=== PATIENT | male | born 1930 | race Two or more races ===

== ENCOUNTER 2016-11-20 13:33 | Inpatient (IN) | payer MEDICARE, OTHER ==
[2016-11-20] VITALS (16 sets, daily range): BP systolic 71–134; BP diastolic 45–77
[~2016-11-20] VITALS: Ht 152.4 cm; Wt 72.6 kg
[2016-11-20] MEDS ORDERED: Cefepime HCl 2 GM in NS 55 ML IV SCH (14:15)
--- NOTE | 2016-11-20 14:20 | Emergency Room Report ---
History of Present Illness General Chief Complaint: Altered Level of Consciousness Source: EMS Present Illness HPI 86YOM with dementia BIBEMS from home for "more altered than usual." No family members bedside EMS not currently present Unknown time of last seen normal Patient not providing HPI currently HPI otherwise limited by AMS Allergies: Coded Allergies: No Known Allergies (Unverified , 11/20/16) Patient History Limited by: age, medical condition Past Medical History: unable to obtain, dementia Past Surgical History: unable to obtain Pertinent Family History: unable to obtain Social History: Denies: smoking, alcohol use, drug use Immunizations: UTD Reviewed Nursing Documentation: PMH: Agreed, PSxH: Agreed Nursing Documentation-PMH Past Medical History: No History, Except For Hx Pacemaker: Yes Hx Diabetes: Yes Hx Neurological Problems: Yes - Alzheimer's disease Review of Systems All Other Systems: limited - AMS Physical Exam Vital Signs Date Time Temp Pulse Resp B/P (MAP) Pulse Ox O2 Delivery O2 Flow Rate FiO2 11/20/16 13:35 97.9 79 24 79/50 96 Room Air Sp02 EP Interpretation: reviewed, normal, abnormal General Appearance: normal inspection, no apparent distress, cachetic, thin, Chronically Ill Head: normocephalic, atraumatic Eyes: bilateral eye PERRL, bilateral eye EOMI ENT: normal ENT inspection, hearing grossly normal, normal pharynx, no angioedema, other - non verbal Neck: normal inspection, full range of motion, supple, no meningismus, no bony tend Respiratory: normal inspection, no respiratory distress, no retraction, no accessory muscle use, no wheezing, other - Bilateral rhonchi Cardiovascular #1: regular rate, rhythm, no edema Gastrointestinal: normal inspection, normal bowel sounds, non tender, soft, no mass, non-distended, no guarding, no hernia, no pulsatile mass, no rebound Genitourinary: no CVA tenderness Musculoskeletal: normal inspection, back normal, normal range of motion, Yogi' s Sign negative Neurologic: normal inspection, alert, responsive, other - Squeezes right/left hand on command. Does not move legs on command. Eyes closed Psychiatric: normal inspection, judgement/insight normal, mood/affect normal Skin: normal inspection, normal color, no rash Lymphatic: normal inspection Procedures Critical Care Time Critical Care Time 40minutes of CC time including d/w family, review of labs, imaging, d/w hospitalist, multiple bedside reassessment of fluid responsiveness, dosing of Abx Central Line Central Line : Consent: Emergent Central Line Lumen: triple Maximal Sterile Barrier Tech: yes cap, yes mask, yes sterile gown, yes sterile gloves, yes large sterile sheet, yes hand hygiene, yes chlorhexidine prep No Max Barrier Tech Because: emergency insertion Central Line Postion: femoral (R) Anesthesia: Lidocaine Complications: none Central Line Post Position: sutured, good blood return Attempts: One Patient Tolerated: Well Complications: None Intubation Intubation : Consent: Emergent Intubation Method: orotracheal Tube Size (cm): 7.5 Medications: Etomidate, Rocuronium Breath Sounds after Intubation: equal Intubation Complications: no complications Attempts: One Patient Tolerated: Well Complications: None Medical Decision Making Medicare Attestation I Rosanna Devi MD hereby attest that the medical record entry for date of service, 11/20/16 accurately reflects signatures/notations that I made in my capacity as MD when I treated/diagnosed the above listed Medicare beneficiary. I attest that this information is true, accurate and complete to the best of my knowledge. I understand that any falsification, omission, or concealment of material fact may subject me to administrative, civil, or criminal liability. This patient warrants hospital admission for extreme of age and has a condition that cannot be treated as outpatient. Diagnostic Impression: Primary Impression: Altered level of consciousness Additional Impressions: Sepsis Qualified Codes: A41.9 - Sepsis, unspecified organism UTI (urinary tract infection) Qualified Codes: N30.00 - Acute cystitis without hematuria Hyperkalemia Lactic acid acidosis ER Course Initial BP was hypotensive- was given 500cc fluid but on concern for additional fluid and unknown EF/cardiac history had central line placed with pressors started Afebrile O2 sat <80, improved ti 100% on NRB but then continued to downtrend - was emergently intubated for hypoxia CT head: no acute CVA Labs: Leuks 40k. Hb 8.5 Elevated potassium with ventricular paced rhythym on ECG. Elevated serum Cr. Unknown renal history HyperK tx with calcium, nebs, glucose/insulin and kayexelate Dx: Sepsis, possibly septic shock, hyperkalemia, renal failure, lactic acidosis Blood, urine Cx sent Empiric Abx given for UTI Spoke to son bedside. He wanted "everything done" including central line and intubation. Endorsed to Dr Matthews for ICU admit at 340pm EKG Diagnostic Results Rate: other - Ventricular paced Rhythm: NSR ST Segments: no acute changes ASA given to the pt in ED: No Rhythm Strip Diag. Results EP Interpretation: yes Rate: 70 Rhythm: NSR, no PVC's, no ectopy Chest X-Ray Diagnostic Results Chest X-Ray Diagnostic Results : Chest X-Ray Ordered: Yes # of Views/Limited/Complete: 1 View Indication: Other - AMS EP Interpretation: Yes Interpretation: no consolidation, no effusion, no pneumothorax, other - pacemaker Impression: Other - ET tube in satisfactory position Electronically Signed by: Dr Rosanna Devi MD Last Vital Signs Date Time Temp Pulse Resp B/P (MAP) Pulse Ox O2 Delivery O2 Flow Rate FiO2 11/20/16 13:35 97.9 79 24 79/50 96 Room Air Status: improved Disposition: ADMITTED INPATIENT Condition: Critical ROSANNA DEVI M.D. Nov 20, 2016 14:20
--- NOTE | 2016-11-20 14:36 | Diagnostic Imaging Report ---
Indication: Headache Technique: Contiguous 5 mm thick transaxial imaging of the head obtained in a Siemens Sensation [address] scanner. Soft tissue and bone windows generated. Total Dose length Product (DLP): [address] Dose Index Volume (CTDIvol): 70.38, 0.15 mGy Comparison: none Findings: There is moderate prominence of the ventricles, basal cisterns, and cerebral sulci consistent with atrophy. Moderate, nonspecific, white matter hypoattenuation is noted throughout the brain consistent with chronic small vessel disease. There is no midline shift, edema, acute hemorrhage, mass effect, or abnormal extra-axial fluid collections. Bones and extra osseous soft tissues are unremarkable. Impression: No acute intracranial bleed, mass effect or edema. Moderate atrophy of the brain. Evidence of chronic small vessel disease involving white matter tracts. The CT scanner at [facility] is accredited by the [employer] and the scans are performed using dose optimization techniques as appropriate to a performed exam including Automatic Exposure control.
--- NOTE | 2016-11-20 14:37 | Diagnostic Imaging Report ---
Indication: Dyspnea Comparison: None A single view chest radiograph was obtained. Findings: Heart is enlarged. There is mild left basal atelectasis or scarring. Bones are osteopenic. There is a pacemaker. No evidence of interstitial edema. Impression: Retrocardiac density likely atelectasis or scarring. Pneumonia not entirely excluded. Please correlate clinically.
[2016-11-20 14:43] LABS: APPEARANCE,URINE TURBID; KETONES,URINE NEGATIVE (NEGATIVE); LEUKOCYTE ESTERASE ,URINE 3+ (NEGATIVE); NITRITE,URINE POSITIVE (NEGATIVE); PH,URINE 9 (4.5-8.0); PROTEIN,URINE 3+ (NEGATIVE); UROBILINOGEN,URINE NORMAL MG/DL (0.0-1.0)
[2016-11-20 14:45] LABS: MEAN CORPUSCULAR HEMOGLOBIN 31.2 PG (27.0-31.0); MEAN CORPUSCULAR VOLUME 101 FL (80-99); MEAN PLATELET VOLUME 11.4 FL (6.5-10.1); PLATELET COUNT 237 K/UL (150-450); RED BLOOD COUNT 2.73 M/UL (4.70-6.10); RED CELL DISTRIBUTION WIDTH 15.6 % (11.6-14.8)
[2016-11-20 14:52] LABS: WHITE BLOOD COUNT 43.1 K/UL (4.8-10.8)
[2016-11-20 14:58] LABS: ALANINE AMINOTRANSFERASE 19 U/L (3-41); ALBUMIN/GLOBULIN RATIO 0.8 (1.0-2.7); ANION GAP 19 (5-15); ASPARTATE AMINO TRANSFERASE 34 U/L (5-40); BACTERIA,URINE MANY /HPF; CALCIUM 9.4 mg/dL (8.6-10.2); CARBON DIOXIDE 22 mEQ/L (20-30); CHLORIDE 111 mEQ/L (98-107); CREATININE 6.3 mg/dL (0.7-1.2); HEMOLYSIS 2; POTASSIUM 5.9 mEQ/L (3.4-4.9); RBC,URINE TNTC /HPF (0 - 0); SODIUM 152 mEQ/L (135-145); SQUAMOUS EPITHELIAL CELL,UR FEW /LPF (NONE/OCC); TOTAL PROTEIN 5.4 g/dL (6.6-8.7); WBC,URINE TNTC /HPF (0 - 0)
[2016-11-20 14:59] LABS: REFLEX LACTIC ACID YES OR NO YES
[2016-11-20] MEDS ORDERED: Lidocaine 1% MPF 10mg/ml 5ml ONE (15:02)
[2016-11-20 15:09] LABS: CKMB 18.3 ng/mL (< 6.7)
[2016-11-20] MEDS ORDERED: Levophed 4mg/4mL Inj IV ONE ×2 (15:18→15:40)
[2016-11-20] MEDS ORDERED: Cefepime 1gm vial ONE (15:40)
[2016-11-20] MEDS ORDERED: Sodium Polystyrene Sulfonate 15gm Powder ORAL ONE (15:45)
[2016-11-20] MEDS ORDERED: Calcium Gluconate 1gm/10ml vial IVP ONE (15:45)
[2016-11-20] MEDS ORDERED: Vancomycin 1 GM in D5W 275 ML IVPB ONE (15:45)
[2016-11-20] MEDS ORDERED: Vancomycin 1gm inj IVPB ONE (16:05)
[2016-11-20 16:07] LABS: TROPONIN I 2.115 ng/mL (0.000-0.056)
[2016-11-20] MEDS ORDERED: NS 275 ML ONE (16:07)
[2016-11-20 16:30] LABS: ABG ALLEN TEST POSITIVE; ABG BASE EXCESS -4.9; ABG PCO2 38.7 mmHg (35.0-45.0)
[2016-11-20 16:57] LABS: BAND NEUTROPHILS % (MANUAL) 12 % (0-8); BASOPHILS % (MANUAL) 0 % (0-2); EOSINOPHILS % (MANUAL) 0 % (0-3); LYMPHOCYTES % (MANUAL) 3 % (20-45); NEUTROPHILS % (MANUAL) 83 % (45-75); PLATELET ESTIMATE ADEQUATE; TOTAL CELLS COUNTED 100
[2016-11-20 16:58] LABS: ANISOCYTOSIS 2+; MACROCYTES 2+; POLYCHROMASIA 1+
[2016-11-20 16:59] LABS: HYPOCHROMASIA 2+; PLATELET MORPHOLOGY NORMAL
[2016-11-20] MEDS ORDERED: Lidocaine 1% MPF 10mg/ml 5ml INJ ONE (17:15)
[2016-11-20] MEDS ORDERED: Acetaminophen 650 MG SUPP RECTAL PRN (18:30)
[2016-11-20] MEDS ORDERED: Albuterol/Ipratropium 3ml neb HHN PRN ×2 (18:30)
[2016-11-20] MEDS ORDERED: LORazepam Inj 2mg/ml 1ml IV PRN (18:30)
[2016-11-20] MEDS ORDERED: Miralax 17gm pkt ORAL PRN (18:30)
[2016-11-20 19:12] LABS: URIC ACID 9.5 mg/dL (3.0-7.5)
--- NOTE | 2016-11-20 19:21 | Consultation ---
History of Present Illness General Date patient seen: Nov 20, 2016 Time patient seen: 19:22 Chief Complaint: Altered Level of Consciousness Reason for Consultation: septic shock Present Illness HPI 86 y/o M with hx of Dementia, s/p PPM, ?DM2 (son not sure) is brought to ED via EMS on 11/20 due to worsening AMS. Limited history. No family present and EMS had already left. Patient hypotensive to 70s/30s upon admission, started on pressors. Also intubated in the ED, now transferred to ICU. WBC very elavted, and U/a with significant pyuria. CXR with retrocardiac density. BJORN, lactic acidosis. Per son, patient was fine yesterday. Son was not able to provide more detailed history. Started on IV Vanco and Zosyn. Allergies: Coded Allergies: No Known Allergies (Unverified , 11/20/16) Patient History Healthcare decision maker Resuscitation status Advanced Directive on File Patient History Narrative PMHx: Above FHx: non pertinent from ID Social Hx: unable to obtain given condition Past Medical/Surgical History Past Medical/Surgical History: (1) Septic shock (2) Altered mental status (3) Hyperkalemia (4) UTI (urinary tract infection) (5) Sepsis (6) Lactic acid acidosis (7) Altered level of consciousness Review of Systems ROS Narrative unable to obtain given condition Physical Exam Physical Exam Narrative General Appearance: cachetic, thin, Chronically Ill, intubated HEENT: ETT in place Respiratory: normal inspection, no respiratory distress, no retraction, no accessory muscle use, no wheezing, other - Bilateral rhonchi Cardiovascular : regular rate, rhythm, no edema Musculoskeletal: normal inspection, no edema Neurologic: intubated/sedated Skin: normal inspection, normal color, no rash Abd: BS+, S+D, ND Last 24 Hour Vital Signs Date Time Temp Pulse Resp B/P (MAP) Pulse Ox O2 Delivery O2 Flow Rate FiO2 11/20/16 19:07 60 23 50 11/20/16 18:30 97/51 11/20/16 17:53 25 100 11/20/16 17:30 97.9 60 16 124/59 100 Mechanical Ventilator 15.0 100 11/20/16 17:30 97.9 60 16 124/59 100 Mechanical Ventilator 15.0 100 11/20/16 17:15 124/59 11/20/16 17:00 130/58 11/20/16 16:45 97.9 60 16 128/62 100 Mechanical Ventilator 15.0 100 11/20/16 16:30 97.9 60 16 128/55 100 Mechanical Ventilator 100 11/20/16 16:30 128/55 11/20/16 16:15 120/48 11/20/16 16:15 97.9 60 22 118/57 100 Mechanical Ventilator 15.0 100 11/20/16 16:00 125/53 11/20/16 15:54 60 16 Mechanical Ventilator 100 11/20/16 15:48 71/43 11/20/16 15:45 97.9 60 16 114/52 100 Mechanical Ventilator 100 11/20/16 15:44 60 16 100 11/20/16 15:30 98.4 60 12 71/45 100 Mechanical Ventilator 100 11/20/16 15:20 60 12 71/45 80 Non-Rebreather 15.0 11/20/16 14:00 98.4 60 23 91/56 99 Non-Rebreather 15.0 11/20/16 13:35 97.9 79 24 79/50 96 Room Air Intake and Output 11/20/16 11/21/16 19:00 07:00 Intake Total 55 ml Output Total 30 ml Balance 25 ml Intake IV Total 55 ml Output Urine Total 30 ml # Bowel Movements 2 Laboratory Tests Test 11/20/16 14:00 11/20/16 15:40 11/20/16 16:15 White Blood Count 43.1 K/UL (4.8-10.8) *H Red Blood Count 2.73 M/UL (4.70-6.10) L Hemoglobin 8.5 G/DL (14.2-18.0) L Hematocrit 27.4 % (42.0-52.0) L Mean Corpuscular Volume 101 FL (80-99) H Mean Corpuscular Hemoglobin 31.2 PG (27.0-31.0) H Mean Corpuscular Hemoglobin Concent 31.0 G/DL (32.0-36.0) L Red Cell Distribution Width 15.6 % (11.6-14.8) H Platelet Count 237 K/UL (150-450) Mean Platelet Volume 11.4 FL (6.5-10.1) H Neutrophils (%) (Auto) % (45.0-75.0) Lymphocytes (%) (Auto) % (20.0-45.0) Monocytes (%) (Auto) % (1.0-10.0) Eosinophils (%) (Auto) % (0.0-3.0) Basophils (%) (Auto) % (0.0-2.0) Differential Total Cells Counted 100 Neutrophils % (Manual) 83 % (45-75) H Lymphocytes % (Manual) 3 % (20-45) L Monocytes % (Manual) 2 % (1-10) Eosinophils % (Manual) 0 % (0-3) Basophils % (Manual) 0 % (0-2) Band Neutrophils 12 % (0-8) H Platelet Estimate Adequate Platelet Morphology Normal Polychromasia 1+ Hypochromasia 2+ Anisocytosis 2+ Macrocytosis 2+ Urine Color Pale yellow Urine Appearance Turbid Urine pH 9 (4.5-8.0) Urine Specific [place] 1.015 (1.005-1.035) Urine Protein 3+ (NEGATIVE) H Urine Glucose (UA) Negative (NEGATIVE) Urine Ketones Negative (NEGATIVE) Urine Occult Blood 5+ (NEGATIVE) H Urine Nitrite Positive (NEGATIVE) H Urine Bilirubin Negative (NEGATIVE) Urine Urobilinogen Normal MG/DL (0.0-1.0) Urine Leukocyte Esterase 3+ (NEGATIVE) H Urine RBC Tntc /HPF (0 - 0) H Urine WBC Tntc /HPF (0 - 0) H Urine Squamous Epithelial Cells Few /LPF (NONE/OCC) Urine Bacteria Many /HPF (NONE) H Sodium Level 152 mEQ/L (135-145) H Potassium Level 5.9 mEQ/L (3.4-4.9) H Chloride Level 111 mEQ/L (98-107) H Carbon Dioxide Level 22 mEQ/L (20-30) Anion Gap 19 (5-15) H Blood Urea Nitrogen 167 mg/dL (7-23) H Creatinine 6.3 mg/dL (0.7-1.2) H Estimat Glomerular Filtration Rate mL/min (>60) Glucose Level 146 mg/dL (74-106) H Lactic Acid Level 6.50 mmol/L (0.66-2.22) H 4.10 mmol/L (0.66-2.22) H Uric Acid 9.5 mg/dL (3.0-7.5) H Calcium Level 9.4 mg/dL (8.6-10.2) Total Bilirubin 0.5 mg/dL (0.0-1.2) Aspartate Amino Transf (AST/SGOT) 34 U/L (5-40) Alanine Aminotransferase (ALT/SGPT) 19 U/L (3-41) Alkaline Phosphatase 66 U/L (40-129) Total Creatine Kinase 474 U/L (38-174) H Creatine Kinase MB 18.3 ng/mL (< 6.7) H Creatine Kinase MB Relative Index 3.7 Troponin I 2.115 ng/mL (0.000-0.056) Pro-B-Type Natriuretic Peptide > 38289 pg/mL (0-450) H Total Protein 5.4 g/dL (6.6-8.7) L Albumin 2.4 g/dL (3.5-5.2) L Globulin 3.0 g/dL Albumin/Globulin Ratio 0.8 (1.0-2.7) L Arterial Blood pH 7.341 (7.350-7.450) Arterial Blood Partial Pressure CO2 38.7 mmHg (35.0-45.0) Arterial Blood Partial Pressure O2 311.9 mmHg (75.0-100.0) H Arterial Blood HCO3 20.5 mmol/L (22.0-26.0) L Arterial Blood Oxygen Saturation 99.4 % (92.0-98.0) H Arterial Blood Base Excess -4.9 Chato Test Positive Microbiology Date/Time Source Procedure Growth Status 11/20/16 17:15 Nasal Nares Influenza Types A,B Antigen (LIZA) - Final Complete Height (Feet): 5 Weight (Pounds): 100 Medications Current Medications Medications (Trade) Dose Ordered Sig/Chasidy Route PRN Reason Start Time Stop Time Status Last Admin Dose Admin Acetaminophen (Tylenol) 650 mg Q4H PRN ORAL Mild Pain (Pain Scale 1-3) 11/20/16 18:30 12/20/16 18:29 Acetaminophen (Tylenol) 650 mg Q4H PRN ORAL fever 11/20/16 18:30 12/20/16 18:29 Acetaminophen (Tylenol) 650 mg Q4H PRN RECTAL Mild Pain (Pain Scale 1-3) 11/20/16 18:30 12/20/16 18:29 Albuterol/ Ipratropium (DuoNeb 0.5-3(2.5)mg/3ml) 3 ml EVERY 4 HOURS PRN HHN Shortness of Breath 11/20/16 18:30 11/25/16 18:29 Cefepime HCl 2 gm/ Sodium Chloride 55 ml @ 110 mls/hr Q12H IV 11/20/16 14:15 11/21/16 14:14 11/20/16 15:46 Dextrose 1,000 ml @ 50 mls/hr Q20H IV 11/20/16 18:30 12/20/16 18:29 Dextrose (Dextrose 50%) STAT PRN IV Hypoglycemia 11/20/16 18:30 12/20/16 18:29 Heparin Sodium (Porcine) (Heparin 5000 units/ml) 5,000 units EVERY 12 HOURS SUBQ 11/20/16 21:00 12/20/16 20:59 Lansoprazole (Prevacid) 30 mg QHS GT 11/20/16 21:00 12/20/16 20:59 Lorazepam (Ativan 2mg/ml 1ml) 2 mg EVERY 2 HOURS PRN IV For Anxiety 11/20/16 18:30 11/27/16 18:29 Norepinephrine Bitartrate 4 mg/ Dextrose 254 ml @ 0 mls/hr Q24H IV 11/20/16 18:30 12/20/16 18:29 Norepinephrine Bitartrate 8 mg/ Dextrose 250 ml @ 0 mls/hr Q24H IV 11/20/16 15:30 12/20/16 15:29 11/20/16 15:48 Ondansetron HCl (Zofran ODT) 4 mg Q6H PRN ORAL Nausea & Vomiting 11/20/16 18:30 12/20/16 18:29 Piperacillin Sod/ Tazobactam Sod 3.375 gm/Dextrose 100 ml @ 25 mls/hr EVERY 8 HOURS IV 11/20/16 22:00 11/25/16 21:59 Polyethylene Glycol (Miralax) 17 gm DAILYPRN PRN ORAL Constipation 11/20/16 18:30 12/20/16 18:29 Vancomycin HCl (Vanco rx to dose) 1 ea DAILY PRN MISC SEPSIS 11/20/16 18:30 12/20/16 18:29 UNV Vancomycin HCl 1 gm/Dextrose 275 ml @ 183.3 mls/ hr Q24H IV 11/20/16 23:45 11/25/16 23:44 UNV Assessment/Plan Assessment/Plan Abx: Cefepime x1 11/20 IV Vanco 11/20- Zoyn 11/20- Assesment: Septic shock- likely 2ry to UTI- r/o PNA, r/o bacteremia -U/a WBC too many to count, nit +, leuk +3, ucx p -Bcx p -CXR: Retrocardiac density likely atelectasis or scarring. Pneumonia not entirely excluded. -flu neg Hyperleukocytosis with left shift/bandemia Lactic acidosis BJORN/Renal failure (GFR 5, Cr 6.3) Dementia ?DM2 Plan: -Continue IV Vancomycin -Switch Zosyn to Meropenem to cover for ESBL given septic shock and possible urosepsis -f/u cx -check Cdiff -f/u KUB, renal u.s -Monitor CBC/BMP, temperatures Thank you for this consultation. Will continue to follow along with you. Discussed with RN and son at bedside, Lindsey Willis M.D. Nov 20, 2016 19:21
--- NOTE | 2016-11-20 20:47 | Nephrology Progress Note ---
Assessment/Plan Problem List: (1) Chronic kidney disease (2) Septic shock (3) Hyperkalemia (4) UTI (urinary tract infection) (5) Sepsis (6) Altered mental status (7) Lactic acid acidosis (8) Altered level of consciousness Plan H&P Dictated # [id number] Subjective ROS Limited/Unobtainable: Yes Subjective unresponsive, intubated in the ICU Objective Objective Last 24 Hour Vital Signs Date Time Temp Pulse Resp B/P (MAP) Pulse Ox O2 Delivery O2 Flow Rate FiO2 11/20/16 19:07 60 23 50 11/20/16 19:00 60 16 97/49 100 Mechanical Ventilator 50 11/20/16 18:30 60 18 99/56 98 Mechanical Ventilator 50 11/20/16 18:30 97/51 11/20/16 18:15 60 16 134/49 98 Mechanical Ventilator 100 11/20/16 18:00 98.9 60 16 127/65 98 Mechanical Ventilator 100 11/20/16 17:53 25 100 11/20/16 17:30 97.9 60 16 124/59 100 Mechanical Ventilator 15.0 100 11/20/16 17:30 97.9 60 16 124/59 100 Mechanical Ventilator 15.0 100 11/20/16 17:15 124/59 11/20/16 17:00 130/58 11/20/16 16:45 97.9 60 16 128/62 100 Mechanical Ventilator 15.0 100 11/20/16 16:30 97.9 60 16 128/55 100 Mechanical Ventilator 100 11/20/16 16:30 128/55 11/20/16 16:15 120/48 11/20/16 16:15 97.9 60 22 118/57 100 Mechanical Ventilator 15.0 100 11/20/16 16:00 125/53 11/20/16 15:54 60 16 Mechanical Ventilator 100 11/20/16 15:48 71/43 11/20/16 15:45 97.9 60 16 114/52 100 Mechanical Ventilator 100 11/20/16 15:44 60 16 100 11/20/16 15:30 98.4 60 12 71/45 100 Mechanical Ventilator 100 11/20/16 15:20 60 12 71/45 80 Non-Rebreather 15.0 11/20/16 14:00 98.4 60 23 91/56 99 Non-Rebreather 15.0 11/20/16 13:35 97.9 79 24 79/50 96 Room Air Intake and Output 11/20/16 11/21/16 19:00 07:00 Intake Total 55 ml Output Total 30 ml Balance 25 ml Intake IV Total 55 ml Output Urine Total 30 ml # Bowel Movements 2 Laboratory Tests 11/20/16 14:00: White Blood Count 43.1*H, Red Blood Count 2.73L, Hemoglobin 8.5L, Hematocrit 27.4L, Mean Corpuscular Volume 101H, Mean Corpuscular Hemoglobin 31.2H, Mean Corpuscular Hemoglobin Concent 31.0L, Red Cell Distribution Width 15.6H, Platelet Count 237, Mean Platelet Volume 11.4H, Neutrophils (%) (Auto) , Lymphocytes (%) (Auto) , Monocytes (%) (Auto) , Eosinophils (%) (Auto) , Basophils (%) (Auto) , Differential Total Cells Counted 100, Neutrophils % ( Manual) 83H, Lymphocytes % (Manual) 3L, Monocytes % (Manual) 2, Eosinophils % ( Manual) 0, Basophils % (Manual) 0, Band Neutrophils 12H, Platelet Estimate Adequate, Platelet Morphology Normal, Polychromasia 1+, Hypochromasia 2+, Anisocytosis 2+, Macrocytosis 2+, Urine Color Pale yellow, Urine Appearance Turbid, Urine pH 9, Urine Specific [place] 1.015, Urine Protein 3+H, Urine Glucose (UA) Negative, Urine Ketones Negative, Urine Occult Blood 5+H, Urine Nitrite PositiveH, Urine Bilirubin Negative, Urine Urobilinogen Normal, Urine Leukocyte Esterase 3+H, Urine RBC TntcH, Urine WBC TntcH, Urine Squamous Epithelial Cells Few, Urine Bacteria ManyH, Sodium Level 152H, Potassium Level 5.9H, Chloride Level 111H, Carbon Dioxide Level 22, Anion Gap 19H, Blood Urea Nitrogen 167H, Creatinine 6.3H, Estimat Glomerular Filtration Rate , Glucose Level 146H, Lactic Acid Level 6.50H, Uric Acid 9.5H, Calcium Level 9.4, Total Bilirubin 0.5, Aspartate Amino Transf (AST/SGOT) 34, Alanine Aminotransferase ( ALT/SGPT) 19, Alkaline Phosphatase 66, Total Creatine Kinase 474H, Creatine Kinase MB 18.3H, Creatine Kinase MB Relative Index 3.7, Troponin I 2.115*H, Pro- B-Type Natriuretic Peptide > 52885S, Total Protein 5.4L, Albumin 2.4L, Globulin 3.0, Albumin/Globulin Ratio 0.8L 11/20/16 15:40: Lactic Acid Level 4.10H 11/20/16 16:15: Arterial Blood pH 7.341L, Arterial Blood Partial Pressure CO2 38.7, Arterial Blood Partial Pressure O2 311.9H, Arterial Blood HCO3 20.5L, Arterial Blood Oxygen Saturation 99.4H, Arterial Blood Base Excess -4.9, Chato Test Positive Height (Feet): 5 Weight (Pounds): 126 Neck: non-tender, normal alignment Cardiovascular: normal rate Respiratory/Chest: crackles/rales Abdomen: soft Genitourinary/Rectal: normal genital exam Extremities: moderate edema Neurologic: unresponsive Khushboo Lopez N.P. Nov 20, 2016 20:47
[2016-11-20] MEDS ORDERED: Meropenem 500 MG in NS 55 ML IVPB SCH (21:00)
[2016-11-20] MEDS ORDERED: Heparin 5000 units/ml inj SUBQ SCH (21:00)
[2016-11-20] MEDS: Heparin 5000 units/ml inj SUBQ SCH (21:08)
[2016-11-20 21:26] LABS: ABG PCO2 37.1 mmHg (35.0-45.0)
[2016-11-20 21:27] LABS: ABG ALLEN TEST POSITIVE
--- NOTE | 2016-11-20 22:58 | Infectious Diseases Prog Note ---
Assessment/Plan Problems: (1) HCAP (healthcare-associated pneumonia) Assessment & Plan: WILL START ZYVOX AND MEROPENEM , SEND SPUTUM CULTURE, AND BLOOD CULTURE (2) UTI (urinary tract infection) Assessment & Plan: will start meropenem empirically , pending urine culture results (3) Septic shock Assessment & Plan: due to the above, continue wide spectrum antibiotics , and pressors, pending culture results (4) Lactic acid acidosis Assessment & Plan: due to septic shock, continue hydration and maintain systolic blood pressure above 100 (5) Altered mental status Assessment & Plan: due to septic shock, intubated, on echanical ventilation. recommend neurology eval (6) Sacral decubitus ulcer, stage IV Assessment & Plan: with yellowish exudate, needs to rule out underlying osteomyelitis, will send wound culture, and continue wide spectrum antibiotics, will obtain MRI of the sacrum once clinicaly stable to rule out osteomyelitis (7) BJORN (acute kidney injury) Assessment & Plan: due to septic shock , with electrolytes abnormalities, continue ivf for hydration, monitor renal function and UOP, renal service is following (8) Diabetes mellitus, type II Assessment & Plan: recommend tight glycemic control to keep blood glucose between 80-120 (9) Respiratory failure Assessment & Plan: due to the above, intubated on mechanical ventilation, monitor ABG, and CXR Subjective Allergies: Coded Allergies: No Known Allergies (Unverified , 11/20/16) Objective Vital Signs Last 24 Hour Vital Signs Date Time Temp Pulse Resp B/P (MAP) Pulse Ox O2 Delivery O2 Flow Rate FiO2 11/20/16 22:34 60 19 40 11/20/16 21:30 40 11/20/16 21:14 60 17 50 11/20/16 20:00 50 11/20/16 19:07 60 23 50 11/20/16 19:00 60 16 97/49 100 Mechanical Ventilator 50 11/20/16 18:30 60 18 99/56 98 Mechanical Ventilator 50 11/20/16 18:30 97/51 11/20/16 18:15 60 16 134/49 98 Mechanical Ventilator 100 11/20/16 18:00 98.9 60 16 127/65 98 Mechanical Ventilator 100 11/20/16 17:53 25 100 11/20/16 17:30 97.9 60 16 124/59 100 Mechanical Ventilator 15.0 100 11/20/16 17:30 97.9 60 16 124/59 100 Mechanical Ventilator 15.0 100 11/20/16 17:15 124/59 11/20/16 17:00 130/58 11/20/16 16:45 97.9 60 16 128/62 100 Mechanical Ventilator 15.0 100 11/20/16 16:30 97.9 60 16 128/55 100 Mechanical Ventilator 100 11/20/16 16:30 128/55 11/20/16 16:15 120/48 11/20/16 16:15 97.9 60 22 118/57 100 Mechanical Ventilator 15.0 100 11/20/16 16:00 125/53 11/20/16 15:54 60 16 Mechanical Ventilator 100 11/20/16 15:48 71/43 11/20/16 15:45 97.9 60 16 114/52 100 Mechanical Ventilator 100 11/20/16 15:44 60 16 100 11/20/16 15:30 98.4 60 12 71/45 100 Mechanical Ventilator 100 11/20/16 15:20 60 12 71/45 80 Non-Rebreather 15.0 11/20/16 14:00 98.4 60 23 91/56 99 Non-Rebreather 15.0 11/20/16 13:35 97.9 79 24 79/50 96 Room Air Height (Feet): 5 Weight (Pounds): 126 Microbiology Date/Time Source Procedure Growth Status 11/20/16 17:15 Nasal Nares Influenza Types A,B Antigen (LIZA) - Final Complete Laboratory Tests Test 11/20/16 14:00 11/20/16 15:40 11/20/16 16:15 11/20/16 21:20 White Blood Count 43.1 K/UL (4.8-10.8) *H Red Blood Count 2.73 M/UL (4.70-6.10) L Hemoglobin 8.5 G/DL (14.2-18.0) L Hematocrit 27.4 % (42.0-52.0) L Mean Corpuscular Volume 101 FL (80-99) H Mean Corpuscular Hemoglobin 31.2 PG (27.0-31.0) H Mean Corpuscular Hemoglobin Concent 31.0 G/DL (32.0-36.0) L Red Cell Distribution Width 15.6 % (11.6-14.8) H Platelet Count 237 K/UL (150-450) Mean Platelet Volume 11.4 FL (6.5-10.1) H Neutrophils (%) (Auto) % (45.0-75.0) Lymphocytes (%) (Auto) % (20.0-45.0) Monocytes (%) (Auto) % (1.0-10.0) Eosinophils (%) (Auto) % (0.0-3.0) Basophils (%) (Auto) % (0.0-2.0) Differential Total Cells Counted 100 Neutrophils % (Manual) 83 % (45-75) H Lymphocytes % (Manual) 3 % (20-45) L Monocytes % (Manual) 2 % (1-10) Eosinophils % (Manual) 0 % (0-3) Basophils % (Manual) 0 % (0-2) Band Neutrophils 12 % (0-8) H Platelet Estimate Adequate Platelet Morphology Normal Polychromasia 1+ Hypochromasia 2+ Anisocytosis 2+ Macrocytosis 2+ Urine Color Pale yellow Urine Appearance Turbid Urine pH 9 (4.5-8.0) Urine Specific Preston 1.015 (1.005-1.035) Urine Protein 3+ (NEGATIVE) H Urine Glucose (UA) Negative (NEGATIVE) Urine Ketones Negative (NEGATIVE) Urine Occult Blood 5+ (NEGATIVE) H Urine Nitrite Positive (NEGATIVE) H Urine Bilirubin Negative (NEGATIVE) Urine Urobilinogen Normal MG/DL (0.0-1.0) Urine Leukocyte Esterase 3+ (NEGATIVE) H Urine RBC Tntc /HPF (0 - 0) H Urine WBC Tntc /HPF (0 - 0) H Urine Squamous Epithelial Cells Few /LPF (NONE/OCC) Urine Bacteria Many /HPF (NONE) H Sodium Level 152 mEQ/L (135-145) H Potassium Level 5.9 mEQ/L (3.4-4.9) H Chloride Level 111 mEQ/L (98-107) H Carbon Dioxide Level 22 mEQ/L (20-30) Anion Gap 19 (5-15) H Blood Urea Nitrogen 167 mg/dL (7-23) H Creatinine 6.3 mg/dL (0.7-1.2) H Estimat Glomerular Filtration Rate mL/min (>60) Glucose Level 146 mg/dL (74-106) H Lactic Acid Level 6.50 mmol/L (0.66-2.22) H 4.10 mmol/L (0.66-2.22) H Uric Acid 9.5 mg/dL (3.0-7.5) H Calcium Level 9.4 mg/dL (8.6-10.2) Total Bilirubin 0.5 mg/dL (0.0-1.2) Aspartate Amino Transf (AST/SGOT) 34 U/L (5-40) Alanine Aminotransferase (ALT/SGPT) 19 U/L (3-41) Alkaline Phosphatase 66 U/L (40-129) Total Creatine Kinase 474 U/L (38-174) H Creatine Kinase MB 18.3 ng/mL (< 6.7) H Creatine Kinase MB Relative Index 3.7 Troponin I 2.115 ng/mL (0.000-0.056) Pro-B-Type Natriuretic Peptide > 76487 pg/mL (0-450) H Total Protein 5.4 g/dL (6.6-8.7) L Albumin 2.4 g/dL (3.5-5.2) L Globulin 3.0 g/dL Albumin/Globulin Ratio 0.8 (1.0-2.7) L Arterial Blood pH 7.341 (7.350-7.450) 7.400 (7.350-7.450) Arterial Blood Partial Pressure CO2 38.7 mmHg (35.0-45.0) 37.1 mmHg (35.0-45.0) Arterial Blood Partial Pressure O2 311.9 mmHg (75.0-100.0) H 142.6 mmHg (75.0-100.0) H Arterial Blood HCO3 20.5 mmol/L (22.0-26.0) L 22.5 mmol/L (22.0-26.0) Arterial Blood Oxygen Saturation 99.4 % (92.0-98.0) H 97.9 % (92.0-98.0) Arterial Blood Base Excess -4.9 -2.0 Chato Test Positive Positive Current Medications Medications (Trade) Dose Ordered Sig/Chasidy Route PRN Reason Start Time Stop Time Status Last Admin Dose Admin Acetaminophen (Tylenol) 650 mg Q4H PRN ORAL Mild Pain (Pain Scale 1-3) 11/20/16 18:30 12/20/16 18:29 Acetaminophen (Tylenol) 650 mg Q4H PRN ORAL fever 11/20/16 18:30 12/20/16 18:29 Acetaminophen (Tylenol) 650 mg Q4H PRN RECTAL Mild Pain (Pain Scale 1-3) 11/20/16 18:30 12/20/16 18:29 Albuterol/ Ipratropium (DuoNeb 0.5-3(2.5)mg/3ml) 3 ml EVERY 4 HOURS PRN HHN Shortness of Breath 11/20/16 18:30 11/25/16 18:29 Chlorhexidine Gluconate (Julissa-Hex 2%) 1 applic DAILY TOPIC 11/21/16 09:00 12/21/16 08:59 UNV Dextrose 1,000 ml @ 50 mls/hr Q20H IV 11/20/16 18:30 12/20/16 18:29 11/20/16 19:53 Dextrose (Dextrose 50%) STAT PRN IV Hypoglycemia 11/20/16 18:30 12/20/16 18:29 Dextrose (Dextrose 50%) STAT PRN IV Hypoglycemia 11/20/16 20:15 12/20/16 20:14 Heparin Sodium (Porcine) (Heparin 5000 units/ml) 5,000 units EVERY 12 HOURS SUBQ 11/20/16 21:00 12/20/16 20:59 11/20/16 21:08 Insulin Aspart (NovoLOG) EVERY 6 HOURS SUBQ 11/21/16 00:00 12/21/16 00:00 Lansoprazole (Prevacid) 30 mg QHS GT 11/20/16 21:00 12/20/16 20:59 11/20/16 21:07 Lorazepam (Ativan 2mg/ml 1ml) 2 mg EVERY 2 HOURS PRN IV For Anxiety 11/20/16 18:30 11/27/16 18:29 Meropenem 500 mg/ Sodium Chloride 55 ml @ 110 mls/hr Q24H IVPB 11/20/16 21:00 11/25/16 20:59 11/20/16 21:07 Norepinephrine Bitartrate 4 mg/ Dextrose 254 ml @ 0 mls/hr Q24H IV 11/20/16 18:30 12/20/16 18:29 Norepinephrine Bitartrate 8 mg/ Dextrose 250 ml @ 0 mls/hr Q24H IV 11/20/16 15:30 12/20/16 15:29 11/20/16 15:48 Ondansetron HCl (Zofran ODT) 4 mg Q6H PRN ORAL Nausea & Vomiting 11/20/16 18:30 12/20/16 18:29 Polyethylene Glycol (Miralax) 17 gm DAILYPRN PRN ORAL Constipation 11/20/16 18:30 12/20/16 18:29 Vancomycin HCl (Vanco rx to dose) 1 ea DAILY PRN MISC SEPSIS 11/20/16 18:30 12/20/16 18:29 Kateryna Rizo M.D. Nov 20, 2016 22:58
[2016-11-20] MEDS ORDERED: Amikacin Rx to dose MISC PRN (23:00)
[2016-11-20] MEDS: Meropenem 500 MG in NS 55 ML IVPB SCH (23:00)
[2016-11-20] MEDS ORDERED: Vancomycin 1 GM in D5W 275 ML IV SCH (23:45)
[2016-11-20] MEDS ORDERED: Ertapenem 1 GM in NS 55 ML IV SCH (23:45)
[2016-11-20 23:53] LABS: REFLEX LACTIC ACID YES OR NO YES
[2016-11-21] VITALS (84 sets, daily range): BP systolic 85–130; BP diastolic 40–85
[2016-11-21] MEDS: NovoLOG Insulin Flexpen SUBQ SCH ×4 (00:17→18:17)
[2016-11-21] MEDS ORDERED: Amikacin 500mg/2mL Inj ONE (00:45)
[2016-11-21] MEDS ORDERED: Amikacin 500 MG in NS 110 ML IV ONE (01:00)
--- NOTE | 2016-11-21 01:15 | History and Physical Report ---
DATE OF ADMISSION: 11/20/2016 CHIEF COMPLAINT: Altered mental status. History Of Present Illness: This is an 86 years old very unfortunate Turkish gentleman with past medical history significant for hypertension, diabetes type 2, congestive heart failure with severe ischemic cardiomyopathy, who was presented to the hospital from home after he was noted to have sudden altered mental status. The patient was recently admitted to [facility] on 09/18/2016 through 09/26/2016. At that time, the patient was treated for failure to thrive and was discharged to nursing facility. The patient at that time was status improved from nursing facility and was discharged home and been followed at home. The patient today was noted to be altered than usual, unable to tolerate p.o. intake, and/or communicate and subsequently EMS was called and the patient was transferred to the hospital. Shortly after initial evaluation in the emergency, the patient was noted to be hypotensive and septic and subsequently the patient was intubated in the ER and was admitted to the hospital with hypoxemic respiratory failure as well as severe sepsis, hyperkalemia, and lactic acidosis. Past Medical History/Past Surgical History: As above, history of failure to thrive, coronary artery disease by history, non-ST elevation AK, congestive heart failure with systolic dysfunction, pulmonary hypertension, chronic kidney disease stage 4, prostate cancer, status post radiation therapy, diabetes type 2, hypertension, sick sinus syndrome status post pacemaker, BPH, gout, history of end-stage cardiomyopathy and dementia, anemia of chronic kidney disease, MRSA colonization, and recurrent UTI. The patient has history of gout and Graves disease, H. pylori infection, and bradycardia with sick sinus syndrome, status post pacemaker. Medications: Medications at home significant for metoprolol, allopurinol, Norvasc, Lipitor, colchicine, vitamin D, methimazole, Protonix, and Flomax. ALLERGIES: No known drug allergies. Social History: The patient lives at home. No smoking, alcohol, or drugs. FAMILY HISTORY: Noncontributory. Review Of Systems: Unable to obtain, secondary to the patient's status, however, according to his family, no fever or chills, no nausea or vomiting, decreased by mouth intake, no loss of consciousness in the past, no bowel or urinary incontinence. PHYSICAL EXAMINATION: Vital Signs: On admission, temperature 97.9, pulse of 79, respirations 24, and blood pressure 79/50. General: The patient unresponsive, cannot follow commands, intubated. HEENT: Pupils fixed, anicteric, sluggish. ET tube in the mouth. NECK: Supple. No JVD. LUNGS: Good air entry. Coarse breath sounds. No wheezes. HEART: S1, S2, irregular. Pacemaker left-sided chest wall is noted. ABDOMEN: Soft, nondistended, and nontender. Positive bowel sounds. Extremities: No cyanosis, clubbing, or edema. Muscle atrophy, bilateral lower extremities. Back: Back has sacral decubitus as well as trochanter and upper back ulceration was noted, presented on admission. Neurologic: Unable to obtain secondary to the patient's status and unresponsive, however, spontaneously moving all the extremities upper as well as lower extremity. Laboratory Data: Admission from the ER is significant for sodium 152, potassium 5.9, chloride 111, bicarbonate is 22, BUN 167, creatinine 6.3, glucose is 146, lactic acid is 6.50, calcium is 9.4. AST of 34, ALT of 19. Total CK is 488. Troponin 2.115. ProBNP of greater than 70,000. Urinalysis, +2 protein, +5 occult blood, nitrite positive, tainted RBC, tainted WBC, +2 leukocytes, and many bacteria. ABG on 100% FiO2, pH of 7.34, pCO2 of 38, pO2 of 311, and saturating 99%. Chest x-ray, retrocardiac density likely atelectasis and scarring, pneumonia not entirely excluded. CT of the head without contrast, no acute intracranial bleed, mass effect, or edema, moderate atrophy of the brain, evidence of a chronic small vessel disease involving the white matter fact. EKG is pacing with ventricular rate of 60, no ST elevation was identified, complete pacing. ASSESSMENT: 1. Septic shock. 2. Acute kidney injury on chronic renal insufficiency. 3. Failure to thrive. 4. Acute myocardial infarction with non-ST elevation myocardial infarction. 5. Sick sinus syndrome, status post pacemaker. 6. Prostate cancer. 7. Diabetes type 2. 8. Hypertension. 9. Benign prostatic hypertrophy. 10. Gout. 11. Severe cardiomyopathy. 12. Alzheimer dementia. 13. Anemia of chronic kidney disease. 14. Septic shock. Plan: Admit the patient to ICU after further discussion with the son as well as . The patient at this time is DNR, DNI. We will start the patient on a broad-spectrum antibiotic vancomycin and Zosyn. Follow up with the cultures include laboratory ABGs. Discussed case with Dr. Stokes, Pulmonary Critical Care and heparin subcutaneously 5000 q.12 h. as needed for DVT and we will resume home medications and monitor laboratory closely and consider blood transfusion if the hemoglobin is less. We will follow up with the Nephrology consultation with Dr. Jameson Gonsalez as well as Infectious Disease doctor with Dr. Bhakta. We will follow up with their recommendations. We will review the records from [facility] printed and place in the chart. Teddy Quezada M.D. DR: MYLES JOB#: [id number] CC:
[2016-11-21] MEDS ORDERED: ALLOPURINOL100 M1 ORAL (01:22)
[2016-11-21] MEDS ORDERED: METOPROLOL TAR100 M1 ORAL (01:22)
[2016-11-21] MEDS ORDERED: AMLODIPINE BESY10 MG ORAL (01:22)
[2016-11-21] MEDS ORDERED: PANTOPRAZOLE SO40 MG ORAL (01:22)
[2016-11-21] MEDS ORDERED: TAMSULOSIN HCL0.4 MG ORAL (01:22)
[2016-11-21] MEDS ORDERED: ATORVASTATIN CA20 MG ORAL (01:22)
[2016-11-21] MEDS ORDERED: VITAMIN D250000 UNI1 ORAL (01:22)
[2016-11-21] MEDS ORDERED: COLCHICINE0.6 M1 PO (01:22)
[2016-11-21] MEDS ORDERED: TAPAZOLE5 MG GT (01:22)
--- NOTE | 2016-11-21 04:30 | HX and Phyl Repo 2 Sig ---
DATE OF ADMISSION: 11/20/2016 INTERNAL MEDICINE HISTORY AND PHYSICAL History Of Present Illness: June I mention that the patient is nonverbal at this time. He has been intubated, therefore history was obtained from medical records. The patient is an 86-year-old male, brought to the emergency room with worsening altered level of consciousness. At the time, the patient was brought in by EMS. No family to give information and no prior history from hospital records. Therefore, history is very limited. The patient appears to be in distress with altered mental status. He was therefore intubated and admitted to the intensive care unit. Past Medical History: Unknown, but records show that he has a history of dementia. HOME MEDICATIONS: Unknown. ALLERGIES: He has no known allergies. Social History: No history of smoking, no alcohol use, and no illicit drug use. Review Of Systems: Unobtainable at this time due to the patient's mental status. PHYSICAL EXAMINATION: General: This is an 86-year-old man, intubated on vent settings, in the ICU. He is nonresponsive. Vital Signs: Blood pressure 97/49, heart rate is 60, respiratory rate 16, O2 saturation is 100% on ventilator, and FiO2 is 50. HEENT: Head is normocephalic and atraumatic. He appears nonreactive. He is orally intubated. NECK: Supple. No jugular venous distention noted. LUNGS: Coarse lung sounds. Crackles noted. CARDIOVASCULAR: Regular rate and rhythm. ABDOMEN: Soft and nontender. EXTREMITIES: Bilateral lower extremity edema noted, 2+. NEUROLOGIC: The patient is nonresponsive. Laboratory Data: CBC, white count 43.1, hemoglobin 8.5, hematocrit 27.4, and platelet count of 237,000. BMP, sodium 152, potassium 5.9, chloride 111, bicarbonate 22, BUN 167, creatinine 6.3, and blood glucose is 146. Troponin is 2.115. BNP 70,000. Radiologic Findings: Chest x-ray, impression retrocardiac density likely atelectasis or scarring. Pneumonia not entirely excluded. Head CT impression, no acute intracranial bleed, mass effect, or edema. Moderate atrophy of the brain. Evidence of chronic small vessel disease involving white matter tracts. ASSESSMENT: 1. Sepsis. 2. Congestive heart failure. 3. Chronic kidney disease, stage V. 4. Hypernatremia. 5. Hyperkalemia. 6. Anemia of chronic kidney disease. 7. Elevated troponin. 8. Altered mental status. 9. Lactic acidosis. 10. Urinary tract infection. Plan: We will obtain a Urology consult, Pulmonology consult, as well as Infectious Disease consult. We will obtain a renal ultrasound to evaluate the kidneys. We will monitor intake and output. The patient seems to have multiorgan failure, we will monitor. We will monitor hemoglobin and hematocrit and transfuse as needed. We will start mild hydration with dextrose 5% at 50 mL an hour. Continue pressors and titrate as needed. Monitor the patient's neurological status. Continue DVT prophylaxis. We will monitor intake and output. Continue antibiotics. We will monitor the patient's overall response to treatment. Moreno Ford M.D. Khushboo Lopez DR: JOEL JOB#: [id number] CC:
[2016-11-21 05:00] LABS: MEAN CORPUSCULAR HEMOGLOBIN 32.1 PG (27.0-31.0); MEAN CORPUSCULAR HGB CONC 32.1 G/DL (32.0-36.0); MEAN CORPUSCULAR VOLUME 100 FL (80-99); MEAN PLATELET VOLUME 10.8 FL (6.5-10.1); PLATELET COUNT 200 K/UL (150-450); RED CELL DISTRIBUTION WIDTH 15.5 % (11.6-14.8)
[2016-11-21 05:19] LABS: WHITE BLOOD COUNT 27.5 K/UL (4.8-10.8)
[2016-11-21 05:36] LABS: REFLEX LACTIC ACID YES OR NO YES
[2016-11-21 05:44] LABS: INR 1.7 (0.9-1.1); PROTHROMBIN TIME 17.5 SEC (9.30-11.50)
[2016-11-21 06:14] LABS: HEMOLYSIS 1; IRON < 10 ug/dL (59-158); TOTAL IRON BINDING CAPACITY 90 ug/dL (250-400)
[2016-11-21 06:35] LABS: BILIRUBIN,DIRECT 0.2 mg/dL (0.1-0.3); TOTAL PROTEIN 4.3 g/dL (6.6-8.7)
[2016-11-21 06:36] LABS: ALANINE AMINOTRANSFERASE 41 U/L (3-41); ANION GAP 18 (5-15); ASPARTATE AMINO TRANSFERASE 65 U/L (5-40); CALCIUM 8.6 mg/dL (8.6-10.2); CARBON DIOXIDE 23 mEQ/L (20-30); CHLORIDE 109 mEQ/L (98-107); HEMOLYSIS 0; MAGNESIUM 1.9 mg/dL (1.7-2.5); PHOSPHORUS 4.7 mg/dL (2.5-4.8); POTASSIUM 4.9 mEQ/L (3.4-4.9); SODIUM 150 mEQ/L (135-145); TOTAL PROTEIN 4.3 g/dL (6.6-8.7)
[2016-11-21 07:02] LABS: LACTATE DEHYDROGENASE 243 U/L (135-230)
[2016-11-21] MEDS ORDERED: Pantoprazole Inj IVP SCH (09:00)
[2016-11-21] MEDS ORDERED: Dyna-Hex 2% Top Sol 2oz TOPIC SCH ×2 (09:00→21:00)
--- NOTE | 2016-11-21 09:14 | Infectious Diseases Prog Note ---
Subjective Allergies: Coded Allergies: No Known Allergies (Unverified , 11/20/16) Subjective ENTERED IN ERROR- PATIENT ALREADY BEING FOLLOWED BY ANOTHER ID PROVIDER Objective Vital Signs Last 24 Hour Vital Signs Date Time Temp Pulse Resp B/P (MAP) Pulse Ox O2 Delivery O2 Flow Rate FiO2 11/21/16 08:30 60 18 105/55 100 Mechanical Ventilator 30 11/21/16 08:15 60 18 97/52 100 Mechanical Ventilator 30 11/21/16 08:00 60 11/21/16 08:00 97.8 60 18 100/51 100 Mechanical Ventilator 30 11/21/16 07:45 60 18 100/51 100 Mechanical Ventilator 30 11/21/16 07:30 60 18 100/54 100 Mechanical Ventilator 30 11/21/16 07:15 60 18 102/52 100 Mechanical Ventilator 30 11/21/16 07:04 60 29 30 11/21/16 07:00 60 17 102/52 100 Mechanical Ventilator 30 11/21/16 06:00 60 17 99/50 100 Mechanical Ventilator 30 11/21/16 06:00 99/50 11/21/16 05:45 60 17 99/47 100 Mechanical Ventilator 30 11/21/16 05:30 60 17 85/71 100 Mechanical Ventilator 30 11/21/16 05:15 60 17 104/53 100 Mechanical Ventilator 30 11/21/16 05:00 60 18 88/43 100 Mechanical Ventilator 30 11/21/16 05:00 30 11/21/16 05:00 85/71 11/21/16 04:56 60 17 30 11/21/16 04:45 60 18 88/43 100 Mechanical Ventilator 30 11/21/16 04:30 60 18 94/53 100 Mechanical Ventilator 30 11/21/16 04:15 60 18 96/46 100 Mechanical Ventilator 30 11/21/16 04:00 98.0 60 18 91/44 100 Mechanical Ventilator 35 11/21/16 04:00 60 11/21/16 04:00 91/44 11/21/16 04:00 40 11/21/16 03:45 60 19 90/44 100 Mechanical Ventilator 35 11/21/16 03:30 60 19 92/46 100 Mechanical Ventilator 35 11/21/16 03:15 60 19 98/47 100 Mechanical Ventilator 35 11/21/16 03:00 60 18 102/47 100 Mechanical Ventilator 35 11/21/16 03:00 81/47 10/7/17 02:45 60 22 35 11/21/16 02:30 60 18 94/54 100 Mechanical Ventilator 35 11/21/16 02:00 60 18 98/45 100 Mechanical Ventilator 35 11/21/16 02:00 80/40 11/21/16 01:22 60 20 35 11/21/16 01:00 60 18 86/41 100 Mechanical Ventilator 40 11/21/16 00:00 98.4 60 18 91/48 100 Mechanical Ventilator 40 11/21/16 00:00 60 11/20/16 23:00 60 20 134/77 100 Mechanical Ventilator 40 11/20/16 22:34 60 19 40 11/20/16 22:00 60 19 104/53 100 Mechanical Ventilator 40 11/20/16 21:30 40 11/20/16 21:14 60 17 50 11/20/16 21:00 60 17 104/63 100 Mechanical Ventilator 50 11/20/16 20:00 98.4 60 17 105/54 100 Mechanical Ventilator 50 11/20/16 20:00 60 11/20/16 20:00 50 11/20/16 19:07 60 23 50 11/20/16 19:00 60 16 97/49 100 Mechanical Ventilator 50 11/20/16 18:30 60 18 99/56 98 Mechanical Ventilator 50 11/20/16 18:30 97/51 11/20/16 18:15 60 16 134/49 98 Mechanical Ventilator 100 11/20/16 18:00 98.9 60 16 127/65 98 Mechanical Ventilator 100 11/20/16 17:53 25 100 11/20/16 17:30 97.9 60 16 124/59 100 Mechanical Ventilator 15.0 100 11/20/16 17:30 97.9 60 16 124/59 100 Mechanical Ventilator 15.0 100 11/20/16 17:15 124/59 11/20/16 17:00 130/58 11/20/16 16:45 97.9 60 16 128/62 100 Mechanical Ventilator 15.0 100 11/20/16 16:30 97.9 60 16 128/55 100 Mechanical Ventilator 100 11/20/16 16:30 128/55 11/20/16 16:15 120/48 11/20/16 16:15 97.9 60 22 118/57 100 Mechanical Ventilator 15.0 100 11/20/16 16:00 125/53 11/20/16 15:54 60 16 Mechanical Ventilator 100 11/20/16 15:48 71/43 11/20/16 15:45 97.9 60 16 114/52 100 Mechanical Ventilator 100 11/20/16 15:44 60 16 100 11/20/16 15:30 98.4 60 12 71/45 100 Mechanical Ventilator 100 11/20/16 15:20 60 12 71/45 80 Non-Rebreather 15.0 11/20/16 14:00 98.4 60 23 91/56 99 Non-Rebreather 15.0 11/20/16 13:35 97.9 79 24 79/50 96 Room Air Height (Feet): 5 Weight (Pounds): 128 Microbiology Date/Time Source Procedure Growth Status 11/20/16 17:15 Nasal Nares Influenza Types A,B Antigen (LIZA) - Final Complete 11/20/16 14:00 Urine,Clean Catch Urine Culture - Preliminary Gram Negative Ramirez Resulted Laboratory Tests Test 11/20/16 14:00 11/20/16 15:40 11/20/16 16:15 11/20/16 21:20 White Blood Count 43.1 K/UL (4.8-10.8) *H Red Blood Count 2.73 M/UL (4.70-6.10) L Hemoglobin 8.5 G/DL (14.2-18.0) L Hematocrit 27.4 % (42.0-52.0) L Mean Corpuscular Volume 101 FL (80-99) H Mean Corpuscular Hemoglobin 31.2 PG (27.0-31.0) H Mean Corpuscular Hemoglobin Concent 31.0 G/DL (32.0-36.0) L Red Cell Distribution Width 15.6 % (11.6-14.8) H Platelet Count 237 K/UL (150-450) Mean Platelet Volume 11.4 FL (6.5-10.1) H Neutrophils (%) (Auto) % (45.0-75.0) Lymphocytes (%) (Auto) % (20.0-45.0) Monocytes (%) (Auto) % (1.0-10.0) Eosinophils (%) (Auto) % (0.0-3.0) Basophils (%) (Auto) % (0.0-2.0) Differential Total Cells Counted 100 Neutrophils % (Manual) 83 % (45-75) H Lymphocytes % (Manual) 3 % (20-45) L Monocytes % (Manual) 2 % (1-10) Eosinophils % (Manual) 0 % (0-3) Basophils % (Manual) 0 % (0-2) Band Neutrophils 12 % (0-8) H Platelet Estimate Adequate Platelet Morphology Normal Polychromasia 1+ Hypochromasia 2+ Anisocytosis 2+ Macrocytosis 2+ Urine Color Pale yellow Urine Appearance Turbid Urine pH 9 (4.5-8.0) Urine Specific [place] 1.015 (1.005-1.035) Urine Protein 3+ (NEGATIVE) H Urine Glucose (UA) Negative (NEGATIVE) Urine Ketones Negative (NEGATIVE) Urine Occult Blood 5+ (NEGATIVE) H Urine Nitrite Positive (NEGATIVE) H Urine Bilirubin Negative (NEGATIVE) Urine Urobilinogen Normal MG/DL (0.0-1.0) Urine Leukocyte Esterase 3+ (NEGATIVE) H Urine RBC Tntc /HPF (0 - 0) H Urine WBC Tntc /HPF (0 - 0) H Urine Squamous Epithelial Cells Few /LPF (NONE/OCC) Urine Bacteria Many /HPF (NONE) H Sodium Level 152 mEQ/L (135-145) H Potassium Level 5.9 mEQ/L (3.4-4.9) H Chloride Level 111 mEQ/L (98-107) H Carbon Dioxide Level 22 mEQ/L (20-30) Anion Gap 19 (5-15) H Blood Urea Nitrogen 167 mg/dL (7-23) H Creatinine 6.3 mg/dL (0.7-1.2) H Estimat Glomerular Filtration Rate mL/min (>60) Glucose Level 146 mg/dL (74-106) H Lactic Acid Level 6.50 mmol/L (0.66-2.22) H 4.10 mmol/L (0.66-2.22) H Uric Acid 9.5 mg/dL (3.0-7.5) H Calcium Level 9.4 mg/dL (8.6-10.2) Total Bilirubin 0.5 mg/dL (0.0-1.2) Aspartate Amino Transf (AST/SGOT) 34 U/L (5-40) Alanine Aminotransferase (ALT/SGPT) 19 U/L (3-41) Alkaline Phosphatase 66 U/L (40-129) Total Creatine Kinase 474 U/L (38-174) H Creatine Kinase MB 18.3 ng/mL (< 6.7) H Creatine Kinase MB Relative Index 3.7 Troponin I 2.115 ng/mL (0.000-0.056) Pro-B-Type Natriuretic Peptide > 39654 pg/mL (0-450) H Total Protein 5.4 g/dL (6.6-8.7) L Albumin 2.4 g/dL (3.5-5.2) L Globulin 3.0 g/dL Albumin/Globulin Ratio 0.8 (1.0-2.7) L Arterial Blood pH 7.341 (7.350-7.450) 7.400 (7.350-7.450) Arterial Blood Partial Pressure CO2 38.7 mmHg (35.0-45.0) 37.1 mmHg (35.0-45.0) Arterial Blood Partial Pressure O2 311.9 mmHg (75.0-100.0) H 142.6 mmHg (75.0-100.0) H Arterial Blood HCO3 20.5 mmol/L (22.0-26.0) L 22.5 mmol/L (22.0-26.0) Arterial Blood Oxygen Saturation 99.4 % (92.0-98.0) H 97.9 % (92.0-98.0) Arterial Blood Base Excess -4.9 -2.0 Chato Test Positive Positive Test 11/20/16 21:45 11/21/16 00:35 11/21/16 04:30 Lactic Acid Level 3.40 mmol/L (0.66-2.22) H 2.90 mmol/L (0.66-2.22) H Stool Occult Blood Pending White Blood Count 27.5 K/UL (4.8-10.8) *H Red Blood Count 2.40 M/UL (4.70-6.10) L Hemoglobin 7.7 G/DL (14.2-18.0) L Hematocrit 24.0 % (42.0-52.0) L Mean Corpuscular Volume 100 FL (80-99) H Mean Corpuscular Hemoglobin 32.1 PG (27.0-31.0) H Mean Corpuscular Hemoglobin Concent 32.1 G/DL (32.0-36.0) Red Cell Distribution Width 15.5 % (11.6-14.8) H Platelet Count 200 K/UL (150-450) Mean Platelet Volume 10.8 FL (6.5-10.1) H Neutrophils (%) (Auto) % (45.0-75.0) Lymphocytes (%) (Auto) % (20.0-45.0) Monocytes (%) (Auto) % (1.0-10.0) Eosinophils (%) (Auto) % (0.0-3.0) Basophils (%) (Auto) % (0.0-2.0) Neutrophils % (Manual) Pending Lymphocytes % (Manual) Pending Platelet Estimate Pending Platelet Morphology Pending Erythrocyte Sedimentation Rate Pending Reticulocyte Count Pending Prothrombin Time 17.5 SEC (9.30-11.50) H Prothromb Time International Ratio 1.7 (0.9-1.1) H Activated Partial Thromboplast Time 35 SEC (23-33) H Sodium Level 150 mEQ/L (135-145) H Potassium Level 4.9 mEQ/L (3.4-4.9) Chloride Level 109 mEQ/L (98-107) H Carbon Dioxide Level 23 mEQ/L (20-30) Anion Gap 18 (5-15) H Blood Urea Nitrogen 167 mg/dL (7-23) H Creatinine 6.0 mg/dL (0.7-1.2) H Estimat Glomerular Filtration Rate mL/min (>60) Glucose Level 108 mg/dL (74-106) H Calcium Level 8.6 mg/dL (8.6-10.2) Phosphorus Level 4.7 mg/dL (2.5-4.8) Magnesium Level 1.9 mg/dL (1.7-2.5) Iron Level < 10 ug/dL (59-158) L Total Iron Binding Capacity 90 ug/dL (250-400) L Percent Iron Saturation 11 % (15-50) L Unsaturated Iron Binding 80 ug/dL (112-346) L Total Bilirubin 0.4 mg/dL (0.0-1.2) Direct Bilirubin 0.2 mg/dL (0.1-0.3) Aspartate Amino Transf (AST/SGOT) 66 U/L (5-40) H Alanine Aminotransferase (ALT/SGPT) 40 U/L (3-41) Alkaline Phosphatase 73 U/L (40-129) Lactate Dehydrogenase 243 U/L (135-230) H Troponin I 11.770 ng/mL (0.000-0.056) Total Protein 4.3 g/dL (6.6-8.7) L Albumin 2.0 g/dL (3.5-5.2) L Globulin 2.1 g/dL Albumin/Globulin Ratio 1.0 (1.0-2.7) Carcinoembryonic Antigen 4.5 ng/mL H Vitamin B12 Level 934 pg/mL (211-946) Folate Pending Random Vancomycin Level 11.1 ug/mL Current Medications Medications (Trade) Dose Ordered Sig/Chasidy Route PRN Reason Start Time Stop Time Status Last Admin Dose Admin Acetaminophen (Tylenol) 650 mg Q4H PRN ORAL Mild Pain (Pain Scale 1-3) 11/20/16 18:30 12/20/16 18:29 Acetaminophen (Tylenol) 650 mg Q4H PRN ORAL fever 11/20/16 18:30 12/20/16 18:29 Acetaminophen (Tylenol) 650 mg Q4H PRN RECTAL Mild Pain (Pain Scale 1-3) 11/20/16 18:30 12/20/16 18:29 Albuterol/ Ipratropium (DuoNeb 0.5-3(2.5)mg/3ml) 3 ml EVERY 4 HOURS PRN HHN Shortness of Breath 11/20/16 18:30 11/25/16 18:29 Amikacin Protocol (Amikacin pharmacy to dose) 1 ea DAILY PRN MISC Per rx protocol 11/20/16 23:00 12/20/16 22:59 Chlorhexidine Gluconate (Julissa-Hex 2%) 1 applic DAILY TOPIC 11/21/16 09:00 12/21/16 08:59 Dextrose 1,000 ml @ 50 mls/hr Q20H IV 11/20/16 18:30 12/20/16 18:29 11/20/16 19:53 Dextrose (Dextrose 50%) STAT PRN IV Hypoglycemia 11/20/16 18:30 12/20/16 18:29 Dextrose (Dextrose 50%) STAT PRN IV Hypoglycemia 11/20/16 20:15 12/20/16 20:14 Heparin Sodium (Porcine) (Heparin 5000 units/ml) 5,000 units EVERY 12 HOURS SUBQ 11/20/16 21:00 12/20/16 20:59 11/20/16 21:08 Insulin Aspart (NovoLOG) EVERY 6 HOURS SUBQ 11/21/16 00:00 12/21/16 00:00 11/21/16 06:14 Lansoprazole (Prevacid) 30 mg QHS GT 11/20/16 21:00 12/20/16 20:59 11/20/16 21:07 Linezolid 300 ml @ 300 mls/hr Q12HR IVPB 11/20/16 23:00 11/27/16 22:59 11/21/16 00:30 Lorazepam (Ativan 2mg/ml 1ml) 2 mg EVERY 2 HOURS PRN IV For Anxiety 11/20/16 18:30 11/27/16 18:29 Meropenem 500 mg/ Sodium Chloride 55 ml @ 110 mls/hr Q24H IVPB 11/20/16 23:00 11/25/16 22:59 Norepinephrine Bitartrate 4 mg/ Dextrose 254 ml @ 0 mls/hr Q24H IV 11/20/16 18:30 12/20/16 18:29 Norepinephrine Bitartrate 8 mg/ Dextrose 250 ml @ 0 mls/hr Q24H IV 11/20/16 15:30 12/20/16 15:29 11/20/16 15:48 Ondansetron HCl (Zofran ODT) 4 mg Q6H PRN ORAL Nausea & Vomiting 11/20/16 18:30 12/20/16 18:29 Polyethylene Glycol (Miralax) 17 gm DAILYPRN PRN ORAL Constipation 11/20/16 18:30 12/20/16 18:29 Lindsey Willis M.D. Nov 21, 2016 09:14
--- NOTE | 2016-11-21 09:25 | Diagnostic Imaging Report ---
Indication: Elevated renal function test Technique: Renal ultrasound Comparison: None Findings: The right kidney measures 9.3 cm in length. Left kidney measures 9.1 cm in length. Left kidney is not well visualized. There is mild apparent increased echogenicity of the bilateral kidneys. No hydronephrosis is seen. Bilateral renal cysts are seen measuring up to 4.6 cm on the right and 6.9 cm on the left. The visualized IVC is unremarkable. Bladder is not well distended limiting evaluation. Impression: No obvious hydronephrosis. Bilateral renal cysts. Left kidney not well visualized. Mild apparent increased echogenicity of the kidneys may suggest underlying medical renal disease. Clinical correlation recommended.
[2016-11-21 09:53] LABS: ANISOCYTOSIS 1+; BAND NEUTROPHILS % (MANUAL) 2 % (0-8); BASOPHILS % (MANUAL) 0 % (0-2); EOSINOPHILS % (MANUAL) 0 % (0-3); HYPOCHROMASIA 1+; LYMPHOCYTES % (MANUAL) 2 % (20-45); MACROCYTES 1+; NEUTROPHILS % (MANUAL) 95 % (45-75); PLATELET ESTIMATE ADEQUATE; PLATELET MORPHOLOGY NORMAL; TOTAL CELLS COUNTED 100
[2016-11-21 09:59] LABS: ERYTHROCYTE SEDIMENTATION RATE 65 MM/HR (0-30); PATH BLOOD SMEAR/OMC SENT TO PATHOLOGIST
--- NOTE | 2016-11-21 10:09 | Consultation ---
Consult Note Consult Note asked to eval for renal failure [id number] with dementia BIBEMS from home for "more altered than usual." No family members bedside EMS not currently present Unknown time of last seen normal Patient not providing HPI currently HPI otherwise limited by AMS Past Medical History: No History, Except For Hx Pacemaker: Yes Hx Diabetes: Yes Hx Neurological Problems: Yes - Alzheimer's disease examined- data reviewed- discussed with event sales manager/Plan 1. Septic shock. 2. Acute kidney injury on chronic renal insufficiency. 3. Failure to thrive. 4. Acute myocardial infarction with non-ST elevation myocardial infarction. 5. Sick sinus syndrome, status post pacemaker. 6. Prostate cancer. 7. Diabetes type 2. 8. Hypertension. 9. Benign prostatic hypertrophy. 10. Gout. 11. Severe cardiomyopathy. 12. Alzheimer dementia. 13. Anemia of chronic kidney disease. 14. DNR Plan; Pressors- [place]- per consultants- Poor prognosis- dialysis indicated however due to hemodynamic state and poor prognosis and DNR, is not advised ! ? transfuse ?? FELECIA RASHID Nov 21, 2016 10:09
[2016-11-21] MEDS: Heparin 5000 units/ml inj SUBQ SCH ×2 (10:10→20:45)
--- NOTE | 2016-11-21 10:13 | General Progress Note ---
Subjective Allergies: Coded Allergies: No Known Allergies (Unverified , 11/20/16) Subjective WILL SIGN OFF. DR. LYON TO FOLLOW. Objective Last 24 Hour Vital Signs Date Time Temp Pulse Resp B/P (MAP) Pulse Ox O2 Delivery O2 Flow Rate FiO2 11/21/16 09:18 60 18 30 11/21/16 09:00 60 18 95/49 100 Mechanical Ventilator 30 11/21/16 09:00 95/49 11/21/16 08:30 60 18 105/55 100 Mechanical Ventilator 30 11/21/16 08:15 60 18 97/52 100 Mechanical Ventilator 30 11/21/16 08:00 60 11/21/16 08:00 97.8 60 18 100/51 100 Mechanical Ventilator 30 11/21/16 08:00 98/53 11/21/16 07:45 60 18 100/51 100 Mechanical Ventilator 30 11/21/16 07:30 60 18 100/54 100 Mechanical Ventilator 30 11/21/16 07:15 60 18 102/52 100 Mechanical Ventilator 30 11/21/16 07:04 60 29 30 11/21/16 07:00 102/52 11/21/16 07:00 60 17 102/52 100 Mechanical Ventilator 30 11/21/16 06:00 60 17 99/50 100 Mechanical Ventilator 30 11/21/16 06:00 99/50 11/21/16 05:45 60 17 99/47 100 Mechanical Ventilator 30 11/21/16 05:30 60 17 85/71 100 Mechanical Ventilator 30 11/21/16 05:15 60 17 104/53 100 Mechanical Ventilator 30 11/21/16 05:00 60 18 88/43 100 Mechanical Ventilator 30 11/21/16 05:00 30 11/21/16 05:00 85/71 11/21/16 04:56 60 17 30 11/21/16 04:45 60 18 88/43 100 Mechanical Ventilator 30 11/21/16 04:30 60 18 94/53 100 Mechanical Ventilator 30 11/21/16 04:15 60 18 96/46 100 Mechanical Ventilator 30 11/21/16 04:00 98.0 60 18 91/44 100 Mechanical Ventilator 35 11/21/16 04:00 60 11/21/16 04:00 91/44 11/21/16 04:00 40 11/21/16 03:45 60 19 90/44 100 Mechanical Ventilator 35 11/21/16 03:30 60 19 92/46 100 Mechanical Ventilator 35 11/21/16 03:15 60 19 98/47 100 Mechanical Ventilator 35 11/21/16 03:00 60 18 102/47 100 Mechanical Ventilator 35 11/21/16 03:00 81/47 11/21/16 02:45 60 22 35 11/21/16 02:30 60 18 94/54 100 Mechanical Ventilator 35 11/21/16 02:00 60 18 98/45 100 Mechanical Ventilator 35 11/21/16 02:00 80/40 11/21/16 01:22 60 20 35 11/21/16 01:00 60 18 86/41 100 Mechanical Ventilator 40 11/21/16 00:00 98.4 60 18 91/48 100 Mechanical Ventilator 40 11/21/16 00:00 60 11/20/16 23:00 60 20 134/77 100 Mechanical Ventilator 40 11/20/16 22:34 60 19 40 11/20/16 22:00 60 19 104/53 100 Mechanical Ventilator 40 11/20/16 21:30 40 11/20/16 21:14 60 17 50 11/20/16 21:00 60 17 104/63 100 Mechanical Ventilator 50 11/20/16 20:00 98.4 60 17 105/54 100 Mechanical Ventilator 50 11/20/16 20:00 60 11/20/16 20:00 50 11/20/16 19:07 60 23 50 11/20/16 19:00 60 16 97/49 100 Mechanical Ventilator 50 11/20/16 18:30 60 18 99/56 98 Mechanical Ventilator 50 11/20/16 18:30 97/51 11/20/16 18:15 60 16 134/49 98 Mechanical Ventilator 100 11/20/16 18:00 98.9 60 16 127/65 98 Mechanical Ventilator 100 11/20/16 17:53 25 100 11/20/16 17:30 97.9 60 16 124/59 100 Mechanical Ventilator 15.0 100 17 17:30 97.9 60 16 124/59 100 Mechanical Ventilator 15.0 100 17 17:15 124/59 17 17:00 130/58 17 16:45 97.9 60 16 128/62 100 Mechanical Ventilator 15.0 100 11/20/16 16:30 97.9 60 16 128/55 100 Mechanical Ventilator 100 11/20/16 16:30 128/55 11/20/16 16:15 120/48 11/20/16 16:15 97.9 60 22 118/57 100 Mechanical Ventilator 15.0 100 11/20/16 16:00 125/53 11/20/16 15:54 60 16 Mechanical Ventilator 100 11/20/16 15:48 71/43 11/20/16 15:45 97.9 60 16 114/52 100 Mechanical Ventilator 100 11/20/16 15:44 60 16 100 11/20/16 15:30 98.4 60 12 71/45 100 Mechanical Ventilator 100 11/20/16 15:20 60 12 71/45 80 Non-Rebreather 15.0 11/20/16 14:00 98.4 60 23 91/56 99 Non-Rebreather 15.0 11/20/16 13:35 97.9 79 24 79/50 96 Room Air Intake and Output 11/21/16 11/22/16 19:00 07:00 Intake Total 156.24 ml Output Total 0 ml Balance 156.24 ml Free Water 30 ml IV Total 126.24 ml Output Urine Total 0 ml Laboratory Tests 11/20/16 14:00: White Blood Count 43.1*H, Red Blood Count 2.73L, Hemoglobin 8.5L, Hematocrit 27.4L, Mean Corpuscular Volume 101H, Mean Corpuscular Hemoglobin 31.2H, Mean Corpuscular Hemoglobin Concent 31.0L, Red Cell Distribution Width 15.6H, Platelet Count 237, Mean Platelet Volume 11.4H, Neutrophils (%) (Auto) , Lymphocytes (%) (Auto) , Monocytes (%) (Auto) , Eosinophils (%) (Auto) , Basophils (%) (Auto) , Differential Total Cells Counted 100, Neutrophils % ( Manual) 83H, Lymphocytes % (Manual) 3L, Monocytes % (Manual) 2, Eosinophils % ( Manual) 0, Basophils % (Manual) 0, Band Neutrophils 12H, Platelet Estimate Adequate, Platelet Morphology Normal, Polychromasia 1+, Hypochromasia 2+, Anisocytosis 2+, Macrocytosis 2+, Urine Color Pale yellow, Urine Appearance Turbid, Urine pH 9, Urine Specific [place] 1.015, Urine Protein 3+H, Urine Glucose (UA) Negative, Urine Ketones Negative, Urine Occult Blood 5+H, Urine Nitrite PositiveH, Urine Bilirubin Negative, Urine Urobilinogen Normal, Urine Leukocyte Esterase 3+H, Urine RBC TntcH, Urine WBC TntcH, Urine Squamous Epithelial Cells Few, Urine Bacteria ManyH, Sodium Level 152H, Potassium Level 5.9H, Chloride Level 111H, Carbon Dioxide Level 22, Anion Gap 19H, Blood Urea Nitrogen 167H, Creatinine 6.3H, Estimat Glomerular Filtration Rate , Glucose Level 146H, Lactic Acid Level 6.50H, Uric Acid 9.5H, Calcium Level 9.4, Total Bilirubin 0.5, Aspartate Amino Transf (AST/SGOT) 34, Alanine Aminotransferase ( ALT/SGPT) 19, Alkaline Phosphatase 66, Total Creatine Kinase 474H, Creatine Kinase MB 18.3H, Creatine Kinase MB Relative Index 3.7, Troponin I 2.115*H, Pro- B-Type Natriuretic Peptide > 68786H, Total Protein 5.4L, Albumin 2.4L, Globulin 3.0, Albumin/Globulin Ratio 0.8L 11/20/16 15:40: Lactic Acid Level 4.10H 11/20/16 16:15: Arterial Blood pH 7.341L, Arterial Blood Partial Pressure CO2 38.7, Arterial Blood Partial Pressure O2 311.9H, Arterial Blood HCO3 20.5L, Arterial Blood Oxygen Saturation 99.4H, Arterial Blood Base Excess -4.9, Chato Test Positive 11/20/16 21:20: Arterial Blood pH 7.400, Arterial Blood Partial Pressure CO2 37.1, Arterial Blood Partial Pressure O2 142.6H, Arterial Blood HCO3 22.5, Arterial Blood Oxygen Saturation 97.9, Arterial Blood Base Excess -2.0, Chato Test Positive 11/20/16 21:45: Lactic Acid Level 3.40H 11/21/16 00:35: Stool Occult Blood [Pending] 11/21/16 04:30: Lactic Acid Level 2.90H, White Blood Count 27.5*H, Red Blood Count 2.40L, Hemoglobin 7.7L, Hematocrit 24.0L, Mean Corpuscular Volume 100H, Mean Corpuscular Hemoglobin 32.1H, Mean Corpuscular Hemoglobin Concent 32.1, Red Cell Distribution Width 15.5H, Platelet Count 200, Mean Platelet Volume 10.8H, Neutrophils (%) (Auto) , Lymphocytes (%) (Auto) , Monocytes (%) (Auto) , Eosinophils (%) (Auto) , Basophils (%) (Auto) , Differential Total Cells Counted 100, Neutrophils % (Manual) 95H, Lymphocytes % (Manual) 2L, Monocytes % (Manual) 1, Eosinophils % (Manual) 0, Basophils % (Manual) 0, Band Neutrophils 2 , Platelet Estimate Adequate, Platelet Morphology Normal, Hypochromasia 1+, Anisocytosis 1+, Macrocytosis 1+, Erythrocyte Sedimentation Rate 65H, Reticulocyte Count [Pending], Prothrombin Time 17.5H, Prothromb Time International Ratio 1.7H, Activated Partial Thromboplast Time 35H, Sodium Level 150H, Potassium Level 4.9, Chloride Level 109H, Carbon Dioxide Level 23, Anion Gap 18H, Blood Urea Nitrogen 167H, Creatinine 6.0H, Estimat Glomerular Filtration Rate , Glucose Level 108H, Calcium Level 8.6, Phosphorus Level 4.7, Magnesium Level 1.9, Iron Level < 10L, Total Iron Binding Capacity 90L, Percent Iron Saturation 11L, Unsaturated Iron Binding 80L, Total Bilirubin 0.4, Direct Bilirubin 0.2, Aspartate Amino Transf (AST/SGOT) 66H, Alanine Aminotransferase ( ALT/SGPT) 40, Alkaline Phosphatase 73, Lactate Dehydrogenase 243H, Troponin I 11.770*H, Total Protein 4.3L, Albumin 2.0L, Globulin 2.1, Albumin/Globulin Ratio 1.0, Carcinoembryonic Antigen 4.5H, Vitamin B12 Level 934, Folate [Pending ], Random Vancomycin Level 11.1 Height (Feet): 5 Weight (Pounds): 128 DIVINA BABCOCK Nov 21, 2016 10:13
--- NOTE | 2016-11-21 10:51 | Pulmonolgy Critical Care Note ---
Critical Care - Asmt/Plan Problems: (1) Acute respiratory failure (2) Septic shock (3) Hyperkalemia (4) Altered mental status (5) Chronic kidney disease (6) HCAP (healthcare-associated pneumonia) (7) Sacral decubitus ulcer, stage IV Respiratory: monitor respiratory rate, adjust FIO2, CXR Cardiac: continue to monitor HR/BP Renal: F/U I&O, keep IV fluid, check electrolytes Infectious Disease: check cultures, continue antibiotics Gastrointestinal: continue feedings/current rate, abdominal imaging Endocrine: monitor blood sugar Hematologic: monitor H/H, transfuse if hgb<8.5 Neurologic: PRN Ativan, keep patient comfortable Affect: PRN ativan Prophylaxis: Protonix Notes 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: 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, 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, renal Discussed with: nurses, consultants, 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 management 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 - Objective Last 24 Hour Vital Signs Date Time Temp Pulse Resp B/P (MAP) Pulse Ox O2 Delivery O2 Flow Rate FiO2 11/21/16 10:02 100/47 11/21/16 10:00 60 18 100/47 100 Mechanical Ventilator 30 11/21/16 09:18 60 18 30 11/21/16 09:00 60 18 95/49 100 Mechanical Ventilator 30 11/21/16 09:00 95/49 11/21/16 08:30 60 18 105/55 100 Mechanical Ventilator 30 11/21/16 08:15 60 18 97/52 100 Mechanical Ventilator 30 11/21/16 08:00 60 11/21/16 08:00 97.8 60 18 100/51 100 Mechanical Ventilator 30 11/21/16 08:00 98/53 11/21/16 07:45 60 18 100/51 100 Mechanical Ventilator 30 11/21/16 07:30 60 18 100/54 100 Mechanical Ventilator 30 11/21/16 07:15 60 18 102/52 100 Mechanical Ventilator 30 11/21/16 07:04 60 29 30 11/21/16 07:00 102/52 11/21/16 07:00 60 17 102/52 100 Mechanical Ventilator 30 11/21/16 06:00 60 17 99/50 100 Mechanical Ventilator 30 11/21/16 06:00 99/50 11/21/16 05:45 60 17 99/47 100 Mechanical Ventilator 30 11/21/16 05:30 60 17 85/71 100 Mechanical Ventilator 30 11/21/16 05:15 60 17 104/53 100 Mechanical Ventilator 30 11/21/16 05:00 60 18 88/43 100 Mechanical Ventilator 30 11/21/16 05:00 30 11/21/16 05:00 85/71 11/21/16 04:56 60 17 30 11/21/16 04:45 60 18 88/43 100 Mechanical Ventilator 30 11/21/16 04:30 60 18 94/53 100 Mechanical Ventilator 30 11/21/16 04:15 60 18 96/46 100 Mechanical Ventilator 30 11/21/16 04:00 98.0 60 18 91/44 100 Mechanical Ventilator 35 11/21/16 04:00 60 11/21/16 04:00 91/44 11/21/16 04:00 40 11/21/16 03:45 60 19 90/44 100 Mechanical Ventilator 35 11/21/16 03:30 60 19 92/46 100 Mechanical Ventilator 35 11/21/16 03:15 60 19 98/47 100 Mechanical Ventilator 35 11/21/16 03:00 60 18 102/47 100 Mechanical Ventilator 35 11/21/16 03:00 81/47 11/21/16 02:45 60 22 35 11/21/16 02:30 60 18 94/54 100 Mechanical Ventilator 35 11/21/16 02:00 60 18 98/45 100 Mechanical Ventilator 35 11/21/16 02:00 80/40 11/21/16 01:22 60 20 35 11/21/16 01:00 60 18 86/41 100 Mechanical Ventilator 40 11/21/16 00:00 98.4 60 18 91/48 100 Mechanical Ventilator 40 11/21/16 00:00 60 11/20/16 23:00 60 20 134/77 100 Mechanical Ventilator 40 11/20/16 22:34 60 19 40 11/20/16 22:00 60 19 104/53 100 Mechanical Ventilator 40 11/20/16 21:30 40 11/20/16 21:14 60 17 50 11/20/16 21:00 60 17 104/63 100 Mechanical Ventilator 50 11/20/16 20:00 98.4 60 17 105/54 100 Mechanical Ventilator 50 11/20/16 20:00 60 11/20/16 20:00 50 11/20/16 19:07 60 23 50 11/20/16 19:00 60 16 97/49 100 Mechanical Ventilator 50 11/20/16 18:30 60 18 99/56 98 Mechanical Ventilator 50 11/20/16 18:30 97/51 11/20/16 18:15 60 16 134/49 98 Mechanical Ventilator 100 11/20/16 18:00 98.9 60 16 127/65 98 Mechanical Ventilator 100 11/20/16 17:53 25 100 11/20/16 17:30 97.9 60 16 124/59 100 Mechanical Ventilator 15.0 100 11/20/16 17:30 97.9 60 16 124/59 100 Mechanical Ventilator 15.0 100 11/20/16 17:15 124/59 11/20/16 17:00 130/58 11/20/16 16:45 97.9 60 16 128/62 100 Mechanical Ventilator 15.0 100 11/20/16 16:30 97.9 60 16 128/55 100 Mechanical Ventilator 100 11/20/16 16:30 128/55 11/20/16 16:15 120/48 11/20/16 16:15 97.9 60 22 118/57 100 Mechanical Ventilator 15.0 100 11/20/16 16:00 125/53 11/20/16 15:54 60 16 Mechanical Ventilator 100 11/20/16 15:48 71/43 11/20/16 15:45 97.9 60 16 114/52 100 Mechanical Ventilator 100 11/20/16 15:44 60 16 100 11/20/16 15:30 98.4 60 12 71/45 100 Mechanical Ventilator 100 11/20/16 15:20 60 12 71/45 80 Non-Rebreather 15.0 11/20/16 14:00 98.4 60 23 91/56 99 Non-Rebreather 15.0 11/20/16 13:35 97.9 79 24 79/50 96 Room Air Status: awake Condition: critical HEENT: atraumatic Lungs: clear Heart: regular Abdomen: non-tender, active bowel sounds Extremities: no C/C/E, edema Decubiti: location Micro: Microbiology Date/Time Source Procedure Growth Status 11/20/16 14:15 Blood Blood Culture - Preliminary Resulted 11/20/16 14:00 Blood Blood Culture - Preliminary Resulted 11/20/16 17:15 Nasal Nares Influenza Types A,B Antigen (LIZA) - Final Complete 11/20/16 14:00 Urine,Clean Catch Urine Culture - Preliminary Gram Negative Ramirez Resulted Accucheck: 115 Critical Care - Subjective ROS Limited/Unobtainable: Yes ICU Day: 2 Intubation Day: 2 Condition: critical EKG Rhythm: Sinus Rhythm FI02: 30 Vent Support Breath Rate: 16 Vent Support Mode: AC Vent Tidal Volume: 400 Sputum Amount: Small PIP: 17 Fluids: d5w 50 cc/hour Drips: levophed drip I&O: Intake and Output 11/21/16 11/22/16 19:00 07:00 Intake Total 215.61 ml Output Total 0 ml Balance 215.61 ml Free Water 30 ml IV Total 185.61 ml Output Urine Total 0 ml CXR: ET in good position ET-Tube: 7.5 ET Position: 23 Labs: Laboratory Tests Test 11/20/16 14:00 11/20/16 15:40 11/20/16 16:15 11/20/16 21:20 White Blood Count 43.1 K/UL (4.8-10.8) *H Red Blood Count 2.73 M/UL (4.70-6.10) L Hemoglobin 8.5 G/DL (14.2-18.0) L Hematocrit 27.4 % (42.0-52.0) L Mean Corpuscular Volume 101 FL (80-99) H Mean Corpuscular Hemoglobin 31.2 PG (27.0-31.0) H Mean Corpuscular Hemoglobin Concent 31.0 G/DL (32.0-36.0) L Red Cell Distribution Width 15.6 % (11.6-14.8) H Platelet Count 237 K/UL (150-450) Mean Platelet Volume 11.4 FL (6.5-10.1) H Neutrophils (%) (Auto) % (45.0-75.0) Lymphocytes (%) (Auto) % (20.0-45.0) Monocytes (%) (Auto) % (1.0-10.0) Eosinophils (%) (Auto) % (0.0-3.0) Basophils (%) (Auto) % (0.0-2.0) Differential Total Cells Counted 100 Neutrophils % (Manual) 83 % (45-75) H Lymphocytes % (Manual) 3 % (20-45) L Monocytes % (Manual) 2 % (1-10) Eosinophils % (Manual) 0 % (0-3) Basophils % (Manual) 0 % (0-2) Band Neutrophils 12 % (0-8) H Platelet Estimate Adequate Platelet Morphology Normal Polychromasia 1+ Hypochromasia 2+ Anisocytosis 2+ Macrocytosis 2+ Urine Color Pale yellow Urine Appearance Turbid Urine pH 9 (4.5-8.0) Urine Specific [place] 1.015 (1.005-1.035) Urine Protein 3+ (NEGATIVE) H Urine Glucose (UA) Negative (NEGATIVE) Urine Ketones Negative (NEGATIVE) Urine Occult Blood 5+ (NEGATIVE) H Urine Nitrite Positive (NEGATIVE) H Urine Bilirubin Negative (NEGATIVE) Urine Urobilinogen Normal MG/DL (0.0-1.0) Urine Leukocyte Esterase 3+ (NEGATIVE) H Urine RBC Tntc /HPF (0 - 0) H Urine WBC Tntc /HPF (0 - 0) H Urine Squamous Epithelial Cells Few /LPF (NONE/OCC) Urine Bacteria Many /HPF (NONE) H Sodium Level 152 mEQ/L (135-145) H Potassium Level 5.9 mEQ/L (3.4-4.9) H Chloride Level 111 mEQ/L (98-107) H Carbon Dioxide Level 22 mEQ/L (20-30) Anion Gap 19 (5-15) H Blood Urea Nitrogen 167 mg/dL (7-23) H Creatinine 6.3 mg/dL (0.7-1.2) H Estimat Glomerular Filtration Rate mL/min (>60) Glucose Level 146 mg/dL (74-106) H Lactic Acid Level 6.50 mmol/L (0.66-2.22) H 4.10 mmol/L (0.66-2.22) H Uric Acid 9.5 mg/dL (3.0-7.5) H Calcium Level 9.4 mg/dL (8.6-10.2) Total Bilirubin 0.5 mg/dL (0.0-1.2) Aspartate Amino Transf (AST/SGOT) 34 U/L (5-40) Alanine Aminotransferase (ALT/SGPT) 19 U/L (3-41) Alkaline Phosphatase 66 U/L (40-129) Total Creatine Kinase 474 U/L (38-174) H Creatine Kinase MB 18.3 ng/mL (< 6.7) H Creatine Kinase MB Relative Index 3.7 Troponin I 2.115 ng/mL (0.000-0.056) Pro-B-Type Natriuretic Peptide > 60032 pg/mL (0-450) H Total Protein 5.4 g/dL (6.6-8.7) L Albumin 2.4 g/dL (3.5-5.2) L Globulin 3.0 g/dL Albumin/Globulin Ratio 0.8 (1.0-2.7) L Arterial Blood pH 7.341 (7.350-7.450) 7.400 (7.350-7.450) Arterial Blood Partial Pressure CO2 38.7 mmHg (35.0-45.0) 37.1 mmHg (35.0-45.0) Arterial Blood Partial Pressure O2 311.9 mmHg (75.0-100.0) H 142.6 mmHg (75.0-100.0) H Arterial Blood HCO3 20.5 mmol/L (22.0-26.0) L 22.5 mmol/L (22.0-26.0) Arterial Blood Oxygen Saturation 99.4 % (92.0-98.0) H 97.9 % (92.0-98.0) Arterial Blood Base Excess -4.9 -2.0 Chato Test Positive Positive Test 11/20/16 21:45 11/21/16 00:35 11/21/16 04:30 Lactic Acid Level 3.40 mmol/L (0.66-2.22) H 2.90 mmol/L (0.66-2.22) H Stool Occult Blood Pending White Blood Count 27.5 K/UL (4.8-10.8) *H Red Blood Count 2.40 M/UL (4.70-6.10) L Hemoglobin 7.7 G/DL (14.2-18.0) L Hematocrit 24.0 % (42.0-52.0) L Mean Corpuscular Volume 100 FL (80-99) H Mean Corpuscular Hemoglobin 32.1 PG (27.0-31.0) H Mean Corpuscular Hemoglobin Concent 32.1 G/DL (32.0-36.0) Red Cell Distribution Width 15.5 % (11.6-14.8) H Platelet Count 200 K/UL (150-450) Mean Platelet Volume 10.8 FL (6.5-10.1) H Neutrophils (%) (Auto) % (45.0-75.0) Lymphocytes (%) (Auto) % (20.0-45.0) Monocytes (%) (Auto) % (1.0-10.0) Eosinophils (%) (Auto) % (0.0-3.0) Basophils (%) (Auto) % (0.0-2.0) Differential Total Cells Counted 100 Neutrophils % (Manual) 95 % (45-75) H Lymphocytes % (Manual) 2 % (20-45) L Monocytes % (Manual) 1 % (1-10) Eosinophils % (Manual) 0 % (0-3) Basophils % (Manual) 0 % (0-2) Band Neutrophils 2 % (0-8) Platelet Estimate Adequate Platelet Morphology Normal Hypochromasia 1+ Anisocytosis 1+ Macrocytosis 1+ Erythrocyte Sedimentation Rate 65 MM/HR (0-30) H Reticulocyte Count Pending Prothrombin Time 17.5 SEC (9.30-11.50) H Prothromb Time International Ratio 1.7 (0.9-1.1) H Activated Partial Thromboplast Time 35 SEC (23-33) H Sodium Level 150 mEQ/L (135-145) H Potassium Level 4.9 mEQ/L (3.4-4.9) Chloride Level 109 mEQ/L (98-107) H Carbon Dioxide Level 23 mEQ/L (20-30) Anion Gap 18 (5-15) H Blood Urea Nitrogen 167 mg/dL (7-23) H Creatinine 6.0 mg/dL (0.7-1.2) H Estimat Glomerular Filtration Rate mL/min (>60) Glucose Level 108 mg/dL (74-106) H Calcium Level 8.6 mg/dL (8.6-10.2) Phosphorus Level 4.7 mg/dL (2.5-4.8) Magnesium Level 1.9 mg/dL (1.7-2.5) Iron Level < 10 ug/dL (59-158) L Total Iron Binding Capacity 90 ug/dL (250-400) L Percent Iron Saturation 11 % (15-50) L Unsaturated Iron Binding 80 ug/dL (112-346) L Total Bilirubin 0.4 mg/dL (0.0-1.2) Direct Bilirubin 0.2 mg/dL (0.1-0.3) Aspartate Amino Transf (AST/SGOT) 66 U/L (5-40) H Alanine Aminotransferase (ALT/SGPT) 40 U/L (3-41) Alkaline Phosphatase 73 U/L (40-129) Lactate Dehydrogenase 243 U/L (135-230) H Troponin I 11.770 ng/mL (0.000-0.056) Total Protein 4.3 g/dL (6.6-8.7) L Albumin 2.0 g/dL (3.5-5.2) L Globulin 2.1 g/dL Albumin/Globulin Ratio 1.0 (1.0-2.7) Carcinoembryonic Antigen 4.5 ng/mL H Vitamin B12 Level 934 pg/mL (211-946) Folate Pending Random Vancomycin Level 11.1 ug/mL SAVANNAH SAWYER Nov 21, 2016 10:51
[2016-11-21 11:04] LABS: RETICULOCYTE COUNT 0.8 % (0.0-2.0)
--- NOTE | 2016-11-21 11:08 | Diagnostic Imaging Report ---
Indication: Status post intubation Technique: XRAY CHEST 1 V Comparison: 11/20/16 at 1427 hrs. Findings: Endotracheal tube is now present with tip 1 cm above the stephany. The heart and lungs are stable. There is a left chest pacemaker. Impression: Status post intubation with endotracheal tube tip 1 cm above the stephany and may be pulled back 2 cm. Otherwise stable chest.
--- NOTE | 2016-11-21 11:19 | Diagnostic Imaging Report ---
Indication: Nasogastric tube placement Technique: XRAY ABDOMEN 1VIEW/KUB Comparison: None Findings: Nasogastric tube is within the stomach. There is gaseous distention of the stomach. Bowel gas pattern is otherwise nonspecific. Right femoral catheter is present. Degenerative changes of the spine are seen. Impression: Nasogastric tube placement within the stomach.
--- NOTE | 2016-11-21 11:19 | Diagnostic Imaging Report ---
Indication: Nasogastric tube placement Technique: XRAY ABDOMEN 1VIEW/KUB Comparison: Examination from the same day at 1656 hrs. Findings: Nasogastric tube is within the stomach. There is gaseous distention of the stomach. Bowel gas pattern is otherwise nonspecific. Right femoral catheter is present. Osseous structures are stable. Impression: Nasogastric tube placement within the stomach.
--- NOTE | 2016-11-21 12:41 | Internal Med Progress Note ---
Subjective Date of Service: Nov 21, 2016 Physician Name Taniya Pina Attending Physician Teddy Quezada MD Current Medications Medications (Trade) Dose Ordered Sig/Chasidy Route PRN Reason Start Time Stop Time Status Last Admin Dose Admin Acetaminophen (Tylenol) 650 mg Q4H PRN ORAL Mild Pain (Pain Scale 1-3) 11/20/16 18:30 12/20/16 18:29 11/21/16 12:02 Acetaminophen (Tylenol) 650 mg Q4H PRN ORAL fever 11/20/16 18:30 12/20/16 18:29 Acetaminophen (Tylenol) 650 mg Q4H PRN RECTAL Mild Pain (Pain Scale 1-3) 11/20/16 18:30 12/20/16 18:29 Albuterol/ Ipratropium (DuoNeb 0.5-3(2.5)mg/3ml) 3 ml EVERY 4 HOURS PRN HHN Shortness of Breath 11/20/16 18:30 11/25/16 18:29 Amikacin Protocol (Amikacin pharmacy to dose) 1 ea DAILY PRN MISC Per rx protocol 11/20/16 23:00 12/20/16 22:59 Chlorhexidine Gluconate (Julissa-Hex 2%) 1 applic DAILY TOPIC 11/21/16 09:00 12/21/16 08:59 11/21/16 09:57 Dextrose 1,000 ml @ 150 mls/hr Q6H40M IV 11/21/16 11:15 12/21/16 11:14 11/21/16 12:01 Dextrose (Dextrose 50%) STAT PRN IV Hypoglycemia 11/20/16 20:15 12/20/16 20:14 Heparin Sodium (Porcine) (Heparin 5000 units/ml) 5,000 units EVERY 12 HOURS SUBQ 11/20/16 21:00 12/20/16 20:59 11/21/16 10:10 Insulin Aspart (NovoLOG) EVERY 6 HOURS SUBQ 11/21/16 00:00 12/21/16 00:00 11/21/16 12:03 Lansoprazole (Prevacid) 30 mg QHS GT 11/20/16 21:00 12/20/16 20:59 11/20/16 21:07 Linezolid 300 ml @ 300 mls/hr Q12HR IVPB 11/20/16 23:00 11/27/16 22:59 11/21/16 10:02 Lorazepam (Ativan 2mg/ml 1ml) 2 mg EVERY 2 HOURS PRN IV For Anxiety 11/20/16 18:30 11/27/16 18:29 Meropenem 500 mg/ Sodium Chloride 55 ml @ 110 mls/hr Q24H IVPB 11/20/16 23:00 11/25/16 22:59 Norepinephrine Bitartrate 4 mg/ Dextrose 254 ml @ 0 mls/hr Q24H IV 11/20/16 18:30 12/20/16 18:29 Norepinephrine Bitartrate 8 mg/ Dextrose 250 ml @ 0 mls/hr Q24H IV 11/20/16 15:30 11/21/16 16:59 11/20/16 15:48 Ondansetron HCl (Zofran ODT) 4 mg Q6H PRN ORAL Nausea & Vomiting 11/20/16 18:30 12/20/16 18:29 Polyethylene Glycol (Miralax) 17 gm DAILYPRN PRN ORAL Constipation 11/20/16 18:30 12/20/16 18:29 Allergies: Coded Allergies: No Known Allergies (Unverified , 11/20/16) ROS Limited/Unobtainable: Yes Subjective 86 YO M admitted with respiratory failure and sepsis. Cover for [facility] Jarod-Dr Quezada . ICU. Intubated and sedated. Objective Last Vital Signs Date Time Temp Pulse Resp B/P (MAP) Pulse Ox O2 Delivery O2 Flow Rate FiO2 11/21/16 12:00 30 11/21/16 12:00 97.9 60 18 95/55 100 Mechanical Ventilator 11/20/16 17:30 15.0 General Appearance: WD/WN, lethargic EENT: normal ENT inspection, other - oral intubation Neck: non-tender, normal alignment, supple Cardiovascular: normal peripheral pulses, normal rate, regular rhythm, no gallop/murmur, no JVD Respiratory/Chest: respiratory distress, crackles/rales, rhonchi - bilaterally , expiratory wheezing Abdomen: normal bowel sounds, non tender, soft, no organomegaly, no mass Skin: normal pigmentation, warm/dry Laboratory Tests Test 11/20/16 14:00 11/20/16 15:40 11/20/16 16:15 10/6/17 21:20 White Blood Count 43.1 K/UL (4.8-10.8) *H Red Blood Count 2.73 M/UL (4.70-6.10) L Hemoglobin 8.5 G/DL (14.2-18.0) L Hematocrit 27.4 % (42.0-52.0) L Mean Corpuscular Volume 101 FL (80-99) H Mean Corpuscular Hemoglobin 31.2 PG (27.0-31.0) H Mean Corpuscular Hemoglobin Concent 31.0 G/DL (32.0-36.0) L Red Cell Distribution Width 15.6 % (11.6-14.8) H Platelet Count 237 K/UL (150-450) Mean Platelet Volume 11.4 FL (6.5-10.1) H Neutrophils (%) (Auto) % (45.0-75.0) Lymphocytes (%) (Auto) % (20.0-45.0) Monocytes (%) (Auto) % (1.0-10.0) Eosinophils (%) (Auto) % (0.0-3.0) Basophils (%) (Auto) % (0.0-2.0) Differential Total Cells Counted 100 Neutrophils % (Manual) 83 % (45-75) H Lymphocytes % (Manual) 3 % (20-45) L Monocytes % (Manual) 2 % (1-10) Eosinophils % (Manual) 0 % (0-3) Basophils % (Manual) 0 % (0-2) Band Neutrophils 12 % (0-8) H Platelet Estimate Adequate Platelet Morphology Normal Polychromasia 1+ Hypochromasia 2+ Anisocytosis 2+ Macrocytosis 2+ Urine Color Pale yellow Urine Appearance Turbid Urine pH 9 (4.5-8.0) Urine Specific [place] 1.015 (1.005-1.035) Urine Protein 3+ (NEGATIVE) H Urine Glucose (UA) Negative (NEGATIVE) Urine Ketones Negative (NEGATIVE) Urine Occult Blood 5+ (NEGATIVE) H Urine Nitrite Positive (NEGATIVE) H Urine Bilirubin Negative (NEGATIVE) Urine Urobilinogen Normal MG/DL (0.0-1.0) Urine Leukocyte Esterase 3+ (NEGATIVE) H Urine RBC Tntc /HPF (0 - 0) H Urine WBC Tntc /HPF (0 - 0) H Urine Squamous Epithelial Cells Few /LPF (NONE/OCC) Urine Bacteria Many /HPF (NONE) H Sodium Level 152 mEQ/L (135-145) H Potassium Level 5.9 mEQ/L (3.4-4.9) H Chloride Level 111 mEQ/L (98-107) H Carbon Dioxide Level 22 mEQ/L (20-30) Anion Gap 19 (5-15) H Blood Urea Nitrogen 167 mg/dL (7-23) H Creatinine 6.3 mg/dL (0.7-1.2) H Estimat Glomerular Filtration Rate mL/min (>60) Glucose Level 146 mg/dL (74-106) H Lactic Acid Level 6.50 mmol/L (0.66-2.22) H 4.10 mmol/L (0.66-2.22) H Uric Acid 9.5 mg/dL (3.0-7.5) H Calcium Level 9.4 mg/dL (8.6-10.2) Total Bilirubin 0.5 mg/dL (0.0-1.2) Aspartate Amino Transf (AST/SGOT) 34 U/L (5-40) Alanine Aminotransferase (ALT/SGPT) 19 U/L (3-41) Alkaline Phosphatase 66 U/L (40-129) Total Creatine Kinase 474 U/L (38-174) H Creatine Kinase MB 18.3 ng/mL (< 6.7) H Creatine Kinase MB Relative Index 3.7 Troponin I 2.115 ng/mL (0.000-0.056) Pro-B-Type Natriuretic Peptide > 34686 pg/mL (0-450) H Total Protein 5.4 g/dL (6.6-8.7) L Albumin 2.4 g/dL (3.5-5.2) L Globulin 3.0 g/dL Albumin/Globulin Ratio 0.8 (1.0-2.7) L Arterial Blood pH 7.341 (7.350-7.450) 7.400 (7.350-7.450) Arterial Blood Partial Pressure CO2 38.7 mmHg (35.0-45.0) 37.1 mmHg (35.0-45.0) Arterial Blood Partial Pressure O2 311.9 mmHg (75.0-100.0) H 142.6 mmHg (75.0-100.0) H Arterial Blood HCO3 20.5 mmol/L (22.0-26.0) L 22.5 mmol/L (22.0-26.0) Arterial Blood Oxygen Saturation 99.4 % (92.0-98.0) H 97.9 % (92.0-98.0) Arterial Blood Base Excess -4.9 -2.0 Chato Test Positive Positive Test 11/20/16 21:45 11/21/16 00:35 11/21/16 04:30 Lactic Acid Level 3.40 mmol/L (0.66-2.22) H 2.90 mmol/L (0.66-2.22) H Stool Occult Blood Negative (NEGATIVE) White Blood Count 27.5 K/UL (4.8-10.8) *H Red Blood Count 2.40 M/UL (4.70-6.10) L Hemoglobin 7.7 G/DL (14.2-18.0) L Hematocrit 24.0 % (42.0-52.0) L Mean Corpuscular Volume 100 FL (80-99) H Mean Corpuscular Hemoglobin 32.1 PG (27.0-31.0) H Mean Corpuscular Hemoglobin Concent 32.1 G/DL (32.0-36.0) Red Cell Distribution Width 15.5 % (11.6-14.8) H Platelet Count 200 K/UL (150-450) Mean Platelet Volume 10.8 FL (6.5-10.1) H Neutrophils (%) (Auto) % (45.0-75.0) Lymphocytes (%) (Auto) % (20.0-45.0) Monocytes (%) (Auto) % (1.0-10.0) Eosinophils (%) (Auto) % (0.0-3.0) Basophils (%) (Auto) % (0.0-2.0) Differential Total Cells Counted 100 Neutrophils % (Manual) 95 % (45-75) H Lymphocytes % (Manual) 2 % (20-45) L Monocytes % (Manual) 1 % (1-10) Eosinophils % (Manual) 0 % (0-3) Basophils % (Manual) 0 % (0-2) Band Neutrophils 2 % (0-8) Platelet Estimate Adequate Platelet Morphology Normal Hypochromasia 1+ Anisocytosis 1+ Macrocytosis 1+ Erythrocyte Sedimentation Rate 65 MM/HR (0-30) H Reticulocyte Count 0.8 % (0.0-2.0) Prothrombin Time 17.5 SEC (9.30-11.50) H Prothromb Time International Ratio 1.7 (0.9-1.1) H Activated Partial Thromboplast Time 35 SEC (23-33) H Sodium Level 150 mEQ/L (135-145) H Potassium Level 4.9 mEQ/L (3.4-4.9) Chloride Level 109 mEQ/L (98-107) H Carbon Dioxide Level 23 mEQ/L (20-30) Anion Gap 18 (5-15) H Blood Urea Nitrogen 167 mg/dL (7-23) H Creatinine 6.0 mg/dL (0.7-1.2) H Estimat Glomerular Filtration Rate mL/min (>60) Glucose Level 108 mg/dL (74-106) H Calcium Level 8.6 mg/dL (8.6-10.2) Phosphorus Level 4.7 mg/dL (2.5-4.8) Magnesium Level 1.9 mg/dL (1.7-2.5) Iron Level < 10 ug/dL (59-158) L Total Iron Binding Capacity 90 ug/dL (250-400) L Percent Iron Saturation 11 % (15-50) L Unsaturated Iron Binding 80 ug/dL (112-346) L Total Bilirubin 0.4 mg/dL (0.0-1.2) Direct Bilirubin 0.2 mg/dL (0.1-0.3) Aspartate Amino Transf (AST/SGOT) 66 U/L (5-40) H Alanine Aminotransferase (ALT/SGPT) 40 U/L (3-41) Alkaline Phosphatase 73 U/L (40-129) Lactate Dehydrogenase 243 U/L (135-230) H Troponin I 11.770 ng/mL (0.000-0.056) Total Protein 4.3 g/dL (6.6-8.7) L Albumin 2.0 g/dL (3.5-5.2) L Globulin 2.1 g/dL Albumin/Globulin Ratio 1.0 (1.0-2.7) Carcinoembryonic Antigen 4.5 ng/mL H Vitamin B12 Level 934 pg/mL (211-946) Folate Pending Random Vancomycin Level 11.1 ug/mL Microbiology Date/Time Source Procedure Growth Status 11/20/16 14:15 Blood Blood Culture - Preliminary Resulted 11/20/16 14:00 Blood Blood Culture - Preliminary Resulted 11/20/16 17:15 Nasal Nares Influenza Types A,B Antigen (LIZA) - Final Complete 11/20/16 14:00 Urine,Clean Catch Urine Culture - Preliminary Gram Negative Ramirez Resulted Intake and Output 11/21/16 11/22/16 19:00 07:00 Intake Total 524.98 ml Output Total 350 ml Balance 174.98 ml Free Water 30 ml IV Total 494.98 ml Output Urine Total 350 ml Assessment/Plan Problem List: (1) Respiratory failure Assessment & Plan: See pulmonary note. Cont mech vent per pulmonary (2) Hypotension Assessment & Plan: Due to sepsis. On levophed (3) Renal failure Assessment & Plan: See nephrology note. (4) Diabetes mellitus, type II Assessment & Plan: Cont novolog sliding scale. (5) HTN (hypertension) Assessment & Plan: Currently hypotensive (6) CHF (congestive heart failure) (7) Cardiomyopathy, ischemic (8) Prostate cancer (9) Sick sinus syndrome Assessment & Plan: S/P pacemaker (10) Pacemaker (11) Anemia of renal disease (12) Alzheimer's dementia (13) Septic shock (14) Sepsis (15) Lactic acid acidosis (16) Altered mental status (17) UTI (urinary tract infection) Assessment & Plan: Gram neg ramirez. Await ID and sens. Follow Inf Dis recs. Cont Meropenem for now. (18) Pneumonia Assessment & Plan: Continue vanco and merpoenem per ID Status: not improved TANIYA PINA Nov 21, 2016 12:41
--- NOTE | 2016-11-21 13:49 | Cardiology Progress Note ---
Assessment/Plan Assessment/Plan nstemi trop 11 peak so far non flow limiting cad by cath / Lm 20% 02/2015 cath [facility] atrial fibrillation new cm ef % septic shock bacteria gnr renal insuf anemia ob neg stool respriatory failure acute ams prognosis poor dnr is on vent had ogt will give low dose ecotrin for nwo iv abs on pressors full note dictated Objective Last 24 Hour Vital Signs Date Time Temp Pulse Resp B/P (MAP) Pulse Ox O2 Delivery O2 Flow Rate FiO2 11/21/16 13:05 68 18 30 11/21/16 13:00 60 17 88/48 100 Mechanical Ventilator 30 11/21/16 12:45 60 18 88/47 100 Mechanical Ventilator 30 11/21/16 12:30 60 16 91/47 100 Mechanical Ventilator 30 11/21/16 12:15 60 16 98/49 100 Mechanical Ventilator 30 11/21/16 12:00 30 11/21/16 12:00 97.9 60 18 95/55 100 Mechanical Ventilator 30 11/21/16 11:45 60 18 93/50 100 Mechanical Ventilator 30 11/21/16 11:30 60 17 92/48 100 Mechanical Ventilator 30 11/21/16 11:18 60 18 30 11/21/16 11:15 60 17 98/48 100 Mechanical Ventilator 30 11/21/16 11:00 98/48 11/21/16 11:00 60 18 98/48 100 Mechanical Ventilator 30 11/21/16 10:45 60 17 91/45 100 Mechanical Ventilator 30 11/21/16 10:30 60 16 110/40 100 Mechanical Ventilator 30 11/21/16 10:15 60 16 99/47 100 Mechanical Ventilator 30 11/21/16 10:02 100/47 11/21/16 10:00 60 18 100/47 100 Mechanical Ventilator 30 11/21/16 09:45 60 19 100/50 100 Mechanical Ventilator 30 11/21/16 09:30 60 19 96/51 100 Mechanical Ventilator 30 11/21/16 09:18 60 18 30 11/21/16 09:15 60 19 95/49 100 Mechanical Ventilator 30 11/21/16 09:00 60 18 95/49 100 Mechanical Ventilator 30 11/21/16 09:00 95/49 11/21/16 08:30 60 18 105/55 100 Mechanical Ventilator 30 11/21/16 08:15 60 18 97/52 100 Mechanical Ventilator 30 11/21/16 08:00 60 11/21/16 08:00 30 11/21/16 08:00 97.8 60 18 100/51 100 Mechanical Ventilator 30 11/21/16 08:00 98/53 11/21/16 07:45 60 18 100/51 100 Mechanical Ventilator 30 11/21/16 07:30 60 18 100/54 100 Mechanical Ventilator 30 11/21/16 07:15 60 18 102/52 100 Mechanical Ventilator 30 11/21/16 07:04 60 29 30 11/21/16 07:00 102/52 11/21/16 07:00 60 17 102/52 100 Mechanical Ventilator 30 11/21/16 06:00 60 17 99/50 100 Mechanical Ventilator 30 11/21/16 06:00 99/50 11/21/16 05:45 60 17 99/47 100 Mechanical Ventilator 30 11/21/16 05:30 60 17 85/71 100 Mechanical Ventilator 30 11/21/16 05:15 60 17 104/53 100 Mechanical Ventilator 30 11/21/16 05:00 60 18 88/43 100 Mechanical Ventilator 30 11/21/16 05:00 30 11/21/16 05:00 85/71 11/21/16 04:56 60 17 30 11/21/16 04:45 60 18 88/43 100 Mechanical Ventilator 30 11/21/16 04:30 60 18 94/53 100 Mechanical Ventilator 30 11/21/16 04:15 60 18 96/46 100 Mechanical Ventilator 30 11/21/16 04:00 98.0 60 18 91/44 100 Mechanical Ventilator 35 11/21/16 04:00 60 11/21/16 04:00 91/44 11/21/16 04:00 40 11/21/16 03:45 60 19 90/44 100 Mechanical Ventilator 35 11/21/16 03:30 60 19 92/46 100 Mechanical Ventilator 35 11/21/16 03:15 60 19 98/47 100 Mechanical Ventilator 35 11/21/16 03:00 60 18 102/47 100 Mechanical Ventilator 35 11/21/16 03:00 81/47 11/21/16 02:45 60 22 35 11/21/16 02:30 60 18 94/54 100 Mechanical Ventilator 35 11/21/16 02:00 60 18 98/45 100 Mechanical Ventilator 35 11/21/16 02:00 80/40 10/7/17 01:22 60 20 35 11/21/16 01:00 60 18 86/41 100 Mechanical Ventilator 40 11/21/16 00:00 98.4 60 18 91/48 100 Mechanical Ventilator 40 11/21/16 00:00 60 11/20/16 23:00 60 20 134/77 100 Mechanical Ventilator 40 11/20/16 22:34 60 19 40 11/20/16 22:00 60 19 104/53 100 Mechanical Ventilator 40 11/20/16 21:30 40 11/20/16 21:14 60 17 50 11/20/16 21:00 60 17 104/63 100 Mechanical Ventilator 50 11/20/16 20:00 98.4 60 17 105/54 100 Mechanical Ventilator 50 11/20/16 20:00 60 11/20/16 20:00 50 11/20/16 19:07 60 23 50 11/20/16 19:00 60 16 97/49 100 Mechanical Ventilator 50 11/20/16 18:30 60 18 99/56 98 Mechanical Ventilator 50 11/20/16 18:30 97/51 11/20/16 18:15 60 16 134/49 98 Mechanical Ventilator 100 11/20/16 18:00 98.9 60 16 127/65 98 Mechanical Ventilator 100 11/20/16 17:53 25 100 11/20/16 17:30 97.9 60 16 124/59 100 Mechanical Ventilator 15.0 100 11/20/16 17:30 97.9 60 16 124/59 100 Mechanical Ventilator 15.0 100 11/20/16 17:15 124/59 11/20/16 17:00 130/58 11/20/16 16:45 97.9 60 16 128/62 100 Mechanical Ventilator 15.0 100 11/20/16 16:30 97.9 60 16 128/55 100 Mechanical Ventilator 100 11/20/16 16:30 128/55 11/20/16 16:15 120/48 11/20/16 16:15 97.9 60 22 118/57 100 Mechanical Ventilator 15.0 100 11/20/16 16:00 125/53 11/20/16 15:54 60 16 Mechanical Ventilator 100 11/20/16 15:48 71/43 11/20/16 15:45 97.9 60 16 114/52 100 Mechanical Ventilator 100 11/20/16 15:44 60 16 100 11/20/16 15:30 98.4 60 12 71/45 100 Mechanical Ventilator 100 11/20/16 15:20 60 12 71/45 80 Non-Rebreather 15.0 11/20/16 14:00 98.4 60 23 91/56 99 Non-Rebreather 15.0 Intake and Output 11/21/16 11/22/16 19:00 07:00 Intake Total 524.98 ml Output Total 400 ml Balance 124.98 ml Free Water 30 ml IV Total 494.98 ml Output Urine Total 400 ml Laboratory Tests Test 11/20/16 14:00 11/20/16 15:40 11/20/16 16:15 11/20/16 21:20 White Blood Count 43.1 K/UL (4.8-10.8) *H Red Blood Count 2.73 M/UL (4.70-6.10) L Hemoglobin 8.5 G/DL (14.2-18.0) L Hematocrit 27.4 % (42.0-52.0) L Mean Corpuscular Volume 101 FL (80-99) H Mean Corpuscular Hemoglobin 31.2 PG (27.0-31.0) H Mean Corpuscular Hemoglobin Concent 31.0 G/DL (32.0-36.0) L Red Cell Distribution Width 15.6 % (11.6-14.8) H Platelet Count 237 K/UL (150-450) Mean Platelet Volume 11.4 FL (6.5-10.1) H Neutrophils (%) (Auto) % (45.0-75.0) Lymphocytes (%) (Auto) % (20.0-45.0) Monocytes (%) (Auto) % (1.0-10.0) Eosinophils (%) (Auto) % (0.0-3.0) Basophils (%) (Auto) % (0.0-2.0) Differential Total Cells Counted 100 Neutrophils % (Manual) 83 % (45-75) H Lymphocytes % (Manual) 3 % (20-45) L Monocytes % (Manual) 2 % (1-10) Eosinophils % (Manual) 0 % (0-3) Basophils % (Manual) 0 % (0-2) Band Neutrophils 12 % (0-8) H Platelet Estimate Adequate Platelet Morphology Normal Polychromasia 1+ Hypochromasia 2+ Anisocytosis 2+ Macrocytosis 2+ Urine Color Pale yellow Urine Appearance Turbid Urine pH 9 (4.5-8.0) Urine Specific [place] 1.015 (1.005-1.035) Urine Protein 3+ (NEGATIVE) H Urine Glucose (UA) Negative (NEGATIVE) Urine Ketones Negative (NEGATIVE) Urine Occult Blood 5+ (NEGATIVE) H Urine Nitrite Positive (NEGATIVE) H Urine Bilirubin Negative (NEGATIVE) Urine Urobilinogen Normal MG/DL (0.0-1.0) Urine Leukocyte Esterase 3+ (NEGATIVE) H Urine RBC Tntc /HPF (0 - 0) H Urine WBC Tntc /HPF (0 - 0) H Urine Squamous Epithelial Cells Few /LPF (NONE/OCC) Urine Bacteria Many /HPF (NONE) H Sodium Level 152 mEQ/L (135-145) H Potassium Level 5.9 mEQ/L (3.4-4.9) H Chloride Level 111 mEQ/L (98-107) H Carbon Dioxide Level 22 mEQ/L (20-30) Anion Gap 19 (5-15) H Blood Urea Nitrogen 167 mg/dL (7-23) H Creatinine 6.3 mg/dL (0.7-1.2) H Estimat Glomerular Filtration Rate mL/min (>60) Glucose Level 146 mg/dL (74-106) H Lactic Acid Level 6.50 mmol/L (0.66-2.22) H 4.10 mmol/L (0.66-2.22) H Uric Acid 9.5 mg/dL (3.0-7.5) H Calcium Level 9.4 mg/dL (8.6-10.2) Total Bilirubin 0.5 mg/dL (0.0-1.2) Aspartate Amino Transf (AST/SGOT) 34 U/L (5-40) Alanine Aminotransferase (ALT/SGPT) 19 U/L (3-41) Alkaline Phosphatase 66 U/L (40-129) Total Creatine Kinase 474 U/L (38-174) H Creatine Kinase MB 18.3 ng/mL (< 6.7) H Creatine Kinase MB Relative Index 3.7 Troponin I 2.115 ng/mL (0.000-0.056) Pro-B-Type Natriuretic Peptide > 99693 pg/mL (0-450) H Total Protein 5.4 g/dL (6.6-8.7) L Albumin 2.4 g/dL (3.5-5.2) L Globulin 3.0 g/dL Albumin/Globulin Ratio 0.8 (1.0-2.7) L Arterial Blood pH 7.341 (7.350-7.450) 7.400 (7.350-7.450) Arterial Blood Partial Pressure CO2 38.7 mmHg (35.0-45.0) 37.1 mmHg (35.0-45.0) Arterial Blood Partial Pressure O2 311.9 mmHg (75.0-100.0) H 142.6 mmHg (75.0-100.0) H Arterial Blood HCO3 20.5 mmol/L (22.0-26.0) L 22.5 mmol/L (22.0-26.0) Arterial Blood Oxygen Saturation 99.4 % (92.0-98.0) H 97.9 % (92.0-98.0) Arterial Blood Base Excess -4.9 -2.0 Chat[place] Test Positive Positive Test 11/20/16 21:45 11/21/16 00:35 11/21/16 04:30 Lactic Acid Level 3.40 mmol/L (0.66-2.22) H 2.90 mmol/L (0.66-2.22) H Stool Occult Blood Negative (NEGATIVE) White Blood Count 27.5 K/UL (4.8-10.8) *H Red Blood Count 2.40 M/UL (4.70-6.10) L Hemoglobin 7.7 G/DL (14.2-18.0) L Hematocrit 24.0 % (42.0-52.0) L Mean Corpuscular Volume 100 FL (80-99) H Mean Corpuscular Hemoglobin 32.1 PG (27.0-31.0) H Mean Corpuscular Hemoglobin Concent 32.1 G/DL (32.0-36.0) Red Cell Distribution Width 15.5 % (11.6-14.8) H Platelet Count 200 K/UL (150-450) Mean Platelet Volume 10.8 FL (6.5-10.1) H Neutrophils (%) (Auto) % (45.0-75.0) Lymphocytes (%) (Auto) % (20.0-45.0) Monocytes (%) (Auto) % (1.0-10.0) Eosinophils (%) (Auto) % (0.0-3.0) Basophils (%) (Auto) % (0.0-2.0) Differential Total Cells Counted 100 Neutrophils % (Manual) 95 % (45-75) H Lymphocytes % (Manual) 2 % (20-45) L Monocytes % (Manual) 1 % (1-10) Eosinophils % (Manual) 0 % (0-3) Basophils % (Manual) 0 % (0-2) Band Neutrophils 2 % (0-8) Platelet Estimate Adequate Platelet Morphology Normal Hypochromasia 1+ Anisocytosis 1+ Macrocytosis 1+ Erythrocyte Sedimentation Rate 65 MM/HR (0-30) H Reticulocyte Count 0.8 % (0.0-2.0) Prothrombin Time 17.5 SEC (9.30-11.50) H Prothromb Time International Ratio 1.7 (0.9-1.1) H Activated Partial Thromboplast Time 35 SEC (23-33) H Sodium Level 150 mEQ/L (135-145) H Potassium Level 4.9 mEQ/L (3.4-4.9) Chloride Level 109 mEQ/L (98-107) H Carbon Dioxide Level 23 mEQ/L (20-30) Anion Gap 18 (5-15) H Blood Urea Nitrogen 167 mg/dL (7-23) H Creatinine 6.0 mg/dL (0.7-1.2) H Estimat Glomerular Filtration Rate mL/min (>60) Glucose Level 108 mg/dL (74-106) H Calcium Level 8.6 mg/dL (8.6-10.2) Phosphorus Level 4.7 mg/dL (2.5-4.8) Magnesium Level 1.9 mg/dL (1.7-2.5) Iron Level < 10 ug/dL (59-158) L Total Iron Binding Capacity 90 ug/dL (250-400) L Percent Iron Saturation 11 % (15-50) L Unsaturated Iron Binding 80 ug/dL (112-346) L Total Bilirubin 0.4 mg/dL (0.0-1.2) Direct Bilirubin 0.2 mg/dL (0.1-0.3) Aspartate Amino Transf (AST/SGOT) 66 U/L (5-40) H Alanine Aminotransferase (ALT/SGPT) 40 U/L (3-41) Alkaline Phosphatase 73 U/L (40-129) Lactate Dehydrogenase 243 U/L (135-230) H Troponin I 11.770 ng/mL (0.000-0.056) Total Protein 4.3 g/dL (6.6-8.7) L Albumin 2.0 g/dL (3.5-5.2) L Globulin 2.1 g/dL Albumin/Globulin Ratio 1.0 (1.0-2.7) Carcinoembryonic Antigen 4.5 ng/mL H Vitamin B12 Level 934 pg/mL (211-946) Folate Pending Random Vancomycin Level 11.1 ug/mL Microbiology Date/Time Source Procedure Growth Status 11/20/16 14:15 Blood Blood Culture - Preliminary Resulted 11/20/16 14:00 Blood Blood Culture - Preliminary Resulted 11/20/16 17:15 Nasal Nares Influenza Types A,B Antigen (LIZA) - Final Complete 11/20/16 14:00 Urine,Clean Catch Urine Culture - Preliminary Gram Negative Ramirez Resulted PARAS ROJAS Nov 21, 2016 13:49
[2016-11-21] MEDS ORDERED: Aspirin EC 81mg tab ORAL ONE (13:53)
--- NOTE | 2016-11-21 14:39 | Infectious Diseases Prog Note ---
Assessment/Plan Problems: (1) HCAP (healthcare-associated pneumonia) Assessment & Plan: continue zyvox and meropenem empirically pending sputum culture , monitor CXR (2) UTI (urinary tract infection) Assessment & Plan: continue meropenem empirically , pending urine culture results (3) Septic shock Assessment & Plan: due to gram negative rods, continue wide spectrum antibiotics with double coverage for now pending identification and sensitivity , will tailor antibiotics pending culture results (4) Lactic acid acidosis Assessment & Plan: due to septic shock, continue hydration and maintain systolic blood pressure above 100 (5) Altered mental status Assessment & Plan: due to septic shock, intubated, on echanical ventilation. recommend neurology eval if no improvement later (6) Sacral decubitus ulcer, stage IV Assessment & Plan: with yellowish exudate, needs to rule out underlying osteomyelitis, await wound culture, and continue wide spectrum antibiotics, with off loading. will obtain MRI of the sacrum once clinically stable to rule out underlying osteomyelitis , will consult plastic surgery for surgical debridement (7) BJORN (acute kidney injury) Assessment & Plan: due to septic shock , with electrolytes abnormalities, continue ivf for hydration, monitor renal function and UOP, renal service is following (8) Diabetes mellitus, type II Assessment & Plan: recommend tight glycemic control to keep blood glucose between 80-120 (9) Respiratory failure Assessment & Plan: due to the above, intubated on mechanical ventilation, monitor ABG, and CXR Subjective ROS Limited/Unobtainable: Yes Allergies: Coded Allergies: No Known Allergies (Unverified , 11/20/16) Subjective he is still intubated on mechanical ventilation, responsive to touch, still on pressor, afebrile, NAD Objective Vital Signs Last 24 Hour Vital Signs Date Time Temp Pulse Resp B/P (MAP) Pulse Ox O2 Delivery O2 Flow Rate FiO2 11/21/16 13:05 68 18 30 11/21/16 13:00 60 17 88/48 100 Mechanical Ventilator 30 11/21/16 12:45 60 18 88/47 100 Mechanical Ventilator 30 11/21/16 12:30 60 16 91/47 100 Mechanical Ventilator 30 11/21/16 12:15 60 16 98/49 100 Mechanical Ventilator 30 11/21/16 12:00 60 11/21/16 12:00 30 11/21/16 12:00 97.9 60 18 95/55 100 Mechanical Ventilator 30 11/21/16 11:45 60 18 93/50 100 Mechanical Ventilator 30 11/21/16 11:30 60 17 92/48 100 Mechanical Ventilator 30 11/21/16 11:18 60 18 30 11/21/16 11:15 60 17 98/48 100 Mechanical Ventilator 30 11/21/16 11:00 98/48 11/21/16 11:00 60 18 98/48 100 Mechanical Ventilator 30 11/21/16 10:45 60 17 91/45 100 Mechanical Ventilator 30 11/21/16 10:30 60 16 110/40 100 Mechanical Ventilator 30 11/21/16 10:15 60 16 99/47 100 Mechanical Ventilator 30 11/21/16 10:02 100/47 11/21/16 10:00 60 18 100/47 100 Mechanical Ventilator 30 11/21/16 09:45 60 19 100/50 100 Mechanical Ventilator 30 11/21/16 09:30 60 19 96/51 100 Mechanical Ventilator 30 11/21/16 09:18 60 18 30 11/21/16 09:15 60 19 95/49 100 Mechanical Ventilator 30 11/21/16 09:00 60 18 95/49 100 Mechanical Ventilator 30 11/21/16 09:00 95/49 11/21/16 08:30 60 18 105/55 100 Mechanical Ventilator 30 11/21/16 08:15 60 18 97/52 100 Mechanical Ventilator 30 11/21/16 08:00 60 11/21/16 08:00 30 11/21/16 08:00 97.8 60 18 100/51 100 Mechanical Ventilator 30 11/21/16 08:00 98/53 11/21/16 07:45 60 18 100/51 100 Mechanical Ventilator 30 11/21/16 07:30 60 18 100/54 100 Mechanical Ventilator 30 11/21/16 07:15 60 18 102/52 100 Mechanical Ventilator 30 11/21/16 07:04 60 29 30 11/21/16 07:00 102/52 11/21/16 07:00 60 17 102/52 100 Mechanical Ventilator 30 11/21/16 06:00 60 17 99/50 100 Mechanical Ventilator 30 11/21/16 06:00 99/50 11/21/16 05:45 60 17 99/47 100 Mechanical Ventilator 30 11/21/16 05:30 60 17 85/71 100 Mechanical Ventilator 30 11/21/16 05:15 60 17 104/53 100 Mechanical Ventilator 30 11/21/16 05:00 60 18 88/43 100 Mechanical Ventilator 30 11/21/16 05:00 30 11/21/16 05:00 85/71 11/21/16 04:56 60 17 30 11/21/16 04:45 60 18 88/43 100 Mechanical Ventilator 30 11/21/16 04:30 60 18 94/53 100 Mechanical Ventilator 30 11/21/16 04:15 60 18 96/46 100 Mechanical Ventilator 30 11/21/16 04:00 98.0 60 18 91/44 100 Mechanical Ventilator 35 11/21/16 04:00 60 11/21/16 04:00 91/44 11/21/16 04:00 40 11/21/16 03:45 60 19 90/44 100 Mechanical Ventilator 35 11/21/16 03:30 60 19 92/46 100 Mechanical Ventilator 35 11/21/16 03:15 60 19 98/47 100 Mechanical Ventilator 35 11/21/16 03:00 60 18 102/47 100 Mechanical Ventilator 35 11/21/16 03:00 81/47 11/21/16 02:45 60 22 35 11/21/16 02:30 60 18 94/54 100 Mechanical Ventilator 35 11/21/16 02:00 60 18 98/45 100 Mechanical Ventilator 35 11/21/16 02:00 80/40 11/21/16 01:22 60 20 35 11/21/16 01:00 60 18 86/41 100 Mechanical Ventilator 40 11/21/16 00:00 98.4 60 18 91/48 100 Mechanical Ventilator 40 11/21/16 00:00 60 11/20/16 23:00 60 20 134/77 100 Mechanical Ventilator 40 11/20/16 22:34 60 19 40 11/20/16 22:00 60 19 104/53 100 Mechanical Ventilator 40 11/20/16 21:30 40 11/20/16 21:14 60 17 50 11/20/16 21:00 60 17 104/63 100 Mechanical Ventilator 50 11/20/16 20:00 98.4 60 17 105/54 100 Mechanical Ventilator 50 11/20/16 20:00 60 11/20/16 20:00 50 11/20/16 19:07 60 23 50 11/20/16 19:00 60 16 97/49 100 Mechanical Ventilator 50 11/20/16 18:30 60 18 99/56 98 Mechanical Ventilator 50 11/20/16 18:30 97/51 11/20/16 18:15 60 16 134/49 98 Mechanical Ventilator 100 11/20/16 18:00 98.9 60 16 127/65 98 Mechanical Ventilator 100 11/20/16 17:53 25 100 11/20/16 17:30 97.9 60 16 124/59 100 Mechanical Ventilator 15.0 100 11/20/16 17:30 97.9 60 16 124/59 100 Mechanical Ventilator 15.0 100 11/20/16 17:15 124/59 11/20/16 17:00 130/58 11/20/16 16:45 97.9 60 16 128/62 100 Mechanical Ventilator 15.0 100 11/20/16 16:30 97.9 60 16 128/55 100 Mechanical Ventilator 100 11/20/16 16:30 128/55 11/20/16 16:15 120/48 11/20/16 16:15 97.9 60 22 118/57 100 Mechanical Ventilator 15.0 100 11/20/16 16:00 125/53 11/20/16 15:54 60 16 Mechanical Ventilator 100 11/20/16 15:48 71/43 11/20/16 15:45 97.9 60 16 114/52 100 Mechanical Ventilator 100 11/20/16 15:44 60 16 100 11/20/16 15:30 98.4 60 12 71/45 100 Mechanical Ventilator 100 11/20/16 15:20 60 12 71/45 80 Non-Rebreather 15.0 Height (Feet): 5 Weight (Pounds): 128 General Appearance: WD/WN, cachetic HEENT: normocephalic, atraumatic, anicteric, supple, no JVD, other - ET tube in Breasts: no masses Cardiovascular: normal peripheral pulses, normal rate, regular rhythm, no gallop/murmur, no JVD Abdomen: normal bowel sounds, soft, non tender, no organomegaly, non distended , no mass, no scars Extremities: no cyanosis, no clubbing Skin: ulcers, other - multiple skin breaks with bruesis and ecchymosis , large deep sacral decubitus wound with yellowish exudate , no drainage Lymphatic: no neck adenopathy, no groin adenopathy Musculoskeletal: atrophy Microbiology Date/Time Source Procedure Growth Status 11/20/16 14:15 Blood Blood Culture - Preliminary Resulted 11/20/16 14:00 Blood Blood Culture - Preliminary Resulted 11/20/16 17:15 Nasal Nares Influenza Types A,B Antigen (LIZA) - Final Complete 11/20/16 14:00 Urine,Clean Catch Urine Culture - Preliminary Gram Negative Ramirez Resulted Laboratory Tests Test 11/20/16 15:40 11/20/16 16:15 11/20/16 21:20 11/20/16 21:45 Lactic Acid Level 4.10 mmol/L (0.66-2.22) H 3.40 mmol/L (0.66-2.22) H Arterial Blood pH 7.341 (7.350-7.450) 7.400 (7.350-7.450) Arterial Blood Partial Pressure CO2 38.7 mmHg (35.0-45.0) 37.1 mmHg (35.0-45.0) Arterial Blood Partial Pressure O2 311.9 mmHg (75.0-100.0) H 142.6 mmHg (75.0-100.0) H Arterial Blood HCO3 20.5 mmol/L (22.0-26.0) L 22.5 mmol/L (22.0-26.0) Arterial Blood Oxygen Saturation 99.4 % (92.0-98.0) H 97.9 % (92.0-98.0) Arterial Blood Base Excess -4.9 -2.0 [place] Test Positive Positive Test 11/21/16 00:35 11/21/16 04:30 Stool Occult Blood Negative (NEGATIVE) White Blood Count 27.5 K/UL (4.8-10.8) *H Red Blood Count 2.40 M/UL (4.70-6.10) L Hemoglobin 7.7 G/DL (14.2-18.0) L Hematocrit 24.0 % (42.0-52.0) L Mean Corpuscular Volume 100 FL (80-99) H Mean Corpuscular Hemoglobin 32.1 PG (27.0-31.0) H Mean Corpuscular Hemoglobin Concent 32.1 G/DL (32.0-36.0) Red Cell Distribution Width 15.5 % (11.6-14.8) H Platelet Count 200 K/UL (150-450) Mean Platelet Volume 10.8 FL (6.5-10.1) H Neutrophils (%) (Auto) % (45.0-75.0) Lymphocytes (%) (Auto) % (20.0-45.0) Monocytes (%) (Auto) % (1.0-10.0) Eosinophils (%) (Auto) % (0.0-3.0) Basophils (%) (Auto) % (0.0-2.0) Differential Total Cells Counted 100 Neutrophils % (Manual) 95 % (45-75) H Lymphocytes % (Manual) 2 % (20-45) L Monocytes % (Manual) 1 % (1-10) Eosinophils % (Manual) 0 % (0-3) Basophils % (Manual) 0 % (0-2) Band Neutrophils 2 % (0-8) Platelet Estimate Adequate Platelet Morphology Normal Hypochromasia 1+ Anisocytosis 1+ Macrocytosis 1+ Erythrocyte Sedimentation Rate 65 MM/HR (0-30) H Reticulocyte Count 0.8 % (0.0-2.0) Prothrombin Time 17.5 SEC (9.30-11.50) H Prothromb Time International Ratio 1.7 (0.9-1.1) H Activated Partial Thromboplast Time 35 SEC (23-33) H Sodium Level 150 mEQ/L (135-145) H Potassium Level 4.9 mEQ/L (3.4-4.9) Chloride Level 109 mEQ/L (98-107) H Carbon Dioxide Level 23 mEQ/L (20-30) Anion Gap 18 (5-15) H Blood Urea Nitrogen 167 mg/dL (7-23) H Creatinine 6.0 mg/dL (0.7-1.2) H Estimat Glomerular Filtration Rate mL/min (>60) Glucose Level 108 mg/dL (74-106) H Lactic Acid Level 2.90 mmol/L (0.66-2.22) H Calcium Level 8.6 mg/dL (8.6-10.2) Phosphorus Level 4.7 mg/dL (2.5-4.8) Magnesium Level 1.9 mg/dL (1.7-2.5) Iron Level < 10 ug/dL (59-158) L Total Iron Binding Capacity 90 ug/dL (250-400) L Percent Iron Saturation 11 % (15-50) L Unsaturated Iron Binding 80 ug/dL (112-346) L Total Bilirubin 0.4 mg/dL (0.0-1.2) Direct Bilirubin 0.2 mg/dL (0.1-0.3) Aspartate Amino Transf (AST/SGOT) 66 U/L (5-40) H Alanine Aminotransferase (ALT/SGPT) 40 U/L (3-41) Alkaline Phosphatase 73 U/L (40-129) Lactate Dehydrogenase 243 U/L (135-230) H Troponin I 11.770 ng/mL (0.000-0.056) Total Protein 4.3 g/dL (6.6-8.7) L Albumin 2.0 g/dL (3.5-5.2) L Globulin 2.1 g/dL Albumin/Globulin Ratio 1.0 (1.0-2.7) Carcinoembryonic Antigen 4.5 ng/mL H Vitamin B12 Level 934 pg/mL (211-946) Folate Pending Random Vancomycin Level 11.1 ug/mL Current Medications Medications (Trade) Dose Ordered Sig/Chasidy Route PRN Reason Start Time Stop Time Status Last Admin Dose Admin Acetaminophen (Tylenol) 650 mg Q4H PRN ORAL Mild Pain (Pain Scale 1-3) 11/20/16 18:30 12/20/16 18:29 11/21/16 12:02 Acetaminophen (Tylenol) 650 mg Q4H PRN ORAL fever 11/20/16 18:30 12/20/16 18:29 Acetaminophen (Tylenol) 650 mg Q4H PRN RECTAL Mild Pain (Pain Scale 1-3) 11/20/16 18:30 12/20/16 18:29 Albuterol/ Ipratropium (DuoNeb 0.5-3(2.5)mg/3ml) 3 ml EVERY 4 HOURS PRN HHN Shortness of Breath 11/20/16 18:30 11/25/16 18:29 Amikacin Protocol (Amikacin pharmacy to dose) 1 ea DAILY PRN MISC Per rx protocol 11/20/16 23:00 12/20/16 22:59 Chlorhexidine Gluconate (Julissa-Hex 2%) 1 applic DAILY TOPIC 11/21/16 09:00 12/21/16 08:59 11/21/16 09:57 Dextrose 1,000 ml @ 150 mls/hr [id number] IV 11/21/16 11:15 12/21/16 11:14 11/21/16 12:01 Dextrose (Dextrose 50%) STAT PRN IV Hypoglycemia 11/20/16 20:15 12/20/16 20:14 Heparin Sodium (Porcine) (Heparin 5000 units/ml) 5,000 units EVERY 12 HOURS SUBQ 11/20/16 21:00 12/20/16 20:59 11/21/16 10:10 Insulin Aspart (NovoLOG) EVERY 6 HOURS SUBQ 11/21/16 00:00 12/21/16 00:00 11/21/16 12:03 Lansoprazole (Prevacid) 30 mg QHS GT 11/20/16 21:00 12/20/16 20:59 11/20/16 21:07 Linezolid 300 ml @ 300 mls/hr Q12HR IVPB 11/20/16 23:00 11/27/16 22:59 11/21/16 10:02 Lorazepam (Ativan 2mg/ml 1ml) 2 mg EVERY 2 HOURS PRN IV For Anxiety 11/20/16 18:30 11/27/16 18:29 Meropenem 500 mg/ Sodium Chloride 55 ml @ 110 mls/hr Q24H IVPB 11/20/16 23:00 11/25/16 22:59 Norepinephrine Bitartrate 4 mg/ Dextrose 254 ml @ 0 mls/hr Q24H IV 11/20/16 18:30 12/20/16 18:29 Norepinephrine Bitartrate 8 mg/ Dextrose 250 ml @ 0 mls/hr Q24H IV 11/20/16 15:30 11/21/16 16:59 11/20/16 15:48 Ondansetron HCl (Zofran ODT) 4 mg Q6H PRN ORAL Nausea & Vomiting 11/20/16 18:30 12/20/16 18:29 Polyethylene Glycol (Miralax) 17 gm DAILYPRN PRN ORAL Constipation 11/20/16 18:30 12/20/16 18:29 Kateryna Rizo M.D. Nov 21, 2016 14:39
--- NOTE | 2016-11-21 15:43 | Cardiac Electrophysiology PN ---
Subjective Subjective EP consult dictated. Dual pacer. Family says battery is end of life but they don 't want to change it. Atrial fib. DW Daughter at bedside. Objective Last 24 Hour Vital Signs Date Time Temp Pulse Resp B/P (MAP) Pulse Ox O2 Delivery O2 Flow Rate FiO2 11/21/16 14:15 60 17 89/53 100 Mechanical Ventilator 30 11/21/16 14:00 60 16 98/50 100 Mechanical Ventilator 30 11/21/16 14:00 98/50 11/21/16 13:45 60 18 98/48 100 Mechanical Ventilator 30 11/21/16 13:30 60 18 90/48 100 Mechanical Ventilator 30 11/21/16 13:15 60 18 94/47 100 Mechanical Ventilator 30 11/21/16 13:05 68 18 30 11/21/16 13:00 60 17 88/48 100 Mechanical Ventilator 30 11/21/16 13:00 98/48 11/21/16 12:45 60 18 88/47 100 Mechanical Ventilator 30 11/21/16 12:30 60 16 91/47 100 Mechanical Ventilator 30 11/21/16 12:15 60 16 98/49 100 Mechanical Ventilator 30 11/21/16 12:01 95/49 11/21/16 12:00 60 11/21/16 12:00 30 11/21/16 12:00 97.9 60 18 95/55 100 Mechanical Ventilator 30 11/21/16 11:45 60 18 93/50 100 Mechanical Ventilator 30 11/21/16 11:30 60 17 92/48 100 Mechanical Ventilator 30 11/21/16 11:18 60 18 30 11/21/16 11:15 60 17 98/48 100 Mechanical Ventilator 30 11/21/16 11:00 98/48 11/21/16 11:00 60 18 98/48 100 Mechanical Ventilator 30 11/21/16 10:45 60 17 91/45 100 Mechanical Ventilator 30 11/21/16 10:30 60 16 110/40 100 Mechanical Ventilator 30 11/21/16 10:15 60 16 99/47 100 Mechanical Ventilator 30 11/21/16 10:02 100/47 11/21/16 10:00 60 18 100/47 100 Mechanical Ventilator 30 11/21/16 09:45 60 19 100/50 100 Mechanical Ventilator 30 11/21/16 09:30 60 19 96/51 100 Mechanical Ventilator 30 11/21/16 09:18 60 18 30 11/21/16 09:15 60 19 95/49 100 Mechanical Ventilator 30 11/21/16 09:00 60 18 95/49 100 Mechanical Ventilator 30 11/21/16 09:00 95/49 11/21/16 08:30 60 18 105/55 100 Mechanical Ventilator 30 11/21/16 08:15 60 18 97/52 100 Mechanical Ventilator 30 11/21/16 08:00 60 11/21/16 08:00 30 11/21/16 08:00 97.8 60 18 100/51 100 Mechanical Ventilator 30 11/21/16 08:00 98/53 11/21/16 07:45 60 18 100/51 100 Mechanical Ventilator 30 11/21/16 07:30 60 18 100/54 100 Mechanical Ventilator 30 11/21/16 07:15 60 18 102/52 100 Mechanical Ventilator 30 11/21/16 07:04 60 29 30 11/21/16 07:00 102/52 11/21/16 07:00 60 17 102/52 100 Mechanical Ventilator 30 11/21/16 06:00 60 17 99/50 100 Mechanical Ventilator 30 11/21/16 06:00 99/50 11/21/16 05:45 60 17 99/47 100 Mechanical Ventilator 30 11/21/16 05:30 60 17 85/71 100 Mechanical Ventilator 30 11/21/16 05:15 60 17 104/53 100 Mechanical Ventilator 30 11/21/16 05:00 60 18 88/43 100 Mechanical Ventilator 30 11/21/16 05:00 30 11/21/16 05:00 85/71 11/21/16 04:56 60 17 30 11/21/16 04:45 60 18 88/43 100 Mechanical Ventilator 30 11/21/16 04:30 60 18 94/53 100 Mechanical Ventilator 30 11/21/16 04:15 60 18 96/46 100 Mechanical Ventilator 30 11/21/16 04:00 98.0 60 18 91/44 100 Mechanical Ventilator 35 11/21/16 04:00 60 11/21/16 04:00 91/44 11/21/16 04:00 40 11/21/16 03:45 60 19 90/44 100 Mechanical Ventilator 35 11/21/16 03:30 60 19 92/46 100 Mechanical Ventilator 35 11/21/16 03:15 60 19 98/47 100 Mechanical Ventilator 35 11/21/16 03:00 60 18 102/47 100 Mechanical Ventilator 35 11/21/16 03:00 81/47 11/21/16 02:45 60 22 35 11/21/16 02:30 60 18 94/54 100 Mechanical Ventilator 35 11/21/16 02:00 60 18 98/45 100 Mechanical Ventilator 35 11/21/16 02:00 80/40 11/21/16 01:22 60 20 35 11/21/16 01:00 60 18 86/41 100 Mechanical Ventilator 40 11/21/16 00:00 98.4 60 18 91/48 100 Mechanical Ventilator 40 11/21/16 00:00 60 11/20/16 23:00 60 20 134/77 100 Mechanical Ventilator 40 11/20/16 22:34 60 19 40 11/20/16 22:00 60 19 104/53 100 Mechanical Ventilator 40 11/20/16 21:30 40 11/20/16 21:14 60 17 50 11/20/16 21:00 60 17 104/63 100 Mechanical Ventilator 50 11/20/16 20:00 98.4 60 17 105/54 100 Mechanical Ventilator 50 11/20/16 20:00 60 11/20/16 20:00 50 11/20/16 19:07 60 23 50 11/20/16 19:00 60 16 97/49 100 Mechanical Ventilator 50 11/20/16 18:30 60 18 99/56 98 Mechanical Ventilator 50 11/20/16 18:30 97/51 11/20/16 18:15 60 16 134/49 98 Mechanical Ventilator 100 11/20/16 18:00 98.9 60 16 127/65 98 Mechanical Ventilator 100 11/20/16 17:53 25 100 11/20/16 17:30 97.9 60 16 124/59 100 Mechanical Ventilator 15.0 100 11/20/16 17:30 97.9 60 16 124/59 100 Mechanical Ventilator 15.0 100 11/20/16 17:15 124/59 11/20/16 17:00 130/58 11/20/16 16:45 97.9 60 16 128/62 100 Mechanical Ventilator 15.0 100 11/20/16 16:30 97.9 60 16 128/55 100 Mechanical Ventilator 100 11/20/16 16:30 128/55 11/20/16 16:15 120/48 11/20/16 16:15 97.9 60 22 118/57 100 Mechanical Ventilator 15.0 100 11/20/16 16:00 125/53 11/20/16 15:54 60 16 Mechanical Ventilator 100 11/20/16 15:48 71/43 11/20/16 15:45 97.9 60 16 114/52 100 Mechanical Ventilator 100 11/20/16 15:44 60 16 100 Intake and Output 11/21/16 11/22/16 19:00 07:00 Intake Total 929.35 ml Output Total 490 ml Balance 439.35 ml Free Water 30 ml IV Total 819.35 ml Other 80 ml Output Urine Total 490 ml Laboratory Tests Test 11/20/16 16:15 11/20/16 21:20 11/20/16 21:45 11/21/16 00:35 Arterial Blood pH 7.341 (7.350-7.450) 7.400 (7.350-7.450) Arterial Blood Partial Pressure CO2 38.7 mmHg (35.0-45.0) 37.1 mmHg (35.0-45.0) Arterial Blood Partial Pressure O2 311.9 mmHg (75.0-100.0) H 142.6 mmHg (75.0-100.0) H Arterial Blood HCO3 20.5 mmol/L (22.0-26.0) L 22.5 mmol/L (22.0-26.0) Arterial Blood Oxygen Saturation 99.4 % (92.0-98.0) H 97.9 % (92.0-98.0) Arterial Blood Base Excess -4.9 -2.0 Chato Test Positive Positive Lactic Acid Level 3.40 mmol/L (0.66-2.22) H Stool Occult Blood Negative (NEGATIVE) Test 11/21/16 04:30 White Blood Count 27.5 K/UL (4.8-10.8) *H Red Blood Count 2.40 M/UL (4.70-6.10) L Hemoglobin 7.7 G/DL (14.2-18.0) L Hematocrit 24.0 % (42.0-52.0) L Mean Corpuscular Volume 100 FL (80-99) H Mean Corpuscular Hemoglobin 32.1 PG (27.0-31.0) H Mean Corpuscular Hemoglobin Concent 32.1 G/DL (32.0-36.0) Red Cell Distribution Width 15.5 % (11.6-14.8) H Platelet Count 200 K/UL (150-450) Mean Platelet Volume 10.8 FL (6.5-10.1) H Neutrophils (%) (Auto) % (45.0-75.0) Lymphocytes (%) (Auto) % (20.0-45.0) Monocytes (%) (Auto) % (1.0-10.0) Eosinophils (%) (Auto) % (0.0-3.0) Basophils (%) (Auto) % (0.0-2.0) Differential Total Cells Counted 100 Neutrophils % (Manual) 95 % (45-75) H Lymphocytes % (Manual) 2 % (20-45) L Monocytes % (Manual) 1 % (1-10) Eosinophils % (Manual) 0 % (0-3) Basophils % (Manual) 0 % (0-2) Band Neutrophils 2 % (0-8) Platelet Estimate Adequate Platelet Morphology Normal Hypochromasia 1+ Anisocytosis 1+ Macrocytosis 1+ Erythrocyte Sedimentation Rate 65 MM/HR (0-30) H Reticulocyte Count 0.8 % (0.0-2.0) Prothrombin Time 17.5 SEC (9.30-11.50) H Prothromb Time International Ratio 1.7 (0.9-1.1) H Activated Partial Thromboplast Time 35 SEC (23-33) H Sodium Level 150 mEQ/L (135-145) H Potassium Level 4.9 mEQ/L (3.4-4.9) Chloride Level 109 mEQ/L (98-107) H Carbon Dioxide Level 23 mEQ/L (20-30) Anion Gap 18 (5-15) H Blood Urea Nitrogen 167 mg/dL (7-23) H Creatinine 6.0 mg/dL (0.7-1.2) H Estimat Glomerular Filtration Rate mL/min (>60) Glucose Level 108 mg/dL (74-106) H Lactic Acid Level 2.90 mmol/L (0.66-2.22) H Calcium Level 8.6 mg/dL (8.6-10.2) Phosphorus Level 4.7 mg/dL (2.5-4.8) Magnesium Level 1.9 mg/dL (1.7-2.5) Iron Level < 10 ug/dL (59-158) L Total Iron Binding Capacity 90 ug/dL (250-400) L Percent Iron Saturation 11 % (15-50) L Unsaturated Iron Binding 80 ug/dL (112-346) L Total Bilirubin 0.4 mg/dL (0.0-1.2) Direct Bilirubin 0.2 mg/dL (0.1-0.3) Aspartate Amino Transf (AST/SGOT) 66 U/L (5-40) H Alanine Aminotransferase (ALT/SGPT) 40 U/L (3-41) Alkaline Phosphatase 73 U/L (40-129) Lactate Dehydrogenase 243 U/L (135-230) H Troponin I 11.770 ng/mL (0.000-0.056) Total Protein 4.3 g/dL (6.6-8.7) L Albumin 2.0 g/dL (3.5-5.2) L Globulin 2.1 g/dL Albumin/Globulin Ratio 1.0 (1.0-2.7) Carcinoembryonic Antigen 4.5 ng/mL H Vitamin B12 Level 934 pg/mL (211-946) Folate Pending Random Vancomycin Level 11.1 ug/mL Microbiology Date/Time Source Procedure Growth Status 11/20/16 14:15 Blood Blood Culture - Preliminary Resulted 11/20/16 14:00 Blood Blood Culture - Preliminary Resulted 11/20/16 17:15 Nasal Nares Influenza Types A,B Antigen (LIZA) - Final Complete 11/20/16 14:00 Urine,Clean Catch Urine Culture - Preliminary Gram Negative Ramirez Resulted JEREMY BALLARD Nov 21, 2016 15:43
[2016-11-21] MEDS ORDERED: Zemuron 50mg/5ml Inj IV ONE (18:04)
[2016-11-21] MEDS ORDERED: Etomidate 40mg/20ml Inj IV ONE (18:04)
--- NOTE | 2016-11-21 20:45 | Consultation ---
DATE OF CONSULTATION: INFECTIOUS DISEASES CONSULTATION CONSULTING PHYSICIAN: Kateryna Rizo M.D. REQUESTING PHYSICIAN: Moreno Ford M.D. Reason For Consultation: Septic shock, urinary tract infection, pneumonia, and multiple wounds with sacral wound infection, recommendation for antibiotics treatment and further management. History Of Present Illness: The patient is an 86-year-old male with past medical history of diabetes, Alzheimer dementia, cardiac disease, status post pacemaker placement, who is bedridden, was brought in to [facility] emergency room for altered mental status more than usual for himself. As per carbide tool die maker's report, it was unclear when was the patient seen normally, active, and alert. The patient was found to be altered by his son, so he was brought in for evaluation. In the emergency room, the patient was found to be in septic shock with blood pressure of 79 systolic. He also had evidence of acute respiratory failure. So, he was intubated immediately in the emergency room and was started on mechanical ventilation and wide-spectrum antibiotics treatment and I was consulted by the primary provider for antibiotics treatment and further care. As of note, the patient is intubated, on mechanical ventilation, cannot provide any history. No other family member available at the bedside, so history was mainly obtained from the medical record. Past Medical History: Significant for Alzheimer dementia, diabetes, cardiac disease, status post pacemaker, bedridden, multiple pressure wounds. PAST SURGICAL HISTORY: Unable to obtain. Medications: The patient received cefepime, vancomycin, and meropenem in the emergency room by the admitting physician. For the rest of his medications, please refer to MAR. ALLERGIES: No known drug allergy as per the records. Social History: The patient lives at home with son. He was recently at rehabilitation facility. No recent drugs, tobacco, or alcohol. FAMILY HISTORY: Unable to obtain. Review Of Systems: Unable to obtain at this point. The patient is intubated and unable to provide any history. PHYSICAL EXAMINATION: Vital Signs: Temperature 98.4 degrees, pulse 60, respirations 17, blood pressure 105/54, and saturation 100% on FiO2 of 50%. General: An elderly male, malnourished, cachectic, intubated, on mechanical ventilation and pressor, not in acute distress. HEENT: Normocephalic and atraumatic. Pupils reactive to light equally. Unable to assess oral mucosa or cavity due to ET tube. NECK: Supple. No lymphadenopathy. Cardiovascular: Regular rate and rhythm. Paced. No murmur or gallop. Lungs: He had diminished breathing sounds at the bases with crackles. Normal breathing efforts. Abdomen: Soft and nondistended. No organomegaly. No ascites. Hypoactive bowel sounds. Extremities: Trace edema. No cyanosis or clubbing. Multiple bruises and skin breaks on both lower and upper extremity. Skin: The patient has multiple skin breaks on his back, buttocks, large sacral wound with yellowish exudate and sloughing at the border with cellulitis, has some foul smelling but no active drainage. Right buttock also large skin break with bruises underlying. Right and left also small buttock wounds and right shoulder skin break with bruises. Laboratory Data: Labs showed white count of 43.1, hemoglobin of 8.5, platelet count of 237,000, neutrophils of 83%, sedimentation rate of 65. BUN of 167, creatinine of 6.3, glucose of 146, potassium of 5.9, and sodium of 152. Troponin 2.11. Urinalysis showed +3 leukocyte esterase, WBC too numerous to count, and many bacteria. Imaging: Head CT scan showed no acute intracranial bleed, mass effect, or edema. Moderate atrophy of the brain. Chest x-ray showed retrocardiac density, likely atelectases or scarring, pneumonia not entirely excluded. ASSESSMENT AND RECOMMENDATION: 1. Healthcare-acquired pneumonia. We will start the patient on Zyvox and meropenem. Send sputum culture and blood culture to rule out bacteremia. Monitor chest x-ray. 2. Urinary tract infection. We will start meropenem empirically pending urine culture results. 3. Septic shock due to the above. We will double cover him for possible gram-negative rods bacteremia with meropenem and amikacin and continue Zyvox empiric treatment to cover for possible vancomycin-resistant enterococcus. Continue pressor pending culture results. 4. Lactic acid acidosis due to septic shock. Continue hydration. Maintain systolic blood pressure above 100. Continue pressor as needed. 5. Altered mental status due to septic shock, intubated, on mechanical ventilation. Continue wide-spectrum antibiotics. Consult Neurology if no improvement. 6. Sacral decubitus ulcer stage IV present on admission with yellowish exudate and cellulitis. Need to rule out osteomyelitis. We will send wound culture and start meropenem, amikacin, and Zyvox empiric coverage. We will obtain MRI of the sacrum once clinically stable to rule out osteomyelitis. We will consult Plastic Surgery to evaluate his sacral wound for possible surgical debridement when stable. 7. Acute renal failure with electrolytes abnormality due to septic shock. Nephrology is following. Avoid nephrotoxic medicine. Monitor urine output and renal function. Thank you for the consultation. Infectious Diseases will continue to follow. Kateryna Rizo M.D. DR: Maryam JOB#: [id number] CC:
[2016-11-21 21:29] LABS: KETONES,URINE NEGATIVE (NEGATIVE); LEUKOCYTE ESTERASE ,URINE 3+ (NEGATIVE); NITRITE,URINE NEGATIVE (NEGATIVE); PH,URINE 9 (4.5-8.0); PROTEIN,URINE 3+ (NEGATIVE); UROBILINOGEN,URINE NORMAL MG/DL (0.0-1.0)
[2016-11-21 21:32] LABS: APPEARANCE,URINE SLIGHTLY CLOUDY
[2016-11-21 21:33] LABS: AMORPHOUS SEDIMENT,UR MODERATE /LPF; BACTERIA,URINE MODERATE /HPF
[2016-11-21] MEDS: Meropenem 500 MG in NS 55 ML IVPB SCH (23:01)
[2016-11-22] VITALS (93 sets, daily range): BP systolic 79–121; BP diastolic 29–70
[2016-11-22] MEDS: NovoLOG Insulin Flexpen SUBQ SCH ×5 (00:25→23:51)
[2016-11-22 05:32] LABS: MEAN CORPUSCULAR HEMOGLOBIN 32.4 PG (27.0-31.0); MEAN CORPUSCULAR HGB CONC 32.4 G/DL (32.0-36.0); MEAN CORPUSCULAR VOLUME 100 FL (80-99); MEAN PLATELET VOLUME 9.8 FL (6.5-10.1); PLATELET COUNT 179 K/UL (150-450); RED BLOOD COUNT 2.65 M/UL (4.70-6.10); RED CELL DISTRIBUTION WIDTH 15.2 % (11.6-14.8)
[2016-11-22 07:05] LABS: REFLEX LACTIC ACID YES OR NO YES
[2016-11-22 08:00] LABS: ALANINE AMINOTRANSFERASE 34 U/L (3-41); ALBUMIN/GLOBULIN RATIO 0.5 (1.0-2.7); ANION GAP 21 (5-15); ASPARTATE AMINO TRANSFERASE 47 U/L (5-40); CALCIUM 8.2 mg/dL (8.6-10.2); CARBON DIOXIDE 19 mEQ/L (20-30); CHLORIDE 103 mEQ/L (98-107); CREATININE 5.4 mg/dL (0.7-1.2); HEMOLYSIS 4; MAGNESIUM 1.8 mg/dL (1.7-2.5); PHOSPHORUS 4.7 mg/dL (2.5-4.8); POTASSIUM 4.7 mEQ/L (3.4-4.9); SODIUM 143 mEQ/L (135-145); TOTAL PROTEIN 5.2 g/dL (6.6-8.7)
[2016-11-22] MEDS: Heparin 5000 units/ml inj SUBQ SCH ×2 (08:17→20:55)
[2016-11-22 10:02] LABS: ABG ALLEN TEST POSITIVE; ABG BASE EXCESS -2.5; ABG PCO2 26.8 mmHg (35.0-45.0)
--- NOTE | 2016-11-22 10:16 | General Progress Note ---
Assessment/Plan Status: unchanged Status Narrative Cr lower- urine flowing after pereyra inserted Assessment/Plan 1. Septic shock. 2. Acute kidney injury on chronic renal insufficiency. 3. Failure to thrive. 4. Acute myocardial infarction with non-ST elevation myocardial infarction. 5. Sick sinus syndrome, status post pacemaker. 6. Prostate cancer. 7. Diabetes type 2. 8. Hypertension. 9. Benign prostatic hypertrophy. 10. Gout. 11. Severe cardiomyopathy. 12. Alzheimer dementia. 13. Anemia of chronic kidney disease. 14. DNR Plan; Pressors- Pereyra- per consultants- Poor prognosis- dialysis indicated however due to hemodynamic state and poor prognosis and DNR, is not advised ! ? transfuse ?? Subjective ROS Limited/Unobtainable: Yes Allergies: Coded Allergies: No Known Allergies (Unverified , 11/20/16) Objective Last 24 Hour Vital Signs Date Time Temp Pulse Resp B/P (MAP) Pulse Ox O2 Delivery O2 Flow Rate FiO2 11/22/16 10:00 89/53 11/22/16 09:29 62 35 30 11/22/16 09:00 99/54 11/22/16 08:30 60 18 98/52 100 Mechanical Ventilator 30 11/22/16 08:15 62 17 90/56 100 Mechanical Ventilator 30 11/22/16 08:14 90/56 11/22/16 08:00 97.5 61 18 79/57 100 Mechanical Ventilator 30 11/22/16 08:00 30 11/22/16 08:00 60 11/22/16 07:45 60 18 99/54 100 Mechanical Ventilator 30 11/22/16 07:30 60 18 99/54 100 Mechanical Ventilator 30 11/22/16 07:15 60 18 97/50 100 Mechanical Ventilator 30 11/22/16 07:04 60 35 30 11/22/16 07:00 96/62 11/22/16 07:00 60 17 96/62 100 Mechanical Ventilator 30 11/22/16 06:45 60 17 99/53 100 Mechanical Ventilator 30 11/22/16 06:30 60 17 97/56 100 Mechanical Ventilator 30 11/22/16 06:15 60 17 98/55 100 Mechanical Ventilator 30 11/22/16 06:00 60 17 99/55 100 Mechanical Ventilator 30 11/22/16 06:00 99/55 11/22/16 05:45 61 17 98/51 100 Mechanical Ventilator 30 11/22/16 05:30 60 17 94/52 100 Mechanical Ventilator 30 11/22/16 05:15 60 17 86/55 100 Mechanical Ventilator 30 11/22/16 05:04 63 23 30 11/22/16 05:00 62 17 86/63 100 Mechanical Ventilator 30 11/22/16 05:00 86/63 11/22/16 04:45 64 17 121/63 100 Mechanical Ventilator 30 11/22/16 04:30 67 17 91/68 100 Mechanical Ventilator 30 11/22/16 04:15 62 17 99/50 100 Mechanical Ventilator 30 11/22/16 04:00 98.1 60 17 107/54 100 Mechanical Ventilator 30 11/22/16 04:00 30 11/22/16 04:00 104/57 11/22/16 03:45 60 17 105/55 100 Mechanical Ventilator 30 11/22/16 03:43 60 11/22/16 03:30 60 17 102/57 100 Mechanical Ventilator 30 11/22/16 03:15 60 17 103/53 100 Mechanical Ventilator 30 11/22/16 03:07 60 23 30 11/22/16 03:00 60 17 103/54 100 Mechanical Ventilator 30 11/22/16 03:00 101/53 11/22/16 02:45 62 17 104/54 100 Mechanical Ventilator 30 11/22/16 02:30 62 17 104/54 100 Mechanical Ventilator 30 11/22/16 02:15 60 17 102/50 100 Mechanical Ventilator 30 11/22/16 02:00 103/53 11/22/16 02:00 60 17 103/53 100 Mechanical Ventilator 30 11/22/16 01:45 60 17 106/53 100 Mechanical Ventilator 30 11/22/16 01:30 60 17 104/55 100 Mechanical Ventilator 30 11/22/16 01:15 60 17 105/52 100 Mechanical Ventilator 30 11/22/16 01:08 60 27 30 11/22/16 01:00 60 17 103/53 100 Mechanical Ventilator 30 11/22/16 01:00 103/53 11/22/16 00:45 61 17 95/50 100 Mechanical Ventilator 30 11/22/16 00:30 61 17 95/50 100 Mechanical Ventilator 30 11/22/16 00:15 62 17 87/65 100 Mechanical Ventilator 30 11/22/16 00:00 62 11/22/16 00:00 30 11/22/16 00:00 98/63 11/22/16 00:00 98.6 63 17 98/64 100 Mechanical Ventilator 30 11/21/16 23:45 60 17 94/51 100 Mechanical Ventilator 30 11/21/16 23:30 61 17 91/47 100 Mechanical Ventilator 30 11/21/16 23:15 62 17 95/49 100 Mechanical Ventilator 30 11/21/16 23:02 62 25 30 11/21/16 23:00 61 17 108/61 100 Mechanical Ventilator 30 11/21/16 23:00 96/50 11/21/16 22:45 60 17 96/50 100 Mechanical Ventilator 30 11/21/16 22:30 61 17 94/48 100 Mechanical Ventilator 30 11/21/16 22:15 62 17 95/47 100 Mechanical Ventilator 30 11/21/16 22:00 62 17 95/47 100 Mechanical Ventilator 30 11/21/16 22:00 95/47 11/21/16 21:45 62 17 103/55 100 Mechanical Ventilator 30 11/21/16 21:30 64 17 130/72 100 Mechanical Ventilator 30 11/21/16 21:15 61 17 110/55 100 Mechanical Ventilator 30 11/21/16 21:00 61 17 110/54 100 Mechanical Ventilator 30 11/21/16 21:00 98/64 11/21/16 20:58 62 25 30 11/21/16 20:45 62 17 98/54 100 Mechanical Ventilator 30 11/21/16 20:30 63 17 91/47 100 Mechanical Ventilator 30 11/21/16 20:15 64 17 108/69 100 Mechanical Ventilator 30 11/21/16 20:00 30 11/21/16 20:00 60 11/21/16 20:00 110/68 11/21/16 20:00 98.1 63 17 110/79 100 Mechanical Ventilator 30 11/21/16 19:45 61 17 107/60 100 Mechanical Ventilator 30 11/21/16 19:30 62 17 107/54 100 Mechanical Ventilator 30 11/21/16 19:15 64 27 30 11/21/16 19:15 63 17 109/54 100 Mechanical Ventilator 30 11/21/16 19:00 62 17 120/58 100 Mechanical Ventilator 30 11/21/16 19:00 60 17 98/53 100 Mechanical Ventilator 30 11/21/16 18:45 60 17 102/50 100 Mechanical Ventilator 30 11/21/16 18:44 102/50 11/21/16 18:30 60 17 98/51 100 Mechanical Ventilator 30 11/21/16 18:15 60 17 98/53 100 Mechanical Ventilator 30 11/21/16 18:00 61 16 98/53 100 Mechanical Ventilator 30 11/21/16 17:48 60 19 30 11/21/16 17:45 60 17 97/51 100 Mechanical Ventilator 30 11/21/16 17:30 60 17 97/50 100 Mechanical Ventilator 30 11/21/16 17:15 60 17 97/49 100 Mechanical Ventilator 30 11/21/16 17:00 60 18 98/51 100 Mechanical Ventilator 30 11/21/16 16:45 60 17 92/46 100 Mechanical Ventilator 30 11/21/16 16:30 62 16 105/60 100 Mechanical Ventilator 30 11/21/16 16:15 63 17 103/85 100 Mechanical Ventilator 30 11/21/16 16:00 97.6 61 16 100/67 100 Mechanical Ventilator 30 11/21/16 16:00 30 11/21/16 16:00 60 11/21/16 15:45 61 17 86/55 100 Mechanical Ventilator 30 11/21/16 15:40 63 19 30 11/21/16 15:30 63 17 96/51 100 Mechanical Ventilator 30 11/21/16 15:15 64 17 89/54 100 Mechanical Ventilator 30 11/21/16 15:00 64 17 92/63 100 Mechanical Ventilator 30 11/21/16 15:00 92/63 11/21/16 14:45 61 17 109/43 100 Mechanical Ventilator 30 11/21/16 14:30 62 17 100/54 100 Mechanical Ventilator 30 11/21/16 14:15 60 17 89/53 100 Mechanical Ventilator 30 11/21/16 14:00 60 16 98/50 100 Mechanical Ventilator 30 11/21/16 14:00 98/50 11/21/16 13:45 60 18 98/48 100 Mechanical Ventilator 30 11/21/16 13:30 60 18 90/48 100 Mechanical Ventilator 30 11/21/16 13:15 60 18 94/47 100 Mechanical Ventilator 30 11/21/16 13:05 68 18 30 11/21/16 13:00 60 17 88/48 100 Mechanical Ventilator 30 11/21/16 13:00 98/48 11/21/16 12:45 60 18 88/47 100 Mechanical Ventilator 30 11/21/16 12:30 60 16 91/47 100 Mechanical Ventilator 30 11/21/16 12:15 60 16 98/49 100 Mechanical Ventilator 30 11/21/16 12:01 95/49 11/21/16 12:00 60 11/21/16 12:00 30 11/21/16 12:00 97.9 60 18 95/55 100 Mechanical Ventilator 30 11/21/16 11:45 60 18 93/50 100 Mechanical Ventilator 30 11/21/16 11:30 60 17 92/48 100 Mechanical Ventilator 30 11/21/16 11:18 60 18 30 11/21/16 11:15 60 17 98/48 100 Mechanical Ventilator 30 11/21/16 11:00 98/48 11/21/16 11:00 60 18 98/48 100 Mechanical Ventilator 30 11/21/16 10:45 60 17 91/45 100 Mechanical Ventilator 30 11/21/16 10:30 60 16 110/40 100 Mechanical Ventilator 30 Intake and Output 11/22/16 11/23/16 19:00 07:00 Intake Total 802.5 ml Output Total 110 ml Balance 692.5 ml Free Water 30 ml IV Total 772.5 ml Output Urine Total 110 ml Laboratory Tests 11/21/16 14:00: Urine Color Yellow, Urine Appearance Slightly cloudy, Urine pH 9, Urine Specific Dawson 1.015, Urine Protein 3+H, Urine Glucose (UA) Negative, Urine Ketones Negative, Urine Occult Blood 5+H, Urine Nitrite Negative, Urine Bilirubin Negative, Urine Urobilinogen Normal, Urine Leukocyte Esterase 3+H, Urine RBC 10-15H, Urine WBC 5-10H, Urine Squamous Epithelial Cells None, Urine Amorphous Sediment ModerateH, Urine Bacteria ModerateH, Urine Eosinophils None seen, Urine Random Sodium 34, Urine Potassium Timed 55 11/22/16 04:00: White Blood Count 23.0*H, Red Blood Count 2.65L, Hemoglobin 8.6L, Hematocrit 26.4L, Mean Corpuscular Volume 100H, Mean Corpuscular Hemoglobin 32.4H, Mean Corpuscular Hemoglobin Concent 32.4, Red Cell Distribution Width 15.2H, Platelet Count 179, Mean Platelet Volume 9.8, Neutrophils (%) (Auto) , Lymphocytes (%) (Auto) , Monocytes (%) (Auto) , Eosinophils (%) (Auto) , Basophils (%) (Auto) , Neutrophils % (Manual) [Pending], Lymphocytes % (Manual) [Pending], Platelet Estimate [Pending], Platelet Morphology [Pending], Sodium Level 143, Potassium Level 4.7, Chloride Level 103, Carbon Dioxide Level 19L, Anion Gap 21H, Blood Urea Nitrogen 138#H, Creatinine 5.4H, Estimat Glomerular Filtration Rate , Glucose Level 113H, Calcium Level 8.2L, Phosphorus Level 4.7, Magnesium Level 1.8, Total Bilirubin 0.4, Aspartate Amino Transf (AST/SGOT) 47H , Alanine Aminotransferase (ALT/SGPT) 34, Alkaline Phosphatase 73, Total Protein 5.2L, Albumin 1.8L, Globulin 3.4, Albumin/Globulin Ratio 0.5L 11/22/16 05:45: Lactic Acid Level 3.40H 11/22/16 08:40: Lactic Acid Level 2.10 11/22/16 09:20: Arterial Blood pH 7.488H, Arterial Blood Partial Pressure CO2 26.8L, Arterial Blood Partial Pressure O2 253.7H, Arterial Blood HCO3 19.9L, Arterial Blood Oxygen Saturation 98.7H, Arterial Blood Base Excess -2.5, Chato Test Positive Height (Feet): 5 Weight (Pounds): 130 General Appearance: no apparent distress Cardiovascular: tachycardia Respiratory/Chest: decreased breath sounds Abdomen: soft FELECIA RASHID Nov 22, 2016 10:16
[2016-11-22 10:22] LABS: BAND NEUTROPHILS % (MANUAL) 2 % (0-8); LYMPHOCYTES % (MANUAL) 4 % (20-45); NEUTROPHILS % (MANUAL) 93 % (45-75); TOTAL CELLS COUNTED 100
[2016-11-22 10:23] LABS: BASOPHILS % (MANUAL) 0 % (0-2); EOSINOPHILS % (MANUAL) 0 % (0-3); HYPOCHROMASIA 2+; PLATELET ESTIMATE ADEQUATE; PLATELET MORPHOLOGY NORMAL
--- NOTE | 2016-11-22 10:32 | Diagnostic Imaging Report ---
Indication: Shortness of breath Technique: XRAY CHEST 1 V Comparison: 11/20/16 Findings: Endotracheal tube and left chest pacemaker are unchanged. Nasogastric tube is now present within the stomach. The cardiomediastinal silhouette is stable. Central pulmonary vascular congestion is noted. Bilateral costophrenic angle blunting/small pleural effusions are unchanged. Osseous structures are stable. Impression: Nasogastric tube placement within the stomach. Otherwise stable chest.
--- NOTE | 2016-11-22 10:46 | Pulmonolgy Critical Care Note ---
Critical Care - Asmt/Plan Problems: (1) Acute respiratory failure (2) Septic shock (3) Hyperkalemia (4) Altered mental status (5) Chronic kidney disease (6) HCAP (healthcare-associated pneumonia) (7) Sacral decubitus ulcer, stage IV Respiratory: monitor respiratory rate, adjust FIO2, CXR Cardiac: continue pressors, continue to monitor HR/BP Renal: F/U I&O, keep IV fluid Infectious Disease: check cultures, continue antibiotics Gastrointestinal: hold feedings Endocrine: monitor blood sugar, check TSH, continue sliding scale insulin Hematologic: monitor H/H, transfuse if hgb<8.5 Neurologic: PRN Ativan, PRN Morphine, keep patient comfortable Affect: PRN ativan Prophylaxis: Protonix, Heparin Notes Reviewed: cardio Discussed with: nurses, consultants, correctional counselor/case managermine safety manager - Objective Last 24 Hour Vital Signs Date Time Temp Pulse Resp B/P (MAP) Pulse Ox O2 Delivery O2 Flow Rate FiO2 11/22/16 10:00 60 18 91/52 100 Mechanical Ventilator 30 11/22/16 10:00 89/53 11/22/16 09:45 60 19 89/53 100 Mechanical Ventilator 30 11/22/16 09:30 61 18 104/70 100 Mechanical Ventilator 30 11/22/16 09:29 62 35 30 11/22/16 09:15 60 18 99/52 100 Mechanical Ventilator 30 11/22/16 09:00 60 17 99/59 100 Mechanical Ventilator 30 11/22/16 09:00 99/54 11/22/16 08:45 60 17 99/59 100 Mechanical Ventilator 30 11/22/16 08:30 60 18 98/52 100 Mechanical Ventilator 30 11/22/16 08:15 62 17 90/56 100 Mechanical Ventilator 30 11/22/16 08:14 90/56 11/22/16 08:00 97.5 61 18 79/57 100 Mechanical Ventilator 30 11/22/16 08:00 30 11/22/16 08:00 60 11/22/16 07:45 60 18 99/54 100 Mechanical Ventilator 30 11/22/16 07:30 60 18 99/54 100 Mechanical Ventilator 30 11/22/16 07:15 60 18 97/50 100 Mechanical Ventilator 30 11/22/16 07:04 60 35 30 11/22/16 07:00 96/62 11/22/16 07:00 60 17 96/62 100 Mechanical Ventilator 30 11/22/16 06:45 60 17 99/53 100 Mechanical Ventilator 30 11/22/16 06:30 60 17 97/56 100 Mechanical Ventilator 30 11/22/16 06:15 60 17 98/55 100 Mechanical Ventilator 30 11/22/16 06:00 60 17 99/55 100 Mechanical Ventilator 30 11/22/16 06:00 99/55 11/22/16 05:45 61 17 98/51 100 Mechanical Ventilator 30 11/22/16 05:30 60 17 94/52 100 Mechanical Ventilator 30 11/22/16 05:15 60 17 86/55 100 Mechanical Ventilator 30 11/22/16 05:04 63 23 30 11/22/16 05:00 62 17 86/63 100 Mechanical Ventilator 30 11/22/16 05:00 86/63 11/22/16 04:45 64 17 121/63 100 Mechanical Ventilator 30 11/22/16 04:30 67 17 91/68 100 Mechanical Ventilator 30 11/22/16 04:15 62 17 99/50 100 Mechanical Ventilator 30 11/22/16 04:00 98.1 60 17 107/54 100 Mechanical Ventilator 30 11/22/16 04:00 30 11/22/16 04:00 104/57 11/22/16 03:45 60 17 105/55 100 Mechanical Ventilator 30 11/22/16 03:43 60 11/22/16 03:30 60 17 102/57 100 Mechanical Ventilator 30 11/22/16 03:15 60 17 103/53 100 Mechanical Ventilator 30 11/22/16 03:07 60 23 30 11/22/16 03:00 60 17 103/54 100 Mechanical Ventilator 30 11/22/16 03:00 101/53 11/22/16 02:45 62 17 104/54 100 Mechanical Ventilator 30 11/22/16 02:30 62 17 104/54 100 Mechanical Ventilator 30 11/22/16 02:15 60 17 102/50 100 Mechanical Ventilator 30 11/22/16 02:00 103/53 11/22/16 02:00 60 17 103/53 100 Mechanical Ventilator 30 11/22/16 01:45 60 17 106/53 100 Mechanical Ventilator 30 11/22/16 01:30 60 17 104/55 100 Mechanical Ventilator 30 11/22/16 01:15 60 17 105/52 100 Mechanical Ventilator 30 11/22/16 01:08 60 27 30 11/22/16 01:00 60 17 103/53 100 Mechanical Ventilator 30 11/22/16 01:00 103/53 11/22/16 00:45 61 17 95/50 100 Mechanical Ventilator 30 11/22/16 00:30 61 17 95/50 100 Mechanical Ventilator 30 11/22/16 00:15 62 17 87/65 100 Mechanical Ventilator 30 11/22/16 00:00 62 11/22/16 00:00 30 11/22/16 00:00 98/63 11/22/16 00:00 98.6 63 17 98/64 100 Mechanical Ventilator 30 11/21/16 23:45 60 17 94/51 100 Mechanical Ventilator 30 11/21/16 23:30 61 17 91/47 100 Mechanical Ventilator 30 11/21/16 23:15 62 17 95/49 100 Mechanical Ventilator 30 11/21/16 23:02 62 25 30 11/21/16 23:00 61 17 108/61 100 Mechanical Ventilator 30 11/21/16 23:00 96/50 11/21/16 22:45 60 17 96/50 100 Mechanical Ventilator 30 11/21/16 22:30 61 17 94/48 100 Mechanical Ventilator 30 11/21/16 22:15 62 17 95/47 100 Mechanical Ventilator 30 11/21/16 22:00 62 17 95/47 100 Mechanical Ventilator 30 11/21/16 22:00 95/47 11/21/16 21:45 62 17 103/55 100 Mechanical Ventilator 30 11/21/16 21:30 64 17 130/72 100 Mechanical Ventilator 30 11/21/16 21:15 61 17 110/55 100 Mechanical Ventilator 30 11/21/16 21:00 61 17 110/54 100 Mechanical Ventilator 30 11/21/16 21:00 98/64 11/21/16 20:58 62 25 30 11/21/16 20:45 62 17 98/54 100 Mechanical Ventilator 30 11/21/16 20:30 63 17 91/47 100 Mechanical Ventilator 30 11/21/16 20:15 64 17 108/69 100 Mechanical Ventilator 30 11/21/16 20:00 30 11/21/16 20:00 60 11/21/16 20:00 110/68 11/21/16 20:00 98.1 63 17 110/79 100 Mechanical Ventilator 30 11/21/16 19:45 61 17 107/60 100 Mechanical Ventilator 30 11/21/16 19:30 62 17 107/54 100 Mechanical Ventilator 30 11/21/16 19:15 64 27 30 11/21/16 19:15 63 17 109/54 100 Mechanical Ventilator 30 17 19:00 62 17 120/58 100 Mechanical Ventilator 30 11/21/16 19:00 60 17 98/53 100 Mechanical Ventilator 30 11/21/16 18:45 60 17 102/50 100 Mechanical Ventilator 30 11/21/16 18:44 102/50 17 18:30 60 17 98/51 100 Mechanical Ventilator 30 11/21/16 18:15 60 17 98/53 100 Mechanical Ventilator 30 11/21/16 18:00 61 16 98/53 100 Mechanical Ventilator 30 11/21/16 17:48 60 19 30 11/21/16 17:45 60 17 97/51 100 Mechanical Ventilator 30 11/21/16 17:30 60 17 97/50 100 Mechanical Ventilator 30 11/21/16 17:15 60 17 97/49 100 Mechanical Ventilator 30 11/21/16 17:00 60 18 98/51 100 Mechanical Ventilator 30 11/21/16 16:45 60 17 92/46 100 Mechanical Ventilator 30 11/21/16 16:30 62 16 105/60 100 Mechanical Ventilator 30 11/21/16 16:15 63 17 103/85 100 Mechanical Ventilator 30 11/21/16 16:00 97.6 61 16 100/67 100 Mechanical Ventilator 30 11/21/16 16:00 30 11/21/16 16:00 60 11/21/16 15:45 61 17 86/55 100 Mechanical Ventilator 30 11/21/16 15:40 63 19 30 11/21/16 15:30 63 17 96/51 100 Mechanical Ventilator 30 11/21/16 15:15 64 17 89/54 100 Mechanical Ventilator 30 11/21/16 15:00 64 17 92/63 100 Mechanical Ventilator 30 11/21/16 15:00 92/63 11/21/16 14:45 61 17 109/43 100 Mechanical Ventilator 30 11/21/16 14:30 62 17 100/54 100 Mechanical Ventilator 30 11/21/16 14:15 60 17 89/53 100 Mechanical Ventilator 30 11/21/16 14:00 60 16 98/50 100 Mechanical Ventilator 30 11/21/16 14:00 98/50 11/21/16 13:45 60 18 98/48 100 Mechanical Ventilator 30 11/21/16 13:30 60 18 90/48 100 Mechanical Ventilator 30 11/21/16 13:15 60 18 94/47 100 Mechanical Ventilator 30 11/21/16 13:05 68 18 30 11/21/16 13:00 60 17 88/48 100 Mechanical Ventilator 30 11/21/16 13:00 98/48 11/21/16 12:45 60 18 88/47 100 Mechanical Ventilator 30 11/21/16 12:30 60 16 91/47 100 Mechanical Ventilator 30 11/21/16 12:15 60 16 98/49 100 Mechanical Ventilator 30 11/21/16 12:01 95/49 11/21/16 12:00 60 11/21/16 12:00 30 11/21/16 12:00 97.9 60 18 95/55 100 Mechanical Ventilator 30 11/21/16 11:45 60 18 93/50 100 Mechanical Ventilator 30 11/21/16 11:30 60 17 92/48 100 Mechanical Ventilator 30 11/21/16 11:18 60 18 30 11/21/16 11:15 60 17 98/48 100 Mechanical Ventilator 30 11/21/16 11:00 98/48 11/21/16 11:00 60 18 98/48 100 Mechanical Ventilator 30 Status: awake Condition: critical HEENT: atraumatic Lungs: chest wall tender Heart: HR/BP stable, HR/BP unstable Abdomen: soft, active bowel sounds, feeding tube Extremities: no C/C/E Decubiti: location, stage Micro: Microbiology Date/Time Source Procedure Growth Status 11/20/16 14:15 Blood Blood Culture - Preliminary Gram Negative Bacillus 1 Resulted 11/20/16 14:00 Blood Blood Culture - Preliminary Gram Negative Bacillus 1 Resulted 11/21/16 00:35 Sputum Gram Stain Pending Resulted 11/21/16 00:35 Sputum Culture - Preliminary Staphylococcus Aureus Resulted 11/20/16 17:15 Nasal Nares Influenza Types A,B Antigen (LIZA) - Final Complete 11/20/16 17:00 Nasal Nares MRSA Culture - Final Staphylococcus Aureus - Mrsa Complete 11/20/16 14:00 Urine,Clean Catch Urine Culture - Preliminary Proteus Mirabilis Resulted 11/20/16 17:00 Rectum VRE Culture - Final NO VANCOMYCIN RESISTANT ENTEROCOCCUS ... Complete Accucheck: 181 Critical Care - Subjective ROS Limited/Unobtainable: No ICU Day: 2 Intubation Day: 2 Condition: critical EKG Rhythm: Sinus Rhythm FI02: 30 Vent Support Breath Rate: 16 Vent Support Mode: AC Vent Tidal Volume: 400 Sputum Amount: Moderate PIP: 16 Fluids: d5w 100 cc/hour Drips: levophed I&O: Intake and Output 11/22/16 11/23/16 19:00 07:00 Intake Total 802.5 ml Output Total 110 ml Balance 692.5 ml Free Water 30 ml IV Total 772.5 ml Output Urine Total 110 ml CXR: no change ET-Tube: 7.5 ET Position: 23 Labs: Laboratory Tests Test 11/21/16 14:00 11/22/16 04:00 11/22/16 05:45 11/22/16 08:40 Urine Color Yellow Urine Appearance Slightly cloudy Urine pH 9 (4.5-8.0) Urine Specific [place] 1.015 (1.005-1.035) Urine Protein 3+ (NEGATIVE) H Urine Glucose (UA) Negative (NEGATIVE) Urine Ketones Negative (NEGATIVE) Urine Occult Blood 5+ (NEGATIVE) H Urine Nitrite Negative (NEGATIVE) Urine Bilirubin Negative (NEGATIVE) Urine Urobilinogen Normal MG/DL (0.0-1.0) Urine Leukocyte Esterase 3+ (NEGATIVE) H Urine RBC 10-15 /HPF (0 - 0) H Urine WBC 5-10 /HPF (0 - 0) H Urine Squamous Epithelial Cells None /LPF (NONE/OCC) Urine Amorphous Sediment Moderate /LPF (NONE) H Urine Bacteria Moderate /HPF (NONE) H Urine Eosinophils None seen Urine Random Sodium 34 mmol/L Urine Potassium Timed 55 mmol/L (12-62) White Blood Count 23.0 K/UL (4.8-10.8) *H Red Blood Count 2.65 M/UL (4.70-6.10) L Hemoglobin 8.6 G/DL (14.2-18.0) L Hematocrit 26.4 % (42.0-52.0) L Mean Corpuscular Volume 100 FL (80-99) H Mean Corpuscular Hemoglobin 32.4 PG (27.0-31.0) H Mean Corpuscular Hemoglobin Concent 32.4 G/DL (32.0-36.0) Red Cell Distribution Width 15.2 % (11.6-14.8) H Platelet Count 179 K/UL (150-450) Mean Platelet Volume 9.8 FL (6.5-10.1) Neutrophils (%) (Auto) % (45.0-75.0) Lymphocytes (%) (Auto) % (20.0-45.0) Monocytes (%) (Auto) % (1.0-10.0) Eosinophils (%) (Auto) % (0.0-3.0) Basophils (%) (Auto) % (0.0-2.0) Differential Total Cells Counted 100 Neutrophils % (Manual) 93 % (45-75) H Lymphocytes % (Manual) 4 % (20-45) L Monocytes % (Manual) 1 % (1-10) Eosinophils % (Manual) 0 % (0-3) Basophils % (Manual) 0 % (0-2) Band Neutrophils 2 % (0-8) Platelet Estimate Adequate Platelet Morphology Normal Hypochromasia 2+ Sodium Level 143 mEQ/L (135-145) Potassium Level 4.7 mEQ/L (3.4-4.9) Chloride Level 103 mEQ/L (98-107) Carbon Dioxide Level 19 mEQ/L (20-30) L Anion Gap 21 (5-15) H Blood Urea Nitrogen 138 mg/dL (7-23) #H Creatinine 5.4 mg/dL (0.7-1.2) H Estimat Glomerular Filtration Rate mL/min (>60) Glucose Level 113 mg/dL (74-106) H Calcium Level 8.2 mg/dL (8.6-10.2) L Phosphorus Level 4.7 mg/dL (2.5-4.8) Magnesium Level 1.8 mg/dL (1.7-2.5) Total Bilirubin 0.4 mg/dL (0.0-1.2) Aspartate Amino Transf (AST/SGOT) 47 U/L (5-40) H Alanine Aminotransferase (ALT/SGPT) 34 U/L (3-41) Alkaline Phosphatase 73 U/L (40-129) Total Protein 5.2 g/dL (6.6-8.7) L Albumin 1.8 g/dL (3.5-5.2) L Globulin 3.4 g/dL Albumin/Globulin Ratio 0.5 (1.0-2.7) L Lactic Acid Level 3.40 mmol/L (0.66-2.22) H 2.10 mmol/L (0.66-2.22) Test 11/22/16 09:20 Arterial Blood pH 7.488 (7.350-7.450) Arterial Blood Partial Pressure CO2 26.8 mmHg (35.0-45.0) L Arterial Blood Partial Pressure O2 253.7 mmHg (75.0-100.0) H Arterial Blood HCO3 19.9 mmol/L (22.0-26.0) L Arterial Blood Oxygen Saturation 98.7 % (92.0-98.0) H Arterial Blood Base Excess -2.5 Chato Test Positive SAVANNAH SAWYER Nov 22, 2016 10:46
--- NOTE | 2016-11-22 14:17 | Internal Med Progress Note ---
Subjective Date of Service: Nov 22, 2016 Physician Name CorineTaniya Attending Physician Teddy Quzeada MD Current Medications Medications (Trade) Dose Ordered Sig/Chasidy Route PRN Reason Start Time Stop Time Status Last Admin Dose Admin Acetaminophen (Tylenol) 650 mg Q4H PRN ORAL fever 11/20/16 18:30 12/20/16 18:29 11/22/16 13:42 Acetaminophen (Tylenol) 650 mg Q4H PRN RECTAL Mild Pain (Pain Scale 1-3) 11/20/16 18:30 12/20/16 18:29 Albuterol/ Ipratropium (DuoNeb 0.5-3(2.5)mg/3ml) 3 ml EVERY 4 HOURS PRN HHN Shortness of Breath 11/20/16 18:30 11/25/16 18:29 Amikacin Protocol (Amikacin pharmacy to dose) 1 ea DAILY PRN MISC Per rx protocol 11/20/16 23:00 12/20/16 22:59 Chlorhexidine Gluconate (Julissa-Hex 2%) 1 applic BEDTIME TOPIC 11/21/16 21:00 12/21/16 08:59 11/21/16 20:45 Dextrose 1,000 ml @ 100 mls/hr Q10H IV 11/22/16 11:00 12/22/16 10:59 11/22/16 10:50 Dextrose (Dextrose 50%) STAT PRN IV Hypoglycemia 11/20/16 20:15 12/20/16 20:14 Heparin Sodium (Porcine) (Heparin 5000 units/ml) 5,000 units EVERY 12 HOURS SUBQ 11/20/16 21:00 12/20/16 20:59 11/22/16 08:17 Insulin Aspart (NovoLOG) EVERY 6 HOURS SUBQ 11/21/16 00:00 12/21/16 00:00 11/22/16 11:26 Lansoprazole (Prevacid) 30 mg QHS GT 11/20/16 21:00 12/20/16 20:59 11/21/16 20:44 Linezolid 300 ml @ 300 mls/hr Q12HR IVPB 11/20/16 23:00 11/27/16 22:59 11/22/16 08:14 Lorazepam (Ativan 2mg/ml 1ml) 2 mg EVERY 2 HOURS PRN IV For Anxiety 11/20/16 18:30 11/27/16 18:29 Meropenem 500 mg/ Sodium Chloride 55 ml @ 110 mls/hr Q24H IVPB 11/20/16 23:00 11/25/16 22:59 11/21/16 23:01 Norepinephrine Bitartrate 4 mg/ Dextrose 254 ml @ 0 mls/hr Q24H IV 11/20/16 18:30 12/20/16 18:29 11/21/16 18:44 Ondansetron HCl (Zofran ODT) 4 mg Q6H PRN ORAL Nausea & Vomiting 11/20/16 18:30 12/20/16 18:29 Polyethylene Glycol (Miralax) 17 gm DAILYPRN PRN ORAL Constipation 11/20/16 18:30 12/20/16 18:29 Allergies: Coded Allergies: No Known Allergies (Unverified , 11/20/16) ROS Limited/Unobtainable: Yes Subjective 86 YO M admitted with respiratory failure and sepsis. Cover for Int Med-Dr Quezada . ICU. Intubated and sedated. Objective Last Vital Signs Date Time Temp Pulse Resp B/P (MAP) Pulse Ox O2 Delivery O2 Flow Rate FiO2 11/22/16 13:45 60 20 93/46 100 Mechanical Ventilator 25 11/22/16 12:00 97.6 11/20/16 17:30 15.0 Laboratory Tests Test 11/22/16 04:00 11/22/16 05:45 11/22/16 08:40 11/22/16 09:20 White Blood Count 23.0 K/UL (4.8-10.8) *H Red Blood Count 2.65 M/UL (4.70-6.10) L Hemoglobin 8.6 G/DL (14.2-18.0) L Hematocrit 26.4 % (42.0-52.0) L Mean Corpuscular Volume 100 FL (80-99) H Mean Corpuscular Hemoglobin 32.4 PG (27.0-31.0) H Mean Corpuscular Hemoglobin Concent 32.4 G/DL (32.0-36.0) Red Cell Distribution Width 15.2 % (11.6-14.8) H Platelet Count 179 K/UL (150-450) Mean Platelet Volume 9.8 FL (6.5-10.1) Neutrophils (%) (Auto) % (45.0-75.0) Lymphocytes (%) (Auto) % (20.0-45.0) Monocytes (%) (Auto) % (1.0-10.0) Eosinophils (%) (Auto) % (0.0-3.0) Basophils (%) (Auto) % (0.0-2.0) Differential Total Cells Counted 100 Neutrophils % (Manual) 93 % (45-75) H Lymphocytes % (Manual) 4 % (20-45) L Monocytes % (Manual) 1 % (1-10) Eosinophils % (Manual) 0 % (0-3) Basophils % (Manual) 0 % (0-2) Band Neutrophils 2 % (0-8) Platelet Estimate Adequate Platelet Morphology Normal Hypochromasia 2+ Sodium Level 143 mEQ/L (135-145) Potassium Level 4.7 mEQ/L (3.4-4.9) Chloride Level 103 mEQ/L (98-107) Carbon Dioxide Level 19 mEQ/L (20-30) L Anion Gap 21 (5-15) H Blood Urea Nitrogen 138 mg/dL (7-23) #H Creatinine 5.4 mg/dL (0.7-1.2) H Estimat Glomerular Filtration Rate mL/min (>60) Glucose Level 113 mg/dL (74-106) H Calcium Level 8.2 mg/dL (8.6-10.2) L Phosphorus Level 4.7 mg/dL (2.5-4.8) Magnesium Level 1.8 mg/dL (1.7-2.5) Total Bilirubin 0.4 mg/dL (0.0-1.2) Aspartate Amino Transf (AST/SGOT) 47 U/L (5-40) H Alanine Aminotransferase (ALT/SGPT) 34 U/L (3-41) Alkaline Phosphatase 73 U/L (40-129) Total Protein 5.2 g/dL (6.6-8.7) L Albumin 1.8 g/dL (3.5-5.2) L Globulin 3.4 g/dL Albumin/Globulin Ratio 0.5 (1.0-2.7) L Lactic Acid Level 3.40 mmol/L (0.66-2.22) H 2.10 mmol/L (0.66-2.22) Arterial Blood pH 7.488 (7.350-7.450) Arterial Blood Partial Pressure CO2 26.8 mmHg (35.0-45.0) L Arterial Blood Partial Pressure O2 253.7 mmHg (75.0-100.0) H Arterial Blood HCO3 19.9 mmol/L (22.0-26.0) L Arterial Blood Oxygen Saturation 98.7 % (92.0-98.0) H Arterial Blood Base Excess -2.5 Chato Test Positive Microbiology Date/Time Source Procedure Growth Status 11/20/16 14:15 Blood Blood Culture - Preliminary Gram Negative Bacillus 1 Resulted 11/20/16 14:00 Blood Blood Culture - Preliminary Gram Negative Bacillus 1 Resulted 11/21/16 00:35 Sputum Gram Stain - Final Resulted 11/21/16 00:35 Sputum Culture - Preliminary Staphylococcus Aureus Resulted 11/20/16 17:15 Nasal Nares Influenza Types A,B Antigen (LIZA) - Final Complete 11/20/16 17:00 Nasal Nares MRSA Culture - Final Staphylococcus Aureus - Mrsa Complete 11/20/16 14:00 Urine,Clean Catch Urine Culture - Preliminary Proteus Mirabilis Resulted 11/21/16 14:00 Sacral Swab Gram Stain - Final Resulted 11/21/16 14:00 Sacral Swab Wound Culture - Preliminary Resulted 11/20/16 17:00 Rectum VRE Culture - Final NO VANCOMYCIN RESISTANT ENTEROCOCCUS ... Complete Intake and Output 11/22/16 11/23/16 19:00 07:00 Intake Total 1517.50 ml Output Total 270 ml Balance 1247.50 ml Free Water 30 ml IV Total 1487.50 ml Output Urine Total 270 ml Objective General Appearance: WD/WN, lethargic EENT: normal ENT inspection, other - oral intubation Neck: non-tender, normal alignment, supple Cardiovascular: normal peripheral pulses, normal rate, regular rhythm, no gallop/murmur, no JVD Respiratory/Chest: Mech vent; respiratory distress, crackles/rales, rhonchi - bilaterally, expiratory wheezing Abdomen: normal bowel sounds, non tender, soft, no organomegaly, no mass Skin: normal pigmentation, warm/dry Assessment/Plan Problem List: (1) Respiratory failure Assessment & Plan: See pulmonary note. Cont mech vent per pulmonary (2) Hypotension Assessment & Plan: Due to sepsis. On levophed (3) Renal failure Assessment & Plan: See nephrology note. (4) Diabetes mellitus, type II Assessment & Plan: Cont novolog sliding scale. 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 Await ID and sens. Follow Inf Dis recs. Cont Meropenem for now. (18) Pneumonia Assessment & Plan: Continue vanco and merpoenem per ID Status: not improved TANIYA PINA Nov 22, 2016 14:17
[2016-11-22] MEDS ORDERED: NS 500ML IV ONE (16:10)
[2016-11-22] MEDS ORDERED: Tubing IV Secondary IV ONE ×3 (16:10→16:16)
[2016-11-22] MEDS ORDERED: NS 275ml ONE (16:13)
[2016-11-22] MEDS ORDERED: Tubing Blood Filter IV ONE (16:13)
--- NOTE | 2016-11-22 18:50 | Cardiology Progress Note ---
Assessment/Plan Assessment/Plan nstemi trop 11 peak so far non flow limiting cad by cath / Lm 20% 02/2015 cath [facility] atrial fibrillation new cm ef % septic shock bacteria gnr renal insuf anemia ob neg stool respriatory failure acute ams prognosis poor dnr is on vent had ogt will give low dose Ecotrin for now iv abs on pressors tele afib v paced personally reviewed cr increased hgb stable cxr personally reviewed titrate pressor for map greater than wean as possible Subjective ROS Limited/Unobtainable: Yes Objective Last 24 Hour Vital Signs Date Time Temp Pulse Resp B/P (MAP) Pulse Ox O2 Delivery O2 Flow Rate FiO2 11/22/16 18:00 60 18 91/46 100 Mechanical Ventilator 25 11/22/16 18:00 97/46 11/22/16 17:18 60 23 25 11/22/16 17:00 88/48 11/22/16 16:00 60 11/22/16 16:00 100/50 11/22/16 16:00 97.8 60 18 100/50 100 Mechanical Ventilator 25 11/22/16 16:00 30 11/22/16 15:16 60 18 25 11/22/16 15:00 60 20 83/54 100 Mechanical Ventilator 25 11/22/16 15:00 83/54 11/22/16 14:00 89/47 11/22/16 13:45 60 20 93/46 100 Mechanical Ventilator 25 11/22/16 13:30 60 20 96/44 100 Mechanical Ventilator 25 11/22/16 13:15 60 19 96/44 100 Mechanical Ventilator 25 11/22/16 13:00 91/47 11/22/16 13:00 60 20 91/47 99 Mechanical Ventilator 25 11/22/16 12:46 60 21 25 11/22/16 12:45 60 18 89/46 98 Mechanical Ventilator 25 11/22/16 12:30 60 18 93/47 98 Mechanical Ventilator 25 11/22/16 12:15 60 19 91/46 98 Mechanical Ventilator 25 11/22/16 12:00 60 11/22/16 12:00 30 11/22/16 12:00 90/46 11/22/16 12:00 97.6 62 17 90/44 100 Mechanical Ventilator 30 11/22/16 11:45 62 17 90/46 100 Mechanical Ventilator 30 11/22/16 11:30 62 19 80/42 100 Mechanical Ventilator 30 11/22/16 11:15 62 19 82/42 100 Mechanical Ventilator 30 11/22/16 11:14 61 23 25 11/22/16 11:09 93/42 11/22/16 11:00 61 19 84/47 100 Mechanical Ventilator 30 11/22/16 10:45 61 19 81/55 100 Mechanical Ventilator 30 11/22/16 10:30 65 20 94/63 100 Mechanical Ventilator 30 11/22/16 10:15 60 18 91/52 100 Mechanical Ventilator 30 11/22/16 10:00 60 18 91/52 100 Mechanical Ventilator 30 11/22/16 10:00 89/53 11/22/16 09:45 60 19 89/53 100 Mechanical Ventilator 30 11/22/16 09:30 61 18 104/70 100 Mechanical Ventilator 30 11/22/16 09:29 62 35 30 11/22/16 09:15 60 18 99/52 100 Mechanical Ventilator 30 11/22/16 09:00 60 17 99/59 100 Mechanical Ventilator 30 11/22/16 09:00 99/54 11/22/16 08:45 60 17 99/59 100 Mechanical Ventilator 30 11/22/16 08:30 60 18 98/52 100 Mechanical Ventilator 30 11/22/16 08:15 62 17 90/56 100 Mechanical Ventilator 30 11/22/16 08:14 90/56 11/22/16 08:00 97.5 61 18 79/57 100 Mechanical Ventilator 30 11/22/16 08:00 30 11/22/16 08:00 60 11/22/16 07:45 60 18 99/54 100 Mechanical Ventilator 30 11/22/16 07:30 60 18 99/54 100 Mechanical Ventilator 30 11/22/16 07:15 60 18 97/50 100 Mechanical Ventilator 30 11/22/16 07:04 60 35 30 11/22/16 07:00 96/62 11/22/16 07:00 60 17 96/62 100 Mechanical Ventilator 30 11/22/16 06:45 60 17 99/53 100 Mechanical Ventilator 30 11/22/16 06:30 60 17 97/56 100 Mechanical Ventilator 30 11/22/16 06:15 60 17 98/55 100 Mechanical Ventilator 30 11/22/16 06:00 60 17 99/55 100 Mechanical Ventilator 30 11/22/16 06:00 99/55 10/8/17 05:45 61 17 98/51 100 Mechanical Ventilator 30 11/22/16 05:30 60 17 94/52 100 Mechanical Ventilator 30 11/22/16 05:15 60 17 86/55 100 Mechanical Ventilator 30 11/22/16 05:04 63 23 30 11/22/16 05:00 62 17 86/63 100 Mechanical Ventilator 30 11/22/16 05:00 86/63 11/22/16 04:45 64 17 121/63 100 Mechanical Ventilator 30 11/22/16 04:30 67 17 91/68 100 Mechanical Ventilator 30 11/22/16 04:15 62 17 99/50 100 Mechanical Ventilator 30 11/22/16 04:00 98.1 60 17 107/54 100 Mechanical Ventilator 30 11/22/16 04:00 30 11/22/16 04:00 104/57 11/22/16 03:45 60 17 105/55 100 Mechanical Ventilator 30 11/22/16 03:43 60 11/22/16 03:30 60 17 102/57 100 Mechanical Ventilator 30 11/22/16 03:15 60 17 103/53 100 Mechanical Ventilator 30 11/22/16 03:07 60 23 30 11/22/16 03:00 60 17 103/54 100 Mechanical Ventilator 30 11/22/16 03:00 101/53 11/22/16 02:45 62 17 104/54 100 Mechanical Ventilator 30 11/22/16 02:30 62 17 104/54 100 Mechanical Ventilator 30 11/22/16 02:15 60 17 102/50 100 Mechanical Ventilator 30 11/22/16 02:00 103/53 11/22/16 02:00 60 17 103/53 100 Mechanical Ventilator 30 11/22/16 01:45 60 17 106/53 100 Mechanical Ventilator 30 11/22/16 01:30 60 17 104/55 100 Mechanical Ventilator 30 11/22/16 01:15 60 17 105/52 100 Mechanical Ventilator 30 11/22/16 01:08 60 27 30 11/22/16 01:00 60 17 103/53 100 Mechanical Ventilator 30 11/22/16 01:00 103/53 11/22/16 00:45 61 17 95/50 100 Mechanical Ventilator 30 11/22/16 00:30 61 17 95/50 100 Mechanical Ventilator 30 11/22/16 00:15 62 17 87/65 100 Mechanical Ventilator 30 11/22/16 00:00 62 11/22/16 00:00 30 11/22/16 00:00 98/63 11/22/16 00:00 98.6 63 17 98/64 100 Mechanical Ventilator 30 11/21/16 23:45 60 17 94/51 100 Mechanical Ventilator 30 11/21/16 23:30 61 17 91/47 100 Mechanical Ventilator 30 11/21/16 23:15 62 17 95/49 100 Mechanical Ventilator 30 11/21/16 23:02 62 25 30 11/21/16 23:00 61 17 108/61 100 Mechanical Ventilator 30 11/21/16 23:00 96/50 11/21/16 22:45 60 17 96/50 100 Mechanical Ventilator 30 11/21/16 22:30 61 17 94/48 100 Mechanical Ventilator 30 11/21/16 22:15 62 17 95/47 100 Mechanical Ventilator 30 11/21/16 22:00 62 17 95/47 100 Mechanical Ventilator 30 11/21/16 22:00 95/47 11/21/16 21:45 62 17 103/55 100 Mechanical Ventilator 30 11/21/16 21:30 64 17 130/72 100 Mechanical Ventilator 30 11/21/16 21:15 61 17 110/55 100 Mechanical Ventilator 30 11/21/16 21:00 61 17 110/54 100 Mechanical Ventilator 30 11/21/16 21:00 98/64 11/21/16 20:58 62 25 30 11/21/16 20:45 62 17 98/54 100 Mechanical Ventilator 30 11/21/16 20:30 63 17 91/47 100 Mechanical Ventilator 30 11/21/16 20:15 64 17 108/69 100 Mechanical Ventilator 30 11/21/16 20:00 30 11/21/16 20:00 60 11/21/16 20:00 110/68 11/21/16 20:00 98.1 63 17 110/79 100 Mechanical Ventilator 30 11/21/16 19:45 61 17 107/60 100 Mechanical Ventilator 30 11/21/16 19:30 62 17 107/54 100 Mechanical Ventilator 30 11/21/16 19:15 64 27 30 11/21/16 19:15 63 17 109/54 100 Mechanical Ventilator 30 11/21/16 19:00 62 17 120/58 100 Mechanical Ventilator 30 11/21/16 19:00 60 17 98/53 100 Mechanical Ventilator 30 General Appearance: on vent, patient on isolation Neck: supple Cardiovascular: normal rate Respiratory/Chest: lungs clear Abdomen: normal bowel sounds, non tender, soft Extremities: no swelling Intake and Output 11/22/16 11/23/16 19:00 07:00 Intake Total 2112.50 ml Output Total 490 ml Balance 1622.50 ml Free Water 30 ml IV Total 2032.50 ml Other 50 ml Output Urine Total 490 ml Laboratory Tests Test 11/22/16 04:00 11/22/16 05:45 11/22/16 08:40 11/22/16 09:20 White Blood Count 23.0 K/UL (4.8-10.8) *H Red Blood Count 2.65 M/UL (4.70-6.10) L Hemoglobin 8.6 G/DL (14.2-18.0) L Hematocrit 26.4 % (42.0-52.0) L Mean Corpuscular Volume 100 FL (80-99) H Mean Corpuscular Hemoglobin 32.4 PG (27.0-31.0) H Mean Corpuscular Hemoglobin Concent 32.4 G/DL (32.0-36.0) Red Cell Distribution Width 15.2 % (11.6-14.8) H Platelet Count 179 K/UL (150-450) Mean Platelet Volume 9.8 FL (6.5-10.1) Neutrophils (%) (Auto) % (45.0-75.0) Lymphocytes (%) (Auto) % (20.0-45.0) Monocytes (%) (Auto) % (1.0-10.0) Eosinophils (%) (Auto) % (0.0-3.0) Basophils (%) (Auto) % (0.0-2.0) Differential Total Cells Counted 100 Neutrophils % (Manual) 93 % (45-75) H Lymphocytes % (Manual) 4 % (20-45) L Monocytes % (Manual) 1 % (1-10) Eosinophils % (Manual) 0 % (0-3) Basophils % (Manual) 0 % (0-2) Band Neutrophils 2 % (0-8) Platelet Estimate Adequate Platelet Morphology Normal Hypochromasia 2+ Sodium Level 143 mEQ/L (135-145) Potassium Level 4.7 mEQ/L (3.4-4.9) Chloride Level 103 mEQ/L (98-107) Carbon Dioxide Level 19 mEQ/L (20-30) L Anion Gap 21 (5-15) H Blood Urea Nitrogen 138 mg/dL (7-23) #H Creatinine 5.4 mg/dL (0.7-1.2) H Estimat Glomerular Filtration Rate mL/min (>60) Glucose Level 113 mg/dL (74-106) H Calcium Level 8.2 mg/dL (8.6-10.2) L Phosphorus Level 4.7 mg/dL (2.5-4.8) Magnesium Level 1.8 mg/dL (1.7-2.5) Total Bilirubin 0.4 mg/dL (0.0-1.2) Aspartate Amino Transf (AST/SGOT) 47 U/L (5-40) H Alanine Aminotransferase (ALT/SGPT) 34 U/L (3-41) Alkaline Phosphatase 73 U/L (40-129) Total Protein 5.2 g/dL (6.6-8.7) L Albumin 1.8 g/dL (3.5-5.2) L Globulin 3.4 g/dL Albumin/Globulin Ratio 0.5 (1.0-2.7) L Lactic Acid Level 3.40 mmol/L (0.66-2.22) H 2.10 mmol/L (0.66-2.22) Arterial Blood pH 7.488 (7.350-7.450) Arterial Blood Partial Pressure CO2 26.8 mmHg (35.0-45.0) L Arterial Blood Partial Pressure O2 253.7 mmHg (75.0-100.0) H Arterial Blood HCO3 19.9 mmol/L (22.0-26.0) L Arterial Blood Oxygen Saturation 98.7 % (92.0-98.0) H Arterial Blood Base Excess -2.5 Chato Test Positive Microbiology Date/Time Source Procedure Growth Status 11/20/16 14:15 Blood Blood Culture - Preliminary Gram Negative Bacillus 1 Resulted 11/20/16 14:00 Blood Blood Culture - Preliminary Gram Negative Bacillus 1 Resulted 11/21/16 00:35 Sputum Gram Stain - Final Resulted 11/21/16 00:35 Sputum Culture - Preliminary Staphylococcus Aureus Resulted 11/20/16 17:15 Nasal Nares Influenza Types A,B Antigen (LIZA) - Final Complete 11/20/16 17:00 Nasal Nares MRSA Culture - Final Staphylococcus Aureus - Mrsa Complete 11/20/16 14:00 Urine,Clean Catch Urine Culture - Preliminary Proteus Mirabilis Resulted 11/21/16 14:00 Sacral Swab Gram Stain - Final Resulted 11/21/16 14:00 Sacral Swab Wound Culture - Preliminary Resulted 11/20/16 17:00 Rectum VRE Culture - Final NO VANCOMYCIN RESISTANT ENTEROCOCCUS ... Complete PARAS ROJAS Nov 22, 2016 18:50
[2016-11-22] MEDS: Dyna-Hex 2% Top Sol 2oz TOPIC SCH (19:35)
--- NOTE | 2016-11-22 21:02 | Infectious Diseases Prog Note ---
Assessment/Plan Problems: (1) HCAP (healthcare-associated pneumonia) Assessment & Plan: continue zyvox and meropenem empirically pending sputum culture , monitor CXR (2) UTI (urinary tract infection) Assessment & Plan: due to proteus mirabilis , already on meropenem empirically (3) Septic shock Assessment & Plan: due to gram negative rods, continue wide spectrum antibiotics with double coverage for gram negative rods pending identification and sensitivity , will tailor antibiotics pending culture results (4) Lactic acid acidosis Assessment & Plan: due to septic shock, continue hydration and maintain systolic blood pressure above 100 (5) Altered mental status Assessment & Plan: due to septic shock, intubated, on echanical ventilation. recommend neurology eval if no improvement later (6) Sacral decubitus ulcer, stage IV Assessment & Plan: with yellowish exudate, needs to rule out underlying osteomyelitis, await wound culture, and continue wide spectrum antibiotics, with off loading. will obtain MRI of the sacrum once clinically stable to rule out underlying osteomyelitis , will consult plastic surgery for surgical debridement tomorrow (7) BJORN (acute kidney injury) Assessment & Plan: due to septic shock , with electrolytes abnormalities, continue ivf for hydration, monitor renal function and UOP, renal service is following (8) Diabetes mellitus, type II Assessment & Plan: recommend tight glycemic control to keep blood glucose between 80-120 (9) Respiratory failure Assessment & Plan: due to the above, intubated on mechanical ventilation, monitor ABG, and CXR Subjective ROS Limited/Unobtainable: Yes Allergies: Coded Allergies: No Known Allergies (Unverified , 11/20/16) Subjective he is still intubated on mechanical ventilation, responsive to touch, still on pressor, afebrile, NAD Objective Vital Signs Last 24 Hour Vital Signs Date Time Temp Pulse Resp B/P (MAP) Pulse Ox O2 Delivery O2 Flow Rate FiO2 11/22/16 19:30 61 22 25 11/22/16 19:30 61 21 90/50 100 Mechanical Ventilator 25 11/22/16 19:15 97.5 60 20 92/49 100 Mechanical Ventilator 25 11/22/16 19:00 60 20 92/29 100 Mechanical Ventilator 25 11/22/16 18:57 93/48 11/22/16 18:45 60 20 96/45 100 Mechanical Ventilator 25 11/22/16 18:30 61 20 96/45 100 Mechanical Ventilator 25 11/22/16 18:15 60 18 96/45 100 Mechanical Ventilator 25 11/22/16 18:00 60 18 91/46 100 Mechanical Ventilator 25 11/22/16 18:00 97/46 11/22/16 17:45 60 19 91/45 100 Mechanical Ventilator 25 11/22/16 17:30 60 19 87/45 100 Mechanical Ventilator 25 11/22/16 17:18 60 23 25 11/22/16 17:15 60 19 88/47 100 Mechanical Ventilator 25 11/22/16 17:00 60 18 83/46 100 Mechanical Ventilator 25 11/22/16 17:00 88/48 11/22/16 16:45 60 18 103/49 100 Mechanical Ventilator 25 11/22/16 16:30 60 18 103/49 100 Mechanical Ventilator 25 11/22/16 16:15 60 18 101/51 100 Mechanical Ventilator 25 11/22/16 16:00 60 11/22/16 16:00 100/50 11/22/16 16:00 97.8 60 18 100/50 100 Mechanical Ventilator 25 11/22/16 16:00 30 11/22/16 15:45 60 18 100/50 100 Mechanical Ventilator 25 11/22/16 15:30 60 18 101/50 100 Mechanical Ventilator 25 11/22/16 15:16 60 18 25 11/22/16 15:15 60 20 87/47 100 Mechanical Ventilator 25 11/22/16 15:00 60 20 83/54 100 Mechanical Ventilator 25 11/22/16 15:00 83/54 11/22/16 14:00 89/47 11/22/16 14:00 60 20 93/46 100 Mechanical Ventilator 25 11/22/16 13:45 60 20 93/46 100 Mechanical Ventilator 25 11/22/16 13:30 60 20 96/44 100 Mechanical Ventilator 25 11/22/16 13:15 60 19 96/44 100 Mechanical Ventilator 25 11/22/16 13:00 91/47 11/22/16 13:00 60 20 91/47 99 Mechanical Ventilator 25 11/22/16 12:46 60 21 25 11/22/16 12:45 60 18 89/46 98 Mechanical Ventilator 25 11/22/16 12:30 60 18 93/47 98 Mechanical Ventilator 25 11/22/16 12:15 60 19 91/46 98 Mechanical Ventilator 25 11/22/16 12:00 60 11/22/16 12:00 30 11/22/16 12:00 90/46 11/22/16 12:00 97.6 62 17 90/44 100 Mechanical Ventilator 30 11/22/16 11:45 62 17 90/46 100 Mechanical Ventilator 30 11/22/16 11:30 62 19 80/42 100 Mechanical Ventilator 30 11/22/16 11:15 62 19 82/42 100 Mechanical Ventilator 30 11/22/16 11:14 61 23 25 11/22/16 11:09 93/42 11/22/16 11:00 61 19 84/47 100 Mechanical Ventilator 30 11/22/16 10:45 61 19 81/55 100 Mechanical Ventilator 30 11/22/16 10:30 65 20 94/63 100 Mechanical Ventilator 30 11/22/16 10:15 60 18 91/52 100 Mechanical Ventilator 30 11/22/16 10:00 60 18 91/52 100 Mechanical Ventilator 30 11/22/16 10:00 89/53 11/22/16 09:45 60 19 89/53 100 Mechanical Ventilator 30 11/22/16 09:30 61 18 104/70 100 Mechanical Ventilator 30 11/22/16 09:29 62 35 30 11/22/16 09:15 60 18 99/52 100 Mechanical Ventilator 30 11/22/16 09:00 60 17 99/59 100 Mechanical Ventilator 30 11/22/16 09:00 99/54 11/22/16 08:45 60 17 99/59 100 Mechanical Ventilator 30 11/22/16 08:30 60 18 98/52 100 Mechanical Ventilator 30 11/22/16 08:15 62 17 90/56 100 Mechanical Ventilator 30 11/22/16 08:14 90/56 11/22/16 08:00 97.5 61 18 79/57 100 Mechanical Ventilator 30 11/22/16 08:00 30 11/22/16 08:00 60 11/22/16 07:45 60 18 99/54 100 Mechanical Ventilator 30 11/22/16 07:30 60 18 99/54 100 Mechanical Ventilator 30 11/22/16 07:15 60 18 97/50 100 Mechanical Ventilator 30 11/22/16 07:04 60 35 30 11/22/16 07:00 96/62 11/22/16 07:00 60 17 96/62 100 Mechanical Ventilator 30 11/22/16 06:45 60 17 99/53 100 Mechanical Ventilator 30 11/22/16 06:30 60 17 97/56 100 Mechanical Ventilator 30 11/22/16 06:15 60 17 98/55 100 Mechanical Ventilator 30 11/22/16 06:00 60 17 99/55 100 Mechanical Ventilator 30 11/22/16 06:00 99/55 11/22/16 05:45 61 17 98/51 100 Mechanical Ventilator 30 11/22/16 05:30 60 17 94/52 100 Mechanical Ventilator 30 11/22/16 05:15 60 17 86/55 100 Mechanical Ventilator 30 11/22/16 05:04 63 23 30 11/22/16 05:00 62 17 86/63 100 Mechanical Ventilator 30 11/22/16 05:00 86/63 11/22/16 04:45 64 17 121/63 100 Mechanical Ventilator 30 11/22/16 04:30 67 17 91/68 100 Mechanical Ventilator 30 11/22/16 04:15 62 17 99/50 100 Mechanical Ventilator 30 11/22/16 04:00 98.1 60 17 107/54 100 Mechanical Ventilator 30 11/22/16 04:00 30 11/22/16 04:00 104/57 11/22/16 03:45 60 17 105/55 100 Mechanical Ventilator 30 11/22/16 03:43 60 11/22/16 03:30 60 17 102/57 100 Mechanical Ventilator 30 11/22/16 03:15 60 17 103/53 100 Mechanical Ventilator 30 11/22/16 03:07 60 23 30 11/22/16 03:00 60 17 103/54 100 Mechanical Ventilator 30 11/22/16 03:00 101/53 11/22/16 02:45 62 17 104/54 100 Mechanical Ventilator 30 11/22/16 02:30 62 17 104/54 100 Mechanical Ventilator 30 11/22/16 02:15 60 17 102/50 100 Mechanical Ventilator 30 11/22/16 02:00 103/53 11/22/16 02:00 60 17 103/53 100 Mechanical Ventilator 30 11/22/16 01:45 60 17 106/53 100 Mechanical Ventilator 30 11/22/16 01:30 60 17 104/55 100 Mechanical Ventilator 30 11/22/16 01:15 60 17 105/52 100 Mechanical Ventilator 30 11/22/16 01:08 60 27 30 11/22/16 01:00 60 17 103/53 100 Mechanical Ventilator 30 11/22/16 01:00 103/53 11/22/16 00:45 61 17 95/50 100 Mechanical Ventilator 30 11/22/16 00:30 61 17 95/50 100 Mechanical Ventilator 30 11/22/16 00:15 62 17 87/65 100 Mechanical Ventilator 30 11/22/16 00:00 62 11/22/16 00:00 30 11/22/16 00:00 98/63 11/22/16 00:00 98.6 63 17 98/64 100 Mechanical Ventilator 30 11/21/16 23:45 60 17 94/51 100 Mechanical Ventilator 30 11/21/16 23:30 61 17 91/47 100 Mechanical Ventilator 30 11/21/16 23:15 62 17 95/49 100 Mechanical Ventilator 30 11/21/16 23:02 62 25 30 11/21/16 23:00 61 17 108/61 100 Mechanical Ventilator 30 11/21/16 23:00 96/50 11/21/16 22:45 60 17 96/50 100 Mechanical Ventilator 30 11/21/16 22:30 61 17 94/48 100 Mechanical Ventilator 30 11/21/16 22:15 62 17 95/47 100 Mechanical Ventilator 30 11/21/16 22:00 62 17 95/47 100 Mechanical Ventilator 30 11/21/16 22:00 95/47 11/21/16 21:45 62 17 103/55 100 Mechanical Ventilator 30 11/21/16 21:30 64 17 130/72 100 Mechanical Ventilator 30 11/21/16 21:15 61 17 110/55 100 Mechanical Ventilator 30 11/21/16 21:00 61 17 110/54 100 Mechanical Ventilator 30 11/21/16 21:00 98/64 Height (Feet): 5 Weight (Pounds): 130 General Appearance: WD/WN, no acute distress, cachetic HEENT: normocephalic, atraumatic, anicteric, PERRL, supple, no JVD Respiratory/Chest: normal breath sounds, no respiratory distress, no accessory muscle use, decreased breath sounds, crackles/rales Cardiovascular: normal peripheral pulses, normal rate, regular rhythm, no gallop/murmur, no JVD Abdomen: normal bowel sounds, soft, non tender, no organomegaly, non distended , no mass, no scars Genitourinary: normal external genitalia Extremities: no cyanosis, no clubbing Skin: no rash, no lesions, ulcers - multile skin breaks on his back and buttocks, with deep sacral wound and exposed bone Neurologic/Psychiatric: unresponsiveness Musculoskeletal: normal muscle bulk Microbiology Date/Time Source Procedure Growth Status 11/20/16 14:15 Blood Blood Culture - Preliminary Gram Negative Bacillus 1 Resulted 11/20/16 14:00 Blood Blood Culture - Preliminary Gram Negative Bacillus 1 Resulted 11/21/16 00:35 Sputum Gram Stain - Final Resulted 11/21/16 00:35 Sputum Culture - Preliminary Staphylococcus Aureus Resulted 11/20/16 17:15 Nasal Nares Influenza Types A,B Antigen (LIZA) - Final Complete 11/20/16 17:00 Nasal Nares MRSA Culture - Final Staphylococcus Aureus - Mrsa Complete 11/20/16 14:00 Urine,Clean Catch Urine Culture - Preliminary Proteus Mirabilis Resulted 11/21/16 14:00 Sacral Swab Gram Stain - Final Resulted 11/21/16 14:00 Sacral Swab Wound Culture - Preliminary Resulted 11/20/16 17:00 Rectum VRE Culture - Final NO VANCOMYCIN RESISTANT ENTEROCOCCUS ... Complete Laboratory Tests Test 11/22/16 04:00 11/22/16 05:45 11/22/16 08:40 11/22/16 09:20 White Blood Count 23.0 K/UL (4.8-10.8) *H Red Blood Count 2.65 M/UL (4.70-6.10) L Hemoglobin 8.6 G/DL (14.2-18.0) L Hematocrit 26.4 % (42.0-52.0) L Mean Corpuscular Volume 100 FL (80-99) H Mean Corpuscular Hemoglobin 32.4 PG (27.0-31.0) H Mean Corpuscular Hemoglobin Concent 32.4 G/DL (32.0-36.0) Red Cell Distribution Width 15.2 % (11.6-14.8) H Platelet Count 179 K/UL (150-450) Mean Platelet Volume 9.8 FL (6.5-10.1) Neutrophils (%) (Auto) % (45.0-75.0) Lymphocytes (%) (Auto) % (20.0-45.0) Monocytes (%) (Auto) % (1.0-10.0) Eosinophils (%) (Auto) % (0.0-3.0) Basophils (%) (Auto) % (0.0-2.0) Differential Total Cells Counted 100 Neutrophils % (Manual) 93 % (45-75) H Lymphocytes % (Manual) 4 % (20-45) L Monocytes % (Manual) 1 % (1-10) Eosinophils % (Manual) 0 % (0-3) Basophils % (Manual) 0 % (0-2) Band Neutrophils 2 % (0-8) Platelet Estimate Adequate Platelet Morphology Normal Hypochromasia 2+ Sodium Level 143 mEQ/L (135-145) Potassium Level 4.7 mEQ/L (3.4-4.9) Chloride Level 103 mEQ/L (98-107) Carbon Dioxide Level 19 mEQ/L (20-30) L Anion Gap 21 (5-15) H Blood Urea Nitrogen 138 mg/dL (7-23) #H Creatinine 5.4 mg/dL (0.7-1.2) H Estimat Glomerular Filtration Rate mL/min (>60) Glucose Level 113 mg/dL (74-106) H Calcium Level 8.2 mg/dL (8.6-10.2) L Phosphorus Level 4.7 mg/dL (2.5-4.8) Magnesium Level 1.8 mg/dL (1.7-2.5) Total Bilirubin 0.4 mg/dL (0.0-1.2) Aspartate Amino Transf (AST/SGOT) 47 U/L (5-40) H Alanine Aminotransferase (ALT/SGPT) 34 U/L (3-41) Alkaline Phosphatase 73 U/L (40-129) Total Protein 5.2 g/dL (6.6-8.7) L Albumin 1.8 g/dL (3.5-5.2) L Globulin 3.4 g/dL Albumin/Globulin Ratio 0.5 (1.0-2.7) L Lactic Acid Level 3.40 mmol/L (0.66-2.22) H 2.10 mmol/L (0.66-2.22) Arterial Blood pH 7.488 (7.350-7.450) Arterial Blood Partial Pressure CO2 26.8 mmHg (35.0-45.0) L Arterial Blood Partial Pressure O2 253.7 mmHg (75.0-100.0) H Arterial Blood HCO3 19.9 mmol/L (22.0-26.0) L Arterial Blood Oxygen Saturation 98.7 % (92.0-98.0) H Arterial Blood Base Excess -2.5 Chato Test Positive Current Medications Medications (Trade) Dose Ordered Sig/Chasidy Route PRN Reason Start Time Stop Time Status Last Admin Dose Admin Acetaminophen (Tylenol) 650 mg Q4H PRN ORAL fever 11/20/16 18:30 12/20/16 18:29 11/22/16 13:42 Acetaminophen (Tylenol) 650 mg Q4H PRN RECTAL Mild Pain (Pain Scale 1-3) 11/20/16 18:30 12/20/16 18:29 Albuterol/ Ipratropium (DuoNeb 0.5-3(2.5)mg/3ml) 3 ml EVERY 4 HOURS PRN HHN Shortness of Breath 11/20/16 18:30 11/25/16 18:29 Amikacin Protocol (Amikacin pharmacy to dose) 1 ea DAILY PRN MISC Per rx protocol 11/20/16 23:00 12/20/16 22:59 Chlorhexidine Gluconate (Julissa-Hex 2%) 1 applic DAILY@2000 TOPIC 11/22/16 20:00 12/22/16 19:59 11/22/16 19:35 Dextrose 1,000 ml @ 100 mls/hr Q10H IV 11/22/16 11:00 12/22/16 10:59 11/22/16 20:53 Dextrose (Dextrose 50%) STAT PRN IV Hypoglycemia 11/20/16 20:15 12/20/16 20:14 Heparin Sodium (Porcine) (Heparin 5000 units/ml) 5,000 units EVERY 12 HOURS SUBQ 11/20/16 21:00 12/20/16 20:59 11/22/16 20:55 Insulin Aspart (NovoLOG) EVERY 6 HOURS SUBQ 11/21/16 00:00 12/21/16 00:00 11/22/16 18:30 Lansoprazole (Prevacid) 30 mg QHS GT 11/20/16 21:00 12/20/16 20:59 11/22/16 20:54 Linezolid 300 ml @ 300 mls/hr Q12HR IVPB 11/20/16 23:00 11/27/16 22:59 11/22/16 20:54 Lorazepam (Ativan 2mg/ml 1ml) 2 mg EVERY 2 HOURS PRN IV For Anxiety 11/20/16 18:30 11/27/16 18:29 Meropenem 500 mg/ Sodium Chloride 55 ml @ 110 mls/hr Q24H IVPB 11/20/16 23:00 11/25/16 22:59 11/21/16 23:01 Norepinephrine Bitartrate 4 mg/ Dextrose 254 ml @ 0 mls/hr Q24H IV 11/20/16 18:30 12/20/16 18:29 11/22/16 18:57 Ondansetron HCl (Zofran ODT) 4 mg Q6H PRN ORAL Nausea & Vomiting 11/20/16 18:30 12/20/16 18:29 Polyethylene Glycol (Miralax) 17 gm DAILYPRN PRN ORAL Constipation 11/20/16 18:30 12/20/16 18:29 Kateryna Rizo M.D. Nov 22, 2016 21:02
[2016-11-22] MEDS: Meropenem 500 MG in NS 55 ML IVPB SCH (22:35)
[2016-11-23] VITALS (96 sets, daily range): BP systolic 82–134; BP diastolic 37–63
[2016-11-23] MEDS: NovoLOG Insulin Flexpen SUBQ SCH ×4 (05:40→23:47)
[2016-11-23 05:58] LABS: MEAN CORPUSCULAR HEMOGLOBIN 31.7 PG (27.0-31.0); MEAN CORPUSCULAR HGB CONC 32.7 G/DL (32.0-36.0); MEAN CORPUSCULAR VOLUME 97 FL (80-99); MEAN PLATELET VOLUME 12.8 FL (6.5-10.1); PLATELET COUNT 138 K/UL (150-450); RED BLOOD COUNT 2.95 M/UL (4.70-6.10); RED CELL DISTRIBUTION WIDTH 14.4 % (11.6-14.8)
[2016-11-23 06:24] LABS: WHITE BLOOD COUNT 41.6 K/UL (4.8-10.8)
[2016-11-23 06:25] LABS: ALANINE AMINOTRANSFERASE 22 U/L (12-78); ALBUMIN/GLOBULIN RATIO 0.5 (1.0-2.7); ANION GAP 12 (5-15); CALCIUM 7.9 MG/DL (8.5-10.1); CARBON DIOXIDE 19 MMOL/L (21-32); CHLORIDE 93 MMOL/L (98-107); CREATININE 4.6 MG/DL (0.55-1.30); MAGNESIUM 1.3 MG/DL (1.8-2.4); PHOSPHORUS 4.5 MG/DL (2.5-4.9); POTASSIUM 3.5 MMOL/L (3.5-5.1); SODIUM 124 MMOL/L (136-145); TOTAL PROTEIN 4.8 G/DL (6.4-8.2); URIC ACID 7.2 MG/DL (2.6-7.2)
[2016-11-23 07:15] LABS: ASPARTATE AMINO TRANSFERASE 20 U/L (15-37)
[2016-11-23] MEDS: D5NS 1,000 ML IV SCH ×2 (07:51→17:56)
--- NOTE | 2016-11-23 08:08 | Cardiology Report ---
APPROVED REPORT EXAM: Two-dimensional and M-mode echocardiogram with Doppler and color Doppler. INDICATION Atrial Fibrillation M-Mode DIMENSIONS IVSd1.2 (0.7-1.1cm)Left Atrium (MM)4.5 (1.6-4.0cm) LVDd5.3 (3.5-5.6cm)Aortic Root3.4 (2.0-3.7cm) PWd1.2 (0.7-1.1cm)Aortic Cusp Exc.1.9 (1.5-2.0cm) LVDs4.7 (2.5-4.0cm) PWs1.1 cm Normal left ventricular chamber size. Global left ventricular hypokinesis. Basal,mid inferior septal and apical septal dyskinesis. Left ventricular ejection fraction estimated to be 20%. Mild left ventricular hypertrophy. Large posterior pleural effusion. Mild right atrial enlargement by 2D. Moderate left atrial enlargement by 2D. Focal aortic valve sclerosis with adequate cusp excursion. Thickened mitral valve leaflets with normal excursion. Mild mitral annulus and aortic root calcification. Pulmonic valve is well visualized. Normal tricuspid valve structure. IVC is normal in size and collapsible with respiration. Probable pacemaker wire present in the right side chambers. A color flow and spectral Doppler study was performed and revealed: Mild aortic regurgitation. Trace mitral regurgitation. Mitral diastolic velocities suggest reduced left ventricular relaxation c/w diastolic dysfunction grade 3. Moderate tricuspid regurgitation. Tricuspid systolic velocities suggests peak right ventricular systolic pressure of 43mmHg Consistent with mild pulmonary hypertension. Pulmonic regurgitation present.
[2016-11-23] MEDS ORDERED: Hydrocortisone 100mg Inj IV ONE (08:45)
--- NOTE | 2016-11-23 09:01 | Consultation ---
DATE OF CONSULTATION: 11/21/2016 CARDIOLOGY CONSULTATION ATTENDING PHYSICIAN: CONSULTING PHYSICIAN: Rafy Perez M.D. REFERRING PHYSICIAN: Teddy Quezada M.D. REASON FOR REFERRAL: Cardiomyopathy and respiratory failure. HISTORY OF PRESENT ILLNESS: This is an elderly gentleman, who is not able to provide any meaningful history whatsoever. Information is obtained from my review of the gymnasium teacher run sheet, the chart, as well as his records from [facility] that I have been able to access. According to the gymnasium teacher run sheet, they found the patient at a convalescent facility. Apparently, the patient suddenly became altered . He has a history of Alzheimer's dementia, but per family members, he was not able to recognize the family members today. He was not able to produce on the day of . No visible trauma. He was awake, but was not answering any questions. The patient had intravenous was placed. The patient aroused when auscultated on the right lower lobe only. The patient was found to be hypotensive, apparently this is usual for him. Fluids were not administered because of his breath sounds with high flow oxygen with saturation 87%, which improved the oxygenation. He did not appear to be in any pain. He was not having any chest pain. No vomiting. The patient was transferred to the emergency room at [facility]. According to some of the records from [facility] where she was hospitalized back in September of 2016, the patient had been admitted there for failure to thrive and was not able to take any p.o., so the family does not want to pursue a gastric tube placement for feeding purposes and the patient was subsequently discharged to [facility] where he has been since then except for the recent episode. The patient also carries a diagnosis of xhy-ED-gvubgjprwh infarction. Apparently, he had some cardiac catheterization, it showed nonobstructive coronary disease. The timing of that is not known acute on chronic congestive heart failure with systolic dysfunction, pulmonary hypertension, chronic kidney disease, prostate cancer, status post radiation therapy, diabetes mellitus type 2, hypertension, sick sinus syndrome, status post permanent pacemaker implantation, gout, shortness of breath, palpitations with severe cardiac arrhythmias, refusing intracardiac defibrillator placement previously. SOCIAL HISTORY: Never smoke or drink alcoholic beverages. Lives in a convalescent facility. REVIEW OF SYSTEMS: Unable to obtain. PHYSICAL EXAMINATION: GENERAL: Shows to be elderly gentleman, not communicative, not responsive, on a mechanical ventilator, on some , on epinephrine drip for blood pressure control. VITAL SIGNS: Blood pressure 88/48 to 95/55, heart rate in the 60s, and temperature of 97.9 degrees here in the hospital. NECK: Appears to be supple. LUNGS: Anteriorly appeared to be clear to auscultation and percussion. CARDIAC: Distant heart sounds. Regular rhythm. ABDOMEN: Soft and nontender. No hepatosplenomegaly. He has a right central line in the groin that is noted. EXTREMITIES: There is no clubbing, cyanosis, nor is there any edema. NEUROLOGICAL: He is not communicating, not responsive to any degree. LABORATORY VALUES: An echocardiogram that was performed last at [facility] was reviewed. Ejection fraction of 21%, severely depressed LV function, global hypokinesis, moderately depressed RV function, echodensity in the right suggestive of pacing, and pulmonary systolic pressure in the 70s. He has moderate tricuspid regurgitation and moderate pulmonic regurgitation was noted. IVC was dilated. Moderate mitral regurgitation with aortic valve peak gradient of 11 mmHg. White count of 27.5, down from 43,000, hemoglobin 7.7 down from 8.5 with a platelet count of 200,000, sedimentation rate of 65. Blood gases pH of 7.4, pCO2 37, pO2 114, and bicarb of 22. His pO2 was initially 311. Lactic acid of 2.9. LDH of 243. Troponin of 11. Total protein of 4.3 and albumin of 2. CEA of 4.5. B12 of 934. Coags, INR 1.7 and PTT of 35. Urinalysis is too numerous to count WBCs and RBCs and stool for occult blood at least one set is negative. Blood cultures, both bottles growing gram-negative rods and urine culture is growing gram-negative ninfa as well. A chest x-ray performed yesterday shows intubation and endotracheal tube 1 cm above the stephany. The heart and lungs are stable with left-sided pacemaker device and retrocardiac density, atelectasis, or scarring. Pneumonia is not entirely excluded. Of note, the patient's first troponin was 2.1 yesterday afternoon and subsequently was 11.7. Review of [facility] data, cardiac catheterization in February 2016, 20% left main at the ostium, LAD, dominant multiple luminal irregularities, but no obstructive disease at that time is noted. ASSESSMENT AND PLAN: 1. Bacteremia/sepsis. 2. Wdx-VC-jcdprhhys myocardial infarction. 3. Atrial fibrillation, ventricular response controlled. 4. Cardiomyopathy with ejection fraction 21%. 5. Respiratory failure. 6. Underlying atrial fibrillation, which seems to be new. 7. Alteration of mental status, questionable metabolic encephalopathy versus structural disease secondary to central nervous system events. 8. Diabetes mellitus. 9. Systemic hypertension history. 10. Sick sinus syndrome, status post permanent pacemaker implantation. 11. Chronic kidney disease. PLAN: Dr. Quezada, this patient was seen in cardiac consultation. The patient did not have any flow-limiting significant coronary disease as a cardiac catheterization performed in February 2015, unlikely that would have developed a new lesion although did have a 20% lesion of the ostium of the left main, which is not critical. I would imagine if that was the culprit there, he would not have survived this coronary event. Nevertheless, I would recommend placing him on some antiplatelet agents for the time being as long as his hemoglobin allows. His stool occult blood was negative so far and his hemoglobin has been on the low side, however, in direct comparison with his blood test that was performed at [facility], his hemoglobin has previously been as low as 8 and as high as 10.1 over the past six months. So as long as his stool is occult blood negative, I think it would probably may be helpful to administer dose of antiplatelet agents. He is, however, made DNR and no resuscitative efforts were to be performed as I understand it, although he is on a mechanical ventilator at the present time. IV fluids administration should be careful as he will have a tendency of developing congestive heart failure shortly, however, not much more can be really provided at this time except supportive care along with intravenous antibiotics and pressor support of deemed necessary. Rafy Perez M.D. DR: BETINA JOB#: [id number] CC:
--- NOTE | 2016-11-23 09:02 | Consultation ---
DATE OF CONSULTATION: 11/21/2016 CARDIAC ELECTROPHYSIOLOGY CONSULTATION REFERRING PHYSICIAN: Teddy Quezada M.D. REASON FOR CONSULTATION: Atrial fibrillation as well as evaluation of the patient's pacemaker. HISTORY OF PRESENT ILLNESS: The patient is an 86-year-old [place] gentleman man with history of hypertension, coronary artery disease, history of cardiomyopathy with history of heart block, who had undergone permanent pacemaker implantation in the past. Per the patient's daughter, the pacemaker was of end of life, but they did decided not to do a battery change. The patient was brought to the hospital for shortness of breath and was intubated and brought to intensive care unit. The patient was more altered than usual. At the time of my evaluation, the patient is intubated on the ventilator and family is at bedside is unable to provide any information. REVIEW OF SYSTEMS: Cannot be obtained. PAST MEDICAL HISTORY: 1. Hypertension. 2. Diabetes. 3. Congestive heart failure. 4. Coronary artery disease. 5. History of heart block status post permanent pacemaker implantation. 6. Renal failure. 7. DNR. FAMILY HISTORY: Noncontributory. PHYSICAL EXAMINATION: VITAL SIGNS: Blood pressure is 92/63, pulse 64, and respirations 17. HEAD AND NECK: Positive JVDs. He is orally intubated. LUNGS: Decreased breath sounds. CARDIOVASCULAR: Regular S1 and S2 with no gallop or murmur. ABDOMEN: Soft. EXTREMITIES: A 1+ pitting edema. LABORATORY DATA: White count was 43,000, today 27.5, hemoglobin is 7.2, hematocrit 24, and platelet count of 200,000. Sodium is 150, potassium 4.9, BUN of 167, creatinine of 6, and glucose of 108. CK is 474. Troponin 2.11. BNP is more than 70,000. ASSESSMENT AND PLAN: 1. Status post pacemaker implantation. Patient remains ventricularly paced. Have EKG. Chest x-ray showed the patient has dual-chamber pacemaker. The pacemaker in the left subclavian area. The patient is usually followed by Dr. Rickey Ramsay and again the family stated that they wished not to proceed with a pacemaker generator change despite family was told it was at end of life. 2. Atrial fibrillation, rate is currently controlled. Currently off anticoagulation as hemoglobin is only 7. 3. 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 The patient remains off of beta-justen and ZELALEM inhibitor in view of his renal failure as well as hypotension. 4. End-stage renal disease. Family decided not to proceed with hemodialysis. 5. Dysphagia. Family refused PEG placement. 6. Prostate cancer status post radiation therapy. 7. History of Graves disease. The patient's pacemaker was in 2012. Thank you very much, Dr. Quezada, for allowing me to participate in the care of this patient. Please do not hesitate to contact me for any questions regarding my evaluation. Alin Kelly M.D. DR: TAO JOB#: [id number] CC:
[2016-11-23] MEDS: Pantoprazole Inj IVP SCH ×2 (09:08→21:11)
[2016-11-23] MEDS: Heparin 5000 units/ml inj SUBQ SCH ×2 (09:22→21:12)
[2016-11-23 09:55] LABS: ANISOCYTOSIS 1+; BAND NEUTROPHILS % (MANUAL) 0 % (0-8); BASOPHILS % (MANUAL) 0 % (0-2); EOSINOPHILS % (MANUAL) 0 % (0-3); HYPOCHROMASIA 1+; LYMPHOCYTES % (MANUAL) 4 % (20-45); NEUTROPHILS % (MANUAL) 94 % (45-75); PLATELET ESTIMATE ADEQUATE; PLATELET MORPHOLOGY NORMAL; TOTAL CELLS COUNTED 100
--- NOTE | 2016-11-23 10:25 | Consultation ---
History of Present Illness General Date patient seen: Nov 23, 2016 Time patient seen: 10:10 Chief Complaint: Altered Level of Consciousness Referring physician: Dr. Rizo Reason for Consultation: Sacral Pressure Ulcer Present Illness HPI Asked to evaluate this 86 yom who was admitted to the ICU with sepsis. He was at [facility] in September and d/c'd to a SNF. He was discharged home and was brought to the ER at [facility] [place] the weekend with altered mental status. He was noted to have this sacral pressure ulcer. Patient is not able to give any history but from the medical records he has a h/o DM as well as severe ischemic cardiomyopathy. He is currently intubated on levophed and is on Meropenam, zyvox for positive urine, blood, and sputum cultures. He has a significant leukocytosis as well. Allergies: Coded Allergies: No Known Allergies (Unverified , 11/20/16) Medication History Scheduled Allopurinol* (Allopurinol*), 100 MG ORAL DAILY, (Reported) Amlodipine Besylate* (Amlodipine Besylate*), 10 MG ORAL DAILY, (Reported) Atorvastatin Calcium* (Atorvastatin Calcium*), 20 MG ORAL BEDTIME, (Reported) Colchicine (Colchicine), 0.6 MG PO ONCE A WEEK, (Reported) Ergocalciferol (Vitamin D2)* (Vitamin D*), 50,000 UNIT ORAL ONCE A WEEK, ( Reported) Methimazole (Methimazole), 5 MG GT BID, (Reported) Metoprolol Tartrate* (Metoprolol Tartrate*), 100 MG ORAL EVERY 12 HOURS, ( Reported) Pantoprazole* (Pantoprazole*), 40 MG ORAL DAILY, (Reported) Tamsulosin Hcl (Tamsulosin Hcl*), 0.4 MG ORAL BEDTIME, (Reported) Patient History Limited by: medical condition History Provided By: Medical Record Healthcare decision maker Resuscitation status Do Not Resuscitate Advanced Directive on File Physical Exam General Appearance: thin Lines, tubes and drains: central line, endotracheal tube, pereyra cath Abdomen: soft Extremities: no edema Skin Exam: other - Unstageable sacral pressure ulcer with eschar adherent but loosened centrally from deeper tissue. Periskin with no erythema or warmth. No crepitus or bullae. Neurologic: unresponsiveness Musculoskeletal: atrophy Last 24 Hour Vital Signs Date Time Temp Pulse Resp B/P (MAP) Pulse Ox O2 Delivery O2 Flow Rate FiO2 11/23/16 09:23 60 32 25 11/23/16 07:09 64 35 25 11/23/16 06:45 60 20 94/43 100 Mechanical Ventilator 25 11/23/16 06:30 60 22 96/43 100 Mechanical Ventilator 25 11/23/16 06:15 60 21 94/59 100 Mechanical Ventilator 25 11/23/16 06:00 60 20 97/46 100 Mechanical Ventilator 25 11/23/16 05:45 60 20 100/43 100 Mechanical Ventilator 25 11/23/16 05:30 60 18 92/45 100 Mechanical Ventilator 25 11/23/16 05:15 60 22 25 11/23/16 05:15 60 18 92/44 100 Mechanical Ventilator 25 11/23/16 05:00 60 18 90/59 100 Mechanical Ventilator 25 11/23/16 04:45 61 18 89/63 100 Mechanical Ventilator 25 11/23/16 04:30 61 19 99/45 100 Mechanical Ventilator 25 11/23/16 04:15 62 23 94/47 100 Mechanical Ventilator 25 11/23/16 04:00 97.5 62 23 96/43 100 Mechanical Ventilator 25 11/23/16 04:00 53 11/23/16 04:00 25 11/23/16 03:45 65 23 96/43 97 Mechanical Ventilator 25 11/23/16 03:30 62 20 96/43 98 Mechanical Ventilator 25 11/23/16 03:30 62 35 25 11/23/16 03:15 60 19 89/45 100 Mechanical Ventilator 25 11/23/16 03:00 62 20 84/40 100 Mechanical Ventilator 25 11/23/16 02:45 62 20 85/50 100 Mechanical Ventilator 25 11/23/16 02:30 62 19 98/51 98 Mechanical Ventilator 25 11/23/16 02:15 60 19 94/48 98 Mechanical Ventilator 25 11/23/16 02:00 60 20 82/61 98 Mechanical Ventilator 25 11/23/16 01:45 60 19 90/42 100 Mechanical Ventilator 25 11/23/16 01:30 62 19 88/42 100 Mechanical Ventilator 25 11/23/16 01:19 60 22 25 11/23/16 01:15 61 17 99/45 99 Mechanical Ventilator 25 11/23/16 01:00 60 18 96/44 100 Mechanical Ventilator 25 11/23/16 00:45 60 19 103/48 100 Mechanical Ventilator 25 11/23/16 00:30 61 18 96/45 100 Mechanical Ventilator 25 11/23/16 00:15 60 19 96/45 100 Mechanical Ventilator 25 11/23/16 00:00 97.7 61 21 104/43 100 Mechanical Ventilator 25 11/22/16 23:45 62 19 99/44 99 Mechanical Ventilator 25 11/22/16 23:30 60 23 25 11/22/16 23:30 61 18 99/44 100 Mechanical Ventilator 25 11/22/16 23:15 61 20 101/40 100 Mechanical Ventilator 25 11/22/16 23:00 61 20 104/43 100 Mechanical Ventilator 25 11/22/16 22:45 62 20 102/45 100 Mechanical Ventilator 25 11/22/16 22:30 60 19 102/45 100 Mechanical Ventilator 25 11/22/16 22:15 61 20 91/48 100 Mechanical Ventilator 25 11/22/16 22:00 61 20 98/46 100 Mechanical Ventilator 25 11/22/16 21:45 61 19 99/44 100 Mechanical Ventilator 25 11/22/16 21:30 62 27 25 11/22/16 21:30 62 19 99/44 100 Mechanical Ventilator 25 11/22/16 21:15 61 19 95/44 100 Mechanical Ventilator 25 11/22/16 21:00 61 20 95/44 100 Mechanical Ventilator 25 11/22/16 20:45 61 20 101/41 100 Mechanical Ventilator 25 11/22/16 20:30 61 21 93/45 100 Mechanical Ventilator 25 11/22/16 20:15 61 21 96/47 100 Mechanical Ventilator 25 11/22/16 20:00 60 11/22/16 20:00 25 11/22/16 20:00 61 20 84/52 100 Mechanical Ventilator 25 11/22/16 19:45 61 20 84/52 100 Mechanical Ventilator 25 11/22/16 19:30 61 22 25 11/22/16 19:30 61 21 90/50 100 Mechanical Ventilator 25 11/22/16 19:15 97.5 60 20 92/49 100 Mechanical Ventilator 25 11/22/16 19:00 60 20 92/29 100 Mechanical Ventilator 25 11/22/16 18:57 93/48 11/22/16 18:45 60 20 96/45 100 Mechanical Ventilator 25 11/22/16 18:30 61 20 96/45 100 Mechanical Ventilator 25 11/22/16 18:15 60 18 96/45 100 Mechanical Ventilator 25 11/22/16 18:00 60 18 91/46 100 Mechanical Ventilator 25 11/22/16 18:00 97/46 11/22/16 17:45 60 19 91/45 100 Mechanical Ventilator 25 11/22/16 17:30 60 19 87/45 100 Mechanical Ventilator 25 11/22/16 17:18 60 23 25 11/22/16 17:15 60 19 88/47 100 Mechanical Ventilator 25 11/22/16 17:00 60 18 83/46 100 Mechanical Ventilator 25 11/22/16 17:00 88/48 11/22/16 16:45 60 18 103/49 100 Mechanical Ventilator 25 11/22/16 16:30 60 18 103/49 100 Mechanical Ventilator 25 11/22/16 16:15 60 18 101/51 100 Mechanical Ventilator 25 11/22/16 16:00 60 11/22/16 16:00 100/50 11/22/16 16:00 97.8 60 18 100/50 100 Mechanical Ventilator 25 11/22/16 16:00 30 11/22/16 15:45 60 18 100/50 100 Mechanical Ventilator 25 11/22/16 15:30 60 18 101/50 100 Mechanical Ventilator 25 11/22/16 15:16 60 18 25 11/22/16 15:15 60 20 87/47 100 Mechanical Ventilator 25 11/22/16 15:00 60 20 83/54 100 Mechanical Ventilator 25 11/22/16 15:00 83/54 11/22/16 14:00 89/47 11/22/16 14:00 60 20 93/46 100 Mechanical Ventilator 25 11/22/16 13:45 60 20 93/46 100 Mechanical Ventilator 25 11/22/16 13:30 60 20 96/44 100 Mechanical Ventilator 25 11/22/16 13:15 60 19 96/44 100 Mechanical Ventilator 25 11/22/16 13:00 91/47 11/22/16 13:00 60 20 91/47 99 Mechanical Ventilator 25 11/22/16 12:46 60 21 25 11/22/16 12:45 60 18 89/46 98 Mechanical Ventilator 25 11/22/16 12:30 60 18 93/47 98 Mechanical Ventilator 25 11/22/16 12:15 60 19 91/46 98 Mechanical Ventilator 25 11/22/16 12:00 60 11/22/16 12:00 30 11/22/16 12:00 90/46 11/22/16 12:00 97.6 62 17 90/44 100 Mechanical Ventilator 30 11/22/16 11:45 62 17 90/46 100 Mechanical Ventilator 30 11/22/16 11:30 62 19 80/42 100 Mechanical Ventilator 30 11/22/16 11:15 62 19 82/42 100 Mechanical Ventilator 30 11/22/16 11:14 61 23 25 11/22/16 11:09 93/42 11/22/16 11:00 61 19 84/47 100 Mechanical Ventilator 30 11/22/16 10:45 61 19 81/55 100 Mechanical Ventilator 30 11/22/16 10:30 65 20 94/63 100 Mechanical Ventilator 30 11/22/16 10:15 60 18 91/52 100 Mechanical Ventilator 30 Intake and Output 11/23/16 11/24/16 19:00 07:00 Output Total 155 ml Balance -155 ml Output Urine Total 155 ml Laboratory Tests Test 11/23/16 05:00 White Blood Count 41.6 K/UL (4.8-10.8) #*H Red Blood Count 2.95 M/UL (4.70-6.10) L Hemoglobin 9.3 G/DL (14.2-18.0) L Hematocrit 28.6 % (42.0-52.0) L Mean Corpuscular Volume 97 FL (80-99) Mean Corpuscular Hemoglobin 31.7 PG (27.0-31.0) H Mean Corpuscular Hemoglobin Concent 32.7 G/DL (32.0-36.0) Red Cell Distribution Width 14.4 % (11.6-14.8) Platelet Count 138 K/UL (150-450) L Mean Platelet Volume 12.8 FL (6.5-10.1) H Neutrophils (%) (Auto) % (45.0-75.0) Lymphocytes (%) (Auto) % (20.0-45.0) Monocytes (%) (Auto) % (1.0-10.0) Eosinophils (%) (Auto) % (0.0-3.0) Basophils (%) (Auto) % (0.0-2.0) Differential Total Cells Counted 100 Neutrophils % (Manual) 94 % (45-75) H Lymphocytes % (Manual) 4 % (20-45) L Monocytes % (Manual) 2 % (1-10) Eosinophils % (Manual) 0 % (0-3) Basophils % (Manual) 0 % (0-2) Band Neutrophils 0 % (0-8) Platelet Estimate Adequate Platelet Morphology Normal Hypochromasia 1+ Anisocytosis 1+ Sodium Level 124 MMOL/L (136-145) L Potassium Level 3.5 MMOL/L (3.5-5.1) Chloride Level 93 MMOL/L (98-107) L Carbon Dioxide Level 19 MMOL/L (21-32) L Anion Gap 12 (5-15) Blood Urea Nitrogen 119 mg/dL (7-18) H Creatinine 4.6 MG/DL (0.55-1.30) H Estimat Glomerular Filtration Rate mL/min (>60) Glucose Level 68 MG/DL (74-106) L Uric Acid 7.2 MG/DL (2.6-7.2) Calcium Level 7.9 MG/DL (8.5-10.1) L Phosphorus Level 4.5 MG/DL (2.5-4.9) Magnesium Level 1.3 MG/DL (1.8-2.4) L Total Bilirubin 0.9 MG/DL (0.2-1.0) Aspartate Amino Transf (AST/SGOT) 20 U/L (15-37) Alanine Aminotransferase (ALT/SGPT) 22 U/L (12-78) Alkaline Phosphatase 73 U/L (46-116) Total Creatine Kinase 56 U/L (26-308) C-Reactive Protein, Quantitative < 0.1 mg/dL (0.00-0.90) Pro-B-Type Natriuretic Peptide Pending Total Protein 4.8 G/DL (6.4-8.2) L Albumin 1.7 G/DL (3.4-5.0) L Globulin 3.1 g/dL Albumin/Globulin Ratio 0.5 (1.0-2.7) L Random Amikacin Level Pending Height (Feet): 5 Weight (Pounds): 146 Medications Current Medications Medications (Trade) Dose Ordered Sig/Chasidy Route PRN Reason Start Time Stop Time Status Last Admin Dose Admin Acetaminophen (Tylenol) 650 mg Q4H PRN ORAL fever 11/20/16 18:30 12/20/16 18:29 11/22/16 13:42 Acetaminophen (Tylenol) 650 mg Q4H PRN RECTAL Mild Pain (Pain Scale 1-3) 11/20/16 18:30 12/20/16 18:29 Albuterol/ Ipratropium (DuoNeb 0.5-3(2.5)mg/3ml) 3 ml EVERY 4 HOURS PRN HHN Shortness of Breath 11/20/16 18:30 11/25/16 18:29 Amikacin Protocol (Amikacin pharmacy to dose) 1 ea DAILY PRN MISC Per rx protocol 11/20/16 23:00 12/20/16 22:59 Chlorhexidine Gluconate (Julissa-Hex 2%) 1 applic DAILY@2000 TOPIC 11/22/16 20:00 12/22/16 19:59 11/22/16 19:35 Dextrose (Dextrose 50%) STAT PRN IV Hypoglycemia 11/20/16 20:15 12/20/16 20:14 Dextrose/Sodium Chloride 1,000 ml @ 100 mls/hr Q10H IV 11/23/16 07:30 12/23/16 07:29 11/23/16 07:51 Heparin Sodium (Porcine) (Heparin 5000 units/ml) 5,000 units EVERY 12 HOURS SUBQ 11/20/16 21:00 12/20/16 20:59 11/23/16 09:22 Hydrocortisone (Solu-CORTEF) 100 mg EVERY 8 HOURS IV 11/23/16 14:00 11/25/16 06:01 Insulin Aspart (NovoLOG) EVERY 6 HOURS SUBQ 11/21/16 00:00 12/21/16 00:00 11/22/16 23:51 Linezolid 300 ml @ 300 mls/hr Q12HR IVPB 11/20/16 23:00 11/27/16 22:59 11/23/16 09:09 Lorazepam (Ativan 2mg/ml 1ml) 2 mg EVERY 2 HOURS PRN IV For Anxiety 11/20/16 18:30 11/27/16 18:29 Magnesium Sulfate 100 ml @ 100 mls/hr Q1H IVPB 11/23/16 09:00 11/23/16 12:59 11/23/16 09:09 Meropenem 500 mg/ Sodium Chloride 55 ml @ 110 mls/hr Q24H IVPB 11/20/16 23:00 11/25/16 22:59 11/22/16 22:35 Norepinephrine Bitartrate 4 mg/ Dextrose 254 ml @ 0 mls/hr Q24H IV 11/20/16 18:30 12/20/16 18:29 11/22/16 18:57 Ondansetron HCl (Zofran ODT) 4 mg Q6H PRN ORAL Nausea & Vomiting 11/20/16 18:30 12/20/16 18:29 Pantoprazole (Protonix) 40 mg EVERY 12 HOURS IVP 11/23/16 09:00 12/23/16 08:59 11/23/16 09:08 Polyethylene Glycol (Miralax) 17 gm DAILYPRN PRN ORAL Constipation 11/20/16 18:30 12/20/16 18:29 Assessment/Plan Assessment/Plan Patient in critical condition with poor prognosis given his current medical condition, co-morbidities, as well as his hypoalbuminemia. He is hemodynamically unstable on pressors. The sacral ulcer is not the main cause of his current condition and certainly he has multiple reasons to explain his sepsis (i.e. pneumonia, bacteremia, and urosepsis). At the present moment he is too unstable to perform a debridement. Prefer patient to be off of pressors unless he develops acute worsening of the wound which would require emergent debridement. Also given his ischemic cardiomyopathy he would be high risk for anesthesia, and any debridement would have to be at the bedside under local anesthesia. Discussed the case with pulmonary/critical care physician as well as ID physician. For now, need to turn patient as much as he can hemodynamically tolerate and consider enteral feeds. Thank you for allowing me to participate in the care of this patient. AMEENA EM Nov 23, 2016 10:25
--- NOTE | 2016-11-23 10:54 | Pulmonolgy Critical Care Note ---
Critical Care - Asmt/Plan Problems: (1) Acute respiratory failure (2) Septic shock (3) Hyperkalemia (4) Altered mental status (5) Chronic kidney disease (6) HCAP (healthcare-associated pneumonia) (7) Sacral decubitus ulcer, stage IV Respiratory: monitor respiratory rate, adjust FIO2, CXR Cardiac: continue to monitor HR/BP Renal: F/U I&O, keep IV fluid, check electrolytes Infectious Disease: check cultures, continue antibiotics Gastrointestinal: continue feedings/current rate Endocrine: monitor blood sugar, check TSH, continue sliding scale insulin Hematologic: monitor H/H, transfuse if hgb<8.5 Neurologic: PRN Ativan, PRN Morphine, keep patient comfortable Affect: PRN ativan Prophylaxis: Protonix Disposition: keep in ICU Notes Reviewed: outpatient physical therapist, cardio, renal, ID Discussed with: nurses, consultants, therapeutic case managerstate manager - Objective Last 24 Hour Vital Signs Date Time Temp Pulse Resp B/P (MAP) Pulse Ox O2 Delivery O2 Flow Rate FiO2 11/23/16 09:23 60 32 25 11/23/16 07:09 64 35 25 11/23/16 06:45 60 20 94/43 100 Mechanical Ventilator 25 11/23/16 06:30 60 22 96/43 100 Mechanical Ventilator 25 11/23/16 06:15 60 21 94/59 100 Mechanical Ventilator 25 11/23/16 06:00 60 20 97/46 100 Mechanical Ventilator 25 11/23/16 05:45 60 20 100/43 100 Mechanical Ventilator 25 11/23/16 05:30 60 18 92/45 100 Mechanical Ventilator 25 11/23/16 05:15 60 22 25 11/23/16 05:15 60 18 92/44 100 Mechanical Ventilator 25 11/23/16 05:00 60 18 90/59 100 Mechanical Ventilator 25 11/23/16 04:45 61 18 89/63 100 Mechanical Ventilator 25 11/23/16 04:30 61 19 99/45 100 Mechanical Ventilator 25 11/23/16 04:15 62 23 94/47 100 Mechanical Ventilator 25 11/23/16 04:00 97.5 62 23 96/43 100 Mechanical Ventilator 25 11/23/16 04:00 53 11/23/16 04:00 25 11/23/16 03:45 65 23 96/43 97 Mechanical Ventilator 25 11/23/16 03:30 62 20 96/43 98 Mechanical Ventilator 25 11/23/16 03:30 62 35 25 11/23/16 03:15 60 19 89/45 100 Mechanical Ventilator 25 11/23/16 03:00 62 20 84/40 100 Mechanical Ventilator 25 11/23/16 02:45 62 20 85/50 100 Mechanical Ventilator 25 11/23/16 02:30 62 19 98/51 98 Mechanical Ventilator 25 11/23/16 02:15 60 19 94/48 98 Mechanical Ventilator 25 11/23/16 02:00 60 20 82/61 98 Mechanical Ventilator 25 11/23/16 01:45 60 19 90/42 100 Mechanical Ventilator 25 11/23/16 01:30 62 19 88/42 100 Mechanical Ventilator 25 11/23/16 01:19 60 22 25 11/23/16 01:15 61 17 99/45 99 Mechanical Ventilator 25 11/23/16 01:00 60 18 96/44 100 Mechanical Ventilator 25 11/23/16 00:45 60 19 103/48 100 Mechanical Ventilator 25 11/23/16 00:30 61 18 96/45 100 Mechanical Ventilator 25 11/23/16 00:15 60 19 96/45 100 Mechanical Ventilator 25 11/23/16 00:00 97.7 61 21 104/43 100 Mechanical Ventilator 25 11/22/16 23:45 62 19 99/44 99 Mechanical Ventilator 25 11/22/16 23:30 60 23 25 11/22/16 23:30 61 18 99/44 100 Mechanical Ventilator 25 11/22/16 23:15 61 20 101/40 100 Mechanical Ventilator 25 11/22/16 23:00 61 20 104/43 100 Mechanical Ventilator 25 11/22/16 22:45 62 20 102/45 100 Mechanical Ventilator 25 11/22/16 22:30 60 19 102/45 100 Mechanical Ventilator 25 11/22/16 22:15 61 20 91/48 100 Mechanical Ventilator 25 11/22/16 22:00 61 20 98/46 100 Mechanical Ventilator 25 11/22/16 21:45 61 19 99/44 100 Mechanical Ventilator 25 11/22/16 21:30 62 27 25 11/22/16 21:30 62 19 99/44 100 Mechanical Ventilator 25 11/22/16 21:15 61 19 95/44 100 Mechanical Ventilator 25 11/22/16 21:00 61 20 95/44 100 Mechanical Ventilator 25 11/22/16 20:45 61 20 101/41 100 Mechanical Ventilator 25 11/22/16 20:30 61 21 93/45 100 Mechanical Ventilator 25 11/22/16 20:15 61 21 96/47 100 Mechanical Ventilator 25 11/22/16 20:00 60 11/22/16 20:00 25 11/22/16 20:00 61 20 84/52 100 Mechanical Ventilator 25 11/22/16 19:45 61 20 84/52 100 Mechanical Ventilator 25 11/22/16 19:30 61 22 25 11/22/16 19:30 61 21 90/50 100 Mechanical Ventilator 25 11/22/16 19:15 97.5 60 20 92/49 100 Mechanical Ventilator 25 11/22/16 19:00 60 20 92/29 100 Mechanical Ventilator 25 11/22/16 18:57 93/48 11/22/16 18:45 60 20 96/45 100 Mechanical Ventilator 25 11/22/16 18:30 61 20 96/45 100 Mechanical Ventilator 25 11/22/16 18:15 60 18 96/45 100 Mechanical Ventilator 25 11/22/16 18:00 60 18 91/46 100 Mechanical Ventilator 25 11/22/16 18:00 97/46 11/22/16 17:45 60 19 91/45 100 Mechanical Ventilator 25 11/22/16 17:30 60 19 87/45 100 Mechanical Ventilator 25 11/22/16 17:18 60 23 25 11/22/16 17:15 60 19 88/47 100 Mechanical Ventilator 25 11/22/16 17:00 60 18 83/46 100 Mechanical Ventilator 25 11/22/16 17:00 88/48 11/22/16 16:45 60 18 103/49 100 Mechanical Ventilator 25 11/22/16 16:30 60 18 103/49 100 Mechanical Ventilator 25 11/22/16 16:15 60 18 101/51 100 Mechanical Ventilator 25 11/22/16 16:00 60 11/22/16 16:00 100/50 11/22/16 16:00 97.8 60 18 100/50 100 Mechanical Ventilator 25 11/22/16 16:00 30 11/22/16 15:45 60 18 100/50 100 Mechanical Ventilator 25 11/22/16 15:30 60 18 101/50 100 Mechanical Ventilator 25 11/22/16 15:16 60 18 25 11/22/16 15:15 60 20 87/47 100 Mechanical Ventilator 25 11/22/16 15:00 60 20 83/54 100 Mechanical Ventilator 25 11/22/16 15:00 83/54 11/22/16 14:00 89/47 11/22/16 14:00 60 20 93/46 100 Mechanical Ventilator 25 11/22/16 13:45 60 20 93/46 100 Mechanical Ventilator 25 11/22/16 13:30 60 20 96/44 100 Mechanical Ventilator 25 11/22/16 13:15 60 19 96/44 100 Mechanical Ventilator 25 11/22/16 13:00 91/47 11/22/16 13:00 60 20 91/47 99 Mechanical Ventilator 25 11/22/16 12:46 60 21 25 11/22/16 12:45 60 18 89/46 98 Mechanical Ventilator 25 11/22/16 12:30 60 18 93/47 98 Mechanical Ventilator 25 11/22/16 12:15 60 19 91/46 98 Mechanical Ventilator 25 11/22/16 12:00 60 11/22/16 12:00 30 11/22/16 12:00 90/46 11/22/16 12:00 97.6 62 17 90/44 100 Mechanical Ventilator 30 11/22/16 11:45 62 17 90/46 100 Mechanical Ventilator 30 11/22/16 11:30 62 19 80/42 100 Mechanical Ventilator 30 11/22/16 11:15 62 19 82/42 100 Mechanical Ventilator 30 11/22/16 11:14 61 23 25 11/22/16 11:09 93/42 11/22/16 11:00 61 19 84/47 100 Mechanical Ventilator 30 Status: sedated Condition: critical HEENT: atraumatic Neck: full ROM Heart: HR/BP unstable, regular Abdomen: soft, non-tender, feeding tube Extremities: edema Decubiti: location Micro: Microbiology Date/Time Source Procedure Growth Status 11/20/16 14:15 Blood Blood Culture - Preliminary Proteus Mirabilis Resulted 11/20/16 14:00 Blood Blood Culture - Preliminary Proteus Mirabilis Resulted 11/21/16 00:35 Sputum Gram Stain - Final Resulted 11/21/16 00:35 Sputum Culture - Preliminary Staphylococcus Aureus - Mrsa Yeast Species Usual Upper Respiratory Haley Resulted 11/20/16 17:15 Nasal Nares Influenza Types A,B Antigen (LIZA) - Final Complete 11/20/16 17:00 Nasal Nares MRSA Culture - Final Staphylococcus Aureus - Mrsa Complete 11/21/16 14:00 Urine,Clean Catch Urine Culture - Preliminary Gram Negative Bacillus 1 Resulted 11/20/16 14:00 Urine,Clean Catch Urine Culture - Final Proteus Mirabilis Esbl Complete 11/21/16 14:00 Sacral Swab Gram Stain - Final Resulted 11/21/16 14:00 Wound Culture - Preliminary Gram Negative Bacillus 1 Gram Positive Cocci Resulted 11/20/16 17:00 Rectum VRE Culture - Final NO VANCOMYCIN RESISTANT ENTEROCOCCUS ... Complete Accucheck: 78 Critical Care - Subjective ROS Limited/Unobtainable: Yes ICU Day: 3 Intubation Day: 3 Condition: critical EKG Rhythm: Sinus Rhythm FI02: 25 Vent Support Breath Rate: 16 Vent Support Mode: AC Vent Tidal Volume: 400 Sputum Amount: Small PIP: 18 I&O: Intake and Output 11/23/16 11/24/16 19:00 07:00 Output Total 155 ml Balance -155 ml Output Urine Total 155 ml CXR: no change ET-Tube: 7.5 ET Position: 23 Labs: Laboratory Tests Test 11/23/16 05:00 White Blood Count 41.6 K/UL (4.8-10.8) #*H Red Blood Count 2.95 M/UL (4.70-6.10) L Hemoglobin 9.3 G/DL (14.2-18.0) L Hematocrit 28.6 % (42.0-52.0) L Mean Corpuscular Volume 97 FL (80-99) Mean Corpuscular Hemoglobin 31.7 PG (27.0-31.0) H Mean Corpuscular Hemoglobin Concent 32.7 G/DL (32.0-36.0) Red Cell Distribution Width 14.4 % (11.6-14.8) Platelet Count 138 K/UL (150-450) L Mean Platelet Volume 12.8 FL (6.5-10.1) H Neutrophils (%) (Auto) % (45.0-75.0) Lymphocytes (%) (Auto) % (20.0-45.0) Monocytes (%) (Auto) % (1.0-10.0) Eosinophils (%) (Auto) % (0.0-3.0) Basophils (%) (Auto) % (0.0-2.0) Differential Total Cells Counted 100 Neutrophils % (Manual) 94 % (45-75) H Lymphocytes % (Manual) 4 % (20-45) L Monocytes % (Manual) 2 % (1-10) Eosinophils % (Manual) 0 % (0-3) Basophils % (Manual) 0 % (0-2) Band Neutrophils 0 % (0-8) Platelet Estimate Adequate Platelet Morphology Normal Hypochromasia 1+ Anisocytosis 1+ Sodium Level 124 MMOL/L (136-145) L Potassium Level 3.5 MMOL/L (3.5-5.1) Chloride Level 93 MMOL/L (98-107) L Carbon Dioxide Level 19 MMOL/L (21-32) L Anion Gap 12 (5-15) Blood Urea Nitrogen 119 mg/dL (7-18) H Creatinine 4.6 MG/DL (0.55-1.30) H Estimat Glomerular Filtration Rate mL/min (>60) Glucose Level 68 MG/DL (74-106) L Uric Acid 7.2 MG/DL (2.6-7.2) Calcium Level 7.9 MG/DL (8.5-10.1) L Phosphorus Level 4.5 MG/DL (2.5-4.9) Magnesium Level 1.3 MG/DL (1.8-2.4) L Total Bilirubin 0.9 MG/DL (0.2-1.0) Aspartate Amino Transf (AST/SGOT) 20 U/L (15-37) Alanine Aminotransferase (ALT/SGPT) 22 U/L (12-78) Alkaline Phosphatase 73 U/L (46-116) Total Creatine Kinase 56 U/L (26-308) C-Reactive Protein, Quantitative 18.0 mg/dL (0.00-0.90) H Pro-B-Type Natriuretic Peptide > 36351 (0-125) H Total Protein 4.8 G/DL (6.4-8.2) L Albumin 1.7 G/DL (3.4-5.0) L Globulin 3.1 g/dL Albumin/Globulin Ratio 0.5 (1.0-2.7) L Random Amikacin Level Pending SAVANNAH SAWYER Nov 23, 2016 10:54
--- NOTE | 2016-11-23 11:03 | Diagnostic Imaging Report ---
APPROVED REPORT CPT Code: 11059 Present Symptoms Shortness of breath RIGHT LEG: Venous imaging reveals a patent deep venous system. There is no evidence of thrombus within the femoral, popliteal or tibial segments. The greater saphenous vein is also within normal limits. Doppler indicates normal spontaneous flow within these segments. The proximal superficial femoral vein was not well visualized due to dressings. The calf veins were not well visualized. LEFT LEG: Venous imaging reveals a patent deep venous system. There is no evidence of thrombus within the femoral, popliteal or tibial segments. The greater saphenous vein is also within normal limits. Doppler indicates normal spontaneous flow within these segments. The calf veins were not well visualized. Incidental findings: Right femoral central line noted and in place. Rt inguinal lymph node measuring 2 cm x 1.8 cm x 0.6 cm.
--- NOTE | 2016-11-23 11:19 | Internal Med Progress Note ---
Subjective Date of Service: Nov 23, 2016 Physician Name Taniya Pina Attending Physician Teddy Quezada MD Current Medications Medications (Trade) Dose Ordered Sig/Chasidy Route PRN Reason Start Time Stop Time Status Last Admin Dose Admin Acetaminophen (Tylenol) 650 mg Q4H PRN ORAL fever 11/20/16 18:30 12/20/16 18:29 11/22/16 13:42 Acetaminophen (Tylenol) 650 mg Q4H PRN RECTAL Mild Pain (Pain Scale 1-3) 11/20/16 18:30 12/20/16 18:29 Albuterol/ Ipratropium (DuoNeb 0.5-3(2.5)mg/3ml) 3 ml EVERY 4 HOURS PRN HHN Shortness of Breath 11/20/16 18:30 11/25/16 18:29 Amikacin Protocol (Amikacin pharmacy to dose) 1 ea DAILY PRN MISC Per rx protocol 11/20/16 23:00 12/20/16 22:59 Chlorhexidine Gluconate (Julissa-Hex 2%) 1 applic DAILY@2000 TOPIC 11/22/16 20:00 12/22/16 19:59 11/22/16 19:35 Dextrose (Dextrose 50%) STAT PRN IV Hypoglycemia 11/20/16 20:15 12/20/16 20:14 Dextrose/Sodium Chloride 1,000 ml @ 100 mls/hr Q10H IV 11/23/16 07:30 12/23/16 07:29 11/23/16 07:51 Heparin Sodium (Porcine) (Heparin 5000 units/ml) 5,000 units EVERY 12 HOURS SUBQ 11/20/16 21:00 12/20/16 20:59 11/23/16 09:22 Hydrocortisone (Solu-CORTEF) 100 mg EVERY 8 HOURS IV 11/23/16 14:00 11/25/16 06:01 Insulin Aspart (NovoLOG) EVERY 6 HOURS SUBQ 11/21/16 00:00 12/21/16 00:00 11/22/16 23:51 Linezolid 300 ml @ 300 mls/hr Q12HR IVPB 11/20/16 23:00 11/27/16 22:59 11/23/16 09:09 Lorazepam (Ativan 2mg/ml 1ml) 2 mg EVERY 2 HOURS PRN IV For Anxiety 11/20/16 18:30 11/27/16 18:29 Magnesium Sulfate 100 ml @ 100 mls/hr Q1H IVPB 11/23/16 09:00 11/23/16 12:59 11/23/16 10:53 Meropenem 500 mg/ Sodium Chloride 55 ml @ 110 mls/hr Q24H IVPB 11/20/16 23:00 11/25/16 22:59 11/22/16 22:35 Norepinephrine Bitartrate 4 mg/ Dextrose 254 ml @ 0 mls/hr Q24H IV 11/20/16 18:30 12/20/16 18:29 11/22/16 18:57 Ondansetron HCl (Zofran ODT) 4 mg Q6H PRN ORAL Nausea & Vomiting 11/20/16 18:30 12/20/16 18:29 Pantoprazole (Protonix) 40 mg EVERY 12 HOURS IVP 11/23/16 09:00 12/23/16 08:59 11/23/16 09:08 Polyethylene Glycol (Miralax) 17 gm DAILYPRN PRN ORAL Constipation 11/20/16 18:30 12/20/16 18:29 Allergies: Coded Allergies: No Known Allergies (Unverified , 11/20/16) ROS Limited/Unobtainable: Yes Subjective 86 YO M admitted with respiratory failure and sepsis. Cover for Fabiana Olivera-Dr Quezada . ICU. Intubated and sedated. Objective Last Vital Signs Date Time Temp Pulse Resp B/P (MAP) Pulse Ox O2 Delivery O2 Flow Rate FiO2 11/23/16 09:23 60 32 25 11/23/16 06:45 94/43 100 Mechanical Ventilator 11/23/16 04:00 97.5 11/20/16 17:30 15.0 Laboratory Tests Test 11/23/16 05:00 White Blood Count 41.6 K/UL (4.8-10.8) #*H Red Blood Count 2.95 M/UL (4.70-6.10) L Hemoglobin 9.3 G/DL (14.2-18.0) L Hematocrit 28.6 % (42.0-52.0) L Mean Corpuscular Volume 97 FL (80-99) Mean Corpuscular Hemoglobin 31.7 PG (27.0-31.0) H Mean Corpuscular Hemoglobin Concent 32.7 G/DL (32.0-36.0) Red Cell Distribution Width 14.4 % (11.6-14.8) Platelet Count 138 K/UL (150-450) L Mean Platelet Volume 12.8 FL (6.5-10.1) H Neutrophils (%) (Auto) % (45.0-75.0) Lymphocytes (%) (Auto) % (20.0-45.0) Monocytes (%) (Auto) % (1.0-10.0) Eosinophils (%) (Auto) % (0.0-3.0) Basophils (%) (Auto) % (0.0-2.0) Differential Total Cells Counted 100 Neutrophils % (Manual) 94 % (45-75) H Lymphocytes % (Manual) 4 % (20-45) L Monocytes % (Manual) 2 % (1-10) Eosinophils % (Manual) 0 % (0-3) Basophils % (Manual) 0 % (0-2) Band Neutrophils 0 % (0-8) Platelet Estimate Adequate Platelet Morphology Normal Hypochromasia 1+ Anisocytosis 1+ Sodium Level 124 MMOL/L (136-145) L Potassium Level 3.5 MMOL/L (3.5-5.1) Chloride Level 93 MMOL/L (98-107) L Carbon Dioxide Level 19 MMOL/L (21-32) L Anion Gap 12 (5-15) Blood Urea Nitrogen 119 mg/dL (7-18) H Creatinine 4.6 MG/DL (0.55-1.30) H Estimat Glomerular Filtration Rate mL/min (>60) Glucose Level 68 MG/DL (74-106) L Uric Acid 7.2 MG/DL (2.6-7.2) Calcium Level 7.9 MG/DL (8.5-10.1) L Phosphorus Level 4.5 MG/DL (2.5-4.9) Magnesium Level 1.3 MG/DL (1.8-2.4) L Total Bilirubin 0.9 MG/DL (0.2-1.0) Aspartate Amino Transf (AST/SGOT) 20 U/L (15-37) Alanine Aminotransferase (ALT/SGPT) 22 U/L (12-78) Alkaline Phosphatase 73 U/L (46-116) Total Creatine Kinase 56 U/L (26-308) C-Reactive Protein, Quantitative 18.0 mg/dL (0.00-0.90) H Pro-B-Type Natriuretic Peptide > 17703 (0-125) H Total Protein 4.8 G/DL (6.4-8.2) L Albumin 1.7 G/DL (3.4-5.0) L Globulin 3.1 g/dL Albumin/Globulin Ratio 0.5 (1.0-2.7) L Random Amikacin Level Pending Microbiology Date/Time Source Procedure Growth Status 11/20/16 14:15 Blood Blood Culture - Preliminary Proteus Mirabilis Resulted 11/20/16 14:00 Blood Blood Culture - Preliminary Proteus Mirabilis Resulted 11/21/16 00:35 Sputum Gram Stain - Final Resulted 11/21/16 00:35 Sputum Culture - Preliminary Staphylococcus Aureus - Mrsa Yeast Species Usual Upper Respiratory Haley Resulted 11/20/16 17:15 Nasal Nares Influenza Types A,B Antigen (LIZA) - Final Complete 11/20/16 17:00 Nasal Nares MRSA Culture - Final Staphylococcus Aureus - Mrsa Complete 11/21/16 14:00 Urine,Clean Catch Urine Culture - Preliminary Gram Negative Bacillus 1 Resulted 11/20/16 14:00 Urine,Clean Catch Urine Culture - Final Proteus Mirabilis Esbl Complete 11/21/16 14:00 Sacral Swab Gram Stain - Final Resulted 11/21/16 14:00 Wound Culture - Preliminary Gram Negative Bacillus 1 Gram Positive Cocci Resulted 11/20/16 17:00 Rectum VRE Culture - Final NO VANCOMYCIN RESISTANT ENTEROCOCCUS ... Complete Intake and Output 11/23/16 11/24/16 19:00 07:00 Intake Total 60 ml Output Total 285 ml Balance -225 ml Free Water 30 ml Other 30 ml Output Urine Total 285 ml Objective General Appearance: WD/WN, lethargic EENT: normal ENT inspection, other - oral intubation Neck: non-tender, normal alignment, supple Cardiovascular: normal peripheral pulses, normal rate, regular rhythm, no gallop/murmur, no JVD Respiratory/Chest: Mech vent; respiratory distress, crackles/rales, rhonchi - bilaterally, expiratory wheezing Abdomen: normal bowel sounds, non tender, soft, no organomegaly, no mass Skin: normal pigmentation, warm/dry Assessment/Plan Problem List: (1) Respiratory failure Assessment & Plan: See pulmonary note. Cont mech vent per pulmonary (2) Hypotension Assessment & Plan: Due to sepsis. On levophed (3) Renal failure Assessment & Plan: See nephrology note. (4) Diabetes mellitus, type II Assessment & Plan: Cont novolog sliding scale. 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 Await ID and sens. Follow Inf Dis recs. Cont Meropenem for now. (18) Pneumonia Assessment & Plan: Continue linezolid, amikacin and merpoenem per ID (19) NSTEMI (non-ST elevated myocardial infarction) Status: not improved TANIYA PINA Nov 23, 2016 11:19
--- NOTE | 2016-11-23 12:12 | Infectious Diseases Prog Note ---
Assessment/Plan Assessment/Plan Abx: Cefepime x1 10/6 IV Vanco 10/ Zoyn 10/6 Amikacin x1 10/7 Linezolid 10/6- Meropenem /6- Amikacin x1 10/6 Assesment: Septic shock- 2ry to ESBL Proteus UTI and bacteremia and possible MRSA pneumonia -U/a WBC too many to count, nit +, leuk +3, ucx 10-20K ESBL Proteus (S. Ertapenem) -Bcx 05/19 Proteus mirabilis (S. Zosyn, Ertapenem, Cipro) -Sp cx: MRSA (S. Vancomycin LIZA 1), normal victoria, yeast -CXR 11/23 Persistent left basilar opacity. Pneumonia versus atelectasis. -CXR 11/20: Retrocardiac density likely atelectasis or scarring. Pneumonia not entirely excluded. -flu neg Hyperleukocytosis with left shift/bandemia- initially improved, now worsened again to ~40s- r/o intrabdominal abscess, empyema Sacral decubitus ulcer IV- was noticed yellowish exudate- ?OM -wound cx: growign GNB and GPC Lactic acidosis BJORN/Renal failure; improving -Renal Us: No obvious hydronephrosis.Bilateral renal cysts. Mild apparent increased echogenicity of the kidneys may suggest underlying medical renal disease. Cardiomyopathy with EF 20% Dementia ?DM2 Plan: -Continue IV Linezolid, Meropenem #4 for now MRSA pneumonia and Proteus bacteremia (respectively) -will keep Meropenem awaiting wound cx, if no PsA isolated, we can transition to Ertapenem -repeat 2 sets of bcx, u/a with reflex, sp cx given worsening leukocytosis -CT Chest/Abd/p with oral contrast to evaluate for abscess -obtain MRI of the sacrum once clinically stable to rule out underlying osteomyelitis -f/u cx -Monitor CBC/BMP, temperatures Thank you for this consultation. Will continue to follow along with you. Discussed with DR Pool and Dr Stokes. Subjective Allergies: Coded Allergies: No Known Allergies (Unverified , 11/20/16) Subjective I was asked by Dr Stokes and Dr Pool to continue to follow patient. Previously followed by Dr Rizo, however initial consultation done by me. afebrile remains critically ill worsenign leukocytosis BJORN improving no diarrhea Objective Vital Signs Last 24 Hour Vital Signs Date Time Temp Pulse Resp B/P (MAP) Pulse Ox O2 Delivery O2 Flow Rate FiO2 11/23/16 09:23 60 32 25 11/23/16 08:00 60 11/23/16 08:00 25 11/23/16 07:09 64 35 25 11/23/16 06:45 60 20 94/43 100 Mechanical Ventilator 25 11/23/16 06:30 60 22 96/43 100 Mechanical Ventilator 25 11/23/16 06:15 60 21 94/59 100 Mechanical Ventilator 25 11/23/16 06:00 60 20 97/46 100 Mechanical Ventilator 25 11/23/16 05:45 60 20 100/43 100 Mechanical Ventilator 25 11/23/16 05:30 60 18 92/45 100 Mechanical Ventilator 25 11/23/16 05:15 60 22 25 11/23/16 05:15 60 18 92/44 100 Mechanical Ventilator 25 11/23/16 05:00 60 18 90/59 100 Mechanical Ventilator 25 11/23/16 04:45 61 18 89/63 100 Mechanical Ventilator 25 11/23/16 04:30 61 19 99/45 100 Mechanical Ventilator 25 11/23/16 04:15 62 23 94/47 100 Mechanical Ventilator 25 11/23/16 04:00 97.5 62 23 96/43 100 Mechanical Ventilator 25 11/23/16 04:00 53 11/23/16 04:00 25 11/23/16 03:45 65 23 96/43 97 Mechanical Ventilator 25 11/23/16 03:30 62 20 96/43 98 Mechanical Ventilator 25 11/23/16 03:30 62 35 25 11/23/16 03:15 60 19 89/45 100 Mechanical Ventilator 11/23/16 03:00 62 20 84/40 100 Mechanical Ventilator 25 11/23/16 02:45 62 20 85/50 100 Mechanical Ventilator 11/23/16 02:30 62 19 98/51 98 Mechanical Ventilator 25 11/23/16 02:15 60 19 94/48 98 Mechanical Ventilator 25 11/23/16 02:00 60 20 82/61 98 Mechanical Ventilator 25 11/23/16 01:45 60 19 90/42 100 Mechanical Ventilator 25 11/23/16 01:30 62 19 88/42 100 Mechanical Ventilator 25 11/23/16 01:19 60 22 25 11/23/16 01:15 61 17 99/45 99 Mechanical Ventilator 25 11/23/16 01:00 60 18 96/44 100 Mechanical Ventilator 25 11/23/16 00:45 60 19 103/48 100 Mechanical Ventilator 25 11/23/16 00:30 61 18 96/45 100 Mechanical Ventilator 25 11/23/16 00:15 60 19 96/45 100 Mechanical Ventilator 25 11/23/16 00:00 97.7 61 21 104/43 100 Mechanical Ventilator 25 11/22/16 23:45 62 19 99/44 99 Mechanical Ventilator 25 11/22/16 23:30 60 23 25 11/22/16 23:30 61 18 99/44 100 Mechanical Ventilator 25 11/22/16 23:15 61 20 101/40 100 Mechanical Ventilator 25 11/22/16 23:00 61 20 104/43 100 Mechanical Ventilator 25 11/22/16 22:45 62 20 102/45 100 Mechanical Ventilator 25 11/22/16 22:30 60 19 102/45 100 Mechanical Ventilator 25 11/22/16 22:15 61 20 91/48 100 Mechanical Ventilator 25 11/22/16 22:00 61 20 98/46 100 Mechanical Ventilator 25 11/22/16 21:45 61 19 99/44 100 Mechanical Ventilator 25 11/22/16 21:30 62 27 25 11/22/16 21:30 62 19 99/44 100 Mechanical Ventilator 25 11/22/16 21:15 61 19 95/44 100 Mechanical Ventilator 25 11/22/16 21:00 61 20 95/44 100 Mechanical Ventilator 25 11/22/16 20:45 61 20 101/41 100 Mechanical Ventilator 25 11/22/16 20:30 61 21 93/45 100 Mechanical Ventilator 25 11/22/16 20:15 61 21 96/47 100 Mechanical Ventilator 25 11/22/16 20:00 60 11/22/16 20:00 25 11/22/16 20:00 61 20 84/52 100 Mechanical Ventilator 25 11/22/16 19:45 61 20 84/52 100 Mechanical Ventilator 25 11/22/16 19:30 61 22 25 11/22/16 19:30 61 21 90/50 100 Mechanical Ventilator 25 11/22/16 19:15 97.5 60 20 92/49 100 Mechanical Ventilator 25 11/22/16 19:00 60 20 92/29 100 Mechanical Ventilator 25 11/22/16 18:57 93/48 11/22/16 18:45 60 20 96/45 100 Mechanical Ventilator 25 11/22/16 18:30 61 20 96/45 100 Mechanical Ventilator 25 11/22/16 18:15 60 18 96/45 100 Mechanical Ventilator 25 11/22/16 18:00 60 18 91/46 100 Mechanical Ventilator 25 11/22/16 18:00 97/46 11/22/16 17:45 60 19 91/45 100 Mechanical Ventilator 25 11/22/16 17:30 60 19 87/45 100 Mechanical Ventilator 25 11/22/16 17:18 60 23 25 11/22/16 17:15 60 19 88/47 100 Mechanical Ventilator 25 11/22/16 17:00 60 18 83/46 100 Mechanical Ventilator 25 11/22/16 17:00 88/48 11/22/16 16:45 60 18 103/49 100 Mechanical Ventilator 25 11/22/16 16:30 60 18 103/49 100 Mechanical Ventilator 25 11/22/16 16:15 60 18 101/51 100 Mechanical Ventilator 25 11/22/16 16:00 60 11/22/16 16:00 100/50 11/22/16 16:00 97.8 60 18 100/50 100 Mechanical Ventilator 25 11/22/16 16:00 30 11/22/16 15:45 60 18 100/50 100 Mechanical Ventilator 25 11/22/16 15:30 60 18 101/50 100 Mechanical Ventilator 25 11/22/16 15:16 60 18 25 11/22/16 15:15 60 20 87/47 100 Mechanical Ventilator 25 11/22/16 15:00 60 20 83/54 100 Mechanical Ventilator 25 11/22/16 15:00 83/54 11/22/16 14:00 89/47 11/22/16 14:00 60 20 93/46 100 Mechanical Ventilator 25 11/22/16 13:45 60 20 93/46 100 Mechanical Ventilator 25 11/22/16 13:30 60 20 96/44 100 Mechanical Ventilator 25 11/22/16 13:15 60 19 96/44 100 Mechanical Ventilator 25 11/22/16 13:00 91/47 11/22/16 13:00 60 20 91/47 99 Mechanical Ventilator 25 11/22/16 12:46 60 21 25 11/22/16 12:45 60 18 89/46 98 Mechanical Ventilator 25 11/22/16 12:30 60 18 93/47 98 Mechanical Ventilator 25 11/22/16 12:15 60 19 91/46 98 Mechanical Ventilator 25 Height (Feet): 5 Weight (Pounds): 146 Objective General Appearance: cachetic, thin, Chronically Ill, intubated HEENT: ETT in place Respiratory: normal inspection, no respiratory distress, no retraction, no accessory muscle use, no wheezing, other - Bilateral rhonchi Cardiovascular : regular rate, rhythm, no edema Musculoskeletal: normal inspection, no edema Neurologic: intubated/sedated Skin: normal inspection, normal color, no rash Abd: BS+, S+D, ND Microbiology Date/Time Source Procedure Growth Status 11/20/16 14:15 Blood Blood Culture - Preliminary Proteus Mirabilis Resulted 11/20/16 14:00 Blood Blood Culture - Preliminary Proteus Mirabilis Resulted 11/21/16 00:35 Sputum Gram Stain - Final Resulted 11/21/16 00:35 Sputum Culture - Preliminary Staphylococcus Aureus - Mrsa Yeast Species Usual Upper Respiratory Victoria Resulted 11/20/16 17:15 Nasal Nares Influenza Types A,B Antigen (LIZA) - Final Complete 11/20/16 17:00 Nasal Nares MRSA Culture - Final Staphylococcus Aureus - Mrsa Complete 11/21/16 14:00 Urine,Clean Catch Urine Culture - Preliminary Gram Negative Bacillus 1 Resulted 11/20/16 14:00 Urine,Clean Catch Urine Culture - Final Proteus Mirabilis Esbl Complete 11/21/16 14:00 Sacral Swab Gram Stain - Final Resulted 11/21/16 14:00 Wound Culture - Preliminary Gram Negative Bacillus 1 Gram Positive Cocci Resulted 11/20/16 17:00 Rectum VRE Culture - Final NO VANCOMYCIN RESISTANT ENTEROCOCCUS ... Complete Laboratory Tests Test 11/23/16 05:00 White Blood Count 41.6 K/UL (4.8-10.8) #*H Red Blood Count 2.95 M/UL (4.70-6.10) L Hemoglobin 9.3 G/DL (14.2-18.0) L Hematocrit 28.6 % (42.0-52.0) L Mean Corpuscular Volume 97 FL (80-99) Mean Corpuscular Hemoglobin 31.7 PG (27.0-31.0) H Mean Corpuscular Hemoglobin Concent 32.7 G/DL (32.0-36.0) Red Cell Distribution Width 14.4 % (11.6-14.8) Platelet Count 138 K/UL (150-450) L Mean Platelet Volume 12.8 FL (6.5-10.1) H Neutrophils (%) (Auto) % (45.0-75.0) Lymphocytes (%) (Auto) % (20.0-45.0) Monocytes (%) (Auto) % (1.0-10.0) Eosinophils (%) (Auto) % (0.0-3.0) Basophils (%) (Auto) % (0.0-2.0) Differential Total Cells Counted 100 Neutrophils % (Manual) 94 % (45-75) H Lymphocytes % (Manual) 4 % (20-45) L Monocytes % (Manual) 2 % (1-10) Eosinophils % (Manual) 0 % (0-3) Basophils % (Manual) 0 % (0-2) Band Neutrophils 0 % (0-8) Platelet Estimate Adequate Platelet Morphology Normal Hypochromasia 1+ Anisocytosis 1+ Sodium Level 124 MMOL/L (136-145) L Potassium Level 3.5 MMOL/L (3.5-5.1) Chloride Level 93 MMOL/L (98-107) L Carbon Dioxide Level 19 MMOL/L (21-32) L Anion Gap 12 (5-15) Blood Urea Nitrogen 119 mg/dL (7-18) H Creatinine 4.6 MG/DL (0.55-1.30) H Estimat Glomerular Filtration Rate mL/min (>60) Glucose Level 68 MG/DL (74-106) L Uric Acid 7.2 MG/DL (2.6-7.2) Calcium Level 7.9 MG/DL (8.5-10.1) L Phosphorus Level 4.5 MG/DL (2.5-4.9) Magnesium Level 1.3 MG/DL (1.8-2.4) L Total Bilirubin 0.9 MG/DL (0.2-1.0) Aspartate Amino Transf (AST/SGOT) 20 U/L (15-37) Alanine Aminotransferase (ALT/SGPT) 22 U/L (12-78) Alkaline Phosphatase 73 U/L (46-116) Total Creatine Kinase 56 U/L (26-308) C-Reactive Protein, Quantitative 18.0 mg/dL (0.00-0.90) H Pro-B-Type Natriuretic Peptide > 17830 (0-125) H Total Protein 4.8 G/DL (6.4-8.2) L Albumin 1.7 G/DL (3.4-5.0) L Globulin 3.1 g/dL Albumin/Globulin Ratio 0.5 (1.0-2.7) L Random Amikacin Level Pending Current Medications Medications (Trade) Dose Ordered Sig/Chasidy Route PRN Reason Start Time Stop Time Status Last Admin Dose Admin Acetaminophen (Tylenol) 650 mg Q4H PRN ORAL fever 11/20/16 18:30 12/20/16 18:29 11/22/16 13:42 Acetaminophen (Tylenol) 650 mg Q4H PRN RECTAL Mild Pain (Pain Scale 1-3) 11/20/16 18:30 12/20/16 18:29 Albuterol/ Ipratropium (DuoNeb 0.5-3(2.5)mg/3ml) 3 ml EVERY 4 HOURS PRN HHN Shortness of Breath 11/20/16 18:30 11/25/16 18:29 Amikacin Protocol (Amikacin pharmacy to dose) 1 ea DAILY PRN MISC Per rx protocol 11/20/16 23:00 12/20/16 22:59 Chlorhexidine Gluconate (Julissa-Hex 2%) 1 applic DAILY@2000 TOPIC 11/22/16 20:00 12/22/16 19:59 11/22/16 19:35 Dextrose (Dextrose 50%) STAT PRN IV Hypoglycemia 11/20/16 20:15 12/20/16 20:14 Dextrose/Sodium Chloride 1,000 ml @ 100 mls/hr Q10H IV 11/23/16 07:30 12/23/16 07:29 11/23/16 07:51 Heparin Sodium (Porcine) (Heparin 5000 units/ml) 5,000 units EVERY 12 HOURS SUBQ 11/20/16 21:00 12/20/16 20:59 11/23/16 09:22 Hydrocortisone (Solu-CORTEF) 100 mg EVERY 8 HOURS IV 11/23/16 14:00 11/25/16 06:01 Insulin Aspart (NovoLOG) EVERY 6 HOURS SUBQ 11/21/16 00:00 12/21/16 00:00 11/23/16 12:04 Linezolid 300 ml @ 300 mls/hr Q12HR IVPB 11/20/16 23:00 11/27/16 22:59 11/23/16 09:09 Lorazepam (Ativan 2mg/ml 1ml) 2 mg EVERY 2 HOURS PRN IV For Anxiety 11/20/16 18:30 11/27/16 18:29 Magnesium Sulfate 100 ml @ 100 mls/hr Q1H IVPB 11/23/16 09:00 11/23/16 12:59 11/23/16 12:00 Meropenem 500 mg/ Sodium Chloride 55 ml @ 110 mls/hr Q24H IVPB 11/20/16 23:00 11/25/16 22:59 11/22/16 22:35 Norepinephrine Bitartrate 4 mg/ Dextrose 254 ml @ 0 mls/hr Q24H IV 11/20/16 18:30 12/20/16 18:29 11/22/16 18:57 Ondansetron HCl (Zofran ODT) 4 mg Q6H PRN ORAL Nausea & Vomiting 11/20/16 18:30 12/20/16 18:29 Pantoprazole (Protonix) 40 mg EVERY 12 HOURS IVP 11/23/16 09:00 12/23/16 08:59 11/23/16 09:08 Polyethylene Glycol (Miralax) 17 gm DAILYPRN PRN ORAL Constipation 11/20/16 18:30 12/20/16 18:29 Lindsey Willis M.D. Nov 23, 2016 12:12
--- NOTE | 2016-11-23 12:40 | Diagnostic Imaging Report ---
Indication: Dyspnea Comparison: 11/22/16 A single view chest radiograph was obtained. Findings: Heart is mildly enlarged. Interstitial edema has improved. There is a persistent retrocardiac opacification present. Endotracheal tube and pacemaker noted. NG tube is in good position. Impression: Improved interstitial edema. Persistent left basilar opacity. Pneumonia versus atelectasis.
--- NOTE | 2016-11-23 13:01 | General Progress Note ---
Assessment/Plan Status: unchanged Status Narrative Cr lower Assessment/Plan 1. Septic shock. 2. Acute kidney injury on chronic renal insufficiency. 3. Failure to thrive. 4. Acute myocardial infarction with non-ST elevation myocardial infarction. 5. Sick sinus syndrome, status post pacemaker. 6. Prostate cancer. 7. Diabetes type 2. 8. Hypertension. 9. Benign prostatic hypertrophy. 10. Gout. 11. Severe cardiomyopathy. 12. Alzheimer dementia. 13. Anemia of chronic kidney disease. 14. DNR Plan; Mag and K and Phos supplements as needed Pressors- Crowley- per consultants- Poor prognosis- ? transfuse as needed Subjective ROS Limited/Unobtainable: No Allergies: Coded Allergies: No Known Allergies (Unverified , 11/20/16) Objective Last 24 Hour Vital Signs Date Time Temp Pulse Resp B/P (MAP) Pulse Ox O2 Delivery O2 Flow Rate FiO2 11/23/16 11:25 62 28 25 11/23/16 09:23 60 32 25 11/23/16 08:00 60 11/23/16 08:00 25 11/23/16 07:09 64 35 25 11/23/16 06:45 60 20 94/43 100 Mechanical Ventilator 25 11/23/16 06:30 60 22 96/43 100 Mechanical Ventilator 25 11/23/16 06:15 60 21 94/59 100 Mechanical Ventilator 25 11/23/16 06:00 60 20 97/46 100 Mechanical Ventilator 25 11/23/16 05:45 60 20 100/43 100 Mechanical Ventilator 25 11/23/16 05:30 60 18 92/45 100 Mechanical Ventilator 25 11/23/16 05:15 60 22 25 11/23/16 05:15 60 18 92/44 100 Mechanical Ventilator 25 11/23/16 05:00 60 18 90/59 100 Mechanical Ventilator 25 11/23/16 04:45 61 18 89/63 100 Mechanical Ventilator 25 11/23/16 04:30 61 19 99/45 100 Mechanical Ventilator 25 11/23/16 04:15 62 23 94/47 100 Mechanical Ventilator 25 11/23/16 04:00 97.5 62 23 96/43 100 Mechanical Ventilator 25 11/23/16 04:00 53 11/23/16 04:00 25 11/23/16 03:45 65 23 96/43 97 Mechanical Ventilator 25 11/23/16 03:30 62 20 96/43 98 Mechanical Ventilator 25 11/23/16 03:30 62 35 25 11/23/16 03:15 60 19 89/45 100 Mechanical Ventilator 25 11/23/16 03:00 62 20 84/40 100 Mechanical Ventilator 25 11/23/16 02:45 62 20 85/50 100 Mechanical Ventilator 25 11/23/16 02:30 62 19 98/51 98 Mechanical Ventilator 25 11/23/16 02:15 60 19 94/48 98 Mechanical Ventilator 25 11/23/16 02:00 60 20 82/61 98 Mechanical Ventilator 25 11/23/16 01:45 60 19 90/42 100 Mechanical Ventilator 25 11/23/16 01:30 62 19 88/42 100 Mechanical Ventilator 25 11/23/16 01:19 60 22 25 11/23/16 01:15 61 17 99/45 99 Mechanical Ventilator 25 11/23/16 01:00 60 18 96/44 100 Mechanical Ventilator 25 11/23/16 00:45 60 19 103/48 100 Mechanical Ventilator 25 11/23/16 00:30 61 18 96/45 100 Mechanical Ventilator 25 11/23/16 00:15 60 19 96/45 100 Mechanical Ventilator 25 11/23/16 00:00 97.7 61 21 104/43 100 Mechanical Ventilator 25 11/22/16 23:45 62 19 99/44 99 Mechanical Ventilator 25 11/22/16 23:30 60 23 25 11/22/16 23:30 61 18 99/44 100 Mechanical Ventilator 25 11/22/16 23:15 61 20 101/40 100 Mechanical Ventilator 25 11/22/16 23:00 61 20 104/43 100 Mechanical Ventilator 25 11/22/16 22:45 62 20 102/45 100 Mechanical Ventilator 25 11/22/16 22:30 60 19 102/45 100 Mechanical Ventilator 25 11/22/16 22:15 61 20 91/48 100 Mechanical Ventilator 25 11/22/16 22:00 61 20 98/46 100 Mechanical Ventilator 25 11/22/16 21:45 61 19 99/44 100 Mechanical Ventilator 25 11/22/16 21:30 62 27 25 11/22/16 21:30 62 19 99/44 100 Mechanical Ventilator 25 11/22/16 21:15 61 19 95/44 100 Mechanical Ventilator 25 11/22/16 21:00 61 20 95/44 100 Mechanical Ventilator 25 11/22/16 20:45 61 20 101/41 100 Mechanical Ventilator 25 11/22/16 20:30 61 21 93/45 100 Mechanical Ventilator 25 11/22/16 20:15 61 21 96/47 100 Mechanical Ventilator 25 11/22/16 20:00 60 11/22/16 20:00 25 11/22/16 20:00 61 20 84/52 100 Mechanical Ventilator 25 11/22/16 19:45 61 20 84/52 100 Mechanical Ventilator 25 11/22/16 19:30 61 22 25 11/22/16 19:30 61 21 90/50 100 Mechanical Ventilator 25 11/22/16 19:15 97.5 60 20 92/49 100 Mechanical Ventilator 25 11/22/16 19:00 60 20 92/29 100 Mechanical Ventilator 25 11/22/16 18:57 93/48 11/22/16 18:45 60 20 96/45 100 Mechanical Ventilator 25 11/22/16 18:30 61 20 96/45 100 Mechanical Ventilator 25 11/22/16 18:15 60 18 96/45 100 Mechanical Ventilator 25 11/22/16 18:00 60 18 91/46 100 Mechanical Ventilator 25 11/22/16 18:00 97/46 11/22/16 17:45 60 19 91/45 100 Mechanical Ventilator 25 11/22/16 17:30 60 19 87/45 100 Mechanical Ventilator 25 11/22/16 17:18 60 23 25 11/22/16 17:15 60 19 88/47 100 Mechanical Ventilator 25 11/22/16 17:00 60 18 83/46 100 Mechanical Ventilator 25 11/22/16 17:00 88/48 11/22/16 16:45 60 18 103/49 100 Mechanical Ventilator 25 11/22/16 16:30 60 18 103/49 100 Mechanical Ventilator 25 11/22/16 16:15 60 18 101/51 100 Mechanical Ventilator 25 11/22/16 16:00 60 11/22/16 16:00 100/50 11/22/16 16:00 97.8 60 18 100/50 100 Mechanical Ventilator 25 11/22/16 16:00 30 11/22/16 15:45 60 18 100/50 100 Mechanical Ventilator 25 11/22/16 15:30 60 18 101/50 100 Mechanical Ventilator 25 11/22/16 15:16 60 18 25 11/22/16 15:15 60 20 87/47 100 Mechanical Ventilator 25 11/22/16 15:00 60 20 83/54 100 Mechanical Ventilator 25 11/22/16 15:00 83/54 11/22/16 14:00 89/47 11/22/16 14:00 60 20 93/46 100 Mechanical Ventilator 25 11/22/16 13:45 60 20 93/46 100 Mechanical Ventilator 25 11/22/16 13:30 60 20 96/44 100 Mechanical Ventilator 25 11/22/16 13:15 60 19 96/44 100 Mechanical Ventilator 25 11/22/16 13:00 91/47 11/22/16 13:00 60 20 91/47 99 Mechanical Ventilator 25 Intake and Output 11/23/16 11/24/16 19:00 07:00 Intake Total 60 ml Output Total 285 ml Balance -225 ml Free Water 30 ml Other 30 ml Output Urine Total 285 ml Laboratory Tests 11/23/16 05:00: White Blood Count 41.6#*H, Red Blood Count 2.95L, Hemoglobin 9.3L, Hematocrit 28.6L, Mean Corpuscular Volume 97, Mean Corpuscular Hemoglobin 31.7H, Mean Corpuscular Hemoglobin Concent 32.7, Red Cell Distribution Width 14.4, Platelet Count 138L, Mean Platelet Volume 12.8H, Neutrophils (%) (Auto) , Lymphocytes (% ) (Auto) , Monocytes (%) (Auto) , Eosinophils (%) (Auto) , Basophils (%) (Auto) , Differential Total Cells Counted 100, Neutrophils % (Manual) 94H, Lymphocytes % (Manual) 4L, Monocytes % (Manual) 2, Eosinophils % (Manual) 0, Basophils % ( Manual) 0, Band Neutrophils 0, Platelet Estimate Adequate, Platelet Morphology Normal, Hypochromasia 1+, Anisocytosis 1+, Sodium Level 124L, Potassium Level 3.5, Chloride Level 93L, Carbon Dioxide Level 19L, Anion Gap 12, Blood Urea Nitrogen 119H, Creatinine 4.6H, Estimat Glomerular Filtration Rate , Glucose Level 68L, Uric Acid 7.2, Calcium Level 7.9L, Phosphorus Level 4.5, Magnesium Level 1.3L, Total Bilirubin 0.9, Aspartate Amino Transf (AST/SGOT) 20, Alanine Aminotransferase (ALT/SGPT) 22, Alkaline Phosphatase 73, Total Creatine Kinase 56, C-Reactive Protein, Quantitative 18.0H, Pro-B-Type Natriuretic Peptide > 34075V, Total Protein 4.8L, Albumin 1.7L, Globulin 3.1, Albumin/Globulin Ratio 0.5L, Random Amikacin Level [Pending] Height (Feet): 5 Weight (Pounds): 146 General Appearance: no apparent distress, lethargic EENT: other - on vent Cardiovascular: tachycardia Respiratory/Chest: decreased breath sounds Abdomen: distended FELECIA RASHID Nov 23, 2016 13:01
[2016-11-23] MEDS: Hydrocortisone 100mg Inj IV SCH ×2 (13:46→22:00)
[2016-11-23] MEDS ORDERED: Tubing IV Secondary IV ONE (14:11)
[2016-11-23 15:27] LABS: APPEARANCE,URINE SLIGHTLY CLOUDY; KETONES,URINE NEGATIVE (NEGATIVE); LEUKOCYTE ESTERASE ,URINE 3+ (NEGATIVE); NITRITE,URINE NEGATIVE (NEGATIVE); PH,URINE 5 (4.5-8.0); PROTEIN,URINE 1+ (NEGATIVE); UROBILINOGEN,URINE NORMAL MG/DL (0.0-1.0)
[2016-11-23 15:38] LABS: BACTERIA,URINE FEW /HPF; SQUAMOUS EPITHELIAL CELL,UR FEW /LPF (NONE/OCC); WBC,URINE 15-20 /HPF (0 - 0)
--- NOTE | 2016-11-23 16:14 | Cardiac Electrophysiology PN ---
Assessment/Plan Assessment/Plan 1. Status post pacemaker implantation in 2012. Patient remains intermittently ventricularly paced. Chest x-ray showed the patient has dual-chamber pacemaker in the left subclavian area. The patient is usually followed by Dr. Rickey Ramsay and again the family stated that they wished not to proceed with a pacemaker generator change despite family was told it was at end of life. 2. Atrial fibrillation, rate is currently controlled off anticoagulation as hemoglobin is only 7. 3. 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 The patient remains off of beta-justen and ZELALEM inhibitor in view of his renal failure as well as hypotension.Per Dr Perez 4. End-stage renal disease. Family decided not to proceed with hemodialysis. 5. Dysphagia. Family refused PEG placement. 6. Prostate cancer status post radiation therapy. 7. History of Graves disease. DW RN Subjective Subjective Intermittently V Pacing. Echo EF 20%. On Vent on Levophed 3 mc/min Objective Last 24 Hour Vital Signs Date Time Temp Pulse Resp B/P (MAP) Pulse Ox O2 Delivery O2 Flow Rate FiO2 11/23/16 15:35 60 11/23/16 15:15 62 18 101/38 100 Mechanical Ventilator 25 11/23/16 15:00 60 19 100/38 100 Mechanical Ventilator 25 11/23/16 14:59 61 35 25 11/23/16 14:45 62 21 101/37 100 Mechanical Ventilator 25 11/23/16 14:30 61 22 94/47 100 Mechanical Ventilator 25 11/23/16 14:15 61 22 105/55 100 Mechanical Ventilator 25 11/23/16 14:00 61 20 86/53 99 Mechanical Ventilator 25 11/23/16 14:00 25 11/23/16 13:45 61 21 87/44 99 Mechanical Ventilator 25 11/23/16 13:30 60 20 89/44 100 Mechanical Ventilator 25 11/23/16 13:15 60 21 85/44 100 Mechanical Ventilator 25 11/23/16 13:10 60 34 25 11/23/16 13:00 60 21 87/44 99 Mechanical Ventilator 25 11/23/16 12:45 60 21 91/44 100 Mechanical Ventilator 25 11/23/16 12:30 60 21 85/50 99 Mechanical Ventilator 25 11/23/16 12:15 60 21 96/42 99 Mechanical Ventilator 25 11/23/16 12:00 25 11/23/16 12:00 60 10/9/17 12:00 98.2 61 22 98/43 98 Mechanical Ventilator 25 11/23/16 11:45 61 22 101/41 98 Mechanical Ventilator 25 11/23/16 11:30 62 21 102/39 98 Mechanical Ventilator 25 11/23/16 11:25 62 28 25 11/23/16 11:15 62 22 97/43 100 Mechanical Ventilator 25 11/23/16 11:00 62 22 90/46 98 Mechanical Ventilator 25 11/23/16 10:45 62 23 82/43 99 Mechanical Ventilator 25 11/23/16 10:30 60 24 94/42 100 Mechanical Ventilator 25 11/23/16 10:15 60 23 88/39 100 Mechanical Ventilator 25 11/23/16 10:00 60 21 93/42 98 Mechanical Ventilator 25 11/23/16 09:45 60 20 91/43 100 Mechanical Ventilator 25 11/23/16 09:30 60 19 92/43 100 Mechanical Ventilator 25 11/23/16 09:23 60 32 25 11/23/16 09:15 60 18 94/47 100 Mechanical Ventilator 25 11/23/16 09:00 60 18 99/44 100 Mechanical Ventilator 25 11/23/16 08:45 60 21 93/43 100 Mechanical Ventilator 25 11/23/16 08:30 60 21 93/43 100 Mechanical Ventilator 25 11/23/16 08:15 60 20 93/42 100 Mechanical Ventilator 25 11/23/16 08:00 60 11/23/16 08:00 98.5 60 22 93/42 100 Mechanical Ventilator 25 11/23/16 08:00 25 11/23/16 07:45 60 21 92/42 100 Mechanical Ventilator 25 11/23/16 07:30 60 19 92/62 100 Mechanical Ventilator 25 11/23/16 07:15 60 21 92/42 100 Mechanical Ventilator 25 11/23/16 07:09 64 35 25 11/23/16 07:00 60 20 93/42 100 Mechanical Ventilator 25 11/23/16 06:45 60 20 94/43 100 Mechanical Ventilator 25 11/23/16 06:30 60 22 96/43 100 Mechanical Ventilator 25 11/23/16 06:15 60 21 94/59 100 Mechanical Ventilator 25 11/23/16 06:00 60 20 97/46 100 Mechanical Ventilator 25 11/23/16 05:45 60 20 100/43 100 Mechanical Ventilator 25 11/23/16 05:30 60 18 92/45 100 Mechanical Ventilator 25 11/23/16 05:15 60 22 25 11/23/16 05:15 60 18 92/44 100 Mechanical Ventilator 25 11/23/16 05:00 60 18 90/59 100 Mechanical Ventilator 25 11/23/16 04:45 61 18 89/63 100 Mechanical Ventilator 25 11/23/16 04:30 61 19 99/45 100 Mechanical Ventilator 25 11/23/16 04:15 62 23 94/47 100 Mechanical Ventilator 25 11/23/16 04:00 97.5 62 23 96/43 100 Mechanical Ventilator 25 11/23/16 04:00 53 11/23/16 04:00 25 11/23/16 03:45 65 23 96/43 97 Mechanical Ventilator 25 11/23/16 03:30 62 20 96/43 98 Mechanical Ventilator 25 11/23/16 03:30 62 35 25 11/23/16 03:15 60 19 89/45 100 Mechanical Ventilator 25 11/23/16 03:00 62 20 84/40 100 Mechanical Ventilator 25 11/23/16 02:45 62 20 85/50 100 Mechanical Ventilator 25 11/23/16 02:30 62 19 98/51 98 Mechanical Ventilator 25 11/23/16 02:15 60 19 94/48 98 Mechanical Ventilator 25 11/23/16 02:00 60 20 82/61 98 Mechanical Ventilator 25 11/23/16 01:45 60 19 90/42 100 Mechanical Ventilator 25 11/23/16 01:30 62 19 88/42 100 Mechanical Ventilator 25 11/23/16 01:19 60 22 25 11/23/16 01:15 61 17 99/45 99 Mechanical Ventilator 25 11/23/16 01:00 60 18 96/44 100 Mechanical Ventilator 25 11/23/16 00:45 60 19 103/48 100 Mechanical Ventilator 25 11/23/16 00:30 61 18 96/45 100 Mechanical Ventilator 25 11/23/16 00:15 60 19 96/45 100 Mechanical Ventilator 25 11/23/16 00:00 97.7 61 21 104/43 100 Mechanical Ventilator 25 11/22/16 23:45 62 19 99/44 99 Mechanical Ventilator 25 11/22/16 23:30 60 23 25 11/22/16 23:30 61 18 99/44 100 Mechanical Ventilator 25 11/22/16 23:15 61 20 101/40 100 Mechanical Ventilator 25 11/22/16 23:00 61 20 104/43 100 Mechanical Ventilator 25 11/22/16 22:45 62 20 102/45 100 Mechanical Ventilator 25 11/22/16 22:30 60 19 102/45 100 Mechanical Ventilator 25 11/22/16 22:15 61 20 91/48 100 Mechanical Ventilator 25 11/22/16 22:00 61 20 98/46 100 Mechanical Ventilator 25 11/22/16 21:45 61 19 99/44 100 Mechanical Ventilator 25 11/22/16 21:30 62 27 25 11/22/16 21:30 62 19 99/44 100 Mechanical Ventilator 25 11/22/16 21:15 61 19 95/44 100 Mechanical Ventilator 25 11/22/16 21:00 61 20 95/44 100 Mechanical Ventilator 25 11/22/16 20:45 61 20 101/41 100 Mechanical Ventilator 25 11/22/16 20:30 61 21 93/45 100 Mechanical Ventilator 25 11/22/16 20:15 61 21 96/47 100 Mechanical Ventilator 25 11/22/16 20:00 60 11/22/16 20:00 25 11/22/16 20:00 61 20 84/52 100 Mechanical Ventilator 25 11/22/16 19:45 61 20 84/52 100 Mechanical Ventilator 25 11/22/16 19:30 61 22 25 11/22/16 19:30 61 21 90/50 100 Mechanical Ventilator 25 11/22/16 19:15 97.5 60 20 92/49 100 Mechanical Ventilator 25 11/22/16 19:00 60 20 92/29 100 Mechanical Ventilator 25 11/22/16 18:57 93/48 11/22/16 18:45 60 20 96/45 100 Mechanical Ventilator 25 11/22/16 18:30 61 20 96/45 100 Mechanical Ventilator 25 11/22/16 18:15 60 18 96/45 100 Mechanical Ventilator 25 11/22/16 18:00 60 18 91/46 100 Mechanical Ventilator 25 11/22/16 18:00 97/46 11/22/16 17:45 60 19 91/45 100 Mechanical Ventilator 25 11/22/16 17:30 60 19 87/45 100 Mechanical Ventilator 25 11/22/16 17:18 60 23 25 11/22/16 17:15 60 19 88/47 100 Mechanical Ventilator 25 11/22/16 17:00 60 18 83/46 100 Mechanical Ventilator 25 11/22/16 17:00 88/48 11/22/16 16:45 60 18 103/49 100 Mechanical Ventilator 25 11/22/16 16:30 60 18 103/49 100 Mechanical Ventilator 25 11/22/16 16:15 60 18 101/51 100 Mechanical Ventilator 25 Intake and Output 11/23/16 11/24/16 19:00 07:00 Intake Total 60 ml Output Total 485 ml Balance -425 ml Free Water 30 ml Other 30 ml Output Urine Total 485 ml Laboratory Tests Test 11/23/16 05:00 11/23/16 14:00 White Blood Count 41.6 K/UL (4.8-10.8) #*H Red Blood Count 2.95 M/UL (4.70-6.10) L Hemoglobin 9.3 G/DL (14.2-18.0) L Hematocrit 28.6 % (42.0-52.0) L Mean Corpuscular Volume 97 FL (80-99) Mean Corpuscular Hemoglobin 31.7 PG (27.0-31.0) H Mean Corpuscular Hemoglobin Concent 32.7 G/DL (32.0-36.0) Red Cell Distribution Width 14.4 % (11.6-14.8) Platelet Count 138 K/UL (150-450) L Mean Platelet Volume 12.8 FL (6.5-10.1) H Neutrophils (%) (Auto) % (45.0-75.0) Lymphocytes (%) (Auto) % (20.0-45.0) Monocytes (%) (Auto) % (1.0-10.0) Eosinophils (%) (Auto) % (0.0-3.0) Basophils (%) (Auto) % (0.0-2.0) Differential Total Cells Counted 100 Neutrophils % (Manual) 94 % (45-75) H Lymphocytes % (Manual) 4 % (20-45) L Monocytes % (Manual) 2 % (1-10) Eosinophils % (Manual) 0 % (0-3) Basophils % (Manual) 0 % (0-2) Band Neutrophils 0 % (0-8) Platelet Estimate Adequate Platelet Morphology Normal Hypochromasia 1+ Anisocytosis 1+ Sodium Level 124 MMOL/L (136-145) L Potassium Level 3.5 MMOL/L (3.5-5.1) Chloride Level 93 MMOL/L (98-107) L Carbon Dioxide Level 19 MMOL/L (21-32) L Anion Gap 12 (5-15) Blood Urea Nitrogen 119 mg/dL (7-18) H Creatinine 4.6 MG/DL (0.55-1.30) H Estimat Glomerular Filtration Rate mL/min (>60) Glucose Level 68 MG/DL (74-106) L Uric Acid 7.2 MG/DL (2.6-7.2) Calcium Level 7.9 MG/DL (8.5-10.1) L Phosphorus Level 4.5 MG/DL (2.5-4.9) Magnesium Level 1.3 MG/DL (1.8-2.4) L Total Bilirubin 0.9 MG/DL (0.2-1.0) Aspartate Amino Transf (AST/SGOT) 20 U/L (15-37) Alanine Aminotransferase (ALT/SGPT) 22 U/L (12-78) Alkaline Phosphatase 73 U/L (46-116) Total Creatine Kinase 56 U/L (26-308) C-Reactive Protein, Quantitative 18.0 mg/dL (0.00-0.90) H Pro-B-Type Natriuretic Peptide > 12575 (0-125) H Total Protein 4.8 G/DL (6.4-8.2) L Albumin 1.7 G/DL (3.4-5.0) L Globulin 3.1 g/dL Albumin/Globulin Ratio 0.5 (1.0-2.7) L Random Amikacin Level 7.3 ug/mL Urine Color Pale yellow Urine Appearance Slightly cloudy Urine pH 5 (4.5-8.0) Urine Specific [place] 1.005 (1.005-1.035) Urine Protein 1+ (NEGATIVE) H Urine Glucose (UA) Negative (NEGATIVE) Urine Ketones Negative (NEGATIVE) Urine Occult Blood 5+ (NEGATIVE) H Urine Nitrite Negative (NEGATIVE) Urine Bilirubin Negative (NEGATIVE) Urine Urobilinogen Normal MG/DL (0.0-1.0) Urine Leukocyte Esterase 3+ (NEGATIVE) H Urine RBC 10-15 /HPF (0 - 0) H Urine WBC 15-20 /HPF (0 - 0) H Urine Squamous Epithelial Cells Few /LPF (NONE/OCC) Urine Bacteria Few /HPF (NONE) Microbiology Date/Time Source Procedure Growth Status 11/21/16 00:35 Sputum Gram Stain - Final Resulted 11/21/16 00:35 Sputum Culture - Preliminary Staphylococcus Aureus - Mrsa Yeast Species Usual Upper Respiratory Haley Resulted 11/20/16 17:15 Nasal Nares Influenza Types A,B Antigen (LIZA) - Final Complete 11/20/16 17:00 Nasal Nares MRSA Culture - Final Staphylococcus Aureus - Mrsa Complete 11/21/16 14:00 Urine,Clean Catch Urine Culture - Preliminary Gram Negative Bacillus 1 Resulted 11/21/16 14:00 Sacral Swab Gram Stain - Final Resulted 11/21/16 14:00 Wound Culture - Preliminary Gram Negative Bacillus 1 Gram Positive Cocci Resulted 11/20/16 17:00 Rectum VRE Culture - Final NO VANCOMYCIN RESISTANT ENTEROCOCCUS ... Complete Objective HEAD AND NECK: Positive JVDs. He is orally intubated. LUNGS: Decreased breath sounds. CARDIOVASCULAR: Regular S1 and S2 with no gallop or murmur. ABDOMEN: Soft. EXTREMITIES: A 1+ pitting edema. JEREMY BALLARD Nov 23, 2016 16:14
--- NOTE | 2016-11-23 18:12 | Wound Care Consultation ---
Wound Assessment Wound Assessment #1: Wound Number: 1 Wound Present on Admission: Yes New Wound: No Status Change of Wound: No Wound Location Body Site Modif: posterior Wound Location Body Site: back Wound Type: pressure ulcer Marichuy Test: Does not Marichuy Pressure Ulcer Stage: Deep Tissue Injury - scattered Wound Thickness: Full Thickness Percent of Wound Purple/Maroon: 100 Wound Drainage Amount: None Wound Drainage Odor: None/Absent Tissue Surrounding Wound: Erythemic Wound General Appearance: Reddened Wound Assessment #2: Wound Number: 2 Wound Present on Admission: Yes New Wound: No Status Change of Wound: No Wound Location Body Site Modif: posterior Wound Location Body Site: back - scattered on spine, posterior thoracic region, left and right posterior shoulders Wound Type: pressure ulcer Marichuy Test: Does not Marichuy Pressure Ulcer Stage: II - scattered Wound Thickness: Partial Thickness Percent of Wound [place]/Red: 100 Other Colors Identified: surrounding tissue noted maroon in color. Wound Drainage Description: Serosanguineous Wound Drainage Amount: Moderate Wound Drainage Odor: None/Absent Tissue Surrounding Wound: Denuded - erythemic Wound General Appearance: Reddened, Draining Wound Assessment #3: Wound Number: 3 Wound Present on Admission: Yes New Wound: No Status Change of Wound: No Wound Location Body Site: sacral Wound Type: pressure ulcer Marichuy Test: Does not Marichuy Pressure Ulcer Stage: Unstageable - 4 Wound Thickness: Full Thickness Wound Length: 13.0 Wound Width: 13.0 Wound Depth: utd Percent of Wound Bed Yellow/Wh: 80 Percent of Wound Black/Brown: 10 Percent of Wound Purple/Maroon: 10 Other Colors Identified: periwound noted with maroon color at risk for further skin breakdown. Wound Drainage Description: Serosanguineous Wound Drainage Amount: Moderate Wound Drainage Odor: Foul Odor Tissue Surrounding Wound: Macerated Wound General Appearance: Draining, Necrotic - boggy Wound Assessment #4: Wound Number: 4 Wound Present on Admission: Yes New Wound: No Status Change of Wound: No Wound Location Body Site Modif: right Wound Location Body Site: trochanter Wound Type: pressure ulcer Marichuy Test: Does not Marichuy Pressure Ulcer Stage: Unstageable Wound Thickness: Full Thickness Wound Length: 10.0 Wound Width: 10.0 Wound Depth: utd Percent of Wound Bed Yellow/Wh: 10 Percent of Wound Purple/Maroon: 90 Wound Drainage Description: Serosanguineous Wound Drainage Amount: Moderate Wound Drainage Odor: None/Absent Tissue Surrounding Wound: Erythemic Wound General Appearance: Reddened - maroon., Draining Wound Assessment #5: Wound Number: 5 Wound Present on Admission: Yes New Wound: No Status Change of Wound: No Wound Location Body Site Modif: right Wound Location Body Site: shoulder Wound Type: pressure ulcer Marichuy Test: Does not Marichuy Pressure Ulcer Stage: II Wound Thickness: Partial Thickness Wound Length: 6.0 Wound Width: 6.0 Wound Depth: 0.2 Percent of Wound [place]/Red: 100 Other Colors Identified: noted dark reddend color at risk for further skin breakdown. Wound Drainage Description: Serosanguineous Wound Drainage Amount: Moderate Wound Drainage Odor: None/Absent Tissue Surrounding Wound: Erythemic Wound General Appearance: Reddened, Draining Wound Assessment #6: Wound Number: 6 Wound Present on Admission: Yes New Wound: No Status Change of Wound: No Wound Location Body Site Modif: left Wound Location Body Site: trochanter Wound Type: pressure ulcer Marichuy Test: Does not Marichuy Pressure Ulcer Stage: Deep Tissue Injury Wound Thickness: Full Thickness Wound Length: 7.0 Wound Width: 7.0 Wound Depth: utd Percent of Wound Purple/Maroon: 100 Wound Drainage Amount: None Wound Drainage Odor: None/Absent Tissue Surrounding Wound: Erythemic Wound General Appearance: Reddened - maroon. Wound Assessment #7: Wound Number: 7 Wound Present on Admission: Yes New Wound: No Status Change of Wound: No Wound Location Body Site Modif: left Wound Location Body Site: ischial tuberosity Wound Type: pressure ulcer Marichuy Test: Does not Marichuy Pressure Ulcer Stage: III Wound Thickness: Full Thickness Wound Length: 3.0 Wound Width: 2.0 Wound Depth: 0.3 Percent of Wound [place]/Red: 90 Percent of Wound Purple/Maroon: 10 - at risk for further skin breakdown. Wound Drainage Description: Serosanguineous Wound Drainage Amount: Moderate Wound Drainage Odor: None/Absent Tissue Surrounding Wound: Erythemic Wound General Appearance: Reddened - maroon., Draining Wound Assessment #8: Wound Number: 8 Wound Present on Admission: Yes New Wound: No Status Change of Wound: No Wound Location Body Site: other - scrotal area Wound Type: other - open wound etiology unknown. Marichuy Test: Does not Marichuy Wound Thickness: Full Thickness Wound Length: 2.5 Wound Width: 2.5 Wound Depth: 0.2 Percent of Wound [place]/Red: 100 Wound Drainage Description: Serosanguineous Wound Drainage Amount: Moderate Wound Drainage Odor: None/Absent Tissue Surrounding Wound: Erythemic Wound General Appearance: Reddened Wound Assessment #9: Wound Number: 9 Wound Present on Admission: Yes New Wound: No Status Change of Wound: No Wound Location Body Site Modif: left Wound Location Body Site: other - cheek Wound Type: scab Marichuy Test: Does not Marichuy Wound Thickness: Partial Thickness Wound Length: 0.8 Wound Width: 0.8 Wound Depth: utd Percent of Wound Black/Brown: 100 - scab Wound Drainage Amount: None Wound Drainage Odor: None/Absent Tissue Surrounding Wound: Erythemic Wound General Appearance: Reddened - scab Wound Comment #1 Posterior back scattered Deep Tissue Injuries. #2 Posterior back scattered extending to mid spine, scattered to right and left shoulders scattered to posterior thoracic region stage 2 with denuded skin. #3 Sacral unstageable/IV pressure ulcer.with surrounding skin maroon in color. #4 Right trochanter unstageable pressure ulcer. with surrounding skin maroon in color. #5 scrotal area open wound. #6 Right shoulder stage 2.- at risk for further skin breakdown noted wound bed dark red color. #7 Left trochanter deep tissue injury. #8 Left ischial tuberosity stage 3 pressure ulcer. #9 Left cheek scab. Recommendation. -Local wound care as ordered. -Turn and reposition. -Keep clean and dry. -Optimize nutrition. -Offload affected sites. -Avoid shear and friction. -Heel protectors. -Offload heels. -Low air loss mattress p200 for skin and wound management. -Assess and notify MD for any changes of condition to skin. MICHAEL MARK Nov 23, 2016 18:11
--- NOTE | 2016-11-23 18:55 | Cardiology Progress Note ---
Assessment/Plan Assessment/Plan nstemi trop 11 peak so far non flow limiting cad by cath / Lm 20% 02/2015 cath [facility] atrial fibrillation new cm ef % septic shock bacteria gnr renal insuf anemia ob neg stool respriatory failure acute ams pt is more awake today open eye respond by head movement prognosis poor overall dnr is on vent had ogt will give low dose Ecotrin iv abs on pressors tele afib v paced personally reviewed cr increased hgb stable cxr personally reviewed titrate pressor for map greater than 60 wean as possible follow trop son at bedside informed of mild improvemtn but still remain critically ill Subjective ROS Limited/Unobtainable: Yes Subjective on vent rsponsive now but nto communicative Objective Last 24 Hour Vital Signs Date Time Temp Pulse Resp B/P (MAP) Pulse Ox O2 Delivery O2 Flow Rate FiO2 11/23/16 17:16 60 19 25 11/23/16 16:00 25 11/23/16 15:35 60 11/23/16 15:15 62 18 101/38 100 Mechanical Ventilator 25 11/23/16 15:00 60 19 100/38 100 Mechanical Ventilator 25 11/23/16 14:59 61 35 25 11/23/16 14:45 62 21 101/37 100 Mechanical Ventilator 25 11/23/16 14:30 61 22 94/47 100 Mechanical Ventilator 25 11/23/16 14:15 61 22 105/55 100 Mechanical Ventilator 25 11/23/16 14:00 61 20 86/53 99 Mechanical Ventilator 25 11/23/16 14:00 25 11/23/16 13:45 61 21 87/44 99 Mechanical Ventilator 25 11/23/16 13:30 60 20 89/44 100 Mechanical Ventilator 25 11/23/16 13:15 60 21 85/44 100 Mechanical Ventilator 25 11/23/16 13:10 60 34 25 11/23/16 13:00 60 21 87/44 99 Mechanical Ventilator 25 11/23/16 12:45 60 21 91/44 100 Mechanical Ventilator 25 11/23/16 12:30 60 21 85/50 99 Mechanical Ventilator 25 11/23/16 12:15 60 21 96/42 99 Mechanical Ventilator 25 11/23/16 12:00 25 11/23/16 12:00 60 11/23/16 12:00 98.2 61 22 98/43 98 Mechanical Ventilator 25 11/23/16 11:45 61 22 101/41 98 Mechanical Ventilator 25 11/23/16 11:30 62 21 102/39 98 Mechanical Ventilator 25 11/23/16 11:25 62 28 25 11/23/16 11:15 62 22 97/43 100 Mechanical Ventilator 25 11/23/16 11:00 62 22 90/46 98 Mechanical Ventilator 25 11/23/16 10:45 62 23 82/43 99 Mechanical Ventilator 25 11/23/16 10:30 60 24 94/42 100 Mechanical Ventilator 25 11/23/16 10:15 60 23 88/39 100 Mechanical Ventilator 25 11/23/16 10:00 60 21 93/42 98 Mechanical Ventilator 25 11/23/16 09:45 60 20 91/43 100 Mechanical Ventilator 25 11/23/16 09:30 60 19 92/43 100 Mechanical Ventilator 25 11/23/16 09:23 60 32 25 11/23/16 09:15 60 18 94/47 100 Mechanical Ventilator 25 11/23/16 09:00 60 18 99/44 100 Mechanical Ventilator 25 11/23/16 08:45 60 21 93/43 100 Mechanical Ventilator 25 11/23/16 08:30 60 21 93/43 100 Mechanical Ventilator 25 11/23/16 08:15 60 20 93/42 100 Mechanical Ventilator 25 11/23/16 08:00 60 11/23/16 08:00 98.5 60 22 93/42 100 Mechanical Ventilator 25 11/23/16 08:00 25 11/23/16 07:45 60 21 92/42 100 Mechanical Ventilator 25 11/23/16 07:30 60 19 92/62 100 Mechanical Ventilator 25 11/23/16 07:15 60 21 92/42 100 Mechanical Ventilator 25 11/23/16 07:09 64 35 25 11/23/16 07:00 60 20 93/42 100 Mechanical Ventilator 25 11/23/16 06:45 60 20 94/43 100 Mechanical Ventilator 25 11/23/16 06:30 60 22 96/43 100 Mechanical Ventilator 25 11/23/16 06:15 60 21 94/59 100 Mechanical Ventilator 25 11/23/16 06:00 60 20 97/46 100 Mechanical Ventilator 25 11/23/16 05:45 60 20 100/43 100 Mechanical Ventilator 25 11/23/16 05:30 60 18 92/45 100 Mechanical Ventilator 25 11/23/16 05:15 60 22 25 11/23/16 05:15 60 18 92/44 100 Mechanical Ventilator 25 11/23/16 05:00 60 18 90/59 100 Mechanical Ventilator 25 11/23/16 04:45 61 18 89/63 100 Mechanical Ventilator 25 11/23/16 04:30 61 19 99/45 100 Mechanical Ventilator 25 11/23/16 04:15 62 23 94/47 100 Mechanical Ventilator 25 11/23/16 04:00 97.5 62 23 96/43 100 Mechanical Ventilator 25 11/23/16 04:00 53 11/23/16 04:00 25 11/23/16 03:45 65 23 96/43 97 Mechanical Ventilator 25 11/23/16 03:30 62 20 96/43 98 Mechanical Ventilator 25 11/23/16 03:30 62 35 25 11/23/16 03:15 60 19 89/45 100 Mechanical Ventilator 25 11/23/16 03:00 62 20 84/40 100 Mechanical Ventilator 25 11/23/16 02:45 62 20 85/50 100 Mechanical Ventilator 25 11/23/16 02:30 62 19 98/51 98 Mechanical Ventilator 25 11/23/16 02:15 60 19 94/48 98 Mechanical Ventilator 25 11/23/16 02:00 60 20 82/61 98 Mechanical Ventilator 25 11/23/16 01:45 60 19 90/42 100 Mechanical Ventilator 25 11/23/16 01:30 62 19 88/42 100 Mechanical Ventilator 25 11/23/16 01:19 60 22 25 11/23/16 01:15 61 17 99/45 99 Mechanical Ventilator 25 11/23/16 01:00 60 18 96/44 100 Mechanical Ventilator 25 11/23/16 00:45 60 19 103/48 100 Mechanical Ventilator 25 11/23/16 00:30 61 18 96/45 100 Mechanical Ventilator 25 11/23/16 00:15 60 19 96/45 100 Mechanical Ventilator 25 11/23/16 00:00 97.7 61 21 104/43 100 Mechanical Ventilator 25 11/22/16 23:45 62 19 99/44 99 Mechanical Ventilator 25 11/22/16 23:30 60 23 25 11/22/16 23:30 61 18 99/44 100 Mechanical Ventilator 25 11/22/16 23:15 61 20 101/40 100 Mechanical Ventilator 25 11/22/16 23:00 61 20 104/43 100 Mechanical Ventilator 25 11/22/16 22:45 62 20 102/45 100 Mechanical Ventilator 25 11/22/16 22:30 60 19 102/45 100 Mechanical Ventilator 25 11/22/16 22:15 61 20 91/48 100 Mechanical Ventilator 25 11/22/16 22:00 61 20 98/46 100 Mechanical Ventilator 25 11/22/16 21:45 61 19 99/44 100 Mechanical Ventilator 25 11/22/16 21:30 62 27 25 11/22/16 21:30 62 19 99/44 100 Mechanical Ventilator 25 11/22/16 21:15 61 19 95/44 100 Mechanical Ventilator 25 11/22/16 21:00 61 20 95/44 100 Mechanical Ventilator 25 11/22/16 20:45 61 20 101/41 100 Mechanical Ventilator 25 11/22/16 20:30 61 21 93/45 100 Mechanical Ventilator 25 11/22/16 20:15 61 21 96/47 100 Mechanical Ventilator 25 11/22/16 20:00 60 11/22/16 20:00 25 11/22/16 20:00 61 20 84/52 100 Mechanical Ventilator 25 11/22/16 19:45 61 20 84/52 100 Mechanical Ventilator 25 11/22/16 19:30 61 22 25 11/22/16 19:30 61 21 90/50 100 Mechanical Ventilator 25 11/22/16 19:15 97.5 60 20 92/49 100 Mechanical Ventilator 25 11/22/16 19:00 60 20 92/29 100 Mechanical Ventilator 25 11/22/16 18:57 93/48 General Appearance: no apparent distress, on vent, patient on isolation Neck: supple Cardiovascular: normal rate, regular rhythm Respiratory/Chest: rhonchi - left Abdomen: normal bowel sounds, non tender, soft Extremities: moderate edema Intake and Output 11/23/16 11/24/16 19:00 07:00 Intake Total 1978.75 ml Output Total 770 ml Balance 1208.75 ml Free Water 30 ml IV Total 1898.75 ml Other 50 ml Output Urine Total 770 ml Laboratory Tests Test 11/23/16 05:00 11/23/16 14:00 White Blood Count 41.6 K/UL (4.8-10.8) #*H Red Blood Count 2.95 M/UL (4.70-6.10) L Hemoglobin 9.3 G/DL (14.2-18.0) L Hematocrit 28.6 % (42.0-52.0) L Mean Corpuscular Volume 97 FL (80-99) Mean Corpuscular Hemoglobin 31.7 PG (27.0-31.0) H Mean Corpuscular Hemoglobin Concent 32.7 G/DL (32.0-36.0) Red Cell Distribution Width 14.4 % (11.6-14.8) Platelet Count 138 K/UL (150-450) L Mean Platelet Volume 12.8 FL (6.5-10.1) H Neutrophils (%) (Auto) % (45.0-75.0) Lymphocytes (%) (Auto) % (20.0-45.0) Monocytes (%) (Auto) % (1.0-10.0) Eosinophils (%) (Auto) % (0.0-3.0) Basophils (%) (Auto) % (0.0-2.0) Differential Total Cells Counted 100 Neutrophils % (Manual) 94 % (45-75) H Lymphocytes % (Manual) 4 % (20-45) L Monocytes % (Manual) 2 % (1-10) Eosinophils % (Manual) 0 % (0-3) Basophils % (Manual) 0 % (0-2) Band Neutrophils 0 % (0-8) Platelet Estimate Adequate Platelet Morphology Normal Hypochromasia 1+ Anisocytosis 1+ Sodium Level 124 MMOL/L (136-145) L Potassium Level 3.5 MMOL/L (3.5-5.1) Chloride Level 93 MMOL/L (98-107) L Carbon Dioxide Level 19 MMOL/L (21-32) L Anion Gap 12 (5-15) Blood Urea Nitrogen 119 mg/dL (7-18) H Creatinine 4.6 MG/DL (0.55-1.30) H Estimat Glomerular Filtration Rate mL/min (>60) Glucose Level 68 MG/DL (74-106) L Uric Acid 7.2 MG/DL (2.6-7.2) Calcium Level 7.9 MG/DL (8.5-10.1) L Phosphorus Level 4.5 MG/DL (2.5-4.9) Magnesium Level 1.3 MG/DL (1.8-2.4) L Total Bilirubin 0.9 MG/DL (0.2-1.0) Aspartate Amino Transf (AST/SGOT) 20 U/L (15-37) Alanine Aminotransferase (ALT/SGPT) 22 U/L (12-78) Alkaline Phosphatase 73 U/L (46-116) Total Creatine Kinase 56 U/L (26-308) C-Reactive Protein, Quantitative 18.0 mg/dL (0.00-0.90) H Pro-B-Type Natriuretic Peptide > 45286 (0-125) H Total Protein 4.8 G/DL (6.4-8.2) L Albumin 1.7 G/DL (3.4-5.0) L Globulin 3.1 g/dL Albumin/Globulin Ratio 0.5 (1.0-2.7) L Random Amikacin Level 7.3 ug/mL Urine Color Pale yellow Urine Appearance Slightly cloudy Urine pH 5 (4.5-8.0) Urine Specific [place] 1.005 (1.005-1.035) Urine Protein 1+ (NEGATIVE) H Urine Glucose (UA) Negative (NEGATIVE) Urine Ketones Negative (NEGATIVE) Urine Occult Blood 5+ (NEGATIVE) H Urine Nitrite Negative (NEGATIVE) Urine Bilirubin Negative (NEGATIVE) Urine Urobilinogen Normal MG/DL (0.0-1.0) Urine Leukocyte Esterase 3+ (NEGATIVE) H Urine RBC 10-15 /HPF (0 - 0) H Urine WBC 15-20 /HPF (0 - 0) H Urine Squamous Epithelial Cells Few /LPF (NONE/OCC) Urine Bacteria Few /HPF (NONE) Microbiology Date/Time Source Procedure Growth Status 11/21/16 00:35 Sputum Gram Stain - Final Resulted 11/21/16 00:35 Sputum Culture - Preliminary Staphylococcus Aureus - Mrsa Yeast Species Usual Upper Respiratory Haley Resulted 11/21/16 14:00 Urine,Clean Catch Urine Culture - Preliminary Gram Negative Bacillus 1 Resulted 11/21/16 14:00 Sacral Swab Gram Stain - Final Resulted 11/21/16 14:00 Wound Culture - Preliminary Gram Negative Bacillus 1 Gram Positive Cocci Resulted PARAS ROJAS Nov 23, 2016 18:55
[2016-11-23] MEDS: Dyna-Hex 2% Top Sol 2oz TOPIC SCH (21:11)
[2016-11-23] MEDS: Meropenem 500 MG in NS 55 ML IVPB SCH (22:38)
[2016-11-24] VITALS (60 sets, daily range): BP systolic 77–123; BP diastolic 46–67
[2016-11-24] MEDS: D5NS 1,000 ML IV SCH ×3 (03:48→17:31)
[2016-11-24] MEDS: Hydrocortisone 100mg Inj IV SCH ×3 (05:39→23:04)
[2016-11-24] MEDS: NovoLOG Insulin Flexpen SUBQ SCH ×3 (05:40→17:31)
[2016-11-24 06:18] LABS: MEAN CORPUSCULAR HEMOGLOBIN 32.8 PG (27.0-31.0); MEAN CORPUSCULAR HGB CONC 34.6 G/DL (32.0-36.0); MEAN CORPUSCULAR VOLUME 95 FL (80-99); MEAN PLATELET VOLUME 11.9 FL (6.5-10.1); PLATELET COUNT 109 K/UL (150-450); RED BLOOD COUNT 2.62 M/UL (4.70-6.10); RED CELL DISTRIBUTION WIDTH 14.4 % (11.6-14.8)
[2016-11-24 06:20] LABS: WHITE BLOOD COUNT 38.7 K/UL (4.8-10.8)
[2016-11-24 06:59] LABS: ALANINE AMINOTRANSFERASE 16 U/L (12-78); ALBUMIN/GLOBULIN RATIO 0.5 (1.0-2.7); ANION GAP 15 (5-15); ASPARTATE AMINO TRANSFERASE 12 U/L (15-37); CARBON DIOXIDE 17 MMOL/L (21-32); CHLORIDE 97 MMOL/L (98-107); CREATININE 4.2 MG/DL (0.55-1.30); MAGNESIUM 2.1 MG/DL (1.8-2.4); PHOSPHORUS 5.5 MG/DL (2.5-4.9); POTASSIUM 3.4 MMOL/L (3.5-5.1); SODIUM 129 MMOL/L (136-145); TOTAL PROTEIN 4.5 G/DL (6.4-8.2)
[2016-11-24] MEDS: Heparin 5000 units/ml inj SUBQ SCH ×2 (09:00→20:33)
[2016-11-24 09:20] LABS: ABG BASE EXCESS -5.4; ABG PCO2 25.9 mmHg (35.0-45.0)
--- NOTE | 2016-11-24 09:20 | Pulmonolgy Critical Care Note ---
Critical Care - Asmt/Plan Problems: (1) Acute respiratory failure (2) Septic shock (3) Hyperkalemia (4) Altered mental status (5) Chronic kidney disease (6) HCAP (healthcare-associated pneumonia) (7) Sacral decubitus ulcer, stage IV Respiratory: monitor respiratory rate, adjust FIO2, CXR Cardiac: continue pressors, continue to monitor HR/BP Renal: F/U I&O, keep IV fluid, check electrolytes Infectious Disease: check cultures Gastrointestinal: continue feedings/current rate Endocrine: monitor blood sugar, continue sliding scale insulin Hematologic: monitor H/H, transfuse if hgb<8.5 Neurologic: PRN Ativan, keep patient comfortable Prophylaxis: Protonix Time Spent (Minutes): 40 Notes 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, 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 Discussed with: nurses, consultants, case pickerclient program manager - Objective Last 24 Hour Vital Signs Date Time Temp Pulse Resp B/P (MAP) Pulse Ox O2 Delivery O2 Flow Rate FiO2 11/24/16 08:00 30 11/24/16 07:00 61 15 101/58 100 Mechanical Ventilator 30 11/24/16 07:00 101/58 11/24/16 06:52 62 26 25 11/24/16 06:45 63 15 109/49 100 Mechanical Ventilator 30 11/24/16 06:30 63 15 110/49 100 Mechanical Ventilator 30 11/24/16 06:15 60 15 112/51 100 Mechanical Ventilator 30 11/24/16 06:00 110/50 11/24/16 06:00 61 15 110/51 100 Mechanical Ventilator 30 11/24/16 05:45 61 15 113/51 100 Mechanical Ventilator 30 11/24/16 05:30 60 15 109/51 100 Mechanical Ventilator 30 11/24/16 05:02 66 34 25 11/24/16 05:00 109/51 11/24/16 05:00 61 11/24/16 04:45 60 15 103/50 100 Mechanical Ventilator 30 11/24/16 04:30 60 15 107/54 100 Mechanical Ventilator 30 11/24/16 04:15 60 15 107/54 100 Mechanical Ventilator 30 11/24/16 04:00 98.0 60 15 113/48 100 Mechanical Ventilator 30 11/24/16 04:00 30 11/24/16 04:00 113/48 11/24/16 03:45 60 15 111/48 100 Mechanical Ventilator 30 11/24/16 03:30 60 15 110/49 100 Mechanical Ventilator 30 11/24/16 03:26 59 30 25 11/24/16 03:15 60 15 106/61 100 Mechanical Ventilator 30 11/24/16 03:00 60 15 107/50 100 Mechanical Ventilator 30 11/24/16 03:00 107/50 11/24/16 02:45 60 15 94/48 100 Mechanical Ventilator 30 11/24/16 02:30 60 17 98/57 100 Mechanical Ventilator 30 11/24/16 02:15 60 17 98/57 100 Mechanical Ventilator 30 11/24/16 02:00 60 17 102/53 100 Mechanical Ventilator 30 11/24/16 02:00 79/42 11/24/16 01:45 60 17 110/65 100 Mechanical Ventilator 30 11/24/16 01:30 60 17 99/51 100 Mechanical Ventilator 30 11/24/16 01:15 60 17 77/54 100 Mechanical Ventilator 30 11/24/16 01:00 60 17 97/48 100 Mechanical Ventilator 30 11/24/16 01:00 104/49 11/24/16 00:56 67 20 25 11/24/16 00:45 60 17 104/48 100 Mechanical Ventilator 30 11/24/16 00:30 60 17 105/49 100 Mechanical Ventilator 30 11/24/16 00:15 60 17 105/49 100 Mechanical Ventilator 30 11/24/16 00:00 30 11/24/16 00:00 105/49 11/24/16 00:00 98.4 60 17 93/61 100 Mechanical Ventilator 30 11/24/16 00:00 60 11/23/16 23:45 60 17 100/51 100 Mechanical Ventilator 30 11/23/16 23:30 62 17 108/50 100 Mechanical Ventilator 30 11/23/16 23:30 60 31 25 11/23/16 23:15 62 17 108/50 100 Mechanical Ventilator 30 11/23/16 23:00 61 17 104/51 100 Mechanical Ventilator 30 11/23/16 23:00 104/51 11/23/16 22:45 61 17 107/50 100 Mechanical Ventilator 30 11/23/16 22:30 60 17 113/46 100 Mechanical Ventilator 30 11/23/16 22:15 60 17 134/53 100 Mechanical Ventilator 30 11/23/16 22:00 60 17 112/60 100 Mechanical Ventilator 30 11/23/16 22:00 112/50 11/23/16 21:45 60 17 115/42 100 Mechanical Ventilator 30 11/23/16 21:30 61 24 25 11/23/16 21:30 60 17 110/43 100 Mechanical Ventilator 30 11/23/16 21:15 61 17 106/52 100 Mechanical Ventilator 30 11/23/16 21:00 116/54 11/23/16 21:00 60 17 116/54 100 Mechanical Ventilator 30 11/23/16 20:45 60 17 106/54 100 Mechanical Ventilator 30 11/23/16 20:30 60 17 106/54 100 Mechanical Ventilator 30 11/23/16 20:15 60 17 104/54 100 Mechanical Ventilator 30 11/23/16 20:00 30 11/23/16 20:00 102/50 11/23/16 20:00 98.1 60 17 102/50 100 Mechanical Ventilator 30 11/23/16 20:00 60 11/23/16 19:45 60 17 102/50 100 Mechanical Ventilator 30 11/23/16 19:32 107/49 11/23/16 19:30 60 27 25 11/23/16 19:30 60 17 110/48 100 Mechanical Ventilator 30 11/23/16 19:15 60 17 102/50 100 Mechanical Ventilator 30 11/23/16 19:00 60 17 103/52 100 Mechanical Ventilator 30 11/23/16 18:45 61 17 107/49 100 Mechanical Ventilator 25 11/23/16 18:30 60 17 103/49 100 Mechanical Ventilator 25 11/23/16 18:15 60 17 105/48 100 Mechanical Ventilator 25 11/23/16 18:00 60 17 113/45 100 Mechanical Ventilator 25 11/23/16 17:45 60 18 98/46 100 Mechanical Ventilator 25 11/23/16 17:30 60 18 104/50 100 Mechanical Ventilator 25 11/23/16 17:16 60 19 25 11/23/16 17:15 60 18 100/53 100 Mechanical Ventilator 25 11/23/16 17:00 60 18 107/48 100 Mechanical Ventilator 25 11/23/16 16:45 60 17 102/48 100 Mechanical Ventilator 25 11/23/16 16:30 60 18 106/45 100 Mechanical Ventilator 25 11/23/16 16:15 60 17 98/47 100 Mechanical Ventilator 25 11/23/16 16:00 25 11/23/16 16:00 98.5 60 19 94/45 100 Mechanical Ventilator 25 11/23/16 15:45 60 19 95/46 100 Mechanical Ventilator 25 11/23/16 15:35 60 11/23/16 15:30 60 19 99/42 100 Mechanical Ventilator 25 11/23/16 15:15 62 18 101/38 100 Mechanical Ventilator 25 11/23/16 15:00 60 19 100/38 100 Mechanical Ventilator 25 11/23/16 14:59 61 35 25 11/23/16 14:45 62 21 101/37 100 Mechanical Ventilator 25 11/23/16 14:30 61 22 94/47 100 Mechanical Ventilator 25 11/23/16 14:15 61 22 105/55 100 Mechanical Ventilator 25 11/23/16 14:00 61 20 86/53 99 Mechanical Ventilator 25 11/23/16 14:00 25 11/23/16 13:45 61 21 87/44 99 Mechanical Ventilator 25 11/23/16 13:30 60 20 89/44 100 Mechanical Ventilator 25 11/23/16 13:15 60 21 85/44 100 Mechanical Ventilator 25 11/23/16 13:10 60 34 25 11/23/16 13:00 60 21 87/44 99 Mechanical Ventilator 25 11/23/16 12:45 60 21 91/44 100 Mechanical Ventilator 25 11/23/16 12:30 60 21 85/50 99 Mechanical Ventilator 25 11/23/16 12:15 60 21 96/42 99 Mechanical Ventilator 25 11/23/16 12:00 25 11/23/16 12:00 60 11/23/16 12:00 98.2 61 22 98/43 98 Mechanical Ventilator 25 11/23/16 11:45 61 22 101/41 98 Mechanical Ventilator 25 11/23/16 11:30 62 21 102/39 98 Mechanical Ventilator 25 11/23/16 11:25 62 28 25 11/23/16 11:15 62 22 97/43 100 Mechanical Ventilator 25 11/23/16 11:00 62 22 90/46 98 Mechanical Ventilator 25 11/23/16 10:45 62 23 82/43 99 Mechanical Ventilator 25 11/23/16 10:30 60 24 94/42 100 Mechanical Ventilator 25 11/23/16 10:15 60 23 88/39 100 Mechanical Ventilator 25 11/23/16 10:00 60 21 93/42 98 Mechanical Ventilator 25 11/23/16 09:45 60 20 91/43 100 Mechanical Ventilator 25 11/23/16 09:30 60 19 92/43 100 Mechanical Ventilator 25 11/23/16 09:23 60 32 25 Status: sedated Condition: critical HEENT: atraumatic, normocephalic Neck: full ROM Lungs: clear Heart: HR/BP stable, HR/BP unstable Abdomen: soft, non-tender, feeding tube Extremities: no C/C/E Decubiti: location, stage Micro: Microbiology Date/Time Source Procedure Growth Status 11/23/16 14:00 Urine,Clean Catch Urine Culture - Preliminary NO GROWTH Resulted 11/21/16 14:00 Urine,Clean Catch Urine Culture - Final Proteus Mirabilis Esbl Complete 11/21/16 14:00 Sacral Swab Gram Stain - Final Resulted 11/21/16 14:00 Wound Culture - Preliminary Gram Negative Bacillus 1 Gram Positive Cocci Resulted Accucheck: 152 Critical Care - Subjective ROS Limited/Unobtainable: No ICU Day: 4 Intubation Day: 4 Condition: critical EKG Rhythm: Sinus Rhythm FI02: 30 Vent Support Breath Rate: 16 Vent Support Mode: AC Vent Tidal Volume: 400 Sputum Amount: Small PIP: 20 Fluids: d5NS 100 Drips: levophed I&O: Intake and Output 11/24/16 11/25/16 19:00 07:00 Output Total 100 ml Balance -100 ml Output Urine Total 100 ml CXR: no change ET-Tube: 7.5 ET Position: 24 Labs: Laboratory Tests Test 11/23/16 14:00 11/24/16 05:20 Urine Color Pale yellow Urine Appearance Slightly cloudy Urine pH 5 (4.5-8.0) Urine Specific [place] 1.005 (1.005-1.035) Urine Protein 1+ (NEGATIVE) H Urine Glucose (UA) Negative (NEGATIVE) Urine Ketones Negative (NEGATIVE) Urine Occult Blood 5+ (NEGATIVE) H Urine Nitrite Negative (NEGATIVE) Urine Bilirubin Negative (NEGATIVE) Urine Urobilinogen Normal MG/DL (0.0-1.0) Urine Leukocyte Esterase 3+ (NEGATIVE) H Urine RBC 10-15 /HPF (0 - 0) H Urine WBC 15-20 /HPF (0 - 0) H Urine Squamous Epithelial Cells Few /LPF (NONE/OCC) Urine Bacteria Few /HPF (NONE) White Blood Count 38.7 K/UL (4.8-10.8) *H Red Blood Count 2.62 M/UL (4.70-6.10) L Hemoglobin 8.6 G/DL (14.2-18.0) L Hematocrit 24.8 % (42.0-52.0) L Mean Corpuscular Volume 95 FL (80-99) Mean Corpuscular Hemoglobin 32.8 PG (27.0-31.0) H Mean Corpuscular Hemoglobin Concent 34.6 G/DL (32.0-36.0) Red Cell Distribution Width 14.4 % (11.6-14.8) Platelet Count 109 K/UL (150-450) L Mean Platelet Volume 11.9 FL (6.5-10.1) H Neutrophils (%) (Auto) % (45.0-75.0) Lymphocytes (%) (Auto) % (20.0-45.0) Monocytes (%) (Auto) % (1.0-10.0) Eosinophils (%) (Auto) % (0.0-3.0) Basophils (%) (Auto) % (0.0-2.0) Neutrophils % (Manual) Pending Lymphocytes % (Manual) Pending Platelet Estimate Pending Platelet Morphology Pending Sodium Level 129 MMOL/L (136-145) L Potassium Level 3.4 MMOL/L (3.5-5.1) L Chloride Level 97 MMOL/L (98-107) L Carbon Dioxide Level 17 MMOL/L (21-32) L Anion Gap 15 (5-15) Blood Urea Nitrogen 113 mg/dL (7-18) H Creatinine 4.2 MG/DL (0.55-1.30) H Estimat Glomerular Filtration Rate mL/min (>60) Glucose Level 138 MG/DL (74-106) H Calcium Level 8.0 MG/DL (8.5-10.1) L Phosphorus Level 5.5 MG/DL (2.5-4.9) H Magnesium Level 2.1 MG/DL (1.8-2.4) Total Bilirubin 0.8 MG/DL (0.2-1.0) Aspartate Amino Transf (AST/SGOT) 12 U/L (15-37) L Alanine Aminotransferase (ALT/SGPT) 16 U/L (12-78) Alkaline Phosphatase 77 U/L (46-116) Total Protein 4.5 G/DL (6.4-8.2) L Albumin 1.5 G/DL (3.4-5.0) L Globulin 3.0 g/dL Albumin/Globulin Ratio 0.5 (1.0-2.7) L SAVANNAH SAWYER Nov 24, 2016 09:20
[2016-11-24 09:21] LABS: ABG ALLEN TEST POSITIVE
[2016-11-24] MEDS ORDERED: KCl 10% 40mEq/30ml liquid NG ONE (09:30)
[2016-11-24] MEDS: Pantoprazole Inj IVP SCH ×2 (09:43→20:32)
[2016-11-24] MEDS: Dakin's 0.25% (Half Strength) 16oz TOPIC SCH (09:44)
[2016-11-24 11:11] LABS: BAND NEUTROPHILS % (MANUAL) 2 % (0-8); BASOPHILS % (MANUAL) 0 % (0-2); EOSINOPHILS % (MANUAL) 0 % (0-3); LYMPHOCYTES % (MANUAL) 2 % (20-45); NEUTROPHILS % (MANUAL) 93 % (45-75); PLATELET ESTIMATE DECREASED; PLATELET MORPHOLOGY NORMAL; TOTAL CELLS COUNTED 100
[2016-11-24 11:12] LABS: HYPOCHROMASIA 1+
--- NOTE | 2016-11-24 11:47 | Diagnostic Imaging Report ---
Indication: DYSPNEA Technique: One view of the chest Comparison: 11/23/2016 Findings: Stable satisfactory positions of endotracheal and nasogastric tubes. 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 Bilateral pleural effusions and possible bilateral basilar parenchymal consolidative changes are stable. The heart remains enlarged. Degenerative changes of both shoulders are again noted. Left chest pacemaker is again noted. Impression: Unchanged, over one day, findings as above.
[2016-11-24] MEDS ORDERED: Tubing IV Secondary IV ONE (14:41)
[2016-11-24] MEDS ORDERED: NS 500ML IV ONE (14:41)
--- NOTE | 2016-11-24 14:57 | General Progress Note ---
Assessment/Plan Status: unchanged Status Narrative Cr lower- leukocytosis persists Assessment/Plan 1. Septic shock. 2. Acute kidney injury on chronic renal insufficiency. 3. Failure to thrive. 4. Acute myocardial infarction with non-ST elevation myocardial infarction. 5. Sick sinus syndrome, status post pacemaker. 6. Prostate cancer. 7. Diabetes type 2. 8. Hypertension. 9. Benign prostatic hypertrophy. 10. Gout. 11. Severe cardiomyopathy. 12. Alzheimer dementia. 13. Anemia of chronic kidney disease. 14. DNR Plan; Mag and K and Phos supplements as needed Pressors- [place]- per consultants- Poor prognosis- ? transfuse as needed Subjective ROS Limited/Unobtainable: No Allergies: Coded Allergies: No Known Allergies (Unverified , 11/20/16) Objective Last 24 Hour Vital Signs Date Time Temp Pulse Resp B/P (MAP) Pulse Ox O2 Delivery O2 Flow Rate FiO2 11/24/16 13:11 68 20 30 11/24/16 12:00 61 11/24/16 12:00 30 11/24/16 10:41 62 20 30 11/24/16 10:00 61 15 117/50 100 Mechanical Ventilator 30 11/24/16 09:30 61 15 110/67 100 Mechanical Ventilator 30 11/24/16 09:00 61 15 119/51 100 Mechanical Ventilator 30 11/24/16 08:30 61 15 119/52 100 Mechanical Ventilator 30 11/24/16 08:30 68 24 30 11/24/16 08:00 61 11/24/16 08:00 96.9 61 15 110/58 100 Mechanical Ventilator 30 11/24/16 08:00 30 11/24/16 07:30 61 15 118/54 100 Mechanical Ventilator 30 11/24/16 07:00 61 15 101/58 100 Mechanical Ventilator 30 11/24/16 07:00 101/58 11/24/16 06:52 62 26 25 11/24/16 06:45 63 15 109/49 100 Mechanical Ventilator 30 11/24/16 06:30 63 15 110/49 100 Mechanical Ventilator 30 11/24/16 06:15 60 15 112/51 100 Mechanical Ventilator 30 11/24/16 06:00 110/50 11/24/16 06:00 61 15 110/51 100 Mechanical Ventilator 30 11/24/16 05:45 61 15 113/51 100 Mechanical Ventilator 30 11/24/16 05:30 60 15 109/51 100 Mechanical Ventilator 30 11/24/16 05:02 66 34 25 11/24/16 05:00 109/51 11/24/16 05:00 61 11/24/16 04:45 60 15 103/50 100 Mechanical Ventilator 30 11/24/16 04:30 60 15 107/54 100 Mechanical Ventilator 30 11/24/16 04:15 60 15 107/54 100 Mechanical Ventilator 30 11/24/16 04:00 98.0 60 15 113/48 100 Mechanical Ventilator 30 11/24/16 04:00 30 11/24/16 04:00 113/48 11/24/16 03:45 60 15 111/48 100 Mechanical Ventilator 30 11/24/16 03:30 60 15 110/49 100 Mechanical Ventilator 30 11/24/16 03:26 59 30 25 11/24/16 03:15 60 15 106/61 100 Mechanical Ventilator 30 11/24/16 03:00 60 15 107/50 100 Mechanical Ventilator 30 11/24/16 03:00 107/50 11/24/16 02:45 60 15 94/48 100 Mechanical Ventilator 30 11/24/16 02:30 60 17 98/57 100 Mechanical Ventilator 30 11/24/16 02:15 60 17 98/57 100 Mechanical Ventilator 30 11/24/16 02:00 60 17 102/53 100 Mechanical Ventilator 30 11/24/16 02:00 79/42 11/24/16 01:45 60 17 110/65 100 Mechanical Ventilator 30 11/24/16 01:30 60 17 99/51 100 Mechanical Ventilator 30 11/24/16 01:15 60 17 77/54 100 Mechanical Ventilator 30 11/24/16 01:00 60 17 97/48 100 Mechanical Ventilator 30 11/24/16 01:00 104/49 11/24/16 00:56 67 20 25 11/24/16 00:45 60 17 104/48 100 Mechanical Ventilator 30 11/24/16 00:30 60 17 105/49 100 Mechanical Ventilator 30 11/24/16 00:15 60 17 105/49 100 Mechanical Ventilator 30 11/24/16 00:00 30 11/24/16 00:00 105/49 11/24/16 00:00 98.4 60 17 93/61 100 Mechanical Ventilator 30 11/24/16 00:00 60 11/23/16 23:45 60 17 100/51 100 Mechanical Ventilator 30 11/23/16 23:30 62 17 108/50 100 Mechanical Ventilator 30 11/23/16 23:30 60 31 25 11/23/16 23:15 62 17 108/50 100 Mechanical Ventilator 30 11/23/16 23:00 61 17 104/51 100 Mechanical Ventilator 30 11/23/16 23:00 104/51 11/23/16 22:45 61 17 107/50 100 Mechanical Ventilator 30 11/23/16 22:30 60 17 113/46 100 Mechanical Ventilator 30 11/23/16 22:15 60 17 134/53 100 Mechanical Ventilator 30 11/23/16 22:00 60 17 112/60 100 Mechanical Ventilator 30 11/23/16 22:00 112/50 11/23/16 21:45 60 17 115/42 100 Mechanical Ventilator 30 11/23/16 21:30 61 24 25 11/23/16 21:30 60 17 110/43 100 Mechanical Ventilator 30 11/23/16 21:15 61 17 106/52 100 Mechanical Ventilator 30 11/23/16 21:00 116/54 11/23/16 21:00 60 17 116/54 100 Mechanical Ventilator 30 11/23/16 20:45 60 17 106/54 100 Mechanical Ventilator 30 11/23/16 20:30 60 17 106/54 100 Mechanical Ventilator 30 11/23/16 20:15 60 17 104/54 100 Mechanical Ventilator 30 11/23/16 20:00 30 11/23/16 20:00 102/50 11/23/16 20:00 98.1 60 17 102/50 100 Mechanical Ventilator 30 11/23/16 20:00 60 11/23/16 19:45 60 17 102/50 100 Mechanical Ventilator 30 11/23/16 19:32 107/49 11/23/16 19:30 60 27 25 11/23/16 19:30 60 17 110/48 100 Mechanical Ventilator 30 11/23/16 19:15 60 17 102/50 100 Mechanical Ventilator 30 11/23/16 19:00 60 17 103/52 100 Mechanical Ventilator 30 11/23/16 18:45 61 17 107/49 100 Mechanical Ventilator 25 11/23/16 18:30 60 17 103/49 100 Mechanical Ventilator 25 11/23/16 18:15 60 17 105/48 100 Mechanical Ventilator 25 11/23/16 18:00 60 17 113/45 100 Mechanical Ventilator 25 11/23/16 17:45 60 18 98/46 100 Mechanical Ventilator 25 11/23/16 17:30 60 18 104/50 100 Mechanical Ventilator 25 11/23/16 17:16 60 19 25 11/23/16 17:15 60 18 100/53 100 Mechanical Ventilator 25 11/23/16 17:00 60 18 107/48 100 Mechanical Ventilator 25 11/23/16 16:45 60 17 102/48 100 Mechanical Ventilator 25 11/23/16 16:30 60 18 106/45 100 Mechanical Ventilator 25 11/23/16 16:15 60 17 98/47 100 Mechanical Ventilator 25 11/23/16 16:00 25 11/23/16 16:00 98.5 60 19 94/45 100 Mechanical Ventilator 25 11/23/16 15:45 60 19 95/46 100 Mechanical Ventilator 25 11/23/16 15:35 60 11/23/16 15:30 60 19 99/42 100 Mechanical Ventilator 25 11/23/16 15:15 62 18 101/38 100 Mechanical Ventilator 25 11/23/16 15:00 60 19 100/38 100 Mechanical Ventilator 25 11/23/16 14:59 61 35 25 Intake and Output 11/24/16 11/25/16 19:00 07:00 Output Total 700 ml Balance -700 ml Output Urine Total 700 ml Laboratory Tests 11/24/16 05:20: White Blood Count 38.7*H, Red Blood Count 2.62L, Hemoglobin 8.6L, Hematocrit 24.8L, Mean Corpuscular Volume 95, Mean Corpuscular Hemoglobin 32.8H, Mean Corpuscular Hemoglobin Concent 34.6, Red Cell Distribution Width 14.4, Platelet Count 109L, Mean Platelet Volume 11.9H, Neutrophils (%) (Auto) , Lymphocytes (% ) (Auto) , Monocytes (%) (Auto) , Eosinophils (%) (Auto) , Basophils (%) (Auto) , Differential Total Cells Counted 100, Neutrophils % (Manual) 93H, Lymphocytes % (Manual) 2L, Monocytes % (Manual) 3, Eosinophils % (Manual) 0, Basophils % ( Manual) 0, Band Neutrophils 2, Platelet Estimate DecreasedL, Platelet Morphology Normal, Red Blood Cell Morphology , Hypochromasia 1+, Sodium Level 129L, Potassium Level 3.4L, Chloride Level 97L, Carbon Dioxide Level 17L, Anion Gap 15, Blood Urea Nitrogen 113H, Creatinine 4.2H, Estimat Glomerular Filtration Rate , Glucose Level 138H, Calcium Level 8.0L, Phosphorus Level 5.5H , Magnesium Level 2.1, Total Bilirubin 0.8, Aspartate Amino Transf (AST/SGOT) 12L, Alanine Aminotransferase (ALT/SGPT) 16, Alkaline Phosphatase 77, Total Protein 4.5L, Albumin 1.5L, Globulin 3.0, Albumin/Globulin Ratio 0.5L 11/24/16 09:10: Arterial Blood pH 7.449, Arterial Blood Partial Pressure CO2 25.9L, Arterial Blood Partial Pressure O2 65.2L, Arterial Blood HCO3 17.6L, Arterial Blood Oxygen Saturation 92.8, Arterial Blood Base Excess -5.4, Chato Test Positive Height (Feet): 5 Weight (Pounds): 148 General Appearance: no apparent distress, lethargic EENT: other - intubated Cardiovascular: tachycardia Respiratory/Chest: decreased breath sounds Abdomen: distended FELECIA RASHID Nov 24, 2016 14:57
--- NOTE | 2016-11-24 15:30 | Infectious Diseases Prog Note ---
Assessment/Plan Assessment/Plan Abx: Cefepime x1 10 IV Vanco 11/20 Zoyn 11/20 Amikacin x1 11/21 Linezolid 11/20- Meropenem 11/20- Amikacin x1 11/20 Assesment: Septic shock- 2ry to ESBL Proteus UTI and high grade bacteremia and possible MRSA pneumonia -U/a WBC too many to count, nit +, leuk +3, ucx 11/20 >100K ESBL P. mirabilis, 11/21 ucx 10-20K ESBL Proteus (S. Ertapenem); repeat U/a 11/23- pyuria improving , ucx NTD -Bcx 05/19 Proteus mirabilis (S. Zosyn, Ertapenem, Cipro), repeat Bcx 11/23 pending -Sp cx: MRSA (S. Vancomycin LIZA 1), normal victoria, yeast -CXR 11/24: bilateral pleural effusions and possible bilateral basilar parenchymal consolidative changes are stable. -CXR 11/23 Persistent left basilar opacity. Pneumonia versus atelectasis. -CXR 11/20: Retrocardiac density likely atelectasis or scarring. Pneumonia not entirely excluded. -flu neg Hyperleukocytosis with left shift/bandemia- initially improved, now worsened again to ~40s- r/o intrabdominal abscess, empyema; improving Sacral decubitus ulcer, unsteagable- was previously noticed yellowish exudate, none currently- ?OM -wound cx: GRAM STAIN Final GRAM STAIN RESULT NO ORGANISMS SEEN NO WHITE BLOOD CELLS WOUND CULTURE Preliminary Organism 1 PROTEUS MIRABILIS GROWTH: 2+ Organism 2 ENTEROCOCCUS FAECALIS GROWTH: 4+ Organism 3 GRAM NEGATIVE BACILLUS 3 GROWTH: 2+ PRO MIRABI ENT FAECAL M.I.C. RX M.I.C. RX --------- --- --------- --- AMPICILLIN >=32 R <=2 S CEFAZOLIN >=64 R CIPROFLOXACIN <=0.25 S ERTAPENEM <=0.5 S GENTAMICIN <=1 S LEVOFLOXACIN <=0.12 S TRIMETHOPRIM/SULFA <=20 S VANCOMYCIN 1 S AMIKACIN <=2 S PIPERACILLIN/TAZOBACTAM <=4 S Lactic acidosis; resolved BJORN/Renal failure; improving -Renal Us: No obvious hydronephrosis.Bilateral renal cysts. Mild apparent increased echogenicity of the kidneys may suggest underlying medical renal disease. Cardiomyopathy with EF 20% Dementia ?DM2 Plan: -Continue IV Linezolid, Meropenem #5 for now MRSA pneumonia and Proteus bacteremia (respectively) -will keep Meropenem awaiting wound cx, if no PsA isolated, we can transition to Ertapenem -s/p 3d IV Amikacin 11/23 -f/u repeat 2 sets of bcx, ucx, sp cx -CT Chest/Abd/p with oral contrast to evaluate for abscess when stable -obtain MRI of the sacrum once clinically stable to rule out underlying osteomyelitis -f/u cx -Monitor CBC/BMP, temperatures Thank you for this consultation. Will continue to follow along with you. Discussed with RN. Subjective Allergies: Coded Allergies: No Known Allergies (Unverified , 11/20/16) Subjective afebrile leukocytosis mildly improved repeat cx pending. Objective Vital Signs Last 24 Hour Vital Signs Date Time Temp Pulse Resp B/P (MAP) Pulse Ox O2 Delivery O2 Flow Rate FiO2 11/24/16 15:10 65 20 30 11/24/16 13:11 68 20 30 11/24/16 12:00 61 11/24/16 12:00 30 11/24/16 10:41 62 20 30 11/24/16 10:00 61 15 117/50 100 Mechanical Ventilator 30 11/24/16 09:30 61 15 110/67 100 Mechanical Ventilator 30 11/24/16 09:00 61 15 119/51 100 Mechanical Ventilator 30 11/24/16 08:30 61 15 119/52 100 Mechanical Ventilator 30 11/24/16 08:30 68 24 30 11/24/16 08:00 61 11/24/16 08:00 96.9 61 15 110/58 100 Mechanical Ventilator 30 11/24/16 08:00 30 11/24/16 07:30 61 15 118/54 100 Mechanical Ventilator 30 11/24/16 07:00 61 15 101/58 100 Mechanical Ventilator 30 11/24/16 07:00 101/58 11/24/16 06:52 62 26 25 11/24/16 06:45 63 15 109/49 100 Mechanical Ventilator 30 11/24/16 06:30 63 15 110/49 100 Mechanical Ventilator 30 11/24/16 06:15 60 15 112/51 100 Mechanical Ventilator 30 11/24/16 06:00 110/50 11/24/16 06:00 61 15 110/51 100 Mechanical Ventilator 30 11/24/16 05:45 61 15 113/51 100 Mechanical Ventilator 30 11/24/16 05:30 60 15 109/51 100 Mechanical Ventilator 30 11/24/16 05:02 66 34 25 11/24/16 05:00 109/51 11/24/16 05:00 61 11/24/16 04:45 60 15 103/50 100 Mechanical Ventilator 30 11/24/16 04:30 60 15 107/54 100 Mechanical Ventilator 30 11/24/16 04:15 60 15 107/54 100 Mechanical Ventilator 30 11/24/16 04:00 98.0 60 15 113/48 100 Mechanical Ventilator 30 11/24/16 04:00 30 11/24/16 04:00 113/48 11/24/16 03:45 60 15 111/48 100 Mechanical Ventilator 30 11/24/16 03:30 60 15 110/49 100 Mechanical Ventilator 30 11/24/16 03:26 59 30 25 11/24/16 03:15 60 15 106/61 100 Mechanical Ventilator 30 11/24/16 03:00 60 15 107/50 100 Mechanical Ventilator 30 11/24/16 03:00 107/50 11/24/16 02:45 60 15 94/48 100 Mechanical Ventilator 30 11/24/16 02:30 60 17 98/57 100 Mechanical Ventilator 30 11/24/16 02:15 60 17 98/57 100 Mechanical Ventilator 30 11/24/16 02:00 60 17 102/53 100 Mechanical Ventilator 30 11/24/16 02:00 79/42 11/24/16 01:45 60 17 110/65 100 Mechanical Ventilator 30 11/24/16 01:30 60 17 99/51 100 Mechanical Ventilator 30 11/24/16 01:15 60 17 77/54 100 Mechanical Ventilator 30 11/24/16 01:00 60 17 97/48 100 Mechanical Ventilator 30 11/24/16 01:00 104/49 11/24/16 00:56 67 20 25 11/24/16 00:45 60 17 104/48 100 Mechanical Ventilator 30 11/24/16 00:30 60 17 105/49 100 Mechanical Ventilator 30 11/24/16 00:15 60 17 105/49 100 Mechanical Ventilator 30 11/24/16 00:00 30 11/24/16 00:00 105/49 11/24/16 00:00 98.4 60 17 93/61 100 Mechanical Ventilator 30 11/24/16 00:00 60 11/23/16 23:45 60 17 100/51 100 Mechanical Ventilator 30 11/23/16 23:30 62 17 108/50 100 Mechanical Ventilator 30 11/23/16 23:30 60 31 25 11/23/16 23:15 62 17 108/50 100 Mechanical Ventilator 30 11/23/16 23:00 61 17 104/51 100 Mechanical Ventilator 30 11/23/16 23:00 104/51 11/23/16 22:45 61 17 107/50 100 Mechanical Ventilator 30 11/23/16 22:30 60 17 113/46 100 Mechanical Ventilator 30 11/23/16 22:15 60 17 134/53 100 Mechanical Ventilator 30 11/23/16 22:00 60 17 112/60 100 Mechanical Ventilator 30 11/23/16 22:00 112/50 11/23/16 21:45 60 17 115/42 100 Mechanical Ventilator 30 11/23/16 21:30 61 24 25 11/23/16 21:30 60 17 110/43 100 Mechanical Ventilator 30 11/23/16 21:15 61 17 106/52 100 Mechanical Ventilator 30 11/23/16 21:00 116/54 11/23/16 21:00 60 17 116/54 100 Mechanical Ventilator 30 11/23/16 20:45 60 17 106/54 100 Mechanical Ventilator 30 11/23/16 20:30 60 17 106/54 100 Mechanical Ventilator 30 11/23/16 20:15 60 17 104/54 100 Mechanical Ventilator 30 11/23/16 20:00 30 11/23/16 20:00 102/50 11/23/16 20:00 98.1 60 17 102/50 100 Mechanical Ventilator 30 11/23/16 20:00 60 11/23/16 19:45 60 17 102/50 100 Mechanical Ventilator 30 11/23/16 19:32 107/49 11/23/16 19:30 60 27 25 11/23/16 19:30 60 17 110/48 100 Mechanical Ventilator 30 11/23/16 19:15 60 17 102/50 100 Mechanical Ventilator 30 11/23/16 19:00 60 17 103/52 100 Mechanical Ventilator 30 11/23/16 18:45 61 17 107/49 100 Mechanical Ventilator 25 11/23/16 18:30 60 17 103/49 100 Mechanical Ventilator 25 11/23/16 18:15 60 17 105/48 100 Mechanical Ventilator 25 11/23/16 18:00 60 17 113/45 100 Mechanical Ventilator 25 11/23/16 17:45 60 18 98/46 100 Mechanical Ventilator 25 11/23/16 17:30 60 18 104/50 100 Mechanical Ventilator 25 11/23/16 17:16 60 19 25 11/23/16 17:15 60 18 100/53 100 Mechanical Ventilator 25 11/23/16 17:00 60 18 107/48 100 Mechanical Ventilator 25 11/23/16 16:45 60 17 102/48 100 Mechanical Ventilator 25 11/23/16 16:30 60 18 106/45 100 Mechanical Ventilator 25 11/23/16 16:15 60 17 98/47 100 Mechanical Ventilator 25 11/23/16 16:00 25 11/23/16 16:00 98.5 60 19 94/45 100 Mechanical Ventilator 25 11/23/16 15:45 60 19 95/46 100 Mechanical Ventilator 25 11/23/16 15:35 60 11/23/16 15:30 60 19 99/42 100 Mechanical Ventilator 25 Height (Feet): 5 Weight (Pounds): 148 Objective General Appearance: cachetic, thin, Chronically Ill, intubated HEENT: ETT in place Respiratory: normal inspection, no respiratory distress, no retraction, no accessory muscle use, no wheezing, other - Bilateral rhonchi Cardiovascular : regular rate, rhythm, no edema Musculoskeletal: sacral ulcer, unstageable, surrounding skin with no erythema, no drainage Neurologic: intubated, more awake today, follows commands Skin: normal inspection, normal color, no rash Abd: BS+, S+D, ND Microbiology Date/Time Source Procedure Growth Status 11/23/16 20:30 Sputum Gram Stain - Final Resulted 11/23/16 20:30 Sputum Sputum Culture Pending Resulted 11/23/16 14:00 Urine,Clean Catch Urine Culture - Preliminary NO GROWTH Resulted Laboratory Tests Test 11/24/16 05:20 11/24/16 09:10 White Blood Count 38.7 K/UL (4.8-10.8) *H Red Blood Count 2.62 M/UL (4.70-6.10) L Hemoglobin 8.6 G/DL (14.2-18.0) L Hematocrit 24.8 % (42.0-52.0) L Mean Corpuscular Volume 95 FL (80-99) Mean Corpuscular Hemoglobin 32.8 PG (27.0-31.0) H Mean Corpuscular Hemoglobin Concent 34.6 G/DL (32.0-36.0) Red Cell Distribution Width 14.4 % (11.6-14.8) Platelet Count 109 K/UL (150-450) L Mean Platelet Volume 11.9 FL (6.5-10.1) H Neutrophils (%) (Auto) % (45.0-75.0) Lymphocytes (%) (Auto) % (20.0-45.0) Monocytes (%) (Auto) % (1.0-10.0) Eosinophils (%) (Auto) % (0.0-3.0) Basophils (%) (Auto) % (0.0-2.0) Differential Total Cells Counted 100 Neutrophils % (Manual) 93 % (45-75) H Lymphocytes % (Manual) 2 % (20-45) L Monocytes % (Manual) 3 % (1-10) Eosinophils % (Manual) 0 % (0-3) Basophils % (Manual) 0 % (0-2) Band Neutrophils 2 % (0-8) Platelet Estimate Decreased L Platelet Morphology Normal Red Blood Cell Morphology Hypochromasia 1+ Sodium Level 129 MMOL/L (136-145) L Potassium Level 3.4 MMOL/L (3.5-5.1) L Chloride Level 97 MMOL/L (98-107) L Carbon Dioxide Level 17 MMOL/L (21-32) L Anion Gap 15 (5-15) Blood Urea Nitrogen 113 mg/dL (7-18) H Creatinine 4.2 MG/DL (0.55-1.30) H Estimat Glomerular Filtration Rate mL/min (>60) Glucose Level 138 MG/DL (74-106) H Calcium Level 8.0 MG/DL (8.5-10.1) L Phosphorus Level 5.5 MG/DL (2.5-4.9) H Magnesium Level 2.1 MG/DL (1.8-2.4) Total Bilirubin 0.8 MG/DL (0.2-1.0) Aspartate Amino Transf (AST/SGOT) 12 U/L (15-37) L Alanine Aminotransferase (ALT/SGPT) 16 U/L (12-78) Alkaline Phosphatase 77 U/L (46-116) Total Protein 4.5 G/DL (6.4-8.2) L Albumin 1.5 G/DL (3.4-5.0) L Globulin 3.0 g/dL Albumin/Globulin Ratio 0.5 (1.0-2.7) L Arterial Blood pH 7.449 (7.350-7.450) Arterial Blood Partial Pressure CO2 25.9 mmHg (35.0-45.0) L Arterial Blood Partial Pressure O2 65.2 mmHg (75.0-100.0) L Arterial Blood HCO3 17.6 mmol/L (22.0-26.0) L Arterial Blood Oxygen Saturation 92.8 % (92.0-98.0) Arterial Blood Base Excess -5.4 Chato Test Positive Current Medications Medications (Trade) Dose Ordered Sig/Chasidy Route PRN Reason Start Time Stop Time Status Last Admin Dose Admin Acetaminophen (Tylenol) 650 mg Q4H PRN ORAL fever 11/20/16 18:30 12/20/16 18:29 11/22/16 13:42 Acetaminophen (Tylenol) 650 mg Q4H PRN RECTAL Mild Pain (Pain Scale 1-3) 11/20/16 18:30 12/20/16 18:29 Albuterol/ Ipratropium (DuoNeb 0.5-3(2.5)mg/3ml) 3 ml EVERY 4 HOURS PRN HHN Shortness of Breath 11/20/16 18:30 11/25/16 18:29 Chlorhexidine Gluconate (Julissa-Hex 2%) 1 applic DAILY@2000 TOPIC 11/22/16 20:00 12/22/16 19:59 11/23/16 21:11 Dextrose (Dextrose 50%) STAT PRN IV Hypoglycemia 11/20/16 20:15 12/20/16 20:14 Dextrose/Sodium Chloride 1,000 ml @ 100 mls/hr Q10H IV 11/23/16 07:30 12/23/16 07:29 11/24/16 13:32 Heparin Sodium (Porcine) (Heparin 5000 units/ml) 5,000 units EVERY 12 HOURS SUBQ 11/20/16 21:00 12/20/16 20:59 11/23/16 21:12 Hydrocortisone (Solu-CORTEF) 100 mg EVERY 8 HOURS IV 11/23/16 14:00 11/25/16 06:01 11/24/16 13:32 Insulin Aspart (NovoLOG) EVERY 6 HOURS SUBQ 11/21/16 00:00 12/21/16 00:00 11/24/16 13:32 Linezolid 300 ml @ 300 mls/hr Q12HR IVPB 11/20/16 23:00 11/27/16 22:59 11/24/16 09:44 Lorazepam (Ativan 2mg/ml 1ml) 2 mg EVERY 2 HOURS PRN IV For Anxiety 11/20/16 18:30 11/27/16 18:29 Meropenem 500 mg/ Sodium Chloride 55 ml @ 110 mls/hr Q24H IVPB 11/20/16 23:00 11/25/16 22:59 11/23/16 22:38 Norepinephrine Bitartrate 4 mg/ Dextrose 254 ml @ 0 mls/hr Q24H IV 11/20/16 18:30 12/20/16 18:29 11/23/16 19:32 Ondansetron HCl (Zofran ODT) 4 mg Q6H PRN ORAL Nausea & Vomiting 11/20/16 18:30 12/20/16 18:29 Pantoprazole (Protonix) 40 mg EVERY 12 HOURS IVP 11/23/16 09:00 12/23/16 08:59 11/24/16 09:43 Polyethylene Glycol (Miralax) 17 gm DAILYPRN PRN ORAL Constipation 11/20/16 18:30 12/20/16 18:29 Sodium Hypochlorite (Dakin's Half Strength) 1 applic DAILY TOPIC 11/24/16 09:00 12/24/16 08:59 11/24/16 09:44 Lindsey Willis M.D. Nov 24, 2016 15:30
--- NOTE | 2016-11-24 16:08 | Internal Med Progress Note ---
Subjective Date of Service: Nov 24, 2016 Physician Name Taniya Pina Attending Physician Teddy Quezada MD Current Medications Medications (Trade) Dose Ordered Sig/Chasidy Route PRN Reason Start Time Stop Time Status Last Admin Dose Admin Acetaminophen (Tylenol) 650 mg Q4H PRN ORAL fever 11/20/16 18:30 12/20/16 18:29 11/22/16 13:42 Acetaminophen (Tylenol) 650 mg Q4H PRN RECTAL Mild Pain (Pain Scale 1-3) 11/20/16 18:30 12/20/16 18:29 Albuterol/ Ipratropium (DuoNeb 0.5-3(2.5)mg/3ml) 3 ml EVERY 4 HOURS PRN HHN Shortness of Breath 11/20/16 18:30 11/25/16 18:29 Chlorhexidine Gluconate (Julissa-Hex 2%) 1 applic DAILY@2000 TOPIC 11/22/16 20:00 12/22/16 19:59 11/23/16 21:11 Dextrose (Dextrose 50%) STAT PRN IV Hypoglycemia 11/20/16 20:15 12/20/16 20:14 Dextrose/Sodium Chloride 1,000 ml @ 100 mls/hr Q10H IV 11/23/16 07:30 12/23/16 07:29 11/24/16 13:32 Heparin Sodium (Porcine) (Heparin 5000 units/ml) 5,000 units EVERY 12 HOURS SUBQ 11/20/16 21:00 12/20/16 20:59 11/23/16 21:12 Hydrocortisone (Solu-CORTEF) 100 mg EVERY 8 HOURS IV 11/23/16 14:00 11/25/16 06:01 11/24/16 13:32 Insulin Aspart (NovoLOG) EVERY 6 HOURS SUBQ 11/21/16 00:00 12/21/16 00:00 11/24/16 13:32 Linezolid 300 ml @ 300 mls/hr Q12HR IVPB 11/20/16 23:00 11/27/16 22:59 11/24/16 09:44 Lorazepam (Ativan 2mg/ml 1ml) 2 mg EVERY 2 HOURS PRN IV For Anxiety 11/20/16 18:30 11/27/16 18:29 Meropenem 500 mg/ Sodium Chloride 55 ml @ 110 mls/hr Q24H IVPB 11/20/16 23:00 11/25/16 22:59 11/23/16 22:38 Norepinephrine Bitartrate 4 mg/ Dextrose 254 ml @ 0 mls/hr Q24H IV 11/20/16 18:30 12/20/16 18:29 11/23/16 19:32 Ondansetron HCl (Zofran ODT) 4 mg Q6H PRN ORAL Nausea & Vomiting 11/20/16 18:30 12/20/16 18:29 Pantoprazole (Protonix) 40 mg EVERY 12 HOURS IVP 11/23/16 09:00 12/23/16 08:59 11/24/16 09:43 Polyethylene Glycol (Miralax) 17 gm DAILYPRN PRN ORAL Constipation 11/20/16 18:30 12/20/16 18:29 Sodium Hypochlorite (Dakin's Half Strength) 1 applic DAILY TOPIC 11/24/16 09:00 12/24/16 08:59 11/24/16 09:44 Allergies: Coded Allergies: No Known Allergies (Unverified , 11/20/16) ROS Limited/Unobtainable: Yes Subjective 86 YO M admitted with respiratory failure and sepsis. Continues on levophed. Cover for Int Jarod-Dr Quezada . ICU. Intubated and sedated. Objective Last Vital Signs Date Time Temp Pulse Resp B/P (MAP) Pulse Ox O2 Delivery O2 Flow Rate FiO2 11/24/16 15:10 65 20 30 11/24/16 10:00 117/50 100 Mechanical Ventilator 11/24/16 08:00 96.9 11/20/16 17:30 15.0 Laboratory Tests Test 11/24/16 05:20 11/24/16 09:10 White Blood Count 38.7 K/UL (4.8-10.8) *H Red Blood Count 2.62 M/UL (4.70-6.10) L Hemoglobin 8.6 G/DL (14.2-18.0) L Hematocrit 24.8 % (42.0-52.0) L Mean Corpuscular Volume 95 FL (80-99) Mean Corpuscular Hemoglobin 32.8 PG (27.0-31.0) H Mean Corpuscular Hemoglobin Concent 34.6 G/DL (32.0-36.0) Red Cell Distribution Width 14.4 % (11.6-14.8) Platelet Count 109 K/UL (150-450) L Mean Platelet Volume 11.9 FL (6.5-10.1) H Neutrophils (%) (Auto) % (45.0-75.0) Lymphocytes (%) (Auto) % (20.0-45.0) Monocytes (%) (Auto) % (1.0-10.0) Eosinophils (%) (Auto) % (0.0-3.0) Basophils (%) (Auto) % (0.0-2.0) Differential Total Cells Counted 100 Neutrophils % (Manual) 93 % (45-75) H Lymphocytes % (Manual) 2 % (20-45) L Monocytes % (Manual) 3 % (1-10) Eosinophils % (Manual) 0 % (0-3) Basophils % (Manual) 0 % (0-2) Band Neutrophils 2 % (0-8) Platelet Estimate Decreased L Platelet Morphology Normal Red Blood Cell Morphology Hypochromasia 1+ Sodium Level 129 MMOL/L (136-145) L Potassium Level 3.4 MMOL/L (3.5-5.1) L Chloride Level 97 MMOL/L (98-107) L Carbon Dioxide Level 17 MMOL/L (21-32) L Anion Gap 15 (5-15) Blood Urea Nitrogen 113 mg/dL (7-18) H Creatinine 4.2 MG/DL (0.55-1.30) H Estimat Glomerular Filtration Rate mL/min (>60) Glucose Level 138 MG/DL (74-106) H Calcium Level 8.0 MG/DL (8.5-10.1) L Phosphorus Level 5.5 MG/DL (2.5-4.9) H Magnesium Level 2.1 MG/DL (1.8-2.4) Total Bilirubin 0.8 MG/DL (0.2-1.0) Aspartate Amino Transf (AST/SGOT) 12 U/L (15-37) L Alanine Aminotransferase (ALT/SGPT) 16 U/L (12-78) Alkaline Phosphatase 77 U/L (46-116) Total Protein 4.5 G/DL (6.4-8.2) L Albumin 1.5 G/DL (3.4-5.0) L Globulin 3.0 g/dL Albumin/Globulin Ratio 0.5 (1.0-2.7) L Arterial Blood pH 7.449 (7.350-7.450) Arterial Blood Partial Pressure CO2 25.9 mmHg (35.0-45.0) L Arterial Blood Partial Pressure O2 65.2 mmHg (75.0-100.0) L Arterial Blood HCO3 17.6 mmol/L (22.0-26.0) L Arterial Blood Oxygen Saturation 92.8 % (92.0-98.0) Arterial Blood Base Excess -5.4 Chato Test Positive Microbiology Date/Time Source Procedure Growth Status 11/23/16 20:30 Sputum Gram Stain - Final Resulted 11/23/16 20:30 Sputum Sputum Culture Pending Resulted 11/23/16 14:00 Urine,Clean Catch Urine Culture - Preliminary NO GROWTH Resulted Intake and Output 11/24/16 11/25/16 19:00 07:00 Output Total 750 ml Balance -750 ml Output Urine Total 750 ml Objective General Appearance: WD/WN, lethargic EENT: normal ENT inspection, other - oral intubation Neck: non-tender, normal alignment, supple Cardiovascular: normal peripheral pulses, normal rate, regular rhythm, no gallop/murmur, no JVD Respiratory/Chest: Mech vent; respiratory distress, crackles/rales, rhonchi - bilaterally, expiratory wheezing Abdomen: normal bowel sounds, non tender, soft, no organomegaly, no mass Skin: normal pigmentation, warm/dry Assessment/Plan Problem List: (1) Respiratory failure Assessment & Plan: See pulmonary note. Cont mech vent per pulmonary (2) Hypotension Assessment & Plan: Due to sepsis. On levophed (3) Renal failure Assessment & Plan: See nephrology note. (4) Diabetes mellitus, type II Assessment & Plan: Cont novolog sliding scale. 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 Await ID and sens. Follow Inf Dis recs. Cont Meropenem for now. (18) Pneumonia Assessment & Plan: Continue linezolid, amikacin and merpoenem per ID (19) NSTEMI (non-ST elevated myocardial infarction) (20) Hyponatremia Assessment & Plan: See nephrology note. Status: not improved TANIYA PINA Nov 24, 2016 16:08
--- NOTE | 2016-11-24 17:00 | Cardiology Progress Note ---
Assessment/Plan Assessment/Plan nstemi trop 11 peak so far non flow limiting cad by cath / Lm 20% 02/2015 cath [facility] atrial fibrillation new cm ef % septic shock bacteria gnr renal insuf anemia ob neg stool respriatory failure acute ams pt is more awake today open eye respond by head movement prognosis poor overall dnr is on vent had ogt will give low dose Ecotrin iv abs on pressorswill taper tele afib v paced personally reviewed cr uimporved hgblower cxr personally reviewed wean as possible follow trop no family at bedside Subjective ROS Limited/Unobtainable: Yes Cardiovascular: Reports: chest pain Subjective on vent rsponsive now but nto communicative Objective Last 24 Hour Vital Signs Date Time Temp Pulse Resp B/P (MAP) Pulse Ox O2 Delivery O2 Flow Rate FiO2 11/24/16 16:00 30 11/24/16 15:10 65 20 30 11/24/16 13:11 68 20 30 11/24/16 12:00 61 11/24/16 12:00 30 11/24/16 10:41 62 20 30 11/24/16 10:00 61 15 117/50 100 Mechanical Ventilator 30 11/24/16 09:30 61 15 110/67 100 Mechanical Ventilator 30 11/24/16 09:00 61 15 119/51 100 Mechanical Ventilator 30 11/24/16 08:30 61 15 119/52 100 Mechanical Ventilator 30 11/24/16 08:30 68 24 30 11/24/16 08:00 61 11/24/16 08:00 96.9 61 15 110/58 100 Mechanical Ventilator 30 11/24/16 08:00 30 11/24/16 07:30 61 15 118/54 100 Mechanical Ventilator 30 11/24/16 07:00 61 15 101/58 100 Mechanical Ventilator 30 11/24/16 07:00 101/58 11/24/16 06:52 62 26 25 11/24/16 06:45 63 15 109/49 100 Mechanical Ventilator 30 11/24/16 06:30 63 15 110/49 100 Mechanical Ventilator 30 11/24/16 06:15 60 15 112/51 100 Mechanical Ventilator 30 11/24/16 06:00 110/50 11/24/16 06:00 61 15 110/51 100 Mechanical Ventilator 30 11/24/16 05:45 61 15 113/51 100 Mechanical Ventilator 30 11/24/16 05:30 60 15 109/51 100 Mechanical Ventilator 30 11/24/16 05:02 66 34 25 11/24/16 05:00 109/51 11/24/16 05:00 61 11/24/16 04:45 60 15 103/50 100 Mechanical Ventilator 30 11/24/16 04:30 60 15 107/54 100 Mechanical Ventilator 30 11/24/16 04:15 60 15 107/54 100 Mechanical Ventilator 30 11/24/16 04:00 98.0 60 15 113/48 100 Mechanical Ventilator 30 11/24/16 04:00 30 11/24/16 04:00 113/48 11/24/16 03:45 60 15 111/48 100 Mechanical Ventilator 30 11/24/16 03:30 60 15 110/49 100 Mechanical Ventilator 30 11/24/16 03:26 59 30 25 11/24/16 03:15 60 15 106/61 100 Mechanical Ventilator 30 11/24/16 03:00 60 15 107/50 100 Mechanical Ventilator 30 11/24/16 03:00 107/50 11/24/16 02:45 60 15 94/48 100 Mechanical Ventilator 30 11/24/16 02:30 60 17 98/57 100 Mechanical Ventilator 30 11/24/16 02:15 60 17 98/57 100 Mechanical Ventilator 30 11/24/16 02:00 60 17 102/53 100 Mechanical Ventilator 30 11/24/16 02:00 79/42 11/24/16 01:45 60 17 110/65 100 Mechanical Ventilator 30 11/24/16 01:30 60 17 99/51 100 Mechanical Ventilator 30 11/24/16 01:15 60 17 77/54 100 Mechanical Ventilator 30 11/24/16 01:00 60 17 97/48 100 Mechanical Ventilator 30 11/24/16 01:00 104/49 11/24/16 00:56 67 20 25 11/24/16 00:45 60 17 104/48 100 Mechanical Ventilator 30 11/24/16 00:30 60 17 105/49 100 Mechanical Ventilator 30 11/24/16 00:15 60 17 105/49 100 Mechanical Ventilator 30 11/24/16 00:00 30 11/24/16 00:00 105/49 11/24/16 00:00 98.4 60 17 93/61 100 Mechanical Ventilator 30 11/24/16 00:00 60 11/23/16 23:45 60 17 100/51 100 Mechanical Ventilator 30 11/23/16 23:30 62 17 108/50 100 Mechanical Ventilator 30 11/23/16 23:30 60 31 25 11/23/16 23:15 62 17 108/50 100 Mechanical Ventilator 30 11/23/16 23:00 61 17 104/51 100 Mechanical Ventilator 30 11/23/16 23:00 104/51 11/23/16 22:45 61 17 107/50 100 Mechanical Ventilator 30 11/23/16 22:30 60 17 113/46 100 Mechanical Ventilator 30 11/23/16 22:15 60 17 134/53 100 Mechanical Ventilator 30 11/23/16 22:00 60 17 112/60 100 Mechanical Ventilator 30 11/23/16 22:00 112/50 11/23/16 21:45 60 17 115/42 100 Mechanical Ventilator 30 11/23/16 21:30 61 24 25 11/23/16 21:30 60 17 110/43 100 Mechanical Ventilator 30 11/23/16 21:15 61 17 106/52 100 Mechanical Ventilator 30 11/23/16 21:00 116/54 11/23/16 21:00 60 17 116/54 100 Mechanical Ventilator 30 11/23/16 20:45 60 17 106/54 100 Mechanical Ventilator 30 11/23/16 20:30 60 17 106/54 100 Mechanical Ventilator 30 11/23/16 20:15 60 17 104/54 100 Mechanical Ventilator 30 11/23/16 20:00 30 11/23/16 20:00 102/50 11/23/16 20:00 98.1 60 17 102/50 100 Mechanical Ventilator 30 11/23/16 20:00 60 11/23/16 19:45 60 17 102/50 100 Mechanical Ventilator 30 11/23/16 19:32 107/49 11/23/16 19:30 60 27 25 11/23/16 19:30 60 17 110/48 100 Mechanical Ventilator 30 11/23/16 19:15 60 17 102/50 100 Mechanical Ventilator 30 11/23/16 19:00 60 17 103/52 100 Mechanical Ventilator 30 11/23/16 18:45 61 17 107/49 100 Mechanical Ventilator 25 11/23/16 18:30 60 17 103/49 100 Mechanical Ventilator 25 11/23/16 18:15 60 17 105/48 100 Mechanical Ventilator 25 11/23/16 18:00 60 17 113/45 100 Mechanical Ventilator 25 11/23/16 17:45 60 18 98/46 100 Mechanical Ventilator 25 11/23/16 17:30 60 18 104/50 100 Mechanical Ventilator 25 11/23/16 17:16 60 19 25 11/23/16 17:15 60 18 100/53 100 Mechanical Ventilator 25 11/23/16 17:00 60 18 107/48 100 Mechanical Ventilator 25 General Appearance: other - arousable Neck: no JVD Cardiovascular: normal rate, regular rhythm Respiratory/Chest: lungs clear Abdomen: normal bowel sounds, non tender, soft Extremities: trace edema Intake and Output 11/24/16 11/25/16 19:00 07:00 Intake Total 1267.5 ml Output Total 850 ml Balance 417.5 ml IV Total 1267.5 ml Output Urine Total 850 ml Laboratory Tests Test 11/24/16 05:20 11/24/16 09:10 White Blood Count 38.7 K/UL (4.8-10.8) *H Red Blood Count 2.62 M/UL (4.70-6.10) L Hemoglobin 8.6 G/DL (14.2-18.0) L Hematocrit 24.8 % (42.0-52.0) L Mean Corpuscular Volume 95 FL (80-99) Mean Corpuscular Hemoglobin 32.8 PG (27.0-31.0) H Mean Corpuscular Hemoglobin Concent 34.6 G/DL (32.0-36.0) Red Cell Distribution Width 14.4 % (11.6-14.8) Platelet Count 109 K/UL (150-450) L Mean Platelet Volume 11.9 FL (6.5-10.1) H Neutrophils (%) (Auto) % (45.0-75.0) Lymphocytes (%) (Auto) % (20.0-45.0) Monocytes (%) (Auto) % (1.0-10.0) Eosinophils (%) (Auto) % (0.0-3.0) Basophils (%) (Auto) % (0.0-2.0) Differential Total Cells Counted 100 Neutrophils % (Manual) 93 % (45-75) H Lymphocytes % (Manual) 2 % (20-45) L Monocytes % (Manual) 3 % (1-10) Eosinophils % (Manual) 0 % (0-3) Basophils % (Manual) 0 % (0-2) Band Neutrophils 2 % (0-8) Platelet Estimate Decreased L Platelet Morphology Normal Red Blood Cell Morphology Hypochromasia 1+ Sodium Level 129 MMOL/L (136-145) L Potassium Level 3.4 MMOL/L (3.5-5.1) L Chloride Level 97 MMOL/L (98-107) L Carbon Dioxide Level 17 MMOL/L (21-32) L Anion Gap 15 (5-15) Blood Urea Nitrogen 113 mg/dL (7-18) H Creatinine 4.2 MG/DL (0.55-1.30) H Estimat Glomerular Filtration Rate mL/min (>60) Glucose Level 138 MG/DL (74-106) H Calcium Level 8.0 MG/DL (8.5-10.1) L Phosphorus Level 5.5 MG/DL (2.5-4.9) H Magnesium Level 2.1 MG/DL (1.8-2.4) Total Bilirubin 0.8 MG/DL (0.2-1.0) Aspartate Amino Transf (AST/SGOT) 12 U/L (15-37) L Alanine Aminotransferase (ALT/SGPT) 16 U/L (12-78) Alkaline Phosphatase 77 U/L (46-116) Total Protein 4.5 G/DL (6.4-8.2) L Albumin 1.5 G/DL (3.4-5.0) L Globulin 3.0 g/dL Albumin/Globulin Ratio 0.5 (1.0-2.7) L Arterial Blood pH 7.449 (7.350-7.450) Arterial Blood Partial Pressure CO2 25.9 mmHg (35.0-45.0) L Arterial Blood Partial Pressure O2 65.2 mmHg (75.0-100.0) L Arterial Blood HCO3 17.6 mmol/L (22.0-26.0) L Arterial Blood Oxygen Saturation 92.8 % (92.0-98.0) Arterial Blood Base Excess -5.4 Chato Test Positive Microbiology Date/Time Source Procedure Growth Status 11/23/16 20:30 Sputum Gram Stain - Final Resulted 11/23/16 20:30 Sputum Sputum Culture Pending Resulted 11/23/16 14:00 Urine,Clean Catch Urine Culture - Preliminary NO GROWTH Resulted PARAS ROJAS Nov 24, 2016 17:00
--- NOTE | 2016-11-24 17:45 | Cardiac Electrophysiology PN ---
Assessment/Plan Assessment/Plan 1. Status post pacemaker implantation in 2012. Intermittently V paced. Chest x- ray, dual-chamber pacemaker in the left subclavian area. The patient is usually followed by Dr. Rickey Ramsay and family wished not to proceed with a pacemaker generator change despite was told battery was at end of life. 2. Atrial fibrillation, rate is currently controlled off anticoagulation as hemoglobin is only 7. 3. 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 The patient remains off of beta-justen and ZELALEM inhibitor in view of his renal failure as well as hypotension. Per Dr Perez 4. End-stage renal disease. Family decided not to proceed with hemodialysis. 5. Dysphagia. Family refused PEG placement. 6. Prostate cancer status post radiation therapy. 7. History of Graves disease. 8. Hypotension on Levophed DW RN Subjective Subjective Intermittently V Pacing. On Vent on Levophed 1 mc/min. Unresponsive Objective Last 24 Hour Vital Signs Date Time Temp Pulse Resp B/P (MAP) Pulse Ox O2 Delivery O2 Flow Rate FiO2 11/24/16 17:01 62 20 30 11/24/16 16:00 110/59 11/24/16 16:00 30 11/24/16 15:10 65 20 30 11/24/16 15:00 107/51 11/24/16 14:00 110/53 11/24/16 13:11 68 20 30 11/24/16 13:00 114/63 11/24/16 12:00 61 11/24/16 12:00 120/52 11/24/16 12:00 30 11/24/16 11:00 119/52 11/24/16 10:41 62 20 30 11/24/16 10:00 118/49 11/24/16 10:00 61 15 117/50 100 Mechanical Ventilator 30 11/24/16 09:30 61 15 110/67 100 Mechanical Ventilator 30 11/24/16 09:00 119/51 11/24/16 09:00 61 15 119/51 100 Mechanical Ventilator 30 11/24/16 08:30 61 15 119/52 100 Mechanical Ventilator 30 11/24/16 08:30 68 24 30 11/24/16 08:00 61 11/24/16 08:00 110/58 11/24/16 08:00 96.9 61 15 110/58 100 Mechanical Ventilator 30 11/24/16 08:00 30 11/24/16 07:30 61 15 118/54 100 Mechanical Ventilator 30 11/24/16 07:00 61 15 101/58 100 Mechanical Ventilator 30 11/24/16 07:00 101/58 11/24/16 06:52 62 26 25 11/24/16 06:45 63 15 109/49 100 Mechanical Ventilator 30 11/24/16 06:30 63 15 110/49 100 Mechanical Ventilator 30 11/24/16 06:15 60 15 112/51 100 Mechanical Ventilator 30 11/24/16 06:00 110/50 11/24/16 06:00 61 15 110/51 100 Mechanical Ventilator 30 11/24/16 05:45 61 15 113/51 100 Mechanical Ventilator 30 11/24/16 05:30 60 15 109/51 100 Mechanical Ventilator 30 11/24/16 05:02 66 34 25 11/24/16 05:00 109/51 11/24/16 05:00 61 11/24/16 04:45 60 15 103/50 100 Mechanical Ventilator 30 11/24/16 04:30 60 15 107/54 100 Mechanical Ventilator 30 11/24/16 04:15 60 15 107/54 100 Mechanical Ventilator 30 11/24/16 04:00 98.0 60 15 113/48 100 Mechanical Ventilator 30 11/24/16 04:00 30 11/24/16 04:00 113/48 11/24/16 03:45 60 15 111/48 100 Mechanical Ventilator 30 11/24/16 03:30 60 15 110/49 100 Mechanical Ventilator 30 11/24/16 03:26 59 30 25 11/24/16 03:15 60 15 106/61 100 Mechanical Ventilator 30 11/24/16 03:00 60 15 107/50 100 Mechanical Ventilator 30 11/24/16 03:00 107/50 11/24/16 02:45 60 15 94/48 100 Mechanical Ventilator 30 11/24/16 02:30 60 17 98/57 100 Mechanical Ventilator 30 11/24/16 02:15 60 17 98/57 100 Mechanical Ventilator 30 11/24/16 02:00 60 17 102/53 100 Mechanical Ventilator 30 11/24/16 02:00 79/42 11/24/16 01:45 60 17 110/65 100 Mechanical Ventilator 30 11/24/16 01:30 60 17 99/51 100 Mechanical Ventilator 30 11/24/16 01:15 60 17 77/54 100 Mechanical Ventilator 30 11/24/16 01:00 60 17 97/48 100 Mechanical Ventilator 30 11/24/16 01:00 104/49 11/24/16 00:56 67 20 25 11/24/16 00:45 60 17 104/48 100 Mechanical Ventilator 30 11/24/16 00:30 60 17 105/49 100 Mechanical Ventilator 30 11/24/16 00:15 60 17 105/49 100 Mechanical Ventilator 30 11/24/16 00:00 30 11/24/16 00:00 105/49 11/24/16 00:00 98.4 60 17 93/61 100 Mechanical Ventilator 30 11/24/16 00:00 60 11/23/16 23:45 60 17 100/51 100 Mechanical Ventilator 30 11/23/16 23:30 62 17 108/50 100 Mechanical Ventilator 30 11/23/16 23:30 60 31 25 11/23/16 23:15 62 17 108/50 100 Mechanical Ventilator 30 11/23/16 23:00 61 17 104/51 100 Mechanical Ventilator 30 11/23/16 23:00 104/51 11/23/16 22:45 61 17 107/50 100 Mechanical Ventilator 30 11/23/16 22:30 60 17 113/46 100 Mechanical Ventilator 30 11/23/16 22:15 60 17 134/53 100 Mechanical Ventilator 30 11/23/16 22:00 60 17 112/60 100 Mechanical Ventilator 30 11/23/16 22:00 112/50 11/23/16 21:45 60 17 115/42 100 Mechanical Ventilator 30 11/23/16 21:30 61 24 25 11/23/16 21:30 60 17 110/43 100 Mechanical Ventilator 30 11/23/16 21:15 61 17 106/52 100 Mechanical Ventilator 30 11/23/16 21:00 116/54 11/23/16 21:00 60 17 116/54 100 Mechanical Ventilator 30 11/23/16 20:45 60 17 106/54 100 Mechanical Ventilator 30 11/23/16 20:30 60 17 106/54 100 Mechanical Ventilator 30 11/23/16 20:15 60 17 104/54 100 Mechanical Ventilator 30 11/23/16 20:00 30 11/23/16 20:00 102/50 11/23/16 20:00 98.1 60 17 102/50 100 Mechanical Ventilator 30 11/23/16 20:00 60 11/23/16 19:45 60 17 102/50 100 Mechanical Ventilator 30 11/23/16 19:32 107/49 11/23/16 19:30 60 27 25 11/23/16 19:30 60 17 110/48 100 Mechanical Ventilator 30 11/23/16 19:15 60 17 102/50 100 Mechanical Ventilator 30 11/23/16 19:00 60 17 103/52 100 Mechanical Ventilator 30 11/23/16 18:45 61 17 107/49 100 Mechanical Ventilator 25 11/23/16 18:30 60 17 103/49 100 Mechanical Ventilator 25 11/23/16 18:15 60 17 105/48 100 Mechanical Ventilator 25 11/23/16 18:00 60 17 113/45 100 Mechanical Ventilator 25 11/23/16 17:45 60 18 98/46 100 Mechanical Ventilator 25 Intake and Output 11/24/16 11/25/16 19:00 07:00 Intake Total 1267.5 ml Output Total 850 ml Balance 417.5 ml IV Total 1267.5 ml Output Urine Total 850 ml Laboratory Tests Test 11/24/16 05:20 11/24/16 09:10 White Blood Count 38.7 K/UL (4.8-10.8) *H Red Blood Count 2.62 M/UL (4.70-6.10) L Hemoglobin 8.6 G/DL (14.2-18.0) L Hematocrit 24.8 % (42.0-52.0) L Mean Corpuscular Volume 95 FL (80-99) Mean Corpuscular Hemoglobin 32.8 PG (27.0-31.0) H Mean Corpuscular Hemoglobin Concent 34.6 G/DL (32.0-36.0) Red Cell Distribution Width 14.4 % (11.6-14.8) Platelet Count 109 K/UL (150-450) L Mean Platelet Volume 11.9 FL (6.5-10.1) H Neutrophils (%) (Auto) % (45.0-75.0) Lymphocytes (%) (Auto) % (20.0-45.0) Monocytes (%) (Auto) % (1.0-10.0) Eosinophils (%) (Auto) % (0.0-3.0) Basophils (%) (Auto) % (0.0-2.0) Differential Total Cells Counted 100 Neutrophils % (Manual) 93 % (45-75) H Lymphocytes % (Manual) 2 % (20-45) L Monocytes % (Manual) 3 % (1-10) Eosinophils % (Manual) 0 % (0-3) Basophils % (Manual) 0 % (0-2) Band Neutrophils 2 % (0-8) Platelet Estimate Decreased L Platelet Morphology Normal Red Blood Cell Morphology Hypochromasia 1+ Sodium Level 129 MMOL/L (136-145) L Potassium Level 3.4 MMOL/L (3.5-5.1) L Chloride Level 97 MMOL/L (98-107) L Carbon Dioxide Level 17 MMOL/L (21-32) L Anion Gap 15 (5-15) Blood Urea Nitrogen 113 mg/dL (7-18) H Creatinine 4.2 MG/DL (0.55-1.30) H Estimat Glomerular Filtration Rate mL/min (>60) Glucose Level 138 MG/DL (74-106) H Calcium Level 8.0 MG/DL (8.5-10.1) L Phosphorus Level 5.5 MG/DL (2.5-4.9) H Magnesium Level 2.1 MG/DL (1.8-2.4) Total Bilirubin 0.8 MG/DL (0.2-1.0) Aspartate Amino Transf (AST/SGOT) 12 U/L (15-37) L Alanine Aminotransferase (ALT/SGPT) 16 U/L (12-78) Alkaline Phosphatase 77 U/L (46-116) Total Protein 4.5 G/DL (6.4-8.2) L Albumin 1.5 G/DL (3.4-5.0) L Globulin 3.0 g/dL Albumin/Globulin Ratio 0.5 (1.0-2.7) L Arterial Blood pH 7.449 (7.350-7.450) Arterial Blood Partial Pressure CO2 25.9 mmHg (35.0-45.0) L Arterial Blood Partial Pressure O2 65.2 mmHg (75.0-100.0) L Arterial Blood HCO3 17.6 mmol/L (22.0-26.0) L Arterial Blood Oxygen Saturation 92.8 % (92.0-98.0) Arterial Blood Base Excess -5.4 Chato Test Positive Microbiology Date/Time Source Procedure Growth Status 11/23/16 20:30 Sputum Gram Stain - Final Resulted 11/23/16 20:30 Sputum Sputum Culture Pending Resulted 11/23/16 14:00 Urine,Clean Catch Urine Culture - Preliminary NO GROWTH Resulted Objective HEAD AND NECK: Positive JVDs. Orally intubated. LUNGS: Decreased breath sounds. CARDIOVASCULAR: Regular S1 and S2 with no gallop or murmur. ABDOMEN: Soft. EXTREMITIES: A 1+ pitting edema. JEREMY BALLARD Nov 24, 2016 17:45
[2016-11-24] MEDS: Dyna-Hex 2% Top Sol 2oz TOPIC SCH (20:32)
[2016-11-24] MEDS: Meropenem 500 MG in NS 55 ML IVPB SCH (23:04)
[2016-11-25] VITALS (39 sets, daily range): BP systolic 68–134; BP diastolic 33–83
[2016-11-25] MEDS: NovoLOG Insulin Flexpen SUBQ SCH ×4 (00:33→17:34)
[2016-11-25] MEDS: D5NS 1,000 ML IV SCH (05:15)
[2016-11-25] MEDS: Hydrocortisone 100mg Inj IV SCH (05:30)
[2016-11-25 06:29] LABS: MEAN CORPUSCULAR HGB CONC 34.5 G/DL (32.0-36.0); MEAN CORPUSCULAR VOLUME 96 FL (80-99); MEAN PLATELET VOLUME 12.5 FL (6.5-10.1); PLATELET COUNT 89 K/UL (150-450); RED BLOOD COUNT 2.62 M/UL (4.70-6.10); RED CELL DISTRIBUTION WIDTH 13.9 % (11.6-14.8)
[2016-11-25 06:48] LABS: WHITE BLOOD COUNT 29.4 K/UL (4.8-10.8)
[2016-11-25 06:57] LABS: CRP QUANT 8.7 mg/dL (0.00-0.90); URIC ACID 6.9 MG/DL (2.6-7.2)
[2016-11-25 07:02] LABS: ALANINE AMINOTRANSFERASE 13 U/L (12-78); ALBUMIN/GLOBULIN RATIO 0.5 (1.0-2.7); ANION GAP 13 (5-15); ASPARTATE AMINO TRANSFERASE 8 U/L (15-37); CALCIUM 7.7 MG/DL (8.5-10.1); CARBON DIOXIDE 19 MMOL/L (21-32); CHLORIDE 96 MMOL/L (98-107); CREATININE 3.8 MG/DL (0.55-1.30); MAGNESIUM 2.1 MG/DL (1.8-2.4); PHOSPHORUS 6.1 MG/DL (2.5-4.9); POTASSIUM 3.2 MMOL/L (3.5-5.1); SODIUM 128 MMOL/L (136-145); TOTAL PROTEIN 4.2 G/DL (6.4-8.2)
[2016-11-25 07:54] LABS: ABG ALLEN TEST POSITIVE; ABG BASE EXCESS -5.6; ABG PCO2 23.9 mmHg (35.0-45.0)
[2016-11-25] MEDS: Heparin 5000 units/ml inj SUBQ SCH ×2 (08:27→20:49)
[2016-11-25] MEDS: Pantoprazole Inj IVP SCH ×2 (08:39→20:48)
[2016-11-25] MEDS: Dakin's 0.25% (Half Strength) 16oz TOPIC SCH (08:40)
[2016-11-25 09:41] LABS: BAND NEUTROPHILS % (MANUAL) 0 % (0-8); BASOPHILS % (MANUAL) 0 % (0-2); EOSINOPHILS % (MANUAL) 0 % (0-3); HYPOCHROMASIA 1+; LYMPHOCYTES % (MANUAL) 1 % (20-45); NEUTROPHILS % (MANUAL) 95 % (45-75); PLATELET ESTIMATE DECREASED; PLATELET MORPHOLOGY NORMAL; TOTAL CELLS COUNTED 100
--- NOTE | 2016-11-25 09:49 | General Progress Note ---
Assessment/Plan Status: stable Status Narrative Cr lower Assessment/Plan 1. Septic shock. 2. Acute kidney injury on chronic renal insufficiency. 3. Failure to thrive. 4. Acute myocardial infarction with non-ST elevation myocardial infarction. 5. Sick sinus syndrome, status post pacemaker. 6. Prostate cancer. 7. Diabetes type 2. 8. Hypertension. 9. Benign prostatic hypertrophy. 10. Gout. 11. Severe cardiomyopathy. 12. Alzheimer dementia. 13. Anemia of chronic kidney disease. 14. DNR Plan; 3% saline- K supplement- Tube feeding Mag and K and Phos supplements as needed Pressors- Crowley- per consultants- Poor prognosis- ? transfuse as needed Subjective ROS Limited/Unobtainable: Yes Allergies: Coded Allergies: No Known Allergies (Unverified , 11/20/16) Objective Last 24 Hour Vital Signs Date Time Temp Pulse Resp B/P (MAP) Pulse Ox O2 Delivery O2 Flow Rate FiO2 11/25/16 08:54 60 23 30 11/25/16 08:00 30 11/25/16 07:00 60 17 96/52 100 Mechanical Ventilator 30 11/25/16 07:00 94/49 11/25/16 06:50 59 24 30 11/25/16 06:30 60 17 94/49 100 Mechanical Ventilator 30 11/25/16 06:00 94/51 11/25/16 06:00 61 17 96/53 100 Mechanical Ventilator 30 11/25/16 05:30 62 17 97/43 100 Mechanical Ventilator 30 11/25/16 05:00 61 17 96/41 100 Mechanical Ventilator 30 11/25/16 05:00 96/41 11/25/16 04:43 61 26 30 11/25/16 04:30 61 17 105/53 100 Mechanical Ventilator 30 11/25/16 04:00 98.5 61 17 98/53 100 Mechanical Ventilator 30 11/25/16 04:00 61 11/25/16 04:00 101/66 11/25/16 04:00 30 11/25/16 03:30 61 17 100/53 100 Mechanical Ventilator 30 11/25/16 03:05 62 19 30 11/25/16 03:00 60 17 96/53 100 Mechanical Ventilator 30 11/25/16 03:00 96/53 11/25/16 02:30 60 17 97/51 100 Mechanical Ventilator 30 11/25/16 02:00 60 17 93/52 100 Mechanical Ventilator 30 11/25/16 02:00 93/52 11/25/16 01:30 61 17 114/49 100 Mechanical Ventilator 30 11/25/16 01:30 60 21 30 11/25/16 01:00 106/49 11/25/16 01:00 61 17 108/83 100 Mechanical Ventilator 30 11/25/16 00:30 61 17 111/54 100 Mechanical Ventilator 30 11/25/16 00:00 30 11/25/16 00:00 63 11/25/16 00:00 111/54 11/25/16 00:00 98.0 61 17 111/48 100 Mechanical Ventilator 30 11/24/16 23:30 61 17 102/52 100 Mechanical Ventilator 30 11/24/16 23:30 60 20 30 11/24/16 23:00 61 17 110/48 100 Mechanical Ventilator 30 11/24/16 23:00 110/48 11/24/16 22:30 61 17 105/56 100 Mechanical Ventilator 30 11/24/16 22:00 60 17 112/46 100 Mechanical Ventilator 30 11/24/16 22:00 104/48 11/24/16 21:29 60 17 109/50 100 Mechanical Ventilator 30 11/24/16 21:20 60 20 25 11/24/16 21:00 97/53 11/24/16 21:00 60 17 95/53 100 Mechanical Ventilator 30 11/24/16 20:27 60 17 104/52 100 Mechanical Ventilator 30 11/24/16 20:00 97/55 11/24/16 20:00 98.0 61 17 97/55 100 Mechanical Ventilator 30 11/24/16 20:00 61 11/24/16 20:00 30 11/24/16 19:30 66 24 25 11/24/16 19:30 61 17 101/52 100 Mechanical Ventilator 30 11/24/16 19:25 111/50 11/24/16 19:00 61 17 98/56 100 Mechanical Ventilator 30 11/24/16 18:30 61 17 101/56 100 Mechanical Ventilator 30 11/24/16 18:00 60 17 101/56 100 Mechanical Ventilator 30 11/24/16 18:00 61 17 104/55 100 Mechanical Ventilator 30 11/24/16 18:00 104/55 11/24/16 17:30 61 17 110/46 100 Mechanical Ventilator 30 11/24/16 17:01 62 20 30 11/24/16 17:00 63 17 123/47 100 Mechanical Ventilator 30 11/24/16 17:00 123/47 11/24/16 16:30 61 17 119/54 100 Mechanical Ventilator 30 11/24/16 16:00 60 11/24/16 16:00 110/59 11/24/16 16:00 30 11/24/16 16:00 61 17 110/59 100 Mechanical Ventilator 30 11/24/16 15:30 61 17 107/60 100 Mechanical Ventilator 30 11/24/16 15:10 65 20 30 11/24/16 15:00 60 17 107/51 100 Mechanical Ventilator 30 11/24/16 15:00 107/51 11/24/16 14:30 60 17 121/59 100 Mechanical Ventilator 30 11/24/16 14:00 110/53 11/24/16 14:00 60 16 110/53 100 Mechanical Ventilator 30 11/24/16 13:30 64 17 119/47 100 Mechanical Ventilator 30 11/24/16 13:11 68 20 30 11/24/16 13:00 62 17 114/63 100 Mechanical Ventilator 30 11/24/16 13:00 114/63 11/24/16 12:30 64 17 114/63 100 Mechanical Ventilator 30 11/24/16 12:00 96.9 61 16 119/57 100 Mechanical Ventilator 30 11/24/16 12:00 61 11/24/16 12:00 120/52 11/24/16 12:00 30 11/24/16 11:30 61 16 118/49 100 Mechanical Ventilator 30 11/24/16 11:00 119/52 11/24/16 11:00 61 16 116/50 100 Mechanical Ventilator 30 11/24/16 10:41 62 20 30 11/24/16 10:30 61 16 118/49 100 Mechanical Ventilator 30 11/24/16 10:00 118/49 11/24/16 10:00 61 15 117/50 100 Mechanical Ventilator 30 Intake and Output 11/25/16 11/26/16 19:00 07:00 Output Total 125 ml Balance -125 ml Output Urine Total 125 ml Laboratory Tests 11/25/16 04:30: White Blood Count 29.4*H, Red Blood Count 2.62L, Hemoglobin 8.6L, Hematocrit 25.1L, Mean Corpuscular Volume 96, Mean Corpuscular Hemoglobin 33.0H, Mean Corpuscular Hemoglobin Concent 34.5, Red Cell Distribution Width 13.9, Platelet Count 89L, Mean Platelet Volume 12.5H, Neutrophils (%) (Auto) , Lymphocytes (%) (Auto) , Monocytes (%) (Auto) , Eosinophils (%) (Auto) , Basophils (%) (Auto) , Differential Total Cells Counted 100, Neutrophils % (Manual) 95H, Lymphocytes % (Manual) 1L, Monocytes % (Manual) 4, Eosinophils % (Manual) 0, Basophils % ( Manual) 0, Band Neutrophils 0, Platelet Estimate DecreasedL, Platelet Morphology Normal, Hypochromasia 1+, Sodium Level 128L, Potassium Level 3.2L, Chloride Level 96L, Carbon Dioxide Level 19L, Anion Gap 13, Blood Urea Nitrogen 111H, Creatinine 3.8H, Estimat Glomerular Filtration Rate , Glucose Level 147H, Uric Acid 6.9, Calcium Level 7.7L, Phosphorus Level 6.1H, Magnesium Level 2.1, Total Bilirubin 0.9, Aspartate Amino Transf (AST/SGOT) 8L, Alanine Aminotransferase (ALT/SGPT) 13, Alkaline Phosphatase 65, Troponin I 1.938H, C- Reactive Protein, Quantitative 8.7H, Pro-B-Type Natriuretic Peptide [Pending], Total Protein 4.2L, Albumin 1.4L, Globulin 2.8, Albumin/Globulin Ratio 0.5L 11/25/16 07:48: Arterial Blood pH 7.470H, Arterial Blood Partial Pressure CO2 23.9*L, Arterial Blood Partial Pressure O2 94.4, Arterial Blood HCO3 17.0L, Arterial Blood Oxygen Saturation 96.9, Arterial Blood Base Excess -5.6, Chato Test Positive Height (Feet): 5 Weight (Pounds): 147 General Appearance: no apparent distress Cardiovascular: normal rate Respiratory/Chest: decreased breath sounds Abdomen: distended Objective no other changes FELECIA RASHID Nov 25, 2016 09:49
--- NOTE | 2016-11-25 09:54 | Infectious Diseases Prog Note ---
Assessment/Plan Assessment/Plan Abx: Cefepime x1 11/20 IV Vanco 11/20; 11/25- Zoyn 11/20 Amikacin x1 11/21 Linezolid 11/20-11/25 Meropenem 11/20- Amikacin x1 11/20 Assesment: Septic shock- 2ry to ESBL Proteus UTI and high grade bacteremia and possible MRSA pneumonia; off pressors now -U/a WBC too many to count, nit +, leuk +3, ucx 11/20 >100K ESBL P. mirabilis, 11/21 ucx 10-20K ESBL Proteus (S. Ertapenem); repeat U/a 11/23- pyuria improving , ucx NTD -Bcx 05/19 Proteus mirabilis (S. Zosyn, Ertapenem, Cipro), repeat Bcx 11/23 NTD -Sp cx: MRSA (S. Vancomycin LIZA 1), normal victoria, yeast; repeat sp cx 11/23 +3 GNB (Id and sensin pending) -CXR 11/24: bilateral pleural effusions and possible bilateral basilar parenchymal consolidative changes are stable. -CXR 11/23 Persistent left basilar opacity. Pneumonia versus atelectasis. -CXR 11/20: Retrocardiac density likely atelectasis or scarring. Pneumonia not entirely excluded. -flu neg Hyperleukocytosis with left shift/bandemia- r/o intrabdominal abscess, empyema; improving Sacral decubitus ulcer, unsteagable- was previously noticed yellowish exudate, none currently- ?OM -wound cx: GRAM STAIN Final GRAM STAIN RESULT NO ORGANISMS SEEN NO WHITE BLOOD CELLS WOUND CULTURE Preliminary Organism 1 PROTEUS MIRABILIS GROWTH: 2+ Organism 2 ENTEROCOCCUS FAECALIS GROWTH: 4+ Organism 3 GRAM NEGATIVE BACILLUS 3 GROWTH: 2+ PRO MIRABI ENT FAECAL M.I.C. RX M.I.C. RX --------- --- --------- --- AMPICILLIN >=32 R <=2 S CEFAZOLIN >=64 R CIPROFLOXACIN <=0.25 S ERTAPENEM <=0.5 S GENTAMICIN <=1 S LEVOFLOXACIN <=0.12 S TRIMETHOPRIM/SULFA <=20 S VANCOMYCIN 1 S AMIKACIN <=2 S PIPERACILLIN/TAZOBACTAM <=4 S Thrombocytopenia; worsening- likely combination of sepsis and linezolid Lactic acidosis; resolved BJORN/Renal failure; improving -Renal Us: No obvious hydronephrosis.Bilateral renal cysts. Mild apparent increased echogenicity of the kidneys may suggest underlying medical renal disease. Cardiomyopathy with EF 20% Dementia ?DM2 Plan: -Swicth Linezolid to Vancomycin (given thrombocytopenia) and continue IV Meropenem #07/29 for MRSA pneumonia and Proteus bacteremia (respectively) -will keep Meropenem awaiting wound cx, if no PsA isolated, we can transition to Ertapenem -s/p 3d IV Amikacin 11/23 -f/u repeat 2 sets of bcx, ucx, sp cx -CT Chest/Abd/p with oral contrast to evaluate for abscess when stable -obtain MRI of the sacrum once clinically stable to rule out underlying osteomyelitis -Monitor CBC/BMP, temperatures; Monitor WBC and Plt, cr Thank you for this consultation. Will continue to follow along with you. Discussed with RN and family at bedside. Subjective Allergies: Coded Allergies: No Known Allergies (Unverified , 11/20/16) Subjective afebrile leukocytosis improving worsenign thrombocytopenia BJORN improvinig off pressors now Objective Vital Signs Last 24 Hour Vital Signs Date Time Temp Pulse Resp B/P (MAP) Pulse Ox O2 Delivery O2 Flow Rate FiO2 11/25/16 08:54 60 23 30 11/25/16 07:00 60 17 96/52 100 Mechanical Ventilator 30 11/25/16 07:00 94/49 11/25/16 06:50 59 24 30 11/25/16 06:30 60 17 94/49 100 Mechanical Ventilator 30 11/25/16 06:00 94/51 11/25/16 06:00 61 17 96/53 100 Mechanical Ventilator 30 11/25/16 05:30 62 17 97/43 100 Mechanical Ventilator 30 11/25/16 05:00 61 17 96/41 100 Mechanical Ventilator 30 11/25/16 05:00 96/41 11/25/16 04:43 61 26 30 11/25/16 04:30 61 17 105/53 100 Mechanical Ventilator 30 11/25/16 04:00 98.5 61 17 98/53 100 Mechanical Ventilator 30 11/25/16 04:00 61 11/25/16 04:00 101/66 11/25/16 04:00 30 11/25/16 03:30 61 17 100/53 100 Mechanical Ventilator 30 11/25/16 03:05 62 19 30 11/25/16 03:00 60 17 96/53 100 Mechanical Ventilator 30 11/25/16 03:00 96/53 11/25/16 02:30 60 17 97/51 100 Mechanical Ventilator 30 11/25/16 02:00 60 17 93/52 100 Mechanical Ventilator 30 11/25/16 02:00 93/52 11/25/16 01:30 61 17 114/49 100 Mechanical Ventilator 30 11/25/16 01:30 60 21 30 11/25/16 01:00 106/49 11/25/16 01:00 61 17 108/83 100 Mechanical Ventilator 30 11/25/16 00:30 61 17 111/54 100 Mechanical Ventilator 30 11/25/16 00:00 30 11/25/16 00:00 63 11/25/16 00:00 111/54 11/25/16 00:00 98.0 61 17 111/48 100 Mechanical Ventilator 30 11/24/16 23:30 61 17 102/52 100 Mechanical Ventilator 30 11/24/16 23:30 60 20 30 11/24/16 23:00 61 17 110/48 100 Mechanical Ventilator 30 11/24/16 23:00 110/48 11/24/16 22:30 61 17 105/56 100 Mechanical Ventilator 30 11/24/16 22:00 60 17 112/46 100 Mechanical Ventilator 30 11/24/16 22:00 104/48 11/24/16 21:29 60 17 109/50 100 Mechanical Ventilator 30 11/24/16 21:20 60 20 25 11/24/16 21:00 97/53 11/24/16 21:00 60 17 95/53 100 Mechanical Ventilator 30 11/24/16 20:27 60 17 104/52 100 Mechanical Ventilator 30 11/24/16 20:00 97/55 11/24/16 20:00 98.0 61 17 97/55 100 Mechanical Ventilator 30 11/24/16 20:00 61 11/24/16 20:00 30 11/24/16 19:30 66 24 25 11/24/16 19:30 61 17 101/52 100 Mechanical Ventilator 30 11/24/16 19:25 111/50 11/24/16 19:00 61 17 98/56 100 Mechanical Ventilator 30 11/24/16 18:30 61 17 101/56 100 Mechanical Ventilator 30 11/24/16 18:00 60 17 101/56 100 Mechanical Ventilator 30 11/24/16 18:00 61 17 104/55 100 Mechanical Ventilator 30 11/24/16 18:00 104/55 11/24/16 17:30 61 17 110/46 100 Mechanical Ventilator 30 11/24/16 17:01 62 20 30 11/24/16 17:00 63 17 123/47 100 Mechanical Ventilator 30 11/24/16 17:00 123/47 11/24/16 16:30 61 17 119/54 100 Mechanical Ventilator 30 11/24/16 16:00 60 11/24/16 16:00 110/59 11/24/16 16:00 30 11/24/16 16:00 61 17 110/59 100 Mechanical Ventilator 30 11/24/16 15:30 61 17 107/60 100 Mechanical Ventilator 30 11/24/16 15:10 65 20 30 11/24/16 15:00 60 17 107/51 100 Mechanical Ventilator 30 11/24/16 15:00 107/51 11/24/16 14:30 60 17 121/59 100 Mechanical Ventilator 30 11/24/16 14:00 110/53 11/24/16 14:00 60 16 110/53 100 Mechanical Ventilator 30 11/24/16 13:30 64 17 119/47 100 Mechanical Ventilator 30 11/24/16 13:11 68 20 30 11/24/16 13:00 62 17 114/63 100 Mechanical Ventilator 30 11/24/16 13:00 114/63 11/24/16 12:30 64 17 114/63 100 Mechanical Ventilator 30 11/24/16 12:00 96.9 61 16 119/57 100 Mechanical Ventilator 30 11/24/16 12:00 61 11/24/16 12:00 120/52 11/24/16 12:00 30 11/24/16 11:30 61 16 118/49 100 Mechanical Ventilator 30 11/24/16 11:00 119/52 11/24/16 11:00 61 16 116/50 100 Mechanical Ventilator 30 11/24/16 10:41 62 20 30 11/24/16 10:30 61 16 118/49 100 Mechanical Ventilator 30 11/24/16 10:00 118/49 11/24/16 10:00 61 15 117/50 100 Mechanical Ventilator 30 Height (Feet): 5 Weight (Pounds): 147 Objective General Appearance: cachetic, thin, Chronically Ill, intubated HEENT: ETT in place Respiratory: normal inspection, no respiratory distress, no retraction, no accessory muscle use, no wheezing, other - Bilateral rhonchi Cardiovascular : regular rate, rhythm, no edema Musculoskeletal: sacral ulcer, unstageable, surrounding skin with no erythema, no drainage Neurologic: intubated, more awake today, follows commands Skin: normal inspection, normal color, no rash Abd: BS+, S+D, ND Microbiology Date/Time Source Procedure Growth Status 11/23/16 18:25 Blood Blood Culture - Preliminary NO GROWTH AFTER 24 HOURS Resulted 11/23/16 18:20 Blood Blood Culture - Preliminary NO GROWTH AFTER 24 HOURS Resulted 11/23/16 20:30 Sputum Gram Stain - Final Resulted 11/23/16 20:30 Sputum Culture - Preliminary Gram Negative Bacillus 1 Resulted 11/23/16 14:00 Urine,Clean Catch Urine Culture - Preliminary NO GROWTH AFTER 24 HOURS Resulted Laboratory Tests Test 11/25/16 04:30 11/25/16 07:48 White Blood Count 29.4 K/UL (4.8-10.8) *H Red Blood Count 2.62 M/UL (4.70-6.10) L Hemoglobin 8.6 G/DL (14.2-18.0) L Hematocrit 25.1 % (42.0-52.0) L Mean Corpuscular Volume 96 FL (80-99) Mean Corpuscular Hemoglobin 33.0 PG (27.0-31.0) H Mean Corpuscular Hemoglobin Concent 34.5 G/DL (32.0-36.0) Red Cell Distribution Width 13.9 % (11.6-14.8) Platelet Count 89 K/UL (150-450) L Mean Platelet Volume 12.5 FL (6.5-10.1) H Neutrophils (%) (Auto) % (45.0-75.0) Lymphocytes (%) (Auto) % (20.0-45.0) Monocytes (%) (Auto) % (1.0-10.0) Eosinophils (%) (Auto) % (0.0-3.0) Basophils (%) (Auto) % (0.0-2.0) Differential Total Cells Counted 100 Neutrophils % (Manual) 95 % (45-75) H Lymphocytes % (Manual) 1 % (20-45) L Monocytes % (Manual) 4 % (1-10) Eosinophils % (Manual) 0 % (0-3) Basophils % (Manual) 0 % (0-2) Band Neutrophils 0 % (0-8) Platelet Estimate Decreased L Platelet Morphology Normal Hypochromasia 1+ Sodium Level 128 MMOL/L (136-145) L Potassium Level 3.2 MMOL/L (3.5-5.1) L Chloride Level 96 MMOL/L (98-107) L Carbon Dioxide Level 19 MMOL/L (21-32) L Anion Gap 13 (5-15) Blood Urea Nitrogen 111 mg/dL (7-18) H Creatinine 3.8 MG/DL (0.55-1.30) H Estimat Glomerular Filtration Rate mL/min (>60) Glucose Level 147 MG/DL (74-106) H Uric Acid 6.9 MG/DL (2.6-7.2) Calcium Level 7.7 MG/DL (8.5-10.1) L Phosphorus Level 6.1 MG/DL (2.5-4.9) H Magnesium Level 2.1 MG/DL (1.8-2.4) Total Bilirubin 0.9 MG/DL (0.2-1.0) Aspartate Amino Transf (AST/SGOT) 8 U/L (15-37) L Alanine Aminotransferase (ALT/SGPT) 13 U/L (12-78) Alkaline Phosphatase 65 U/L (46-116) Troponin I 1.938 ng/mL (0.000-0.056) C-Reactive Protein, Quantitative 8.7 mg/dL (0.00-0.90) H Pro-B-Type Natriuretic Peptide Pending Total Protein 4.2 G/DL (6.4-8.2) L Albumin 1.4 G/DL (3.4-5.0) L Globulin 2.8 g/dL Albumin/Globulin Ratio 0.5 (1.0-2.7) L Arterial Blood pH 7.470 (7.350-7.450) Arterial Blood Partial Pressure CO2 23.9 mmHg (35.0-45.0) *L Arterial Blood Partial Pressure O2 94.4 mmHg (75.0-100.0) Arterial Blood HCO3 17.0 mmol/L (22.0-26.0) L Arterial Blood Oxygen Saturation 96.9 % (92.0-98.0) Arterial Blood Base Excess -5.6 Chato Test Positive Current Medications Medications (Trade) Dose Ordered Sig/Chasidy Route PRN Reason Start Time Stop Time Status Last Admin Dose Admin Acetaminophen (Tylenol) 650 mg Q4H PRN ORAL fever 11/20/16 18:30 12/20/16 18:29 11/22/16 13:42 Acetaminophen (Tylenol) 650 mg Q4H PRN RECTAL Mild Pain (Pain Scale 1-3) 11/20/16 18:30 12/20/16 18:29 Albuterol/ Ipratropium (DuoNeb 0.5-3(2.5)mg/3ml) 3 ml EVERY 4 HOURS PRN HHN Shortness of Breath 11/20/16 18:30 11/25/16 18:29 Chlorhexidine Gluconate (Julissa-Hex 2%) 1 applic DAILY@2000 TOPIC 11/22/16 20:00 12/22/16 19:59 11/24/16 20:32 Dextrose (Dextrose 50%) STAT PRN IV Hypoglycemia 11/20/16 20:15 12/20/16 20:14 Dextrose/Sodium Chloride 1,000 ml @ 50 mls/hr Q20H IV 11/24/16 17:30 12/24/16 17:29 11/25/16 05:15 Heparin Sodium (Porcine) (Heparin 5000 units/ml) 5,000 units EVERY 12 HOURS SUBQ 11/20/16 21:00 12/20/16 20:59 11/24/16 20:33 Insulin Aspart (NovoLOG) EVERY 6 HOURS SUBQ 11/21/16 00:00 12/21/16 00:00 11/25/16 05:30 Linezolid 300 ml @ 300 mls/hr Q12HR IVPB 11/20/16 23:00 11/27/16 22:59 11/25/16 08:39 Lorazepam (Ativan 2mg/ml 1ml) 2 mg EVERY 2 HOURS PRN IV For Anxiety 11/20/16 18:30 11/27/16 18:29 Meropenem 500 mg/ Sodium Chloride 55 ml @ 110 mls/hr Q24H IVPB 11/20/16 23:00 11/25/16 22:59 11/24/16 23:04 Norepinephrine Bitartrate 4 mg/ Dextrose 254 ml @ 0 mls/hr Q24H IV 11/20/16 18:30 12/20/16 18:29 11/24/16 19:25 Ondansetron HCl (Zofran ODT) 4 mg Q6H PRN ORAL Nausea & Vomiting 11/20/16 18:30 12/20/16 18:29 Pantoprazole (Protonix) 40 mg EVERY 12 HOURS IVP 11/23/16 09:00 12/23/16 08:59 11/25/16 08:39 Polyethylene Glycol (Miralax) 17 gm DAILYPRN PRN ORAL Constipation 11/20/16 18:30 12/20/16 18:29 Sodium Hypochlorite (Dakin's Half Strength) 1 applic DAILY TOPIC 11/24/16 09:00 12/24/16 08:59 11/25/16 08:40 Lindsey Willis M.D. Nov 25, 2016 09:54
[2016-11-25] MEDS ORDERED: KCl 10% 40mEq/30ml liquid NG ONE (10:00)
[2016-11-25] MEDS ORDERED: NaCl 3% 500ml 500 ML IV ONE (11:00)
--- NOTE | 2016-11-25 11:07 | Pulmonolgy Critical Care Note ---
Critical Care - Asmt/Plan Problems: (1) Acute respiratory failure (2) Septic shock (3) Hyperkalemia (4) Altered mental status (5) Chronic kidney disease (6) HCAP (healthcare-associated pneumonia) (7) Sacral decubitus ulcer, stage IV Respiratory: monitor respiratory rate, adjust FIO2, CXR Cardiac: continue to monitor HR/BP Renal: F/U I&O, keep IV fluid, check electrolytes Infectious Disease: check cultures Gastrointestinal: continue feedings/current rate Endocrine: monitor blood sugar Hematologic: monitor H/H, transfuse if hgb<8.5 Neurologic: PRN Morphine Affect: PRN ativan Prophylaxis: Protonix Notes Reviewed: overnight babysitter, cardio, renal Discussed with: nurses, casework specialistsharepoint manager - Objective Last 24 Hour Vital Signs Date Time Temp Pulse Resp B/P (MAP) Pulse Ox O2 Delivery O2 Flow Rate FiO2 11/25/16 10:30 61 14 85/53 100 Mechanical Ventilator 11/25/16 10:00 60 15 95/55 100 Mechanical Ventilator 11/25/16 09:30 60 15 91/52 100 Mechanical Ventilator 11/25/16 09:00 60 15 93/46 100 Mechanical Ventilator 11/25/16 08:54 60 23 30 11/25/16 08:30 60 14 110/58 100 Mechanical Ventilator 11/25/16 08:00 60 15 90/49 100 Mechanical Ventilator 11/25/16 08:00 30 11/25/16 07:30 61 15 91/47 100 Mechanical Ventilator 30 11/25/16 07:00 60 17 96/52 100 Mechanical Ventilator 30 11/25/16 07:00 94/49 11/25/16 06:50 59 24 30 11/25/16 06:30 60 17 94/49 100 Mechanical Ventilator 30 11/25/16 06:00 94/51 11/25/16 06:00 61 17 96/53 100 Mechanical Ventilator 30 11/25/16 05:30 62 17 97/43 100 Mechanical Ventilator 30 11/25/16 05:00 61 17 96/41 100 Mechanical Ventilator 30 11/25/16 05:00 96/41 11/25/16 04:43 61 26 30 11/25/16 04:30 61 17 105/53 100 Mechanical Ventilator 30 11/25/16 04:00 98.5 61 17 98/53 100 Mechanical Ventilator 30 11/25/16 04:00 61 10/11/17 04:00 101/66 11/25/16 04:00 30 11/25/16 03:30 61 17 100/53 100 Mechanical Ventilator 30 11/25/16 03:05 62 19 30 11/25/16 03:00 60 17 96/53 100 Mechanical Ventilator 30 11/25/16 03:00 96/53 11/25/16 02:30 60 17 97/51 100 Mechanical Ventilator 30 11/25/16 02:00 60 17 93/52 100 Mechanical Ventilator 30 11/25/16 02:00 93/52 11/25/16 01:30 61 17 114/49 100 Mechanical Ventilator 30 11/25/16 01:30 60 21 30 11/25/16 01:00 106/49 11/25/16 01:00 61 17 108/83 100 Mechanical Ventilator 30 11/25/16 00:30 61 17 111/54 100 Mechanical Ventilator 30 11/25/16 00:00 30 11/25/16 00:00 63 11/25/16 00:00 111/54 11/25/16 00:00 98.0 61 17 111/48 100 Mechanical Ventilator 30 11/24/16 23:30 61 17 102/52 100 Mechanical Ventilator 30 11/24/16 23:30 60 20 30 11/24/16 23:00 61 17 110/48 100 Mechanical Ventilator 30 11/24/16 23:00 110/48 11/24/16 22:30 61 17 105/56 100 Mechanical Ventilator 30 11/24/16 22:00 60 17 112/46 100 Mechanical Ventilator 30 11/24/16 22:00 104/48 11/24/16 21:29 60 17 109/50 100 Mechanical Ventilator 30 11/24/16 21:20 60 20 25 11/24/16 21:00 97/53 11/24/16 21:00 60 17 95/53 100 Mechanical Ventilator 30 11/24/16 20:27 60 17 104/52 100 Mechanical Ventilator 30 11/24/16 20:00 97/55 11/24/16 20:00 98.0 61 17 97/55 100 Mechanical Ventilator 30 11/24/16 20:00 61 11/24/16 20:00 30 11/24/16 19:30 66 24 25 11/24/16 19:30 61 17 101/52 100 Mechanical Ventilator 30 11/24/16 19:25 111/50 11/24/16 19:00 61 17 98/56 100 Mechanical Ventilator 30 11/24/16 18:30 61 17 101/56 100 Mechanical Ventilator 30 11/24/16 18:00 60 17 101/56 100 Mechanical Ventilator 30 11/24/16 18:00 61 17 104/55 100 Mechanical Ventilator 30 11/24/16 18:00 104/55 11/24/16 17:30 61 17 110/46 100 Mechanical Ventilator 30 11/24/16 17:01 62 20 30 11/24/16 17:00 63 17 123/47 100 Mechanical Ventilator 30 11/24/16 17:00 123/47 11/24/16 16:30 61 17 119/54 100 Mechanical Ventilator 30 11/24/16 16:00 60 11/24/16 16:00 110/59 11/24/16 16:00 30 11/24/16 16:00 61 17 110/59 100 Mechanical Ventilator 30 11/24/16 15:30 61 17 107/60 100 Mechanical Ventilator 30 11/24/16 15:10 65 20 30 11/24/16 15:00 60 17 107/51 100 Mechanical Ventilator 30 11/24/16 15:00 107/51 11/24/16 14:30 60 17 121/59 100 Mechanical Ventilator 30 11/24/16 14:00 110/53 11/24/16 14:00 60 16 110/53 100 Mechanical Ventilator 30 11/24/16 13:30 64 17 119/47 100 Mechanical Ventilator 30 11/24/16 13:11 68 20 30 11/24/16 13:00 62 17 114/63 100 Mechanical Ventilator 30 11/24/16 13:00 114/63 11/24/16 12:30 64 17 114/63 100 Mechanical Ventilator 30 11/24/16 12:00 96.9 61 16 119/57 100 Mechanical Ventilator 30 11/24/16 12:00 61 11/24/16 12:00 120/52 11/24/16 12:00 30 11/24/16 11:30 61 16 118/49 100 Mechanical Ventilator 30 Status: awake Condition: critical HEENT: atraumatic, normocephalic Lungs: chest wall tender Heart: HR/BP stable Abdomen: soft, non-tender, feeding tube Extremities: no C/C/E, edema Decubiti: location, stage Micro: Microbiology Date/Time Source Procedure Growth Status 11/23/16 18:25 Blood Blood Culture - Preliminary NO GROWTH AFTER 24 HOURS Resulted 11/23/16 18:20 Blood Blood Culture - Preliminary NO GROWTH AFTER 24 HOURS Resulted 11/23/16 20:30 Sputum Gram Stain - Final Resulted 11/23/16 20:30 Sputum Culture - Preliminary Gram Negative Bacillus 1 Resulted 11/23/16 14:00 Urine,Clean Catch Urine Culture - Preliminary NO GROWTH AFTER 24 HOURS Resulted Accucheck: 151 Critical Care - Subjective ROS Limited/Unobtainable: No ICU Day: 5 Intubation Day: 5 Condition: critical EKG Rhythm: Sinus Rhythm FI02: 30 Vent Support Breath Rate: 16 Vent Support Mode: AC Vent Tidal Volume: 400 Sputum Amount: Small PIP: 20 I&O: Intake and Output 11/25/16 11/26/16 19:00 07:00 Intake Total 450 ml Output Total 225 ml Balance 225 ml IV Total 450 ml Output Urine Total 225 ml CXR: no change ET-Tube: 7.5 ET Position: 23 Labs: Laboratory Tests Test 11/25/16 04:30 11/25/16 07:48 White Blood Count 29.4 K/UL (4.8-10.8) *H Red Blood Count 2.62 M/UL (4.70-6.10) L Hemoglobin 8.6 G/DL (14.2-18.0) L Hematocrit 25.1 % (42.0-52.0) L Mean Corpuscular Volume 96 FL (80-99) Mean Corpuscular Hemoglobin 33.0 PG (27.0-31.0) H Mean Corpuscular Hemoglobin Concent 34.5 G/DL (32.0-36.0) Red Cell Distribution Width 13.9 % (11.6-14.8) Platelet Count 89 K/UL (150-450) L Mean Platelet Volume 12.5 FL (6.5-10.1) H Neutrophils (%) (Auto) % (45.0-75.0) Lymphocytes (%) (Auto) % (20.0-45.0) Monocytes (%) (Auto) % (1.0-10.0) Eosinophils (%) (Auto) % (0.0-3.0) Basophils (%) (Auto) % (0.0-2.0) Differential Total Cells Counted 100 Neutrophils % (Manual) 95 % (45-75) H Lymphocytes % (Manual) 1 % (20-45) L Monocytes % (Manual) 4 % (1-10) Eosinophils % (Manual) 0 % (0-3) Basophils % (Manual) 0 % (0-2) Band Neutrophils 0 % (0-8) Platelet Estimate Decreased L Platelet Morphology Normal Hypochromasia 1+ Sodium Level 128 MMOL/L (136-145) L Potassium Level 3.2 MMOL/L (3.5-5.1) L Chloride Level 96 MMOL/L (98-107) L Carbon Dioxide Level 19 MMOL/L (21-32) L Anion Gap 13 (5-15) Blood Urea Nitrogen 111 mg/dL (7-18) H Creatinine 3.8 MG/DL (0.55-1.30) H Estimat Glomerular Filtration Rate mL/min (>60) Glucose Level 147 MG/DL (74-106) H Uric Acid 6.9 MG/DL (2.6-7.2) Calcium Level 7.7 MG/DL (8.5-10.1) L Phosphorus Level 6.1 MG/DL (2.5-4.9) H Magnesium Level 2.1 MG/DL (1.8-2.4) Total Bilirubin 0.9 MG/DL (0.2-1.0) Aspartate Amino Transf (AST/SGOT) 8 U/L (15-37) L Alanine Aminotransferase (ALT/SGPT) 13 U/L (12-78) Alkaline Phosphatase 65 U/L (46-116) Troponin I 1.938 ng/mL (0.000-0.056) C-Reactive Protein, Quantitative 8.7 mg/dL (0.00-0.90) H Pro-B-Type Natriuretic Peptide > 20960 (0-125) H Total Protein 4.2 G/DL (6.4-8.2) L Albumin 1.4 G/DL (3.4-5.0) L Globulin 2.8 g/dL Albumin/Globulin Ratio 0.5 (1.0-2.7) L Arterial Blood pH 7.470 (7.350-7.450) Arterial Blood Partial Pressure CO2 23.9 mmHg (35.0-45.0) *L Arterial Blood Partial Pressure O2 94.4 mmHg (75.0-100.0) Arterial Blood HCO3 17.0 mmol/L (22.0-26.0) L Arterial Blood Oxygen Saturation 96.9 % (92.0-98.0) Arterial Blood Base Excess -5.6 Chato Test Positive SAVANNAH SAWYER Nov 25, 2016 11:07
[2016-11-25] MEDS ORDERED: Vancomycin 1250mg/D5W 250ml IVPB ONE ×2 (11:30→20:00)
--- NOTE | 2016-11-25 11:32 | Diagnostic Imaging Report ---
Indication: DYSPNEA Technique: One view of the chest Comparison: 11/24/2016 Findings: Endotracheal tube is again demonstrated, tip now projecting at the orifice of the right mainstem bronchus. Stable satisfactory position of nasogastric tube. Left chest pacemaker remains. Persistent left basilar opacity likely reflects combination of pleural fluid and consolidation. Hazy right mid and lower lung opacity likely reflects pleural fluid, although component parenchymal consolidation not excludable. These findings are unchanged Impression: Low position of endotracheal tube. Slight withdrawal recommended. ICU nurse Katey notified at the time of interpretation Stable pleural and parenchymal disease, as described
--- NOTE | 2016-11-25 12:09 | Internal Med Progress Note ---
Subjective Date of Service: Nov 25, 2016 Physician Name Taniya Pina Attending Physician Teddy Quezada MD Current Medications Medications (Trade) Dose Ordered Sig/Chasidy Route PRN Reason Start Time Stop Time Status Last Admin Dose Admin Acetaminophen (Tylenol) 650 mg Q4H PRN ORAL fever 11/20/16 18:30 12/20/16 18:29 11/22/16 13:42 Acetaminophen (Tylenol) 650 mg Q4H PRN RECTAL Mild Pain (Pain Scale 1-3) 11/20/16 18:30 12/20/16 18:29 Albuterol/ Ipratropium (DuoNeb 0.5-3(2.5)mg/3ml) 3 ml EVERY 4 HOURS PRN HHN Shortness of Breath 11/20/16 18:30 11/25/16 18:29 Chlorhexidine Gluconate (Julissa-Hex 2%) 1 applic DAILY@2000 TOPIC 11/22/16 20:00 12/22/16 19:59 11/24/16 20:32 Dextrose (Dextrose 50%) STAT PRN IV Hypoglycemia 11/20/16 20:15 12/20/16 20:14 Heparin Sodium (Porcine) (Heparin 5000 units/ml) 5,000 units EVERY 12 HOURS SUBQ 11/20/16 21:00 12/20/16 20:59 11/24/16 20:33 Insulin Aspart (NovoLOG) EVERY 6 HOURS SUBQ 11/21/16 00:00 12/21/16 00:00 11/25/16 11:35 Lorazepam (Ativan 2mg/ml 1ml) 2 mg EVERY 2 HOURS PRN IV For Anxiety 11/20/16 18:30 11/27/16 18:29 Meropenem 500 mg/ Sodium Chloride 55 ml @ 110 mls/hr Q24H IVPB 11/20/16 23:00 12/03/16 23:59 11/24/16 23:04 Norepinephrine Bitartrate 4 mg/ Dextrose 254 ml @ 0 mls/hr Q24H IV 11/20/16 18:30 12/20/16 18:29 11/24/16 19:25 Ondansetron HCl (Zofran ODT) 4 mg Q6H PRN ORAL Nausea & Vomiting 11/20/16 18:30 12/20/16 18:29 Pantoprazole (Protonix) 40 mg EVERY 12 HOURS IVP 11/23/16 09:00 12/23/16 08:59 11/25/16 08:39 Polyethylene Glycol (Miralax) 17 gm DAILYPRN PRN ORAL Constipation 11/20/16 18:30 12/20/16 18:29 Sodium Hypochlorite (Dakin's Half Strength) 1 applic DAILY TOPIC 11/24/16 09:00 12/24/16 08:59 11/25/16 08:40 Sodium Chloride 500 ml @ 30 mls/hr ONCE ONCE IV 11/25/16 11:00 11/26/16 03:39 11/25/16 11:34 Vancomycin HCl (Vanco rx to dose) 1 ea DAILY PRN MISC Per rx protocol 11/25/16 20:00 12/25/16 19:59 Vancomycin HCl/ Dextrose 250 ml @ 166.667 mls/hr ONCE ONCE IVPB 11/25/16 20:00 11/25/16 21:29 Allergies: Coded Allergies: No Known Allergies (Unverified , 11/20/16) Subjective 86 YO M admitted with respiratory failure and sepsis. Continues on levophed. Cover for Int Med-Dr Quezada . ICU. Intubated and sedated. Await CT abd/pelvis today Objective Last Vital Signs Date Time Temp Pulse Resp B/P (MAP) Pulse Ox O2 Delivery O2 Flow Rate FiO2 11/25/16 11:05 62 25 30 11/25/16 10:30 85/53 100 Mechanical Ventilator 11/25/16 04:00 98.5 11/20/16 17:30 15.0 Laboratory Tests Test 11/25/16 04:30 11/25/16 07:48 White Blood Count 29.4 K/UL (4.8-10.8) *H Red Blood Count 2.62 M/UL (4.70-6.10) L Hemoglobin 8.6 G/DL (14.2-18.0) L Hematocrit 25.1 % (42.0-52.0) L Mean Corpuscular Volume 96 FL (80-99) Mean Corpuscular Hemoglobin 33.0 PG (27.0-31.0) H Mean Corpuscular Hemoglobin Concent 34.5 G/DL (32.0-36.0) Red Cell Distribution Width 13.9 % (11.6-14.8) Platelet Count 89 K/UL (150-450) L Mean Platelet Volume 12.5 FL (6.5-10.1) H Neutrophils (%) (Auto) % (45.0-75.0) Lymphocytes (%) (Auto) % (20.0-45.0) Monocytes (%) (Auto) % (1.0-10.0) Eosinophils (%) (Auto) % (0.0-3.0) Basophils (%) (Auto) % (0.0-2.0) Differential Total Cells Counted 100 Neutrophils % (Manual) 95 % (45-75) H Lymphocytes % (Manual) 1 % (20-45) L Monocytes % (Manual) 4 % (1-10) Eosinophils % (Manual) 0 % (0-3) Basophils % (Manual) 0 % (0-2) Band Neutrophils 0 % (0-8) Platelet Estimate Decreased L Platelet Morphology Normal Hypochromasia 1+ Sodium Level 128 MMOL/L (136-145) L Potassium Level 3.2 MMOL/L (3.5-5.1) L Chloride Level 96 MMOL/L (98-107) L Carbon Dioxide Level 19 MMOL/L (21-32) L Anion Gap 13 (5-15) Blood Urea Nitrogen 111 mg/dL (7-18) H Creatinine 3.8 MG/DL (0.55-1.30) H Estimat Glomerular Filtration Rate mL/min (>60) Glucose Level 147 MG/DL (74-106) H Uric Acid 6.9 MG/DL (2.6-7.2) Calcium Level 7.7 MG/DL (8.5-10.1) L Phosphorus Level 6.1 MG/DL (2.5-4.9) H Magnesium Level 2.1 MG/DL (1.8-2.4) Total Bilirubin 0.9 MG/DL (0.2-1.0) Aspartate Amino Transf (AST/SGOT) 8 U/L (15-37) L Alanine Aminotransferase (ALT/SGPT) 13 U/L (12-78) Alkaline Phosphatase 65 U/L (46-116) Troponin I 1.938 ng/mL (0.000-0.056) C-Reactive Protein, Quantitative 8.7 mg/dL (0.00-0.90) H Pro-B-Type Natriuretic Peptide > 04900 (0-125) H Total Protein 4.2 G/DL (6.4-8.2) L Albumin 1.4 G/DL (3.4-5.0) L Globulin 2.8 g/dL Albumin/Globulin Ratio 0.5 (1.0-2.7) L Arterial Blood pH 7.470 (7.350-7.450) Arterial Blood Partial Pressure CO2 23.9 mmHg (35.0-45.0) *L Arterial Blood Partial Pressure O2 94.4 mmHg (75.0-100.0) Arterial Blood HCO3 17.0 mmol/L (22.0-26.0) L Arterial Blood Oxygen Saturation 96.9 % (92.0-98.0) Arterial Blood Base Excess -5.6 Chato Test Positive Microbiology Date/Time Source Procedure Growth Status 11/23/16 18:25 Blood Blood Culture - Preliminary NO GROWTH AFTER 24 HOURS Resulted 11/23/16 18:20 Blood Blood Culture - Preliminary NO GROWTH AFTER 24 HOURS Resulted 11/23/16 20:30 Sputum Gram Stain - Final Resulted 11/23/16 20:30 Sputum Culture - Preliminary Gram Negative Bacillus 1 Resulted 11/23/16 14:00 Urine,Clean Catch Urine Culture - Preliminary NO GROWTH AFTER 24 HOURS Resulted Intake and Output 11/25/16 11/26/16 19:00 07:00 Intake Total 450 ml Output Total 225 ml Balance 225 ml IV Total 450 ml Output Urine Total 225 ml Objective General Appearance: WD/WN, lethargic EENT: normal ENT inspection, other - oral intubation Neck: non-tender, normal alignment, supple Cardiovascular: normal peripheral pulses, normal rate, regular rhythm, no gallop/murmur, no JVD Respiratory/Chest: Mech vent; respiratory distress, crackles/rales, rhonchi - bilaterally, expiratory wheezing Abdomen: normal bowel sounds, non tender, soft, no organomegaly, no mass Skin: normal pigmentation, warm/dry Assessment/Plan Problem List: (1) Sepsis Assessment & Plan: ESBL Proteus Mirabilis. See ID note-Cont meropenem (2) UTI (urinary tract infection) Assessment & Plan: ESBL Proteus mirabilis. Follow Inf Dis recs-Cont Meropenem (3) Pneumonia Assessment & Plan: Staph aureus. Continue vanco and merpoenem per ID (4) Respiratory failure Assessment & Plan: See pulmonary note. Cont mech vent per pulmonary (5) Hypotension Assessment & Plan: Due to sepsis. On levophed (6) Renal failure Assessment & Plan: See nephrology note. (7) Diabetes mellitus, type II Assessment & Plan: Cont novolog sliding scale. (8) HTN (hypertension) Assessment & Plan: Currently hypotensive (9) CHF (congestive heart failure) (10) Cardiomyopathy, ischemic (11) Prostate cancer (12) Sick sinus syndrome Assessment & Plan: S/P pacemaker (13) Pacemaker (14) Anemia of renal disease (15) Alzheimer's dementia (16) Septic shock (17) Lactic acid acidosis (18) Altered mental status (19) NSTEMI (non-ST elevated myocardial infarction) (20) Hyponatremia Assessment & Plan: See nephrology note. Status: not improved Assessment/Plan CT abdomen and pelvis today to R/O abscess TANIYA PINA Nov 25, 2016 12:09
--- NOTE | 2016-11-25 13:12 | Cardiac Electrophysiology PN ---
Assessment/Plan Assessment/Plan 1. Status post pacemaker implantation in 2012. Intermittently V paced. Chest x- ray, dual-chamber pacemaker in the left subclavian area. The family wished not to proceed with a pacemaker generator change despite was told battery was at end of life. 2. Atrial fibrillation, rate is currently controlled off anticoagulation as hemoglobin is only 7. 3. 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 The patient remains off of beta-justen and ZELALEM inhibitor in view of his renal failure as well as hypotension. Per Dr Perez 4. End-stage renal disease. Family decided not to proceed with hemodialysis. 5. Dysphagia. Family refused PEG placement. 6. Prostate cancer status post radiation therapy. 7. History of Graves disease. 8. Hypotension Levophed DCed today. DW RN Subjective Subjective Intermittently V Pacing. On Vent , opens eyes. Objective Last 24 Hour Vital Signs Date Time Temp Pulse Resp B/P (MAP) Pulse Ox O2 Delivery O2 Flow Rate FiO2 11/25/16 11:05 62 25 30 11/25/16 10:30 61 14 85/53 100 Mechanical Ventilator 11/25/16 10:00 60 15 95/55 100 Mechanical Ventilator 11/25/16 09:30 60 15 91/52 100 Mechanical Ventilator 11/25/16 09:00 60 15 93/46 100 Mechanical Ventilator 11/25/16 08:54 60 23 30 11/25/16 08:30 60 14 110/58 100 Mechanical Ventilator 11/25/16 08:00 59 11/25/16 08:00 60 15 90/49 100 Mechanical Ventilator 11/25/16 08:00 30 11/25/16 07:30 61 15 91/47 100 Mechanical Ventilator 11/25/16 07:00 60 17 96/52 100 Mechanical Ventilator 30 11/25/16 07:00 94/49 11/25/16 06:50 59 24 30 11/25/16 06:30 60 17 94/49 100 Mechanical Ventilator 30 11/25/16 06:00 94/51 11/25/16 06:00 61 17 96/53 100 Mechanical Ventilator 30 11/25/16 05:30 62 17 97/43 100 Mechanical Ventilator 11/25/16 05:00 61 17 96/41 100 Mechanical Ventilator 30 11/25/16 05:00 96/41 11/25/16 04:43 61 26 30 11/25/16 04:30 61 17 105/53 100 Mechanical Ventilator 30 11/25/16 04:00 98.5 61 17 98/53 100 Mechanical Ventilator 30 11/25/16 04:00 61 11/25/16 04:00 101/66 11/25/16 04:00 30 11/25/16 03:30 61 17 100/53 100 Mechanical Ventilator 30 11/25/16 03:05 62 19 30 11/25/16 03:00 60 17 96/53 100 Mechanical Ventilator 30 11/25/16 03:00 96/53 11/25/16 02:30 60 17 97/51 100 Mechanical Ventilator 30 11/25/16 02:00 60 17 93/52 100 Mechanical Ventilator 30 11/25/16 02:00 93/52 11/25/16 01:30 61 17 114/49 100 Mechanical Ventilator 30 11/25/16 01:30 60 21 30 11/25/16 01:00 106/49 11/25/16 01:00 61 17 108/83 100 Mechanical Ventilator 30 11/25/16 00:30 61 17 111/54 100 Mechanical Ventilator 30 11/25/16 00:00 30 11/25/16 00:00 63 11/25/16 00:00 111/54 11/25/16 00:00 98.0 61 17 111/48 100 Mechanical Ventilator 30 11/24/16 23:30 61 17 102/52 100 Mechanical Ventilator 30 11/24/16 23:30 60 20 30 11/24/16 23:00 61 17 110/48 100 Mechanical Ventilator 30 11/24/16 23:00 110/48 11/24/16 22:30 61 17 105/56 100 Mechanical Ventilator 30 11/24/16 22:00 60 17 112/46 100 Mechanical Ventilator 30 11/24/16 22:00 104/48 11/24/16 21:29 60 17 109/50 100 Mechanical Ventilator 30 11/24/16 21:20 60 20 25 11/24/16 21:00 97/53 11/24/16 21:00 60 17 95/53 100 Mechanical Ventilator 30 11/24/16 20:27 60 17 104/52 100 Mechanical Ventilator 30 11/24/16 20:00 97/55 11/24/16 20:00 98.0 61 17 97/55 100 Mechanical Ventilator 30 11/24/16 20:00 61 11/24/16 20:00 30 11/24/16 19:30 66 24 25 11/24/16 19:30 61 17 101/52 100 Mechanical Ventilator 30 11/24/16 19:25 111/50 11/24/16 19:00 61 17 98/56 100 Mechanical Ventilator 30 11/24/16 18:30 61 17 101/56 100 Mechanical Ventilator 30 11/24/16 18:00 60 17 101/56 100 Mechanical Ventilator 30 11/24/16 18:00 61 17 104/55 100 Mechanical Ventilator 30 11/24/16 18:00 104/55 11/24/16 17:30 61 17 110/46 100 Mechanical Ventilator 30 11/24/16 17:01 62 20 30 11/24/16 17:00 63 17 123/47 100 Mechanical Ventilator 30 11/24/16 17:00 123/47 11/24/16 16:30 61 17 119/54 100 Mechanical Ventilator 30 11/24/16 16:00 60 11/24/16 16:00 110/59 11/24/16 16:00 30 11/24/16 16:00 61 17 110/59 100 Mechanical Ventilator 30 11/24/16 15:30 61 17 107/60 100 Mechanical Ventilator 30 11/24/16 15:10 65 20 30 11/24/16 15:00 60 17 107/51 100 Mechanical Ventilator 30 11/24/16 15:00 107/51 11/24/16 14:30 60 17 121/59 100 Mechanical Ventilator 30 11/24/16 14:00 110/53 11/24/16 14:00 60 16 110/53 100 Mechanical Ventilator 30 11/24/16 13:30 64 17 119/47 100 Mechanical Ventilator 30 11/24/16 13:11 68 20 30 Intake and Output 11/25/16 11/26/16 19:00 07:00 Intake Total 450 ml Output Total 375 ml Balance 75 ml IV Total 450 ml Output Urine Total 275 ml Stool Total 100 ml # Bowel Movements 1 Laboratory Tests Test 11/25/16 04:30 11/25/16 07:48 White Blood Count 29.4 K/UL (4.8-10.8) *H Red Blood Count 2.62 M/UL (4.70-6.10) L Hemoglobin 8.6 G/DL (14.2-18.0) L Hematocrit 25.1 % (42.0-52.0) L Mean Corpuscular Volume 96 FL (80-99) Mean Corpuscular Hemoglobin 33.0 PG (27.0-31.0) H Mean Corpuscular Hemoglobin Concent 34.5 G/DL (32.0-36.0) Red Cell Distribution Width 13.9 % (11.6-14.8) Platelet Count 89 K/UL (150-450) L Mean Platelet Volume 12.5 FL (6.5-10.1) H Neutrophils (%) (Auto) % (45.0-75.0) Lymphocytes (%) (Auto) % (20.0-45.0) Monocytes (%) (Auto) % (1.0-10.0) Eosinophils (%) (Auto) % (0.0-3.0) Basophils (%) (Auto) % (0.0-2.0) Differential Total Cells Counted 100 Neutrophils % (Manual) 95 % (45-75) H Lymphocytes % (Manual) 1 % (20-45) L Monocytes % (Manual) 4 % (1-10) Eosinophils % (Manual) 0 % (0-3) Basophils % (Manual) 0 % (0-2) Band Neutrophils 0 % (0-8) Platelet Estimate Decreased L Platelet Morphology Normal Hypochromasia 1+ Sodium Level 128 MMOL/L (136-145) L Potassium Level 3.2 MMOL/L (3.5-5.1) L Chloride Level 96 MMOL/L (98-107) L Carbon Dioxide Level 19 MMOL/L (21-32) L Anion Gap 13 (5-15) Blood Urea Nitrogen 111 mg/dL (7-18) H Creatinine 3.8 MG/DL (0.55-1.30) H Estimat Glomerular Filtration Rate mL/min (>60) Glucose Level 147 MG/DL (74-106) H Uric Acid 6.9 MG/DL (2.6-7.2) Calcium Level 7.7 MG/DL (8.5-10.1) L Phosphorus Level 6.1 MG/DL (2.5-4.9) H Magnesium Level 2.1 MG/DL (1.8-2.4) Total Bilirubin 0.9 MG/DL (0.2-1.0) Aspartate Amino Transf (AST/SGOT) 8 U/L (15-37) L Alanine Aminotransferase (ALT/SGPT) 13 U/L (12-78) Alkaline Phosphatase 65 U/L (46-116) Troponin I 1.938 ng/mL (0.000-0.056) C-Reactive Protein, Quantitative 8.7 mg/dL (0.00-0.90) H Pro-B-Type Natriuretic Peptide > 80773 (0-125) H Total Protein 4.2 G/DL (6.4-8.2) L Albumin 1.4 G/DL (3.4-5.0) L Globulin 2.8 g/dL Albumin/Globulin Ratio 0.5 (1.0-2.7) L Arterial Blood pH 7.470 (7.350-7.450) Arterial Blood Partial Pressure CO2 23.9 mmHg (35.0-45.0) *L Arterial Blood Partial Pressure O2 94.4 mmHg (75.0-100.0) Arterial Blood HCO3 17.0 mmol/L (22.0-26.0) L Arterial Blood Oxygen Saturation 96.9 % (92.0-98.0) Arterial Blood Base Excess -5.6 Chato Test Positive Microbiology Date/Time Source Procedure Growth Status 11/23/16 18:25 Blood Blood Culture - Preliminary NO GROWTH AFTER 24 HOURS Resulted 11/23/16 18:20 Blood Blood Culture - Preliminary NO GROWTH AFTER 24 HOURS Resulted 11/23/16 20:30 Sputum Gram Stain - Final Resulted 11/23/16 20:30 Sputum Culture - Preliminary Gram Negative Bacillus 1 Resulted 11/23/16 14:00 Urine,Clean Catch Urine Culture - Preliminary NO GROWTH AFTER 24 HOURS Resulted Objective HEAD AND NECK: Positive JVDs. Orally intubated. LUNGS: Decreased breath sounds. CARDIOVASCULAR: Regular S1 and S2 with no gallop or murmur. ABDOMEN: Soft. EXTREMITIES: A 1+ pitting edema. JEREMY BALLARD Nov 25, 2016 13:12
[2016-11-25 13:34] LABS: OTHERS PATHOLOGIST COMMENT
[2016-11-25 13:35] LABS: OTHERS PATHOLOGIST COMMENT
--- NOTE | 2016-11-25 16:19 | Diagnostic Imaging Report ---
INDICATION: Chest pain, abdominal pain TECHNIQUE: No IV contrast, per referring physician request. Patient ingested oral contrast Spiral acquisitions obtained through the chest, abdomen, and pelvis Multiplanar reconstructions were generated. Total dose length product 160 mGycm. CTDIvol(s) 13 mGy. Radiation dose was minimized using automated exposure control COMPARISON: None FINDINGS Chest: Endotracheal tube tip projects approximately 2 cm above the stephany. There are large bilateral pleural effusions. There is compressive atelectasis of a significant portion of the right lower lobe. There is also some compressive atelectasis of the posterior right upper lobe. There is compressive atelectasis of most of the left lower lobe. There is minimal posterior atelectasis of the left upper lobe. No focal infiltrates are demonstrated. The heart is markedly enlarged. There is a left chest pacemaker in place. There is a small amount of pericardial fluid. No mediastinal or hilar mass or adenopathy. The thyroid is diffusely enlarged and multinodular. There is generalized edema of the bilateral chest wall subcutaneous fat. No axillary or chest wall mass or adenopathy. There is a nasogastric tube in place, tip of which is in the gastric fundus. Abdomen pelvis: There is generalized edema of the bilateral flank subcutaneous fat. There is also generalized edema of the mesenteric and retroperitoneal fat. There is a small amount of ascites fluid present. There are small fat-containing bilateral inguinal hernias. No evidence of diverticulosis or diverticulitis. Normal appendix. No small bowel distention. Contrast has traversed the entirety of the small bowel and the entirety of the colon. The stomach is remarkable for the previously mentioned nasogastric tube. The duodenum is unremarkable. No free intraperitoneal air. Lack of IV contrast limits assessment of the solid organs. Assessment of the abdominal viscera is also limited by the decreased inherent soft tissue contrast by the anasarca. The gallbladder contents are diffusely hyperattenuating. The liver demonstrates multiple calcifications. No focal abnormality otherwise. No definite biliary ductal dilatation. The pancreas, spleen, adrenals are grossly unremarkable. The kidneys demonstrate multiple cysts, several large. Large cyst in the right upper pole measures 5.6 cm long axis dimension. Largest cyst in the lower left interpolar region measures 7.1 cm long axis dimension. There are also subcentimeter low-attenuation renal lesions which are too small to characterize. Renal calcifications most likely arterial in nature. The bladder is empty, contains a Crowley catheter. No definite pelvic mass or adenopathy. There is skin thickening In the retrocecal and retrocardiac region. Numerous gas bubbles are seen within the subcutaneous fat superficial to the sacrum and coccyx, as well as within the gluteal musculature. No definite underlying osseous erosions. There is a right groin central venous catheter in place. The bones also demonstrate extensive degenerative spondylosis changes, mostly proliferative. Degenerative changes of both hips are noted. IMPRESSION: Decubitus changes in the retrocecal/retroperitoneal region. Gas bubbles within the subcutaneous fat and musculature, may represent gas introduced by a decubitus ulcer. However, no definite ulcers visualized, so the possibility of infection with a gas-forming organism should also be considered. This finding was discussed by phone with Dr. Quezada at the time of interpretation. Anasarca, with extensive edema of the subcutaneous, mesenteric, and retroperitoneal fat, large bilateral pleural effusions, small to moderate ascites, small pericardial effusion Compressive atelectasis of much of both lower lobes, due to the large bilateral pleural effusions Marked cardiomegaly Satisfactory positions of endotracheal and nasogastric tubes Diffusely enlarged m -- ultinodular thyroid No evidence of small bowel obstruction or acute abdominal process Hyperattenuating gallbladder contents, likely reflecting milk of calcium bile versus dense sludge Bilateral renal cysts, some large. Subcentimeter low-attenuation renal lesions which are too small to characterize, most likely benign simple cysts. No further followup necessary Incidental findings as noted, including right groin central venous catheter, degenerative spondylosis, degenerative hip disease bilaterally, Crowley catheter, hepatic calcifications, pacemaker, small fat-containing bilateral inguinal hernias The CT scanner at [facility] is accredited by the [employer] and the scans are performed using protocols designed to limit radiation exposure to as low as reasonably achievable to attain images of sufficient resolution adequate for diagnostic evaluation.
--- NOTE | 2016-11-25 16:47 | Nephrology Progress Note ---
Assessment/Plan Problem List: (1) Chronic kidney disease (2) Septic shock (3) Hyperkalemia (4) UTI (urinary tract infection) (5) Sepsis (6) Altered mental status (7) Lactic acid acidosis (8) Altered level of consciousness (9) Respiratory failure Plan Monitor renal function - improved Hyponatremia - hypertonic solution IV x1 Monitor lytes, correct prn Monitor H&H, transfuse prn Monitor intake and output Epogen MWF Stool OB Continue glycemic control Continue pereyra Monitor neuro status AM labs Subjective ROS Limited/Unobtainable: Yes Subjective orally intubated on vent, in the ICU, opens eyes, family at bedside Objective Objective Last 24 Hour Vital Signs Date Time Temp Pulse Resp B/P (MAP) Pulse Ox O2 Delivery O2 Flow Rate FiO2 11/25/16 15:49 62 16 Mechanical Ventilator 100 11/25/16 15:30 63 16 101/48 100 Mechanical Ventilator 11/25/16 15:00 62 15 98/47 100 Mechanical Ventilator 11/25/16 14:50 62 20 30 11/25/16 14:30 63 16 95/45 100 Mechanical Ventilator 11/25/16 14:00 62 16 89/33 100 Mechanical Ventilator 11/25/16 13:10 62 26 30 11/25/16 12:00 30 11/25/16 12:00 61 11/25/16 11:30 62 16 100/50 100 Mechanical Ventilator 11/25/16 11:05 62 25 30 11/25/16 11:00 62 15 93/47 100 Mechanical Ventilator 11/25/16 10:30 61 14 85/53 100 Mechanical Ventilator 11/25/16 10:00 60 15 95/55 100 Mechanical Ventilator 11/25/16 09:30 60 15 91/52 100 Mechanical Ventilator 11/25/16 09:00 60 15 93/46 100 Mechanical Ventilator 11/25/16 08:54 60 23 30 11/25/16 08:30 60 14 110/58 100 Mechanical Ventilator 11/25/16 08:00 61 11/25/16 08:00 60 15 90/49 100 Mechanical Ventilator 11/25/16 08:00 30 11/25/16 07:30 61 15 91/47 100 Mechanical Ventilator 30 11/25/16 07:00 60 17 96/52 100 Mechanical Ventilator 30 11/25/16 07:00 94/49 11/25/16 06:50 59 24 30 11/25/16 06:30 60 17 94/49 100 Mechanical Ventilator 30 11/25/16 06:00 94/51 11/25/16 06:00 61 17 96/53 100 Mechanical Ventilator 30 11/25/16 05:30 62 17 97/43 100 Mechanical Ventilator 30 11/25/16 05:00 61 17 96/41 100 Mechanical Ventilator 30 11/25/16 05:00 96/41 11/25/16 04:43 61 26 30 11/25/16 04:30 61 17 105/53 100 Mechanical Ventilator 30 11/25/16 04:00 98.5 61 17 98/53 100 Mechanical Ventilator 30 11/25/16 04:00 61 11/25/16 04:00 101/66 11/25/16 04:00 30 11/25/16 03:30 61 17 100/53 100 Mechanical Ventilator 30 11/25/16 03:05 62 19 30 11/25/16 03:00 60 17 96/53 100 Mechanical Ventilator 30 11/25/16 03:00 96/53 11/25/16 02:30 60 17 97/51 100 Mechanical Ventilator 30 11/25/16 02:00 60 17 93/52 100 Mechanical Ventilator 30 11/25/16 02:00 93/52 11/25/16 01:30 61 17 114/49 100 Mechanical Ventilator 30 11/25/16 01:30 60 21 30 11/25/16 01:00 106/49 11/25/16 01:00 61 17 108/83 100 Mechanical Ventilator 30 11/25/16 00:30 61 17 111/54 100 Mechanical Ventilator 30 11/25/16 00:00 30 11/25/16 00:00 63 11/25/16 00:00 111/54 11/25/16 00:00 98.0 61 17 111/48 100 Mechanical Ventilator 30 11/24/16 23:30 61 17 102/52 100 Mechanical Ventilator 30 11/24/16 23:30 60 20 30 11/24/16 23:00 61 17 110/48 100 Mechanical Ventilator 30 11/24/16 23:00 110/48 11/24/16 22:30 61 17 105/56 100 Mechanical Ventilator 30 11/24/16 22:00 60 17 112/46 100 Mechanical Ventilator 30 11/24/16 22:00 104/48 11/24/16 21:29 60 17 109/50 100 Mechanical Ventilator 30 11/24/16 21:20 60 20 25 11/24/16 21:00 97/53 11/24/16 21:00 60 17 95/53 100 Mechanical Ventilator 30 11/24/16 20:27 60 17 104/52 100 Mechanical Ventilator 30 11/24/16 20:00 97/55 11/24/16 20:00 98.0 61 17 97/55 100 Mechanical Ventilator 30 11/24/16 20:00 61 11/24/16 20:00 30 11/24/16 19:30 66 24 25 11/24/16 19:30 61 17 101/52 100 Mechanical Ventilator 30 11/24/16 19:25 111/50 11/24/16 19:00 61 17 98/56 100 Mechanical Ventilator 30 11/24/16 18:30 61 17 101/56 100 Mechanical Ventilator 30 11/24/16 18:00 60 17 101/56 100 Mechanical Ventilator 30 11/24/16 18:00 61 17 104/55 100 Mechanical Ventilator 30 11/24/16 18:00 104/55 11/24/16 17:30 61 17 110/46 100 Mechanical Ventilator 30 11/24/16 17:01 62 20 30 11/24/16 17:00 63 17 123/47 100 Mechanical Ventilator 30 11/24/16 17:00 123/47 11/24/16 16:30 61 17 119/54 100 Mechanical Ventilator 30 Intake and Output 11/25/16 11/26/16 19:00 07:00 Intake Total 570 ml Output Total 615 ml Balance -45 ml IV Total 570 ml Output Urine Total 415 ml Stool Total 200 ml # Bowel Movements 3 Laboratory Tests 11/25/16 04:30: White Blood Count 29.4*H, Red Blood Count 2.62L, Hemoglobin 8.6L, Hematocrit 25.1L, Mean Corpuscular Volume 96, Mean Corpuscular Hemoglobin 33.0H, Mean Corpuscular Hemoglobin Concent 34.5, Red Cell Distribution Width 13.9, Platelet Count 89L, Mean Platelet Volume 12.5H, Neutrophils (%) (Auto) , Lymphocytes (%) (Auto) , Monocytes (%) (Auto) , Eosinophils (%) (Auto) , Basophils (%) (Auto) , Differential Total Cells Counted 100, Neutrophils % (Manual) 95H, Lymphocytes % (Manual) 1L, Monocytes % (Manual) 4, Eosinophils % (Manual) 0, Basophils % ( Manual) 0, Band Neutrophils 0, Platelet Estimate DecreasedL, Platelet Morphology Normal, Hypochromasia 1+, Sodium Level 128L, Potassium Level 3.2L, Chloride Level 96L, Carbon Dioxide Level 19L, Anion Gap 13, Blood Urea Nitrogen 111H, Creatinine 3.8H, Estimat Glomerular Filtration Rate , Glucose Level 147H, Uric Acid 6.9, Calcium Level 7.7L, Phosphorus Level 6.1H, Magnesium Level 2.1, Total Bilirubin 0.9, Aspartate Amino Transf (AST/SGOT) 8L, Alanine Aminotransferase (ALT/SGPT) 13, Alkaline Phosphatase 65, Troponin I 1.938H, C- Reactive Protein, Quantitative 8.7H, Pro-B-Type Natriuretic Peptide > 38214L, Total Protein 4.2L, Albumin 1.4L, Globulin 2.8, Albumin/Globulin Ratio 0.5L 11/25/16 07:48: Arterial Blood pH 7.470H, Arterial Blood Partial Pressure CO2 23.9*L, Arterial Blood Partial Pressure O2 94.4, Arterial Blood HCO3 17.0L, Arterial Blood Oxygen Saturation 96.9, Arterial Blood Base Excess -5.6, Chato Test Positive Height (Feet): 5 Weight (Pounds): 147 General Appearance: no apparent distress Neck: non-tender, normal alignment Cardiovascular: normal rate Respiratory/Chest: decreased breath sounds, crackles/rales Abdomen: non tender, soft Genitourinary/Rectal: other - pereyra Extremities: non-tender, normal inspection Neurologic: motor weakness Khushboo Lopez N.P. Nov 25, 2016 16:47
[2016-11-25] MEDS ORDERED: D5NS 1000ml IV ONE (17:09)
[2016-11-25] MEDS ORDERED: Tubing IV Secondary IV ONE (17:09)
[2016-11-25] MEDS ORDERED: NS 275ml ONE (17:09)
--- NOTE | 2016-11-25 18:49 | Cardiology Progress Note ---
Assessment/Plan Assessment/Plan nstemi trop 11 peak so far non flow limiting cad by cath / Lm 20% 02/2015 cath [facility]edras atrial fibrillation new cm ef % septic shock bacteria gnr renal insuf anemia ob neg stool respriatory failure acute ams pt is more awake today open eye respond by head movement prognosis poor overall dnr is on vent had ogt will give low dose Ecotrin iv abs no off pressor boyut bp at time low d/w rn to resuem if map less than 60 tele afib v paced personally reviewed cr uimporved hgb stable cxr personally reviewed wean as possible trop down trending no family at bedside Subjective ROS Limited/Unobtainable: Yes Subjective on vent rsponsive now but nto communicative Objective Last 24 Hour Vital Signs Date Time Temp Pulse Resp B/P (MAP) Pulse Ox O2 Delivery O2 Flow Rate FiO2 11/25/16 18:30 60 15 96/50 100 Mechanical Ventilator 11/25/16 18:30 96/50 11/25/16 18:00 60 16 68/35 100 Mechanical Ventilator 11/25/16 17:30 64 18 88/46 100 Mechanical Ventilator 11/25/16 17:00 62 15 99/42 100 Mechanical Ventilator 11/25/16 16:56 64 20 30 11/25/16 16:30 62 16 88/48 100 Mechanical Ventilator 11/25/16 16:00 61 16 98/52 100 Mechanical Ventilator 11/25/16 16:00 30 11/25/16 16:00 60 11/25/16 15:49 62 16 Mechanical Ventilator 100 11/25/16 15:30 63 16 101/48 100 Mechanical Ventilator 11/25/16 15:00 62 15 98/47 100 Mechanical Ventilator 11/25/16 14:50 62 20 30 11/25/16 14:30 63 16 95/45 100 Mechanical Ventilator 11/25/16 14:00 62 16 89/33 100 Mechanical Ventilator 11/25/16 13:10 62 26 30 11/25/16 12:00 30 11/25/16 12:00 61 11/25/16 11:30 62 16 100/50 100 Mechanical Ventilator 11/25/16 11:05 62 25 30 11/25/16 11:00 62 15 93/47 100 Mechanical Ventilator 11/25/16 10:30 61 14 85/53 100 Mechanical Ventilator 11/25/16 10:00 60 15 95/55 100 Mechanical Ventilator 11/25/16 09:30 60 15 91/52 100 Mechanical Ventilator 11/25/16 09:00 60 15 93/46 100 Mechanical Ventilator 11/25/16 08:54 60 23 30 11/25/16 08:30 60 14 110/58 100 Mechanical Ventilator 11/25/16 08:00 61 11/25/16 08:00 60 15 90/49 100 Mechanical Ventilator 11/25/16 08:00 30 11/25/16 07:30 61 15 91/47 100 Mechanical Ventilator 30 11/25/16 07:00 60 17 96/52 100 Mechanical Ventilator 30 11/25/16 07:00 94/49 11/25/16 06:50 59 24 30 11/25/16 06:30 60 17 94/49 100 Mechanical Ventilator 30 11/25/16 06:00 94/51 11/25/16 06:00 61 17 96/53 100 Mechanical Ventilator 30 11/25/16 05:30 62 17 97/43 100 Mechanical Ventilator 30 11/25/16 05:00 61 17 96/41 100 Mechanical Ventilator 30 11/25/16 05:00 96/41 11/25/16 04:43 61 26 30 11/25/16 04:30 61 17 105/53 100 Mechanical Ventilator 30 11/25/16 04:00 98.5 61 17 98/53 100 Mechanical Ventilator 30 11/25/16 04:00 61 11/25/16 04:00 101/66 11/25/16 04:00 30 11/25/16 03:30 61 17 100/53 100 Mechanical Ventilator 30 11/25/16 03:05 62 19 30 11/25/16 03:00 60 17 96/53 100 Mechanical Ventilator 30 11/25/16 03:00 96/53 11/25/16 02:30 60 17 97/51 100 Mechanical Ventilator 30 11/25/16 02:00 60 17 93/52 100 Mechanical Ventilator 30 11/25/16 02:00 93/52 11/25/16 01:30 61 17 114/49 100 Mechanical Ventilator 30 11/25/16 01:30 60 21 30 11/25/16 01:00 106/49 11/25/16 01:00 61 17 108/83 100 Mechanical Ventilator 30 11/25/16 00:30 61 17 111/54 100 Mechanical Ventilator 30 11/25/16 00:00 30 11/25/16 00:00 63 11/25/16 00:00 111/54 11/25/16 00:00 98.0 61 17 111/48 100 Mechanical Ventilator 30 11/24/16 23:30 61 17 102/52 100 Mechanical Ventilator 30 11/24/16 23:30 60 20 30 11/24/16 23:00 61 17 110/48 100 Mechanical Ventilator 30 11/24/16 23:00 110/48 11/24/16 22:30 61 17 105/56 100 Mechanical Ventilator 30 11/24/16 22:00 60 17 112/46 100 Mechanical Ventilator 30 11/24/16 22:00 104/48 11/24/16 21:29 60 17 109/50 100 Mechanical Ventilator 30 11/24/16 21:20 60 20 25 11/24/16 21:00 97/53 11/24/16 21:00 60 17 95/53 100 Mechanical Ventilator 30 11/24/16 20:27 60 17 104/52 100 Mechanical Ventilator 30 11/24/16 20:00 97/55 11/24/16 20:00 98.0 61 17 97/55 100 Mechanical Ventilator 30 11/24/16 20:00 61 11/24/16 20:00 30 11/24/16 19:30 66 24 25 11/24/16 19:30 61 17 101/52 100 Mechanical Ventilator 30 11/24/16 19:25 111/50 11/24/16 19:00 61 17 98/56 100 Mechanical Ventilator 30 General Appearance: on vent, patient on isolation Neck: no JVD Cardiovascular: normal rate Respiratory/Chest: lungs clear Abdomen: normal bowel sounds, non tender, soft Extremities: no swelling Intake and Output 11/25/16 11/26/16 19:00 07:00 Intake Total 720 ml Output Total 870 ml Balance -150 ml IV Total 630 ml Tube Feeding 90 ml Output Urine Total 570 ml Stool Total 300 ml # Bowel Movements 5 Laboratory Tests Test 11/25/16 04:30 11/25/16 07:48 11/25/16 17:35 11/25/16 18:00 White Blood Count 29.4 K/UL (4.8-10.8) *H Red Blood Count 2.62 M/UL (4.70-6.10) L Hemoglobin 8.6 G/DL (14.2-18.0) L Hematocrit 25.1 % (42.0-52.0) L Mean Corpuscular Volume 96 FL (80-99) Mean Corpuscular Hemoglobin 33.0 PG (27.0-31.0) H Mean Corpuscular Hemoglobin Concent 34.5 G/DL (32.0-36.0) Red Cell Distribution Width 13.9 % (11.6-14.8) Platelet Count 89 K/UL (150-450) L Mean Platelet Volume 12.5 FL (6.5-10.1) H Neutrophils (%) (Auto) % (45.0-75.0) Lymphocytes (%) (Auto) % (20.0-45.0) Monocytes (%) (Auto) % (1.0-10.0) Eosinophils (%) (Auto) % (0.0-3.0) Basophils (%) (Auto) % (0.0-2.0) Differential Total Cells Counted 100 Neutrophils % (Manual) 95 % (45-75) H Lymphocytes % (Manual) 1 % (20-45) L Monocytes % (Manual) 4 % (1-10) Eosinophils % (Manual) 0 % (0-3) Basophils % (Manual) 0 % (0-2) Band Neutrophils 0 % (0-8) Platelet Estimate Decreased L Platelet Morphology Normal Hypochromasia 1+ Sodium Level 128 MMOL/L (136-145) L Potassium Level 3.2 MMOL/L (3.5-5.1) L Chloride Level 96 MMOL/L (98-107) L Carbon Dioxide Level 19 MMOL/L (21-32) L Anion Gap 13 (5-15) Blood Urea Nitrogen 111 mg/dL (7-18) H Creatinine 3.8 MG/DL (0.55-1.30) H Estimat Glomerular Filtration Rate mL/min (>60) Glucose Level 147 MG/DL (74-106) H Uric Acid 6.9 MG/DL (2.6-7.2) Calcium Level 7.7 MG/DL (8.5-10.1) L Phosphorus Level 6.1 MG/DL (2.5-4.9) H Magnesium Level 2.1 MG/DL (1.8-2.4) Total Bilirubin 0.9 MG/DL (0.2-1.0) Aspartate Amino Transf (AST/SGOT) 8 U/L (15-37) L Alanine Aminotransferase (ALT/SGPT) 13 U/L (12-78) Alkaline Phosphatase 65 U/L (46-116) Troponin I 1.938 ng/mL (0.000-0.056) C-Reactive Protein, Quantitative 8.7 mg/dL (0.00-0.90) H Pro-B-Type Natriuretic Peptide > 82098 (0-125) H Total Protein 4.2 G/DL (6.4-8.2) L Albumin 1.4 G/DL (3.4-5.0) L Globulin 2.8 g/dL Albumin/Globulin Ratio 0.5 (1.0-2.7) L Arterial Blood pH 7.470 (7.350-7.450) Arterial Blood Partial Pressure CO2 23.9 mmHg (35.0-45.0) *L Arterial Blood Partial Pressure O2 94.4 mmHg (75.0-100.0) Arterial Blood HCO3 17.0 mmol/L (22.0-26.0) L Arterial Blood Oxygen Saturation 96.9 % (92.0-98.0) Arterial Blood Base Excess -5.6 Chato Test Positive Urine Random Sodium Pending Stool Occult Blood Pending Microbiology Date/Time Source Procedure Growth Status 11/23/16 18:25 Blood Blood Culture - Preliminary NO GROWTH AFTER 24 HOURS Resulted 11/23/16 18:20 Blood Blood Culture - Preliminary NO GROWTH AFTER 24 HOURS Resulted 11/23/16 20:30 Sputum Gram Stain - Final Resulted 11/23/16 20:30 Sputum Culture - Preliminary Gram Negative Bacillus 1 Resulted 11/23/16 14:00 Urine,Clean Catch Urine Culture - Preliminary NO GROWTH AFTER 24 HOURS Resulted PARAS ROJAS Nov 25, 2016 18:49
[2016-11-25] MEDS: Dyna-Hex 2% Top Sol 2oz TOPIC SCH (20:05)
[2016-11-25] MEDS ORDERED: Epogen (for non ESRD use) SUBQ SCH (21:00)
[2016-11-25] MEDS: Meropenem 500 MG in NS 55 ML IVPB SCH (23:05)
[2016-11-26] VITALS (24 sets, daily range): BP systolic 86–112; BP diastolic 40–56
[2016-11-26] MEDS: NovoLOG Insulin Flexpen SUBQ SCH ×4 (00:27→18:00)
[2016-11-26 07:01] LABS: MEAN CORPUSCULAR HEMOGLOBIN 32.2 PG (27.0-31.0); MEAN CORPUSCULAR HGB CONC 32.9 G/DL (32.0-36.0); MEAN CORPUSCULAR VOLUME 98 FL (80-99); MEAN PLATELET VOLUME 12.9 FL (6.5-10.1); PLATELET COUNT 91 K/UL (150-450); RED BLOOD COUNT 2.74 M/UL (4.70-6.10); RED CELL DISTRIBUTION WIDTH 14.1 % (11.6-14.8)
[2016-11-26 07:12] LABS: ALANINE AMINOTRANSFERASE 13 U/L (12-78); ALBUMIN/GLOBULIN RATIO 0.5 (1.0-2.7); ANION GAP 11 (5-15); ASPARTATE AMINO TRANSFERASE 23 U/L (15-37); CALCIUM 7.7 MG/DL (8.5-10.1); CARBON DIOXIDE 19 MMOL/L (21-32); CHLORIDE 104 MMOL/L (98-107); CRP QUANT 5.4 mg/dL (0.00-0.90); MAGNESIUM 2.1 MG/DL (1.8-2.4); PHOSPHORUS 6.4 MG/DL (2.5-4.9); POTASSIUM 4.3 MMOL/L (3.5-5.1); SODIUM 134 MMOL/L (136-145); TOTAL PROTEIN 4.3 G/DL (6.4-8.2); URIC ACID 7.9 MG/DL (2.6-7.2)
[2016-11-26 07:38] LABS: WHITE BLOOD COUNT 24.8 K/UL (4.8-10.8)
[2016-11-26 09:03] LABS: ABG BASE EXCESS -7.8; ABG PCO2 24.1 mmHg (35.0-45.0)
[2016-11-26 09:04] LABS: ABG ALLEN TEST POSITIVE
[2016-11-26] MEDS: Pantoprazole Inj IVP SCH ×2 (09:19→20:33)
[2016-11-26] MEDS: Dakin's 0.25% (Half Strength) 16oz TOPIC SCH (09:19)
[2016-11-26] MEDS: Aspirin Baby 81mg GT SCH (09:19)
[2016-11-26] MEDS: Heparin 5000 units/ml inj SUBQ SCH ×2 (09:22→20:35)
[2016-11-26 09:29] LABS: BAND NEUTROPHILS % (MANUAL) 0 % (0-8); BASOPHILS % (MANUAL) 0 % (0-2); EOSINOPHILS % (MANUAL) 0 % (0-3); HYPOCHROMASIA 1+; LYMPHOCYTES % (MANUAL) 2 % (20-45); NEUTROPHILS % (MANUAL) 94 % (45-75); PLATELET ESTIMATE DECREASED; PLATELET MORPHOLOGY NORMAL; TOTAL CELLS COUNTED 100
--- NOTE | 2016-11-26 11:44 | Diagnostic Imaging Report ---
Indication: DYSPNEA Technique: One view of the chest Comparison: 11/25/2016 Findings: Bilateral pleural effusions are again demonstrated, stable on the left, increased on the right. Hazy are again noted at both lung bases, stable. Stable satisfactory positions of endotracheal and nasogastric tubes, stable left chest pacemaker there is stable cardiomegaly Impression: Slightly increased right-sided pleural effusion, over one day. Other stable findings as described
[2016-11-26 12:30] LABS: ABG ALLEN TEST POSITIVE; ABG PCO2 25.5 mmHg (35.0-45.0)
--- NOTE | 2016-11-26 12:50 | General Progress Note ---
Assessment/Plan Status: stable Assessment/Plan 1. Septic shock. 2. Acute kidney injury on chronic renal insufficiency. 3. Failure to thrive. 4. Acute myocardial infarction with non-ST elevation myocardial infarction. 5. Sick sinus syndrome, status post pacemaker. 6. Prostate cancer. 7. Diabetes type 2. 8. Hypertension. 9. Benign prostatic hypertrophy. 10. Gout. 11. Severe cardiomyopathy. 12. Alzheimer dementia. 13. Anemia of chronic kidney disease. 14. DNR Plan; add phos binders Tube feeding Mag and K and Phos supplements as needed Pressors- Crowley- per consultants- Poor prognosis- ? transfuse as needed Subjective ROS Limited/Unobtainable: Yes Allergies: Coded Allergies: No Known Allergies (Unverified , 11/20/16) Objective Last 24 Hour Vital Signs Date Time Temp Pulse Resp B/P (MAP) Pulse Ox O2 Delivery O2 Flow Rate FiO2 11/26/16 12:00 66 11/26/16 12:00 30 11/26/16 11:00 65 17 111/47 100 Mechanical Ventilator 30 11/26/16 10:52 100 11/26/16 10:49 64 20 30 11/26/16 10:00 64 17 112/46 100 Mechanical Ventilator 30 11/26/16 09:00 64 17 111/48 100 Mechanical Ventilator 30 11/26/16 08:41 64 22 30 11/26/16 08:00 98.7 65 17 105/56 100 Mechanical Ventilator 30 11/26/16 08:00 30 11/26/16 08:00 63 11/26/16 07:10 60 20 30 11/26/16 07:00 65 18 112/49 100 Mechanical Ventilator 11/26/16 06:00 60 18 112/50 100 Mechanical Ventilator 11/26/16 05:44 64 19 30 11/26/16 05:00 60 18 87/46 100 Mechanical Ventilator 11/26/16 04:00 98.1 64 16 92/56 100 Mechanical Ventilator 30 11/26/16 04:00 30 11/26/16 04:00 65 11/26/16 03:28 60 18 30 11/26/16 03:00 60 22 94/53 100 Mechanical Ventilator 11/26/16 02:00 62 22 99/48 100 Mechanical Ventilator 11/26/16 01:18 63 20 30 11/26/16 01:00 62 22 99/48 100 Mechanical Ventilator 11/26/16 00:00 64 11/26/16 00:00 30 11/26/16 00:00 98.0 65 16 103/47 100 Mechanical Ventilator 30 11/25/16 23:28 60 29 30 11/25/16 23:00 63 22 104/50 100 Mechanical Ventilator 11/25/16 22:00 62 17 101/42 100 Mechanical Ventilator 11/25/16 21:12 62 24 30 11/25/16 21:00 63 15 102/53 100 Mechanical Ventilator 11/25/16 20:00 63 11/25/16 20:00 98.0 64 16 134/58 100 Mechanical Ventilator 30 11/25/16 20:00 30 11/25/16 19:12 63 25 30 11/25/16 19:00 65 16 103/60 100 Mechanical Ventilator 11/25/16 18:30 60 15 96/50 100 Mechanical Ventilator 11/25/16 18:30 96/50 11/25/16 18:00 60 16 68/35 100 Mechanical Ventilator 11/25/16 17:30 64 18 88/46 100 Mechanical Ventilator 11/25/16 17:00 62 15 99/42 100 Mechanical Ventilator 11/25/16 16:56 64 20 30 11/25/16 16:30 62 16 88/48 100 Mechanical Ventilator 11/25/16 16:00 61 16 98/52 100 Mechanical Ventilator 11/25/16 16:00 30 11/25/16 16:00 60 11/25/16 15:49 62 16 Mechanical Ventilator 100 11/25/16 15:30 63 16 101/48 100 Mechanical Ventilator 11/25/16 15:00 62 15 98/47 100 Mechanical Ventilator 11/25/16 14:50 62 20 30 11/25/16 14:30 63 16 95/45 100 Mechanical Ventilator 11/25/16 14:00 62 16 89/33 100 Mechanical Ventilator 11/25/16 13:10 62 26 30 Intake and Output 11/26/16 11/27/16 19:00 07:00 Intake Total 255 ml Output Total 105 ml Balance 150 ml Free Water 30 ml IV Total 35 ml Tube Feeding 150 ml Other 40 ml Output Urine Total 105 ml Laboratory Tests 11/25/16 17:35: Urine Random Sodium < 10L 11/25/16 18:00: Stool Occult Blood [Pending] 11/26/16 05:20: White Blood Count 24.8*H, Red Blood Count 2.74L, Hemoglobin 8.8L, Hematocrit 26.8L, Mean Corpuscular Volume 98, Mean Corpuscular Hemoglobin 32.2H, Mean Corpuscular Hemoglobin Concent 32.9, Red Cell Distribution Width 14.1, Platelet Count 91L, Mean Platelet Volume 12.9H, Neutrophils (%) (Auto) , Lymphocytes (%) (Auto) , Monocytes (%) (Auto) , Eosinophils (%) (Auto) , Basophils (%) (Auto) , Differential Total Cells Counted 100, Neutrophils % (Manual) 94H, Lymphocytes % (Manual) 2L, Monocytes % (Manual) 4, Eosinophils % (Manual) 0, Basophils % ( Manual) 0, Band Neutrophils 0, Platelet Estimate DecreasedL, Platelet Morphology Normal, Hypochromasia 1+, Sodium Level 134L, Potassium Level 4.3, Chloride Level 104, Carbon Dioxide Level 19L, Anion Gap 11, Blood Urea Nitrogen 119H, Creatinine 4.0H, Estimat Glomerular Filtration Rate , Glucose Level 91, Uric Acid 7.9H, Calcium Level 7.7L, Phosphorus Level 6.4H, Magnesium Level 2.1, Total Bilirubin 1.0, Aspartate Amino Transf (AST/SGOT) 23, Alanine Aminotransferase (ALT/SGPT) 13, Alkaline Phosphatase 63, C-Reactive Protein, Quantitative 5.4H, Pro-B-Type Natriuretic Peptide > 61972C, Total Protein 4.3L, Albumin 1.4L, Globulin 2.9, Albumin/Globulin Ratio 0.5L 11/26/16 08:52: Arterial Blood pH 7.420, Arterial Blood Partial Pressure CO2 24.1*L, Arterial Blood Partial Pressure O2 97.4, Arterial Blood HCO3 15.4L, Arterial Blood Oxygen Saturation 97.0, Arterial Blood Base Excess -7.8, Chato Test Positive 11/26/16 12:20: Arterial Blood pH 7.420, Arterial Blood Partial Pressure CO2 25.5L, Arterial Blood Partial Pressure O2 85.9, Arterial Blood HCO3 16.3L, Arterial Blood Oxygen Saturation 96.3, Arterial Blood Base Excess -7.0, Chato Test Positive Height (Feet): 5 Weight (Pounds): 150 Objective no other changes FELECIA RASHID Nov 26, 2016 12:50
--- NOTE | 2016-11-26 13:11 | Pulmonolgy Critical Care Note ---
Critical Care - Asmt/Plan Problems: (1) Acute respiratory failure (2) Septic shock (3) Hyperkalemia (4) Altered mental status (5) Chronic kidney disease (6) HCAP (healthcare-associated pneumonia) (7) Sacral decubitus ulcer, stage IV Respiratory: monitor respiratory rate, adjust FIO2, CXR Cardiac: continue to monitor HR/BP Renal: F/U I&O, keep IV fluid Infectious Disease: check cultures Gastrointestinal: continue feedings/current rate Endocrine: monitor blood sugar, check TSH, check HgA1C, continue sliding scale insulin Hematologic: monitor H/H, transfuse if hgb<8.5 Neurologic: PRN Morphine, keep patient comfortable Affect: PRN ativan 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, 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 Discussed with: nurses, consultants, 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 - Objective Last 24 Hour Vital Signs Date Time Temp Pulse Resp B/P (MAP) Pulse Ox O2 Delivery O2 Flow Rate FiO2 11/26/16 12:45 66 18 30 11/26/16 12:00 66 11/26/16 12:00 30 11/26/16 11:00 65 17 111/47 100 Mechanical Ventilator 30 11/26/16 10:52 100 11/26/16 10:49 64 20 30 11/26/16 10:00 64 17 112/46 100 Mechanical Ventilator 30 11/26/16 09:00 64 17 111/48 100 Mechanical Ventilator 30 11/26/16 08:41 64 22 30 11/26/16 08:00 98.7 65 17 105/56 100 Mechanical Ventilator 30 11/26/16 08:00 30 11/26/16 08:00 63 11/26/16 07:10 60 20 30 11/26/16 07:00 65 18 112/49 100 Mechanical Ventilator 11/26/16 06:00 60 18 112/50 100 Mechanical Ventilator 11/26/16 05:44 64 19 30 11/26/16 05:00 60 18 87/46 100 Mechanical Ventilator 11/26/16 04:00 98.1 64 16 92/56 100 Mechanical Ventilator 30 11/26/16 04:00 30 11/26/16 04:00 65 11/26/16 03:28 60 18 30 11/26/16 03:00 60 22 94/53 100 Mechanical Ventilator 11/26/16 02:00 62 22 99/48 100 Mechanical Ventilator 11/26/16 01:18 63 20 30 11/26/16 01:00 62 22 99/48 100 Mechanical Ventilator 11/26/16 00:00 64 11/26/16 00:00 30 11/26/16 00:00 98.0 65 16 103/47 100 Mechanical Ventilator 30 11/25/16 23:28 60 29 30 11/25/16 23:00 63 22 104/50 100 Mechanical Ventilator 11/25/16 22:00 62 17 101/42 100 Mechanical Ventilator 11/25/16 21:12 62 24 30 11/25/16 21:00 63 15 102/53 100 Mechanical Ventilator 11/25/16 20:00 63 11/25/16 20:00 98.0 64 16 134/58 100 Mechanical Ventilator 30 11/25/16 20:00 30 11/25/16 19:12 63 25 30 11/25/16 19:00 65 16 103/60 100 Mechanical Ventilator 11/25/16 18:30 60 15 96/50 100 Mechanical Ventilator 11/25/16 18:30 96/50 11/25/16 18:00 60 16 68/35 100 Mechanical Ventilator 11/25/16 17:30 64 18 88/46 100 Mechanical Ventilator 11/25/16 17:00 62 15 99/42 100 Mechanical Ventilator 11/25/16 16:56 64 20 30 11/25/16 16:30 62 16 88/48 100 Mechanical Ventilator 11/25/16 16:00 61 16 98/52 100 Mechanical Ventilator 11/25/16 16:00 30 11/25/16 16:00 60 11/25/16 15:49 62 16 Mechanical Ventilator 100 11/25/16 15:30 63 16 101/48 100 Mechanical Ventilator 11/25/16 15:00 62 15 98/47 100 Mechanical Ventilator 11/25/16 14:50 62 20 30 11/25/16 14:30 63 16 95/45 100 Mechanical Ventilator 11/25/16 14:00 62 16 89/33 100 Mechanical Ventilator Status: awake Condition: critical HEENT: atraumatic Lungs: chest wall tender Heart: HR/BP stable, HR/BP unstable Abdomen: soft, non-tender, active bowel sounds Extremities: no C/C/E, edema Decubiti: location Micro: Microbiology Date/Time Source Procedure Growth Status 11/23/16 18:25 Blood Blood Culture - Preliminary NO GROWTH AFTER 48 HOURS Resulted 11/23/16 18:20 Blood Blood Culture - Preliminary NO GROWTH AFTER 48 HOURS Resulted 11/23/16 20:30 Sputum Gram Stain - Final Resulted 11/23/16 20:30 Sputum Culture - Preliminary Stenotrophomonas Maltophilia YEAST Resulted 11/23/16 14:00 Urine,Clean Catch Urine Culture - Final NO GROWTH AFTER 48 HOURS Complete Accucheck: 100 Critical Care - Subjective ICU Day: 6 Intubation Day: 6 Condition: critical FI02: 30 Vent Support Breath Rate: 16 Vent Support Mode: CPAP Vent Tidal Volume: 400 Sputum Amount: Scant PIP: 9 Tube Feeding Amount: 30 I&O: Intake and Output 11/26/16 11/27/16 19:00 07:00 Intake Total 255 ml Output Total 105 ml Balance 150 ml Free Water 30 ml IV Total 35 ml Tube Feeding 150 ml Other 40 ml Output Urine Total 105 ml CXR: increasing right effusion ET-Tube: 7.5 ET Position: 23 Labs: Laboratory Tests Test 11/25/16 17:35 11/25/16 18:00 11/26/16 05:20 11/26/16 08:52 Urine Random Sodium < 10 MEQ/L (20-110) L Stool Occult Blood Negative (NEGATIVE) White Blood Count 24.8 K/UL (4.8-10.8) *H Red Blood Count 2.74 M/UL (4.70-6.10) L Hemoglobin 8.8 G/DL (14.2-18.0) L Hematocrit 26.8 % (42.0-52.0) L Mean Corpuscular Volume 98 FL (80-99) Mean Corpuscular Hemoglobin 32.2 PG (27.0-31.0) H Mean Corpuscular Hemoglobin Concent 32.9 G/DL (32.0-36.0) Red Cell Distribution Width 14.1 % (11.6-14.8) Platelet Count 91 K/UL (150-450) L Mean Platelet Volume 12.9 FL (6.5-10.1) H Neutrophils (%) (Auto) % (45.0-75.0) Lymphocytes (%) (Auto) % (20.0-45.0) Monocytes (%) (Auto) % (1.0-10.0) Eosinophils (%) (Auto) % (0.0-3.0) Basophils (%) (Auto) % (0.0-2.0) Differential Total Cells Counted 100 Neutrophils % (Manual) 94 % (45-75) H Lymphocytes % (Manual) 2 % (20-45) L Monocytes % (Manual) 4 % (1-10) Eosinophils % (Manual) 0 % (0-3) Basophils % (Manual) 0 % (0-2) Band Neutrophils 0 % (0-8) Platelet Estimate Decreased L Platelet Morphology Normal Hypochromasia 1+ Sodium Level 134 MMOL/L (136-145) L Potassium Level 4.3 MMOL/L (3.5-5.1) Chloride Level 104 MMOL/L (98-107) Carbon Dioxide Level 19 MMOL/L (21-32) L Anion Gap 11 (5-15) Blood Urea Nitrogen 119 mg/dL (7-18) H Creatinine 4.0 MG/DL (0.55-1.30) H Estimat Glomerular Filtration Rate mL/min (>60) Glucose Level 91 MG/DL (74-106) Uric Acid 7.9 MG/DL (2.6-7.2) H Calcium Level 7.7 MG/DL (8.5-10.1) L Phosphorus Level 6.4 MG/DL (2.5-4.9) H Magnesium Level 2.1 MG/DL (1.8-2.4) Total Bilirubin 1.0 MG/DL (0.2-1.0) Aspartate Amino Transf (AST/SGOT) 23 U/L (15-37) Alanine Aminotransferase (ALT/SGPT) 13 U/L (12-78) Alkaline Phosphatase 63 U/L (46-116) C-Reactive Protein, Quantitative 5.4 mg/dL (0.00-0.90) H Pro-B-Type Natriuretic Peptide > 89878 (0-125) H Total Protein 4.3 G/DL (6.4-8.2) L Albumin 1.4 G/DL (3.4-5.0) L Globulin 2.9 g/dL Albumin/Globulin Ratio 0.5 (1.0-2.7) L Arterial Blood pH 7.420 (7.350-7.450) Arterial Blood Partial Pressure CO2 24.1 mmHg (35.0-45.0) *L Arterial Blood Partial Pressure O2 97.4 mmHg (75.0-100.0) Arterial Blood HCO3 15.4 mmol/L (22.0-26.0) L Arterial Blood Oxygen Saturation 97.0 % (92.0-98.0) Arterial Blood Base Excess -7.8 Chato Test Positive Test 11/26/16 12:20 Arterial Blood pH 7.420 (7.350-7.450) Arterial Blood Partial Pressure CO2 25.5 mmHg (35.0-45.0) L Arterial Blood Partial Pressure O2 85.9 mmHg (75.0-100.0) Arterial Blood HCO3 16.3 mmol/L (22.0-26.0) L Arterial Blood Oxygen Saturation 96.3 % (92.0-98.0) Arterial Blood Base Excess -7.0 Chato Test Positive SAVANNAH SAWYER Nov 26, 2016 13:11
[2016-11-26] MEDS: Renvela 800mg Pkt NG SCH ×2 (13:34→18:00)
--- NOTE | 2016-11-26 15:51 | Cardiac Electrophysiology PN ---
Assessment/Plan Assessment/Plan 1. Status post pacemaker implantation in 2012. Intermittently V paced. Chest x- ray, dual-chamber pacemaker in the left subclavian area. The family wished not to proceed with a pacemaker generator change despite was told battery was at end of life. 2. Atrial fibrillation, rate is currently controlled off anticoagulation as hemoglobin is only 7. 3. 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 Off of beta-justen and ZELALEM inhibitor in view of his renal failure Per Dr Perez 4. End-stage renal disease. Family decided not to proceed with hemodialysis. 5. Dysphagia. Family refused PEG placement. 6. Prostate cancer status post radiation therapy. 7. History of Graves disease. 8. Hypotension, Resolved. DW Son and RN at bedside. Subjective Subjective Intermittently V Pacing. Was just extubated. In ICU off pressors. Son at bedside. Objective Last 24 Hour Vital Signs Date Time Temp Pulse Resp B/P (MAP) Pulse Ox O2 Delivery O2 Flow Rate FiO2 11/26/16 15:00 60 23 30 11/26/16 14:00 60 20 98/49 100 Mechanical Ventilator 30 11/26/16 13:00 63 18 111/40 100 Mechanical Ventilator 30 11/26/16 12:45 66 18 30 11/26/16 12:00 66 11/26/16 12:00 97.4 65 18 111/45 100 Mechanical Ventilator 30 11/26/16 12:00 30 11/26/16 11:00 65 17 111/47 100 Mechanical Ventilator 30 11/26/16 10:52 100 11/26/16 10:49 64 20 30 11/26/16 10:00 64 17 112/46 100 Mechanical Ventilator 30 11/26/16 09:00 64 17 111/48 100 Mechanical Ventilator 30 11/26/16 08:41 64 22 30 11/26/16 08:00 98.7 65 17 105/56 100 Mechanical Ventilator 30 11/26/16 08:00 30 11/26/16 08:00 63 11/26/16 07:10 60 20 30 11/26/16 07:00 65 18 112/49 100 Mechanical Ventilator 11/26/16 06:00 60 18 112/50 100 Mechanical Ventilator 11/26/16 05:44 64 19 30 11/26/16 05:00 60 18 87/46 100 Mechanical Ventilator 11/26/16 04:00 98.1 64 16 92/56 100 Mechanical Ventilator 30 11/26/16 04:00 30 11/26/16 04:00 65 11/26/16 03:28 60 18 30 11/26/16 03:00 60 22 94/53 100 Mechanical Ventilator 11/26/16 02:00 62 22 99/48 100 Mechanical Ventilator 11/26/16 01:18 63 20 30 11/26/16 01:00 62 22 99/48 100 Mechanical Ventilator 11/26/16 00:00 64 11/26/16 00:00 30 11/26/16 00:00 98.0 65 16 103/47 100 Mechanical Ventilator 30 11/25/16 23:28 60 29 30 11/25/16 23:00 63 22 104/50 100 Mechanical Ventilator 11/25/16 22:00 62 17 101/42 100 Mechanical Ventilator 11/25/16 21:12 62 24 30 11/25/16 21:00 63 15 102/53 100 Mechanical Ventilator 11/25/16 20:00 63 11/25/16 20:00 98.0 64 16 134/58 100 Mechanical Ventilator 30 11/25/16 20:00 30 11/25/16 19:12 63 25 30 11/25/16 19:00 65 16 103/60 100 Mechanical Ventilator 11/25/16 18:30 60 15 96/50 100 Mechanical Ventilator 11/25/16 18:30 96/50 11/25/16 18:00 60 16 68/35 100 Mechanical Ventilator 11/25/16 17:30 64 18 88/46 100 Mechanical Ventilator 11/25/16 17:00 62 15 99/42 100 Mechanical Ventilator 11/25/16 16:56 64 20 30 11/25/16 16:30 62 16 88/48 100 Mechanical Ventilator 11/25/16 16:00 61 16 98/52 100 Mechanical Ventilator 11/25/16 16:00 30 11/25/16 16:00 60 11/25/16 15:49 62 16 Mechanical Ventilator 100 Intake and Output 11/26/16 11/27/16 19:00 07:00 Intake Total 315 ml Output Total 170 ml Balance 145 ml Free Water 30 ml IV Total 35 ml Tube Feeding 210 ml Other 40 ml Output Urine Total 170 ml Laboratory Tests Test 11/25/16 17:35 11/25/16 18:00 11/26/16 05:20 11/26/16 08:52 Urine Random Sodium < 10 MEQ/L (20-110) L Stool Occult Blood Negative (NEGATIVE) White Blood Count 24.8 K/UL (4.8-10.8) *H Red Blood Count 2.74 M/UL (4.70-6.10) L Hemoglobin 8.8 G/DL (14.2-18.0) L Hematocrit 26.8 % (42.0-52.0) L Mean Corpuscular Volume 98 FL (80-99) Mean Corpuscular Hemoglobin 32.2 PG (27.0-31.0) H Mean Corpuscular Hemoglobin Concent 32.9 G/DL (32.0-36.0) Red Cell Distribution Width 14.1 % (11.6-14.8) Platelet Count 91 K/UL (150-450) L Mean Platelet Volume 12.9 FL (6.5-10.1) H Neutrophils (%) (Auto) % (45.0-75.0) Lymphocytes (%) (Auto) % (20.0-45.0) Monocytes (%) (Auto) % (1.0-10.0) Eosinophils (%) (Auto) % (0.0-3.0) Basophils (%) (Auto) % (0.0-2.0) Differential Total Cells Counted 100 Neutrophils % (Manual) 94 % (45-75) H Lymphocytes % (Manual) 2 % (20-45) L Monocytes % (Manual) 4 % (1-10) Eosinophils % (Manual) 0 % (0-3) Basophils % (Manual) 0 % (0-2) Band Neutrophils 0 % (0-8) Platelet Estimate Decreased L Platelet Morphology Normal Hypochromasia 1+ Sodium Level 134 MMOL/L (136-145) L Potassium Level 4.3 MMOL/L (3.5-5.1) Chloride Level 104 MMOL/L (98-107) Carbon Dioxide Level 19 MMOL/L (21-32) L Anion Gap 11 (5-15) Blood Urea Nitrogen 119 mg/dL (7-18) H Creatinine 4.0 MG/DL (0.55-1.30) H Estimat Glomerular Filtration Rate mL/min (>60) Glucose Level 91 MG/DL (74-106) Uric Acid 7.9 MG/DL (2.6-7.2) H Calcium Level 7.7 MG/DL (8.5-10.1) L Phosphorus Level 6.4 MG/DL (2.5-4.9) H Magnesium Level 2.1 MG/DL (1.8-2.4) Total Bilirubin 1.0 MG/DL (0.2-1.0) Aspartate Amino Transf (AST/SGOT) 23 U/L (15-37) Alanine Aminotransferase (ALT/SGPT) 13 U/L (12-78) Alkaline Phosphatase 63 U/L (46-116) C-Reactive Protein, Quantitative 5.4 mg/dL (0.00-0.90) H Pro-B-Type Natriuretic Peptide > 90513 (0-125) H Total Protein 4.3 G/DL (6.4-8.2) L Albumin 1.4 G/DL (3.4-5.0) L Globulin 2.9 g/dL Albumin/Globulin Ratio 0.5 (1.0-2.7) L Arterial Blood pH 7.420 (7.350-7.450) Arterial Blood Partial Pressure CO2 24.1 mmHg (35.0-45.0) *L Arterial Blood Partial Pressure O2 97.4 mmHg (75.0-100.0) Arterial Blood HCO3 15.4 mmol/L (22.0-26.0) L Arterial Blood Oxygen Saturation 97.0 % (92.0-98.0) Arterial Blood Base Excess -7.8 Chato Test Positive Test 11/26/16 12:20 Arterial Blood pH 7.420 (7.350-7.450) Arterial Blood Partial Pressure CO2 25.5 mmHg (35.0-45.0) L Arterial Blood Partial Pressure O2 85.9 mmHg (75.0-100.0) Arterial Blood HCO3 16.3 mmol/L (22.0-26.0) L Arterial Blood Oxygen Saturation 96.3 % (92.0-98.0) Arterial Blood Base Excess -7.0 Chato Test Positive Microbiology Date/Time Source Procedure Growth Status 11/23/16 18:25 Blood Blood Culture - Preliminary NO GROWTH AFTER 48 HOURS Resulted 11/23/16 18:20 Blood Blood Culture - Preliminary NO GROWTH AFTER 48 HOURS Resulted 11/23/16 20:30 Sputum Gram Stain - Final Resulted 11/23/16 20:30 Sputum Culture - Preliminary Stenotrophomonas Maltophilia YEAST Resulted 11/25/16 14:50 Stool Clostridium difficile Toxin Assay - Final Complete Objective HEAD AND NECK: Positive JVDs. LUNGS: Decreased breath sounds. CARDIOVASCULAR: Regular S1 and S2 with no gallop or murmur. ABDOMEN: Soft. EXTREMITIES: 1+ pitting edema. JEREMY BALLARD Nov 26, 2016 15:51
--- NOTE | 2016-11-26 15:56 | Infectious Diseases Prog Note ---
Assessment/Plan Assessment/Plan Abx: Cefepime x1 11/20 IV Vanco 11/20; 11/25- Zoyn 11/20 Amikacin x1 11/21 Linezolid 11/20-11/25 Meropenem 11/20-11/26 Ertapenem 11/26- Levaquin 11/26- Amikacin x1 11/20 Assesment: Septic shock- 2ry to ESBL Proteus UTI and high grade bacteremia and possible MRSA pneumonia; off pressors now -U/a WBC too many to count, nit +, leuk +3, ucx 11/20 >100K ESBL P. mirabilis, 11/21 ucx 10-20K ESBL Proteus (S. Ertapenem); repeat U/a 11/23- pyuria improving , ucx Neg -Bcx 05/19 Proteus mirabilis (S. Zosyn, Ertapenem, Cipro), repeat Bcx 11/23 NTD -Sp cx: MRSA (S. Vancomycin LIZA 1), normal victoria, yeast; repeat sp cx 11/23 +3 S. maltophila ( S. 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 -CXR 11/23 Persistent left basilar opacity. Pneumonia versus atelectasis. -CXR 11/20: Retrocardiac density likely atelectasis or scarring. Pneumonia not entirely excluded. -flu neg Hyperleukocytosis with left shift/bandemia- r/o intrabdominal abscess, empyema; improving -Cdiff 11/25 neg -CT chest/abd/p 11/25: Decubitus changes in the retrocecal/retroperitoneal region. Gas bubbles within the subcutaneous fat and musculature, may represent gas introduced by a decubitus ulcer. However, no definite ulcers visualized, so the possibility of infection with a gas-forming organism should also be considered. Anasarca, with extensive edema of the subcutaneous, mesenteric, and retroperitoneal fat, large bilateral pleural effusions, small to moderate ascites, small pericardial effusion. Compressive atelectasis of much of both lower lobes, due to the large bilateral pleural effusions. Marked cardiomegaly Satisfactory positions of endotracheal and nasogastric tubes. No evidence of small bowel obstruction or acute abdominal process. Hyperattenuating gallbladder contents, likely reflecting milk of calcium bile versus dense sludge. Sacral decubitus ulcer, unsteagable- was previously noticed yellowish exudate, none currently- ?OM -wound cx: ESBL E.coli, ESBL P. mirabilis (both S. to ertapenem), E. fecalis (AMp, Vanc S) Acute respiratory failure, s/p extubation Thrombocytopenia; worsened- likely combination of sepsis and linezolid Lactic acidosis; resolved BJORN/Renal failure; improving -Renal Us: No obvious hydronephrosis.Bilateral renal cysts. Mild apparent increased echogenicity of the kidneys may suggest underlying medical renal disease. 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 -f/u repeat Bcx and sp cx -obtain MRI of the sacrum once clinically stable to rule out underlying osteomyelitis -wound care -Monitor CBC/BMP, temperatures; Monitor WBC and Plt, cr Thank you for this consultation. Will continue to follow along with you. Discussed with RN and pharmacy staff. Subjective Allergies: Coded Allergies: No Known Allergies (Unverified , 11/20/16) Subjective afebrile leukocytosis improving remains of pressors extuabted now Objective Vital Signs Last 24 Hour Vital Signs Date Time Temp Pulse Resp B/P (MAP) Pulse Ox O2 Delivery O2 Flow Rate FiO2 11/26/16 15:00 60 23 30 11/26/16 14:00 60 20 98/49 100 Mechanical Ventilator 30 11/26/16 13:00 63 18 111/40 100 Mechanical Ventilator 30 11/26/16 12:45 66 18 30 11/26/16 12:00 66 11/26/16 12:00 97.4 65 18 111/45 100 Mechanical Ventilator 30 11/26/16 12:00 30 11/26/16 11:00 65 17 111/47 100 Mechanical Ventilator 30 11/26/16 10:52 100 11/26/16 10:49 64 20 30 11/26/16 10:00 64 17 112/46 100 Mechanical Ventilator 30 11/26/16 09:00 64 17 111/48 100 Mechanical Ventilator 30 11/26/16 08:41 64 22 30 11/26/16 08:00 98.7 65 17 105/56 100 Mechanical Ventilator 30 11/26/16 08:00 30 11/26/16 08:00 63 11/26/16 07:10 60 20 30 11/26/16 07:00 65 18 112/49 100 Mechanical Ventilator 11/26/16 06:00 60 18 112/50 100 Mechanical Ventilator 11/26/16 05:44 64 19 30 11/26/16 05:00 60 18 87/46 100 Mechanical Ventilator 11/26/16 04:00 98.1 64 16 92/56 100 Mechanical Ventilator 30 11/26/16 04:00 30 11/26/16 04:00 65 11/26/16 03:28 60 18 30 11/26/16 03:00 60 22 94/53 100 Mechanical Ventilator 11/26/16 02:00 62 22 99/48 100 Mechanical Ventilator 11/26/16 01:18 63 20 30 11/26/16 01:00 62 22 99/48 100 Mechanical Ventilator 11/26/16 00:00 64 11/26/16 00:00 30 11/26/16 00:00 98.0 65 16 103/47 100 Mechanical Ventilator 30 11/25/16 23:28 60 29 30 11/25/16 23:00 63 22 104/50 100 Mechanical Ventilator 11/25/16 22:00 62 17 101/42 100 Mechanical Ventilator 11/25/16 21:12 62 24 30 11/25/16 21:00 63 15 102/53 100 Mechanical Ventilator 11/25/16 20:00 63 11/25/16 20:00 98.0 64 16 134/58 100 Mechanical Ventilator 30 11/25/16 20:00 30 11/25/16 19:12 63 25 30 11/25/16 19:00 65 16 103/60 100 Mechanical Ventilator 11/25/16 18:30 60 15 96/50 100 Mechanical Ventilator 11/25/16 18:30 96/50 11/25/16 18:00 60 16 68/35 100 Mechanical Ventilator 11/25/16 17:30 64 18 88/46 100 Mechanical Ventilator 11/25/16 17:00 62 15 99/42 100 Mechanical Ventilator 11/25/16 16:56 64 20 30 11/25/16 16:30 62 16 88/48 100 Mechanical Ventilator 11/25/16 16:00 61 16 98/52 100 Mechanical Ventilator 11/25/16 16:00 30 11/25/16 16:00 60 11/25/16 15:49 62 16 Mechanical Ventilator 100 Height (Feet): 5 Weight (Pounds): 150 Objective General Appearance: cachetic, thin, Chronically Ill, awake HEENT: ETT in place Respiratory: normal inspection, no respiratory distress, no retraction, no accessory muscle use, no wheezing, other - Bilateral rhonchi Cardiovascular : regular rate, rhythm, no edema Musculoskeletal: sacral ulcer, unstageable, surrounding skin with no erythema, no drainage Neurologic: awake, alert, no focal deficits Skin: normal inspection, normal color, no rash Abd: BS+, S+D, ND Microbiology Date/Time Source Procedure Growth Status 11/23/16 18:25 Blood Blood Culture - Preliminary NO GROWTH AFTER 48 HOURS Resulted 11/23/16 18:20 Blood Blood Culture - Preliminary NO GROWTH AFTER 48 HOURS Resulted 11/23/16 20:30 Sputum Gram Stain - Final Resulted 11/23/16 20:30 Sputum Culture - Preliminary Stenotrophomonas Maltophilia YEAST Resulted 11/25/16 14:50 Stool Clostridium difficile Toxin Assay - Final Complete Laboratory Tests Test 11/25/16 17:35 11/25/16 18:00 11/26/16 05:20 11/26/16 08:52 Urine Random Sodium < 10 MEQ/L (20-110) L Stool Occult Blood Negative (NEGATIVE) White Blood Count 24.8 K/UL (4.8-10.8) *H Red Blood Count 2.74 M/UL (4.70-6.10) L Hemoglobin 8.8 G/DL (14.2-18.0) L Hematocrit 26.8 % (42.0-52.0) L Mean Corpuscular Volume 98 FL (80-99) Mean Corpuscular Hemoglobin 32.2 PG (27.0-31.0) H Mean Corpuscular Hemoglobin Concent 32.9 G/DL (32.0-36.0) Red Cell Distribution Width 14.1 % (11.6-14.8) Platelet Count 91 K/UL (150-450) L Mean Platelet Volume 12.9 FL (6.5-10.1) H Neutrophils (%) (Auto) % (45.0-75.0) Lymphocytes (%) (Auto) % (20.0-45.0) Monocytes (%) (Auto) % (1.0-10.0) Eosinophils (%) (Auto) % (0.0-3.0) Basophils (%) (Auto) % (0.0-2.0) Differential Total Cells Counted 100 Neutrophils % (Manual) 94 % (45-75) H Lymphocytes % (Manual) 2 % (20-45) L Monocytes % (Manual) 4 % (1-10) Eosinophils % (Manual) 0 % (0-3) Basophils % (Manual) 0 % (0-2) Band Neutrophils 0 % (0-8) Platelet Estimate Decreased L Platelet Morphology Normal Hypochromasia 1+ Sodium Level 134 MMOL/L (136-145) L Potassium Level 4.3 MMOL/L (3.5-5.1) Chloride Level 104 MMOL/L (98-107) Carbon Dioxide Level 19 MMOL/L (21-32) L Anion Gap 11 (5-15) Blood Urea Nitrogen 119 mg/dL (7-18) H Creatinine 4.0 MG/DL (0.55-1.30) H Estimat Glomerular Filtration Rate mL/min (>60) Glucose Level 91 MG/DL (74-106) Uric Acid 7.9 MG/DL (2.6-7.2) H Calcium Level 7.7 MG/DL (8.5-10.1) L Phosphorus Level 6.4 MG/DL (2.5-4.9) H Magnesium Level 2.1 MG/DL (1.8-2.4) Total Bilirubin 1.0 MG/DL (0.2-1.0) Aspartate Amino Transf (AST/SGOT) 23 U/L (15-37) Alanine Aminotransferase (ALT/SGPT) 13 U/L (12-78) Alkaline Phosphatase 63 U/L (46-116) C-Reactive Protein, Quantitative 5.4 mg/dL (0.00-0.90) H Pro-B-Type Natriuretic Peptide > 35742 (0-125) H Total Protein 4.3 G/DL (6.4-8.2) L Albumin 1.4 G/DL (3.4-5.0) L Globulin 2.9 g/dL Albumin/Globulin Ratio 0.5 (1.0-2.7) L Arterial Blood pH 7.420 (7.350-7.450) Arterial Blood Partial Pressure CO2 24.1 mmHg (35.0-45.0) *L Arterial Blood Partial Pressure O2 97.4 mmHg (75.0-100.0) Arterial Blood HCO3 15.4 mmol/L (22.0-26.0) L Arterial Blood Oxygen Saturation 97.0 % (92.0-98.0) Arterial Blood Base Excess -7.8 Chato Test Positive Test 11/26/16 12:20 Arterial Blood pH 7.420 (7.350-7.450) Arterial Blood Partial Pressure CO2 25.5 mmHg (35.0-45.0) L Arterial Blood Partial Pressure O2 85.9 mmHg (75.0-100.0) Arterial Blood HCO3 16.3 mmol/L (22.0-26.0) L Arterial Blood Oxygen Saturation 96.3 % (92.0-98.0) Arterial Blood Base Excess -7.0 Chato Test Positive Current Medications Medications (Trade) Dose Ordered Sig/Chasidy Route PRN Reason Start Time Stop Time Status Last Admin Dose Admin Acetaminophen (Tylenol) 650 mg Q4H PRN ORAL fever 11/20/16 18:30 12/20/16 18:29 11/22/16 13:42 Acetaminophen (Tylenol) 650 mg Q4H PRN RECTAL Mild Pain (Pain Scale 1-3) 11/20/16 18:30 12/20/16 18:29 Aspirin (ASA) 81 mg DAILY GT 11/26/16 09:00 12/26/16 08:59 11/26/16 09:19 Chlorhexidine Gluconate (Julissa-Hex 2%) 1 applic DAILY@1999 TOPIC 11/22/16 20:00 12/22/16 19:59 11/25/16 20:05 Dextrose (Dextrose 50%) STAT PRN IV Hypoglycemia 11/20/16 20:15 12/20/16 20:14 Epoetin Isauro (Procrit (for non ESRD use)) 3,000 units MON-WED-FRI SUBQ 11/25/16 21:00 12/25/16 20:59 11/25/16 20:49 Heparin Sodium (Porcine) (Heparin 5000 units/ml) 5,000 units EVERY 12 HOURS SUBQ 11/20/16 21:00 12/20/16 20:59 11/26/16 09:22 Insulin Aspart (NovoLOG) EVERY 6 HOURS SUBQ 11/21/16 00:00 12/21/16 00:00 11/26/16 00:27 Lorazepam (Ativan 2mg/ml 1ml) 2 mg EVERY 2 HOURS PRN IV For Anxiety 11/20/16 18:30 11/27/16 18:29 Meropenem 500 mg/ Sodium Chloride 55 ml @ 110 mls/hr Q24H IVPB 11/20/16 23:00 12/03/16 23:59 11/25/16 23:05 Midodrine (Pro-Amatine) 2.5 mg THREE TIMES A DAY NG 11/26/16 13:30 12/26/16 13:29 11/26/16 13:34 Norepinephrine Bitartrate 4 mg/ Dextrose 254 ml @ 0 mls/hr Q24H IV 11/20/16 18:30 12/20/16 18:29 11/24/16 19:25 Ondansetron HCl (Zofran ODT) 4 mg Q6H PRN ORAL Nausea & Vomiting 11/20/16 18:30 12/20/16 18:29 Pantoprazole (Protonix) 40 mg EVERY 12 HOURS IVP 11/23/16 09:00 12/23/16 08:59 11/26/16 09:19 Polyethylene Glycol (Miralax) 17 gm DAILYPRN PRN ORAL Constipation 11/20/16 18:30 12/20/16 18:29 Sevelamer Carbonate (Renvela) 800 mg THREE TIMES A DAY NG 11/26/16 13:30 12/26/16 13:29 11/26/16 13:34 Sodium Hypochlorite (Dakin's Half Strength) 1 applic DAILY TOPIC 11/24/16 09:00 12/24/16 08:59 11/26/16 09:19 Vancomycin HCl (Vanco rx to dose) 1 ea DAILY PRN MISC Per rx protocol 11/25/16 20:00 12/25/16 19:59 Lindsey Willis M.D. Nov 26, 2016 15:56
--- NOTE | 2016-11-26 16:25 | Internal Med Progress Note ---
Subjective Date of Service: Nov 26, 2016 Physician Name Taniya Pina Attending Physician Teddy Quezada MD Current Medications Medications (Trade) Dose Ordered Sig/Chasidy Route PRN Reason Start Time Stop Time Status Last Admin Dose Admin Acetaminophen (Tylenol) 650 mg Q4H PRN ORAL fever 11/20/16 18:30 12/20/16 18:29 11/22/16 13:42 Acetaminophen (Tylenol) 650 mg Q4H PRN RECTAL Mild Pain (Pain Scale 1-3) 11/20/16 18:30 12/20/16 18:29 Aspirin (ASA) 81 mg DAILY GT 11/26/16 09:00 12/26/16 08:59 11/26/16 09:19 Chlorhexidine Gluconate (Julissa-Hex 2%) 1 applic DAILY@1999 TOPIC 11/22/16 20:00 12/22/16 19:59 11/25/16 20:05 Dextrose (Dextrose 50%) STAT PRN IV Hypoglycemia 11/20/16 20:15 12/20/16 20:14 Epoetin Isauro (Procrit (for non ESRD use)) 3,000 units WED-WED-WED SUBQ 11/25/16 21:00 12/25/16 20:59 11/25/16 20:49 Ertapenem 0.5 gm/ Sodium Chloride 55 ml @ 110 mls/hr Q24H IVPB 11/26/16 23:00 12/01/16 22:59 Heparin Sodium (Porcine) (Heparin 5000 units/ml) 5,000 units EVERY 12 HOURS SUBQ 11/20/16 21:00 12/20/16 20:59 11/26/16 09:22 Insulin Aspart (NovoLOG) EVERY 6 HOURS SUBQ 11/21/16 00:00 12/21/16 00:00 11/26/16 00:27 Levofloxacin (Levaquin) 500 mg EVERY OTHER DAY NG 11/26/16 16:00 12/03/16 15:59 UNV Lorazepam (Ativan 2mg/ml 1ml) 2 mg EVERY 2 HOURS PRN IV For Anxiety 11/20/16 18:30 11/27/16 18:29 Midodrine (Pro-Amatine) 2.5 mg THREE TIMES A DAY NG 11/26/16 13:30 12/26/16 13:29 11/26/16 13:34 Norepinephrine Bitartrate 4 mg/ Dextrose 254 ml @ 0 mls/hr Q24H IV 11/20/16 18:30 12/20/16 18:29 11/24/16 19:25 Pantoprazole (Protonix) 40 mg EVERY 12 HOURS IVP 11/23/16 09:00 12/23/16 08:59 11/26/16 09:19 Polyethylene Glycol (Miralax) 17 gm DAILYPRN PRN ORAL Constipation 11/20/16 18:30 12/20/16 18:29 Sevelamer Carbonate (Renvela) 800 mg THREE TIMES A DAY NG 11/26/16 13:30 12/26/16 13:29 11/26/16 13:34 Sodium Hypochlorite (Dakin's Half Strength) 1 applic DAILY TOPIC 11/24/16 09:00 12/24/16 08:59 11/26/16 09:19 Vancomycin HCl (Vanco rx to dose) 1 ea DAILY PRN MISC Per rx protocol 11/25/16 20:00 12/25/16 19:59 Allergies: Coded Allergies: No Known Allergies (Unverified , 11/20/16) ROS Limited/Unobtainable: Yes Subjective 86 YO M admitted with respiratory failure and sepsis. Continues on levophed. Cover for Int Med-Dr Quezada . ICU. Intubated and sedated. Await CT abd/pelvis today Objective Last Vital Signs Date Time Temp Pulse Resp B/P (MAP) Pulse Ox O2 Delivery O2 Flow Rate FiO2 11/26/16 16:00 60 11/26/16 16:00 4.0 11/26/16 16:00 98.1 19 92/48 100 Mechanical Ventilator 30 Laboratory Tests Test 11/25/16 17:35 11/25/16 18:00 11/26/16 05:20 11/26/16 08:52 Urine Random Sodium < 10 MEQ/L (20-110) L Stool Occult Blood Negative (NEGATIVE) White Blood Count 24.8 K/UL (4.8-10.8) *H Red Blood Count 2.74 M/UL (4.70-6.10) L Hemoglobin 8.8 G/DL (14.2-18.0) L Hematocrit 26.8 % (42.0-52.0) L Mean Corpuscular Volume 98 FL (80-99) Mean Corpuscular Hemoglobin 32.2 PG (27.0-31.0) H Mean Corpuscular Hemoglobin Concent 32.9 G/DL (32.0-36.0) Red Cell Distribution Width 14.1 % (11.6-14.8) Platelet Count 91 K/UL (150-450) L Mean Platelet Volume 12.9 FL (6.5-10.1) H Neutrophils (%) (Auto) % (45.0-75.0) Lymphocytes (%) (Auto) % (20.0-45.0) Monocytes (%) (Auto) % (1.0-10.0) Eosinophils (%) (Auto) % (0.0-3.0) Basophils (%) (Auto) % (0.0-2.0) Differential Total Cells Counted 100 Neutrophils % (Manual) 94 % (45-75) H Lymphocytes % (Manual) 2 % (20-45) L Monocytes % (Manual) 4 % (1-10) Eosinophils % (Manual) 0 % (0-3) Basophils % (Manual) 0 % (0-2) Band Neutrophils 0 % (0-8) Platelet Estimate Decreased L Platelet Morphology Normal Hypochromasia 1+ Sodium Level 134 MMOL/L (136-145) L Potassium Level 4.3 MMOL/L (3.5-5.1) Chloride Level 104 MMOL/L (98-107) Carbon Dioxide Level 19 MMOL/L (21-32) L Anion Gap 11 (5-15) Blood Urea Nitrogen 119 mg/dL (7-18) H Creatinine 4.0 MG/DL (0.55-1.30) H Estimat Glomerular Filtration Rate mL/min (>60) Glucose Level 91 MG/DL (74-106) Uric Acid 7.9 MG/DL (2.6-7.2) H Calcium Level 7.7 MG/DL (8.5-10.1) L Phosphorus Level 6.4 MG/DL (2.5-4.9) H Magnesium Level 2.1 MG/DL (1.8-2.4) Total Bilirubin 1.0 MG/DL (0.2-1.0) Aspartate Amino Transf (AST/SGOT) 23 U/L (15-37) Alanine Aminotransferase (ALT/SGPT) 13 U/L (12-78) Alkaline Phosphatase 63 U/L (46-116) C-Reactive Protein, Quantitative 5.4 mg/dL (0.00-0.90) H Pro-B-Type Natriuretic Peptide > 22875 (0-125) H Total Protein 4.3 G/DL (6.4-8.2) L Albumin 1.4 G/DL (3.4-5.0) L Globulin 2.9 g/dL Albumin/Globulin Ratio 0.5 (1.0-2.7) L Arterial Blood pH 7.420 (7.350-7.450) Arterial Blood Partial Pressure CO2 24.1 mmHg (35.0-45.0) *L Arterial Blood Partial Pressure O2 97.4 mmHg (75.0-100.0) Arterial Blood HCO3 15.4 mmol/L (22.0-26.0) L Arterial Blood Oxygen Saturation 97.0 % (92.0-98.0) Arterial Blood Base Excess -7.8 Chato Test Positive Test 11/26/16 12:20 Arterial Blood pH 7.420 (7.350-7.450) Arterial Blood Partial Pressure CO2 25.5 mmHg (35.0-45.0) L Arterial Blood Partial Pressure O2 85.9 mmHg (75.0-100.0) Arterial Blood HCO3 16.3 mmol/L (22.0-26.0) L Arterial Blood Oxygen Saturation 96.3 % (92.0-98.0) Arterial Blood Base Excess -7.0 Chato Test Positive Microbiology Date/Time Source Procedure Growth Status 11/23/16 18:25 Blood Blood Culture - Preliminary NO GROWTH AFTER 48 HOURS Resulted 11/23/16 18:20 Blood Blood Culture - Preliminary NO GROWTH AFTER 48 HOURS Resulted 11/23/16 20:30 Sputum Gram Stain - Final Resulted 11/23/16 20:30 Sputum Culture - Preliminary Stenotrophomonas Maltophilia YEAST Resulted 11/25/16 14:50 Stool Clostridium difficile Toxin Assay - Final Complete Intake and Output 11/26/16 11/27/16 19:00 07:00 Intake Total 375 ml Output Total 235 ml Balance 140 ml Free Water 30 ml IV Total 35 ml Tube Feeding 270 ml Other 40 ml Output Urine Total 235 ml Objective General Appearance: WD/WN, lethargic EENT: normal ENT inspection, other - oral intubation Neck: non-tender, normal alignment, supple Cardiovascular: normal peripheral pulses, normal rate, regular rhythm, no gallop/murmur, no JVD Respiratory/Chest: Mech vent; respiratory distress, crackles/rales, rhonchi - bilaterally, expiratory wheezing Abdomen: normal bowel sounds, non tender, soft, no organomegaly, no mass Skin: normal pigmentation, warm/dry Assessment/Plan Problem List: (1) Sepsis Assessment & Plan: ESBL Proteus Mirabilis. See ID note-Cont meropenem (2) UTI (urinary tract infection) Assessment & Plan: ESBL Proteus mirabilis. Follow Inf Dis recs-Cont Meropenem (3) Pneumonia Assessment & Plan: Staph aureus. Continue vanco and merpoenem per ID (4) Respiratory failure Assessment & Plan: See pulmonary note. Cont mech vent per pulmonary (5) Hypotension Assessment & Plan: Due to sepsis. On levophed (6) Renal failure Assessment & Plan: See nephrology note. (7) Diabetes mellitus, type II Assessment & Plan: Cont novolog sliding scale. (8) HTN (hypertension) Assessment & Plan: Currently hypotensive (9) CHF (congestive heart failure) (10) Cardiomyopathy, ischemic (11) Prostate cancer (12) Sick sinus syndrome Assessment & Plan: S/P pacemaker (13) Pacemaker (14) Anemia of renal disease (15) Alzheimer's dementia (16) Septic shock (17) Lactic acid acidosis (18) Altered mental status (19) NSTEMI (non-ST elevated myocardial infarction) (20) Hyponatremia Assessment & Plan: See nephrology note. (21) Decubitus ulcer of sacral region, stage 3 Assessment & Plan: See plastic surg note-unstable for debridement. TANIYA PINA Nov 26, 2016 16:25
[2016-11-26] MEDS ORDERED: Levofloxacin 500mg tab NG ONE (17:00)
[2016-11-26] MEDS: D5NS 1,000 ML IV SCH (17:23)
--- NOTE | 2016-11-26 17:58 | Cardiology Progress Note ---
Assessment/Plan Assessment/Plan nstemi trop 11 peak so far non flow limiting cad by cath / Lm 20% 02/2015 cath [facility] atrial fibrillation new cm ef % septic shock bacteria gnr renal insuf anemia ob neg stool respriatory failure acute ams ptawake prognosis poor overall dnr extubated had ogt will give low dose Ecotrin iv abs now off pressor boyut bp at time low d/w rn to resume if map less than 60 tele afib v paced personally reviewed cr stable hgb stable cxr personally reviewed no family at bedside Subjective ROS Limited/Unobtainable: Yes Subjective on vent rsponsive now but nto communicative Objective Last 24 Hour Vital Signs Date Time Temp Pulse Resp B/P (MAP) Pulse Ox O2 Delivery O2 Flow Rate FiO2 11/26/16 16:00 60 11/26/16 16:00 4.0 11/26/16 16:00 98.1 62 19 92/48 100 Nasal Cannula 4.0 11/26/16 15:30 99 Nasal Cannula 4.0 11/26/16 15:30 Nasal Cannula 2.5 11/26/16 15:30 Nasal Cannula 4.0 11/26/16 15:00 60 23 30 11/26/16 15:00 60 20 86/49 100 Mechanical Ventilator 30 11/26/16 14:00 60 20 98/49 100 Mechanical Ventilator 30 11/26/16 13:00 63 18 111/40 100 Mechanical Ventilator 30 11/26/16 12:45 66 18 30 11/26/16 12:00 66 11/26/16 12:00 97.4 65 18 111/45 100 Mechanical Ventilator 30 11/26/16 12:00 30 11/26/16 11:00 65 17 111/47 100 Mechanical Ventilator 30 11/26/16 10:52 100 11/26/16 10:49 64 20 30 11/26/16 10:00 64 17 112/46 100 Mechanical Ventilator 30 11/26/16 09:00 64 17 111/48 100 Mechanical Ventilator 30 11/26/16 08:41 64 22 30 11/26/16 08:00 98.7 65 17 105/56 100 Mechanical Ventilator 30 11/26/16 08:00 30 11/26/16 08:00 63 11/26/16 07:10 60 20 30 11/26/16 07:00 65 18 112/49 100 Mechanical Ventilator 11/26/16 06:00 60 18 112/50 100 Mechanical Ventilator 11/26/16 05:44 64 19 30 11/26/16 05:00 60 18 87/46 100 Mechanical Ventilator 11/26/16 04:00 98.1 64 16 92/56 100 Mechanical Ventilator 30 11/26/16 04:00 30 11/26/16 04:00 65 11/26/16 03:28 60 18 30 11/26/16 03:00 60 22 94/53 100 Mechanical Ventilator 11/26/16 02:00 62 22 99/48 100 Mechanical Ventilator 11/26/16 01:18 63 20 30 11/26/16 01:00 62 22 99/48 100 Mechanical Ventilator 11/26/16 00:00 64 11/26/16 00:00 30 11/26/16 00:00 98.0 65 16 103/47 100 Mechanical Ventilator 30 11/25/16 23:28 60 29 30 11/25/16 23:00 63 22 104/50 100 Mechanical Ventilator 11/25/16 22:00 62 17 101/42 100 Mechanical Ventilator 11/25/16 21:12 62 24 30 11/25/16 21:00 63 15 102/53 100 Mechanical Ventilator 11/25/16 20:00 63 11/25/16 20:00 98.0 64 16 134/58 100 Mechanical Ventilator 30 11/25/16 20:00 30 11/25/16 19:12 63 25 30 11/25/16 19:00 65 16 103/60 100 Mechanical Ventilator 11/25/16 18:30 60 15 96/50 100 Mechanical Ventilator 11/25/16 18:30 96/50 11/25/16 18:00 60 16 68/35 100 Mechanical Ventilator General Appearance: alert Neck: no JVD Cardiovascular: normal rate, regular rhythm Respiratory/Chest: decreased breath sounds Abdomen: normal bowel sounds, non tender, soft Extremities: trace edema Intake and Output 11/26/16 11/27/16 19:00 07:00 Intake Total 375 ml Output Total 235 ml Balance 140 ml Free Water 30 ml IV Total 35 ml Tube Feeding 270 ml Other 40 ml Output Urine Total 235 ml Laboratory Tests Test 11/25/16 18:00 11/26/16 05:20 11/26/16 08:52 11/26/16 12:20 Stool Occult Blood Negative (NEGATIVE) White Blood Count 24.8 K/UL (4.8-10.8) *H Red Blood Count 2.74 M/UL (4.70-6.10) L Hemoglobin 8.8 G/DL (14.2-18.0) L Hematocrit 26.8 % (42.0-52.0) L Mean Corpuscular Volume 98 FL (80-99) Mean Corpuscular Hemoglobin 32.2 PG (27.0-31.0) H Mean Corpuscular Hemoglobin Concent 32.9 G/DL (32.0-36.0) Red Cell Distribution Width 14.1 % (11.6-14.8) Platelet Count 91 K/UL (150-450) L Mean Platelet Volume 12.9 FL (6.5-10.1) H Neutrophils (%) (Auto) % (45.0-75.0) Lymphocytes (%) (Auto) % (20.0-45.0) Monocytes (%) (Auto) % (1.0-10.0) Eosinophils (%) (Auto) % (0.0-3.0) Basophils (%) (Auto) % (0.0-2.0) Differential Total Cells Counted 100 Neutrophils % (Manual) 94 % (45-75) H Lymphocytes % (Manual) 2 % (20-45) L Monocytes % (Manual) 4 % (1-10) Eosinophils % (Manual) 0 % (0-3) Basophils % (Manual) 0 % (0-2) Band Neutrophils 0 % (0-8) Platelet Estimate Decreased L Platelet Morphology Normal Hypochromasia 1+ Sodium Level 134 MMOL/L (136-145) L Potassium Level 4.3 MMOL/L (3.5-5.1) Chloride Level 104 MMOL/L (98-107) Carbon Dioxide Level 19 MMOL/L (21-32) L Anion Gap 11 (5-15) Blood Urea Nitrogen 119 mg/dL (7-18) H Creatinine 4.0 MG/DL (0.55-1.30) H Estimat Glomerular Filtration Rate mL/min (>60) Glucose Level 91 MG/DL (74-106) Uric Acid 7.9 MG/DL (2.6-7.2) H Calcium Level 7.7 MG/DL (8.5-10.1) L Phosphorus Level 6.4 MG/DL (2.5-4.9) H Magnesium Level 2.1 MG/DL (1.8-2.4) Total Bilirubin 1.0 MG/DL (0.2-1.0) Aspartate Amino Transf (AST/SGOT) 23 U/L (15-37) Alanine Aminotransferase (ALT/SGPT) 13 U/L (12-78) Alkaline Phosphatase 63 U/L (46-116) C-Reactive Protein, Quantitative 5.4 mg/dL (0.00-0.90) H Pro-B-Type Natriuretic Peptide > 59335 (0-125) H Total Protein 4.3 G/DL (6.4-8.2) L Albumin 1.4 G/DL (3.4-5.0) L Globulin 2.9 g/dL Albumin/Globulin Ratio 0.5 (1.0-2.7) L Arterial Blood pH 7.420 (7.350-7.450) 7.420 (7.350-7.450) Arterial Blood Partial Pressure CO2 24.1 mmHg (35.0-45.0) *L 25.5 mmHg (35.0-45.0) L Arterial Blood Partial Pressure O2 97.4 mmHg (75.0-100.0) 85.9 mmHg (75.0-100.0) Arterial Blood HCO3 15.4 mmol/L (22.0-26.0) L 16.3 mmol/L (22.0-26.0) L Arterial Blood Oxygen Saturation 97.0 % (92.0-98.0) 96.3 % (92.0-98.0) Arterial Blood Base Excess -7.8 -7.0 Chato Test Positive Positive Microbiology Date/Time Source Procedure Growth Status 11/23/16 18:25 Blood Blood Culture - Preliminary NO GROWTH AFTER 48 HOURS Resulted 11/23/16 18:20 Blood Blood Culture - Preliminary NO GROWTH AFTER 48 HOURS Resulted 11/23/16 20:30 Sputum Gram Stain - Final Resulted 11/23/16 20:30 Sputum Culture - Preliminary Stenotrophomonas Maltophilia YEAST Resulted 11/25/16 14:50 Stool Clostridium difficile Toxin Assay - Final Complete PARAS ROJAS Nov 26, 2016 17:58
[2016-11-26] MEDS: Dyna-Hex 2% Top Sol 2oz TOPIC SCH (20:33)
[2016-11-26] MEDS ORDERED: Ertapenem 0.5 GM in NS 55 ML IVPB SCH (23:00)
[2016-11-27] VITALS (21 sets, daily range): BP systolic 94–134; BP diastolic 44–90
[2016-11-27] MEDS: NovoLOG Insulin Flexpen SUBQ SCH ×4 (06:00→18:00)
[2016-11-27 06:15] LABS: MEAN CORPUSCULAR HEMOGLOBIN 32.2 PG (27.0-31.0); MEAN CORPUSCULAR VOLUME 98 FL (80-99); MEAN PLATELET VOLUME 12.8 FL (6.5-10.1); PLATELET COUNT 73 K/UL (150-450); RED BLOOD COUNT 2.56 M/UL (4.70-6.10); RED CELL DISTRIBUTION WIDTH 14.1 % (11.6-14.8)
[2016-11-27 06:29] LABS: ALANINE AMINOTRANSFERASE 13 U/L (12-78); ALBUMIN/GLOBULIN RATIO 0.6 (1.0-2.7); ANION GAP 13 (5-15); ASPARTATE AMINO TRANSFERASE 10 U/L (15-37); CALCIUM 7.8 MG/DL (8.5-10.1); CARBON DIOXIDE 18 MMOL/L (21-32); CHLORIDE 107 MMOL/L (98-107); CREATININE 4.1 MG/DL (0.55-1.30); FERRITIN 680 NG/ML (8-388); POTASSIUM 3.2 MMOL/L (3.5-5.1); SODIUM 138 MMOL/L (136-145); TOTAL PROTEIN 4.2 G/DL (6.4-8.2)
[2016-11-27 08:25] LABS: ABG ALLEN TEST POSITIVE; ABG PCO2 23.9 mmHg (35.0-45.0)
[2016-11-27 08:57] LABS: BAND NEUTROPHILS % (MANUAL) 4 % (0-8); LYMPHOCYTES % (MANUAL) 2 % (20-45); NEUTROPHILS % (MANUAL) 93 % (45-75); TOTAL CELLS COUNTED 100
[2016-11-27 08:58] LABS: ACANTHOCYTES 1+; BASOPHILS % (MANUAL) 0 % (0-2); EOSINOPHILS % (MANUAL) 0 % (0-3); HYPOCHROMASIA 1+; OVALOCYTES 1+; PLATELET ESTIMATE DECREASED; PLATELET MORPHOLOGY NORMAL; SCHISTOCYTES 1+; TEAR DROP CELLS 1+
[2016-11-27] MEDS: Aspirin Baby 81mg GT SCH (09:00)
[2016-11-27] MEDS: Renvela 800mg Pkt NG SCH ×3 (09:00→18:00)
[2016-11-27] MEDS: Heparin 5000 units/ml inj SUBQ SCH (09:00)
[2016-11-27 09:25] LABS: CRP QUANT 6.2 mg/dL (0.00-0.90); MAGNESIUM 2.1 MG/DL (1.8-2.4); PHOSPHORUS 6.2 MG/DL (2.5-4.9); URIC ACID 8.6 MG/DL (2.6-7.2)
--- NOTE | 2016-11-27 09:44 | Pulmonolgy Critical Care Note ---
Critical Care - Asmt/Plan Problems: (1) Acute respiratory failure (2) Septic shock (3) Hyperkalemia (4) Altered mental status (5) Chronic kidney disease (6) HCAP (healthcare-associated pneumonia) (7) Sacral decubitus ulcer, stage IV Respiratory: monitor respiratory rate, adjust FIO2 Cardiac: continue to monitor HR/BP Renal: F/U I&O, keep IV fluid Infectious Disease: continue antibiotics Gastrointestinal: continue feedings/current rate Endocrine: monitor blood sugar, check TSH, continue sliding scale insulin Hematologic: transfuse if hgb<8.5 Neurologic: PRN Ativan, PRN Morphine, keep patient comfortable Affect: PRN ativan Notes Reviewed: cardio, renal Discussed with: nurses, consultants, 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 - Objective Last 24 Hour Vital Signs Date Time Temp Pulse Resp B/P (MAP) Pulse Ox O2 Delivery O2 Flow Rate FiO2 11/27/16 08:00 63 11/27/16 06:00 60 16 122/60 97 Nasal Cannula 3.0 11/27/16 05:00 60 19 134/90 100 Nasal Cannula 3.0 11/27/16 04:00 97.8 60 17 110/52 100 Nasal Cannula 3.0 11/27/16 04:00 60 11/27/16 03:00 63 18 114/52 100 Nasal Cannula 3.0 11/27/16 02:00 63 18 94/44 100 Nasal Cannula 3.0 11/27/16 01:00 74 18 116/45 98 Nasal Cannula 3.0 11/27/16 00:00 97.6 62 19 108/54 100 Nasal Cannula 4.0 11/27/16 00:00 60 11/26/16 23:00 63 18 100/49 100 Nasal Cannula 4.0 11/26/16 22:00 62 18 97/49 100 Nasal Cannula 4.0 11/26/16 21:00 64 18 103/49 100 Nasal Cannula 4.0 11/26/16 20:00 60 19 108/51 100 Nasal Cannula 4.0 11/26/16 20:00 60 11/26/16 19:41 Nasal Cannula 4.0 11/26/16 19:41 98 Nasal Cannula 4.0 11/26/16 19:00 97.8 62 19 100/44 100 Nasal Cannula 4.0 11/26/16 18:30 108/51 11/26/16 18:00 62 19 101/44 100 Mechanical Ventilator 4.0 11/26/16 17:00 62 19 105/55 100 Nasal Cannula 4.0 11/26/16 16:00 60 11/26/16 16:00 4.0 11/26/16 16:00 98.1 62 19 92/48 100 Nasal Cannula 4.0 11/26/16 15:30 99 Nasal Cannula 4.0 11/26/16 15:30 Nasal Cannula 2.5 11/26/16 15:30 Nasal Cannula 4.0 11/26/16 15:00 60 23 30 11/26/16 15:00 60 20 86/49 100 Mechanical Ventilator 30 11/26/16 14:00 60 20 98/49 100 Mechanical Ventilator 30 11/26/16 13:00 63 18 111/40 100 Mechanical Ventilator 30 11/26/16 12:45 66 18 30 11/26/16 12:00 66 11/26/16 12:00 97.4 65 18 111/45 100 Mechanical Ventilator 30 11/26/16 12:00 30 11/26/16 11:00 65 17 111/47 100 Mechanical Ventilator 30 11/26/16 10:52 100 11/26/16 10:49 64 20 30 11/26/16 10:00 64 17 112/46 100 Mechanical Ventilator 30 Status: sedated Condition: critical Lungs: clear Heart: HR/BP stable, regular Abdomen: non-tender, active bowel sounds Extremities: edema Decubiti: location Micro: Microbiology Date/Time Source Procedure Growth Status 11/25/16 14:50 Stool Clostridium difficile Toxin Assay - Final Complete Accucheck: 87 Critical Care - Subjective ROS Limited/Unobtainable: No ICU Day: 7 Intubation Day: 7 Condition: critical EKG Rhythm: Sinus Rhythm Vent Support Breath Rate: 16 Vent Support Mode: CPAP Vent Tidal Volume: 400 Sputum Amount: Moderate PIP: 9 Fluids: d5 50 cc/hour Tube Feeding Amount: 30 CXR: no change ET-Tube: 7.5 ET Position: 23 Labs: Laboratory Tests Test 11/26/16 12:20 11/26/16 20:30 11/27/16 04:30 11/27/16 08:14 Arterial Blood pH 7.420 (7.350-7.450) 7.420 (7.350-7.450) Arterial Blood Partial Pressure CO2 25.5 mmHg (35.0-45.0) L 23.9 mmHg (35.0-45.0) *L Arterial Blood Partial Pressure O2 85.9 mmHg (75.0-100.0) 128.3 mmHg (75.0-100.0) H Arterial Blood HCO3 16.3 mmol/L (22.0-26.0) L 15.2 mmol/L (22.0-26.0) L Arterial Blood Oxygen Saturation 96.3 % (92.0-98.0) 98.2 % (92.0-98.0) H Arterial Blood Base Excess -7.0 -8.0 Chato Test Positive Positive Random Vancomycin Level 14.5 ug/mL White Blood Count 20.0 K/UL (4.8-10.8) H Red Blood Count 2.56 M/UL (4.70-6.10) L Hemoglobin 8.2 G/DL (14.2-18.0) L Hematocrit 25.0 % (42.0-52.0) L Mean Corpuscular Volume 98 FL (80-99) Mean Corpuscular Hemoglobin 32.2 PG (27.0-31.0) H Mean Corpuscular Hemoglobin Concent 33.0 G/DL (32.0-36.0) Red Cell Distribution Width 14.1 % (11.6-14.8) Platelet Count 73 K/UL (150-450) L Mean Platelet Volume 12.8 FL (6.5-10.1) H Neutrophils (%) (Auto) % (45.0-75.0) Lymphocytes (%) (Auto) % (20.0-45.0) Monocytes (%) (Auto) % (1.0-10.0) Eosinophils (%) (Auto) % (0.0-3.0) Basophils (%) (Auto) % (0.0-2.0) Differential Total Cells Counted 100 Neutrophils % (Manual) 93 % (45-75) H Lymphocytes % (Manual) 2 % (20-45) L Monocytes % (Manual) 1 % (1-10) Eosinophils % (Manual) 0 % (0-3) Basophils % (Manual) 0 % (0-2) Band Neutrophils 4 % (0-8) Platelet Estimate Decreased L Platelet Morphology Normal Hypochromasia 1+ Tear Drop Cells 1+ Ovalocytes 1+ Acanthocytes 1+ Schistocytes 1+ Sodium Level 138 MMOL/L (136-145) Potassium Level 3.2 MMOL/L (3.5-5.1) L Chloride Level 107 MMOL/L (98-107) Carbon Dioxide Level 18 MMOL/L (21-32) L Anion Gap 13 (5-15) Blood Urea Nitrogen 123 mg/dL (7-18) H Creatinine 4.1 MG/DL (0.55-1.30) H Estimat Glomerular Filtration Rate mL/min (>60) Glucose Level 87 MG/DL (74-106) Uric Acid 8.6 MG/DL (2.6-7.2) H Calcium Level 7.8 MG/DL (8.5-10.1) L Phosphorus Level 6.2 MG/DL (2.5-4.9) H Magnesium Level 2.1 MG/DL (1.8-2.4) Ferritin 680 NG/ML (8-388) H Total Bilirubin 1.0 MG/DL (0.2-1.0) Gamma Glutamyl Transpeptidase 14 U/L (5-85) Aspartate Amino Transf (AST/SGOT) 10 U/L (15-37) L Alanine Aminotransferase (ALT/SGPT) 13 U/L (12-78) Alkaline Phosphatase 58 U/L (46-116) C-Reactive Protein, Quantitative 6.2 mg/dL (0.00-0.90) H Pro-B-Type Natriuretic Peptide > 64884 (0-125) H Total Protein 4.2 G/DL (6.4-8.2) L Albumin 1.5 G/DL (3.4-5.0) L Globulin 2.7 g/dL Albumin/Globulin Ratio 0.6 (1.0-2.7) L SAVANNAH SAWYER Nov 27, 2016 09:44
--- NOTE | 2016-11-27 09:52 | General Progress Note ---
Assessment/Plan Status: stable Status Narrative extubated Assessment/Plan 1. Septic shock. 2. Acute kidney injury on chronic renal insufficiency. 3. Failure to thrive. 4. Acute myocardial infarction with non-ST elevation myocardial infarction. 5. Sick sinus syndrome, status post pacemaker. 6. Prostate cancer. 7. Diabetes type 2. 8. Hypertension. 9. Benign prostatic hypertrophy. 10. Gout. 11. Severe cardiomyopathy. 12. Alzheimer dementia. 13. Anemia of chronic kidney disease. 14. DNR Plan; post extubation care add phos binders Tube feeding Mag and K and Phos supplements as needed Pressors- [place]- per consultants- Poor prognosis- ? transfuse as needed Subjective ROS Limited/Unobtainable: No Constitutional: Reports: malaise, weakness Allergies: Coded Allergies: No Known Allergies (Unverified , 11/20/16) Objective Last 24 Hour Vital Signs Date Time Temp Pulse Resp B/P (MAP) Pulse Ox O2 Delivery O2 Flow Rate FiO2 11/27/16 08:00 63 11/27/16 06:00 60 16 122/60 97 Nasal Cannula 3.0 11/27/16 05:00 60 19 134/90 100 Nasal Cannula 3.0 11/27/16 04:00 97.8 60 17 110/52 100 Nasal Cannula 3.0 11/27/16 04:00 60 11/27/16 03:00 63 18 114/52 100 Nasal Cannula 3.0 11/27/16 02:00 63 18 94/44 100 Nasal Cannula 3.0 11/27/16 01:00 74 18 116/45 98 Nasal Cannula 3.0 11/27/16 00:00 97.6 62 19 108/54 100 Nasal Cannula 4.0 11/27/16 00:00 60 11/26/16 23:00 63 18 100/49 100 Nasal Cannula 4.0 11/26/16 22:00 62 18 97/49 100 Nasal Cannula 4.0 11/26/16 21:00 64 18 103/49 100 Nasal Cannula 4.0 11/26/16 20:00 60 19 108/51 100 Nasal Cannula 4.0 11/26/16 20:00 60 11/26/16 19:41 Nasal Cannula 4.0 11/26/16 19:41 98 Nasal Cannula 4.0 11/26/16 19:00 97.8 62 19 100/44 100 Nasal Cannula 4.0 11/26/16 18:30 108/51 11/26/16 18:00 62 19 101/44 100 Mechanical Ventilator 4.0 11/26/16 17:00 62 19 105/55 100 Nasal Cannula 4.0 11/26/16 16:00 60 11/26/16 16:00 4.0 11/26/16 16:00 98.1 62 19 92/48 100 Nasal Cannula 4.0 11/26/16 15:30 99 Nasal Cannula 4.0 11/26/16 15:30 Nasal Cannula 2.5 11/26/16 15:30 Nasal Cannula 4.0 11/26/16 15:00 60 23 30 11/26/16 15:00 60 20 86/49 100 Mechanical Ventilator 30 11/26/16 14:00 60 20 98/49 100 Mechanical Ventilator 30 11/26/16 13:00 63 18 111/40 100 Mechanical Ventilator 30 11/26/16 12:45 66 18 30 11/26/16 12:00 66 11/26/16 12:00 97.4 65 18 111/45 100 Mechanical Ventilator 30 11/26/16 12:00 30 11/26/16 11:00 65 17 111/47 100 Mechanical Ventilator 30 11/26/16 10:52 100 11/26/16 10:49 64 20 30 11/26/16 10:00 64 17 112/46 100 Mechanical Ventilator 30 Laboratory Tests 11/26/16 12:20: Arterial Blood pH 7.420, Arterial Blood Partial Pressure CO2 25.5L, Arterial Blood Partial Pressure O2 85.9, Arterial Blood HCO3 16.3L, Arterial Blood Oxygen Saturation 96.3, Arterial Blood Base Excess -7.0, Chato Test Positive 11/26/16 20:30: Random Vancomycin Level 14.5 11/27/16 04:30: White Blood Count 20.0H, Red Blood Count 2.56L, Hemoglobin 8.2L, Hematocrit 25.0L, Mean Corpuscular Volume 98, Mean Corpuscular Hemoglobin 32.2H, Mean Corpuscular Hemoglobin Concent 33.0, Red Cell Distribution Width 14.1, Platelet Count 73L, Mean Platelet Volume 12.8H, Neutrophils (%) (Auto) , Lymphocytes (%) (Auto) , Monocytes (%) (Auto) , Eosinophils (%) (Auto) , Basophils (%) (Auto) , Differential Total Cells Counted 100, Neutrophils % (Manual) 93H, Lymphocytes % (Manual) 2L, Monocytes % (Manual) 1, Eosinophils % (Manual) 0, Basophils % ( Manual) 0, Band Neutrophils 4, Platelet Estimate DecreasedL, Platelet Morphology Normal, Hypochromasia 1+, Tear Drop Cells 1+, Ovalocytes 1+, Acanthocytes 1+, Schistocytes 1+, Sodium Level 138, Potassium Level 3.2L, Chloride Level 107, Carbon Dioxide Level 18L, Anion Gap 13, Blood Urea Nitrogen 123H, Creatinine 4.1H, Estimat Glomerular Filtration Rate , Glucose Level 87, Uric Acid 8.6H, Calcium Level 7.8L, Phosphorus Level 6.2H, Magnesium Level 2.1, Ferritin 680H, Total Bilirubin 1.0, Gamma Glutamyl Transpeptidase 14, Aspartate Amino Transf (AST/SGOT) 10L, Alanine Aminotransferase (ALT/SGPT) 13, Alkaline Phosphatase 58, C-Reactive Protein, Quantitative 6.2H, Pro-B-Type Natriuretic Peptide > 62643Q, Total Protein 4.2L, Albumin 1.5L, Globulin 2.7, Albumin/ Globulin Ratio 0.6L 11/27/16 08:14: Arterial Blood pH 7.420, Arterial Blood Partial Pressure CO2 23.9*L, Arterial Blood Partial Pressure O2 128.3H, Arterial Blood HCO3 15.2L, Arterial Blood Oxygen Saturation 98.2H, Arterial Blood Base Excess -8.0, Chato Test Positive Height (Feet): 5 Weight (Pounds): 155 General Appearance: no apparent distress Cardiovascular: normal rate Respiratory/Chest: decreased breath sounds Abdomen: soft Objective no other changes FELECIA RASHID Nov 27, 2016 09:52
[2016-11-27] MEDS ORDERED: KCl 10% 40mEq/30ml liquid NG ONE (10:00)
[2016-11-27] MEDS: Pantoprazole Inj IVP SCH ×2 (11:12→21:23)
[2016-11-27] MEDS: Dakin's 0.25% (Half Strength) 16oz TOPIC SCH (11:12)
[2016-11-27] MEDS: D5NS 1,000 ML IV SCH ×2 (13:35→20:19)
[2016-11-27] MEDS ORDERED: Vancomycin 1gm/D5W 275ml IVPB ONE ×2 (14:00)
--- NOTE | 2016-11-27 14:06 | Diagnostic Imaging Report ---
Indication: Dyspnea Comparison: 11/26/16 A single view chest radiograph was obtained. Findings: Hazy groundglass basilar opacities demonstrated likely pleural effusions. Cardiomegaly is unchanged. Mild interstitial edema likely present. Impression: No change from the prior day
--- NOTE | 2016-11-27 15:06 | Infectious Diseases Prog Note ---
Assessment/Plan Assessment/Plan Abx: Cefepime x1 11/20 IV Vanco 11/20; 11/25- Zoyn 11/20 Amikacin x1 11/21 Linezolid 11/20-11/25 Meropenem 11/20-11/26 Ertapenem 11/26- Levaquin 11/26- Amikacin x1 11/20 Assesment: Septic shock- 2ry to ESBL Proteus UTI and high grade bacteremia and possible MRSA pneumonia; off pressors now -U/a WBC too many to count, nit +, leuk +3, ucx 11/20 >100K ESBL P. mirabilis, 11/21 ucx 10-20K ESBL Proteus (S. Ertapenem); repeat U/a 11/23- pyuria improving , ucx Neg -Bcx 05/19 Proteus mirabilis (S. Zosyn, Ertapenem, Cipro), repeat Bcx 11/23 NTD -Sp cx: MRSA (S. Vancomycin LIZA 1), normal victoria, yeast; repeat sp cx 11/23 +3 S. maltophila ( S. 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 -CXR 11/23 Persistent left basilar opacity. Pneumonia versus atelectasis. -CXR 11/20: Retrocardiac density likely atelectasis or scarring. Pneumonia not entirely excluded. -flu neg Hyperleukocytosis with left shift/bandemia- r/o intrabdominal abscess, empyema; improving -Cdiff 11/25 neg -CT chest/abd/p 11/25: Decubitus changes in the retrocecal/retroperitoneal region. Gas bubbles within the subcutaneous fat and musculature, may represent gas introduced by a decubitus ulcer. However, no definite ulcers visualized, so the possibility of infection with a gas-forming organism should also be considered. Anasarca, with extensive edema of the subcutaneous, mesenteric, and retroperitoneal fat, large bilateral pleural effusions, small to moderate ascites, small pericardial effusion. Compressive atelectasis of much of both lower lobes, due to the large bilateral pleural effusions. Marked cardiomegaly Satisfactory positions of endotracheal and nasogastric tubes. No evidence of small bowel obstruction or acute abdominal process. Hyperattenuating gallbladder contents, likely reflecting milk of calcium bile versus dense sludge. Sacral decubitus ulcer, unsteagable- was previously noticed yellowish exudate, none currently- ?OM -wound cx: ESBL E.coli, ESBL P. mirabilis (both S. to ertapenem), E. fecalis (AMp, Vanc S) Acute respiratory failure, s/p extubation Thrombocytopenia; worsened- likely combination of sepsis and linezolid Lactic acidosis; resolved BJORN/Renal failure; improving -Renal Us: No obvious hydronephrosis.Bilateral renal cysts. Mild apparent increased echogenicity of the kidneys may suggest underlying medical renal disease. 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 Will continue to follow along with you. Discussed with RN. Subjective Allergies: Coded Allergies: No Known Allergies (Unverified , 11/20/16) Subjective afebrile leukocytosis improving repeat Bcx NTD inflammatory markers improving Objective Vital Signs Last 24 Hour Vital Signs Date Time Temp Pulse Resp B/P (MAP) Pulse Ox O2 Delivery O2 Flow Rate FiO2 11/27/16 13:00 60 16 104/53 100 Nasal Cannula 3.0 11/27/16 12:00 98.4 60 18 103/59 100 Nasal Cannula 3.0 11/27/16 12:00 59 11/27/16 11:00 60 18 127/52 100 Nasal Cannula 3.0 11/27/16 10:00 64 17 112/67 100 Nasal Cannula 3.0 10/13/17 09:00 63 17 107/62 100 Nasal Cannula 3.0 11/27/16 08:00 63 11/27/16 08:00 98.6 60 17 126/54 100 Nasal Cannula 3.0 11/27/16 07:00 60 16 126/59 94 Nasal Cannula 3.0 11/27/16 06:55 Nasal Cannula 3.0 11/27/16 06:54 98 Nasal Cannula 3.0 11/27/16 06:00 60 16 122/60 97 Nasal Cannula 3.0 11/27/16 05:00 60 19 134/90 100 Nasal Cannula 3.0 11/27/16 04:00 97.8 60 17 110/52 100 Nasal Cannula 3.0 11/27/16 04:00 60 11/27/16 03:00 63 18 114/52 100 Nasal Cannula 3.0 11/27/16 02:00 63 18 94/44 100 Nasal Cannula 3.0 11/27/16 01:00 74 18 116/45 98 Nasal Cannula 3.0 11/27/16 00:00 97.6 62 19 108/54 100 Nasal Cannula 4.0 11/27/16 00:00 60 11/26/16 23:00 63 18 100/49 100 Nasal Cannula 4.0 11/26/16 22:00 62 18 97/49 100 Nasal Cannula 4.0 11/26/16 21:00 64 18 103/49 100 Nasal Cannula 4.0 11/26/16 20:00 60 19 108/51 100 Nasal Cannula 4.0 11/26/16 20:00 60 11/26/16 19:41 Nasal Cannula 4.0 11/26/16 19:41 98 Nasal Cannula 4.0 11/26/16 19:00 97.8 62 19 100/44 100 Nasal Cannula 4.0 11/26/16 18:30 108/51 11/26/16 18:00 62 19 101/44 100 Mechanical Ventilator 4.0 11/26/16 17:00 62 19 105/55 100 Nasal Cannula 4.0 11/26/16 16:00 60 11/26/16 16:00 4.0 11/26/16 16:00 98.1 62 19 92/48 100 Nasal Cannula 4.0 11/26/16 15:30 99 Nasal Cannula 4.0 11/26/16 15:30 Nasal Cannula 2.5 11/26/16 15:30 Nasal Cannula 4.0 11/26/16 15:00 60 23 30 11/26/16 15:00 60 20 86/49 100 Mechanical Ventilator 30 Height (Feet): 5 Weight (Pounds): 155 Objective General Appearance: cachetic, thin, Chronically Ill, much more awake HEENT: ETT in place Respiratory: normal inspection, no respiratory distress, no retraction, no accessory muscle use, no wheezing, other - Bilateral rhonchi Cardiovascular : regular rate, rhythm, no edema Musculoskeletal: sacral ulcer, unstageable, surrounding skin with no erythema, no drainage Neurologic: awake, alert, no focal deficits, answering questions, following commands Skin: normal inspection, normal color, no rash Abd: BS+, S+D, ND Microbiology Date/Time Source Procedure Growth Status 11/25/16 14:50 Stool Clostridium difficile Toxin Assay - Final Complete Laboratory Tests Test 11/26/16 20:30 11/27/16 04:30 11/27/16 08:14 Random Vancomycin Level 14.5 ug/mL White Blood Count 20.0 K/UL (4.8-10.8) H Red Blood Count 2.56 M/UL (4.70-6.10) L Hemoglobin 8.2 G/DL (14.2-18.0) L Hematocrit 25.0 % (42.0-52.0) L Mean Corpuscular Volume 98 FL (80-99) Mean Corpuscular Hemoglobin 32.2 PG (27.0-31.0) H Mean Corpuscular Hemoglobin Concent 33.0 G/DL (32.0-36.0) Red Cell Distribution Width 14.1 % (11.6-14.8) Platelet Count 73 K/UL (150-450) L Mean Platelet Volume 12.8 FL (6.5-10.1) H Neutrophils (%) (Auto) % (45.0-75.0) Lymphocytes (%) (Auto) % (20.0-45.0) Monocytes (%) (Auto) % (1.0-10.0) Eosinophils (%) (Auto) % (0.0-3.0) Basophils (%) (Auto) % (0.0-2.0) Differential Total Cells Counted 100 Neutrophils % (Manual) 93 % (45-75) H Lymphocytes % (Manual) 2 % (20-45) L Monocytes % (Manual) 1 % (1-10) Eosinophils % (Manual) 0 % (0-3) Basophils % (Manual) 0 % (0-2) Band Neutrophils 4 % (0-8) Platelet Estimate Decreased L Platelet Morphology Normal Hypochromasia 1+ Tear Drop Cells 1+ Ovalocytes 1+ Acanthocytes 1+ Schistocytes 1+ Sodium Level 138 MMOL/L (136-145) Potassium Level 3.2 MMOL/L (3.5-5.1) L Chloride Level 107 MMOL/L (98-107) Carbon Dioxide Level 18 MMOL/L (21-32) L Anion Gap 13 (5-15) Blood Urea Nitrogen 123 mg/dL (7-18) H Creatinine 4.1 MG/DL (0.55-1.30) H Estimat Glomerular Filtration Rate mL/min (>60) Glucose Level 87 MG/DL (74-106) Uric Acid 8.6 MG/DL (2.6-7.2) H Calcium Level 7.8 MG/DL (8.5-10.1) L Phosphorus Level 6.2 MG/DL (2.5-4.9) H Magnesium Level 2.1 MG/DL (1.8-2.4) Ferritin 680 NG/ML (8-388) H Total Bilirubin 1.0 MG/DL (0.2-1.0) Gamma Glutamyl Transpeptidase 14 U/L (5-85) Aspartate Amino Transf (AST/SGOT) 10 U/L (15-37) L Alanine Aminotransferase (ALT/SGPT) 13 U/L (12-78) Alkaline Phosphatase 58 U/L (46-116) C-Reactive Protein, Quantitative 6.2 mg/dL (0.00-0.90) H Pro-B-Type Natriuretic Peptide > 86863 (0-125) H Total Protein 4.2 G/DL (6.4-8.2) L Albumin 1.5 G/DL (3.4-5.0) L Globulin 2.7 g/dL Albumin/Globulin Ratio 0.6 (1.0-2.7) L Arterial Blood pH 7.420 (7.350-7.450) Arterial Blood Partial Pressure CO2 23.9 mmHg (35.0-45.0) *L Arterial Blood Partial Pressure O2 128.3 mmHg (75.0-100.0) H Arterial Blood HCO3 15.2 mmol/L (22.0-26.0) L Arterial Blood Oxygen Saturation 98.2 % (92.0-98.0) H Arterial Blood Base Excess -8.0 Chato Test Positive Current Medications Medications (Trade) Dose Ordered Sig/Chasidy Route PRN Reason Start Time Stop Time Status Last Admin Dose Admin Acetaminophen (Tylenol) 650 mg Q4H PRN ORAL fever 11/20/16 18:30 12/20/16 18:29 11/22/16 13:42 Acetaminophen (Tylenol) 650 mg Q4H PRN RECTAL Mild Pain (Pain Scale 1-3) 11/20/16 18:30 12/20/16 18:29 Aspirin (ASA) 81 mg DAILY GT 11/26/16 09:00 12/26/16 08:59 11/26/16 09:19 Chlorhexidine Gluconate (Julissa-Hex 2%) 1 applic DAILY@2000 TOPIC 11/22/16 20:00 12/22/16 19:59 11/26/16 20:33 Dextrose (Dextrose 50%) STAT PRN IV Hypoglycemia 11/20/16 20:15 12/20/16 20:14 Dextrose/Sodium Chloride 1,000 ml @ 50 mls/hr Q20H IV 11/26/16 17:00 12/26/16 16:59 11/27/16 13:35 Epoetin Isauro (Procrit (for non ESRD use)) 3,000 units WED-WED-WED SUBQ 11/25/16 21:00 12/25/16 20:59 11/25/16 20:49 Ertapenem 0.5 gm/ Sodium Chloride 55 ml @ 110 mls/hr Q24H IVPB 11/26/16 23:00 12/01/16 22:59 11/26/16 22:42 Heparin Sodium (Porcine) (Heparin 5000 units/ml) 5,000 units EVERY 12 HOURS SUBQ 11/20/16 21:00 12/20/16 20:59 11/26/16 20:35 Insulin Aspart (NovoLOG) EVERY 6 HOURS SUBQ 11/21/16 00:00 12/21/16 00:00 11/26/16 00:27 Levofloxacin 50 ml @ 50 mls/hr Q48H IVPB 11/28/16 17:00 12/05/16 16:59 Lorazepam (Ativan 2mg/ml 1ml) 2 mg EVERY 2 HOURS PRN IV For Anxiety 11/20/16 18:30 11/27/16 18:29 Midodrine (Pro-Amatine) 2.5 mg THREE TIMES A DAY NG 11/26/16 13:30 12/26/16 13:29 11/26/16 13:34 Norepinephrine Bitartrate 4 mg/ Dextrose 254 ml @ 0 mls/hr Q24H IV 11/20/16 18:30 12/20/16 18:29 11/24/16 19:25 Pantoprazole (Protonix) 40 mg EVERY 12 HOURS IVP 11/23/16 09:00 12/23/16 08:59 11/27/16 11:12 Polyethylene Glycol (Miralax) 17 gm DAILYPRN PRN ORAL Constipation 11/20/16 18:30 12/20/16 18:29 Sevelamer Carbonate (Renvela) 1,600 mg THREE TIMES A DAY NG 11/27/16 13:00 12/27/16 12:59 Sodium Hypochlorite (Dakin's Half Strength) 1 applic DAILY TOPIC 11/24/16 09:00 12/24/16 08:59 11/27/16 11:12 Vancomycin HCl (Vanco rx to dose) 1 ea DAILY PRN MISC Per rx protocol 11/25/16 20:00 12/25/16 19:59 Vancomycin HCl 1 gm/Dextrose 275 ml @ 183.708 mls/hr ONCE ONCE IVPB 11/27/16 14:00 11/27/16 15:29 11/27/16 14:42 Lindsey Willis M.D. Nov 27, 2016 15:05
--- NOTE | 2016-11-27 15:07 | Cardiology Progress Note ---
Assessment/Plan Assessment/Plan nstemi trop 11 peak so far non flow limiting cad by cath / Lm 20% 02/2015 cath cedras atrial fibrillation new cm ef % septic shock bacteria gnr renal insuf anemia ob neg stool respriatory failure acute ams ptawake prognosis poor overall dnr extubated ngt removed iv abs now off pressor may restart if needed tele afib v paced personally reviewed cr stable hgb stable no family at bedside plt dropping ? ITP vs other check dic panel ? not been heparin will dc ecotrin as not able to take po and has droppign plt s needs ngt placed but seem to be resisting d/w rn Subjective ROS Limited/Unobtainable: Yes Subjective off vent responsive but nto communicative Objective Last 24 Hour Vital Signs Date Time Temp Pulse Resp B/P (MAP) Pulse Ox O2 Delivery O2 Flow Rate FiO2 11/27/16 13:00 60 16 104/53 100 Nasal Cannula 3.0 11/27/16 12:00 98.4 60 18 103/59 100 Nasal Cannula 3.0 11/27/16 12:00 59 11/27/16 11:00 60 18 127/52 100 Nasal Cannula 3.0 11/27/16 10:00 64 17 112/67 100 Nasal Cannula 3.0 11/27/16 09:00 63 17 107/62 100 Nasal Cannula 3.0 11/27/16 08:00 63 11/27/16 08:00 98.6 60 17 126/54 100 Nasal Cannula 3.0 11/27/16 07:00 60 16 126/59 94 Nasal Cannula 3.0 11/27/16 06:55 Nasal Cannula 3.0 11/27/16 06:54 98 Nasal Cannula 3.0 11/27/16 06:00 60 16 122/60 97 Nasal Cannula 3.0 11/27/16 05:00 60 19 134/90 100 Nasal Cannula 3.0 11/27/16 04:00 97.8 60 17 110/52 100 Nasal Cannula 3.0 11/27/16 04:00 60 11/27/16 03:00 63 18 114/52 100 Nasal Cannula 3.0 11/27/16 02:00 63 18 94/44 100 Nasal Cannula 3.0 11/27/16 01:00 74 18 116/45 98 Nasal Cannula 3.0 11/27/16 00:00 97.6 62 19 108/54 100 Nasal Cannula 4.0 11/27/16 00:00 60 11/26/16 23:00 63 18 100/49 100 Nasal Cannula 4.0 11/26/16 22:00 62 18 97/49 100 Nasal Cannula 4.0 11/26/16 21:00 64 18 103/49 100 Nasal Cannula 4.0 11/26/16 20:00 60 19 108/51 100 Nasal Cannula 4.0 11/26/16 20:00 60 11/26/16 19:41 Nasal Cannula 4.0 11/26/16 19:41 98 Nasal Cannula 4.0 11/26/16 19:00 97.8 62 19 100/44 100 Nasal Cannula 4.0 11/26/16 18:30 108/51 11/26/16 18:00 62 19 101/44 100 Mechanical Ventilator 4.0 11/26/16 17:00 62 19 105/55 100 Nasal Cannula 4.0 11/26/16 16:00 60 11/26/16 16:00 4.0 11/26/16 16:00 98.1 62 19 92/48 100 Nasal Cannula 4.0 11/26/16 15:30 99 Nasal Cannula 4.0 11/26/16 15:30 Nasal Cannula 2.5 11/26/16 15:30 Nasal Cannula 4.0 General Appearance: no apparent distress, alert Neck: supple Cardiovascular: normal rate, regular rhythm Respiratory/Chest: lungs clear Abdomen: normal bowel sounds, non tender, soft Extremities: trace edema Intake and Output 11/27/16 11/28/16 19:00 07:00 Intake Total 40 ml Output Total 160 ml Balance -120 ml Intake Oral 0 ml Other 40 ml Output Urine Total 160 ml Laboratory Tests Test 11/26/16 20:30 11/27/16 04:30 11/27/16 08:14 Random Vancomycin Level 14.5 ug/mL White Blood Count 20.0 K/UL (4.8-10.8) H Red Blood Count 2.56 M/UL (4.70-6.10) L Hemoglobin 8.2 G/DL (14.2-18.0) L Hematocrit 25.0 % (42.0-52.0) L Mean Corpuscular Volume 98 FL (80-99) Mean Corpuscular Hemoglobin 32.2 PG (27.0-31.0) H Mean Corpuscular Hemoglobin Concent 33.0 G/DL (32.0-36.0) Red Cell Distribution Width 14.1 % (11.6-14.8) Platelet Count 73 K/UL (150-450) L Mean Platelet Volume 12.8 FL (6.5-10.1) H Neutrophils (%) (Auto) % (45.0-75.0) Lymphocytes (%) (Auto) % (20.0-45.0) Monocytes (%) (Auto) % (1.0-10.0) Eosinophils (%) (Auto) % (0.0-3.0) Basophils (%) (Auto) % (0.0-2.0) Differential Total Cells Counted 100 Neutrophils % (Manual) 93 % (45-75) H Lymphocytes % (Manual) 2 % (20-45) L Monocytes % (Manual) 1 % (1-10) Eosinophils % (Manual) 0 % (0-3) Basophils % (Manual) 0 % (0-2) Band Neutrophils 4 % (0-8) Platelet Estimate Decreased L Platelet Morphology Normal Hypochromasia 1+ Tear Drop Cells 1+ Ovalocytes 1+ Acanthocytes 1+ Schistocytes 1+ Sodium Level 138 MMOL/L (136-145) Potassium Level 3.2 MMOL/L (3.5-5.1) L Chloride Level 107 MMOL/L (98-107) Carbon Dioxide Level 18 MMOL/L (21-32) L Anion Gap 13 (5-15) Blood Urea Nitrogen 123 mg/dL (7-18) H Creatinine 4.1 MG/DL (0.55-1.30) H Estimat Glomerular Filtration Rate mL/min (>60) Glucose Level 87 MG/DL (74-106) Uric Acid 8.6 MG/DL (2.6-7.2) H Calcium Level 7.8 MG/DL (8.5-10.1) L Phosphorus Level 6.2 MG/DL (2.5-4.9) H Magnesium Level 2.1 MG/DL (1.8-2.4) Ferritin 680 NG/ML (8-388) H Total Bilirubin 1.0 MG/DL (0.2-1.0) Gamma Glutamyl Transpeptidase 14 U/L (5-85) Aspartate Amino Transf (AST/SGOT) 10 U/L (15-37) L Alanine Aminotransferase (ALT/SGPT) 13 U/L (12-78) Alkaline Phosphatase 58 U/L (46-116) C-Reactive Protein, Quantitative 6.2 mg/dL (0.00-0.90) H Pro-B-Type Natriuretic Peptide > 36632 (0-125) H Total Protein 4.2 G/DL (6.4-8.2) L Albumin 1.5 G/DL (3.4-5.0) L Globulin 2.7 g/dL Albumin/Globulin Ratio 0.6 (1.0-2.7) L Arterial Blood pH 7.420 (7.350-7.450) Arterial Blood Partial Pressure CO2 23.9 mmHg (35.0-45.0) *L Arterial Blood Partial Pressure O2 128.3 mmHg (75.0-100.0) H Arterial Blood HCO3 15.2 mmol/L (22.0-26.0) L Arterial Blood Oxygen Saturation 98.2 % (92.0-98.0) H Arterial Blood Base Excess -8.0 Chato Test Positive Microbiology Date/Time Source Procedure Growth Status 11/25/16 14:50 Stool Clostridium difficile Toxin Assay - Final Complete PARAS ROJAS Nov 27, 2016 15:07
--- NOTE | 2016-11-27 15:36 | Nephrology Progress Note ---
Assessment/Plan Problem List: (1) Chronic kidney disease (2) Septic shock (3) Hyperkalemia Assessment: resolved (4) UTI (urinary tract infection) (5) Sepsis (6) Altered mental status (7) Lactic acid acidosis (8) Altered level of consciousness Assessment: Improved (9) Respiratory failure Plan Monitor renal function - improved Hyponatremia -resolved Monitor lytes, correct prn Monitor H&H, transfuse prn Monitor intake and output - adequate urine output Will discuss abx with ID - Avoid nephrotoxins Renally dose meds Continue Epogen MWF Repeat swallow eval Stool OB Continue glycemic control Continue pereyra Monitor neuro status AM labs Subjective Subjective In ICU, in no apparent distress, responsive Objective Objective Last 24 Hour Vital Signs Date Time Temp Pulse Resp B/P (MAP) Pulse Ox O2 Delivery O2 Flow Rate FiO2 11/27/16 13:00 60 16 104/53 100 Nasal Cannula 3.0 11/27/16 12:00 98.4 60 18 103/59 100 Nasal Cannula 3.0 11/27/16 12:00 59 11/27/16 11:00 60 18 127/52 100 Nasal Cannula 3.0 11/27/16 10:00 64 17 112/67 100 Nasal Cannula 3.0 11/27/16 09:00 63 17 107/62 100 Nasal Cannula 3.0 11/27/16 08:00 63 11/27/16 08:00 98.6 60 17 126/54 100 Nasal Cannula 3.0 11/27/16 07:00 60 16 126/59 94 Nasal Cannula 3.0 11/27/16 06:55 Nasal Cannula 3.0 11/27/16 06:54 98 Nasal Cannula 3.0 11/27/16 06:00 60 16 122/60 97 Nasal Cannula 3.0 11/27/16 05:00 60 19 134/90 100 Nasal Cannula 3.0 11/27/16 04:00 97.8 60 17 110/52 100 Nasal Cannula 3.0 11/27/16 04:00 60 11/27/16 03:00 63 18 114/52 100 Nasal Cannula 3.0 11/27/16 02:00 63 18 94/44 100 Nasal Cannula 3.0 11/27/16 01:00 74 18 116/45 98 Nasal Cannula 3.0 11/27/16 00:00 97.6 62 19 108/54 100 Nasal Cannula 4.0 11/27/16 00:00 60 11/26/16 23:00 63 18 100/49 100 Nasal Cannula 4.0 11/26/16 22:00 62 18 97/49 100 Nasal Cannula 4.0 11/26/16 21:00 64 18 103/49 100 Nasal Cannula 4.0 11/26/16 20:00 60 19 108/51 100 Nasal Cannula 4.0 11/26/16 20:00 60 11/26/16 19:41 Nasal Cannula 4.0 11/26/16 19:41 98 Nasal Cannula 4.0 11/26/16 19:00 97.8 62 19 100/44 100 Nasal Cannula 4.0 11/26/16 18:30 108/51 11/26/16 18:00 62 19 101/44 100 Mechanical Ventilator 4.0 11/26/16 17:00 62 19 105/55 100 Nasal Cannula 4.0 11/26/16 16:00 60 11/26/16 16:00 4.0 11/26/16 16:00 98.1 62 19 92/48 100 Nasal Cannula 4.0 11/26/16 15:30 99 Nasal Cannula 4.0 11/26/16 15:30 Nasal Cannula 2.5 11/26/16 15:30 Nasal Cannula 4.0 Intake and Output 11/27/16 11/28/16 19:00 07:00 Intake Total 40 ml Output Total 160 ml Balance -120 ml Intake Oral 0 ml Other 40 ml Output Urine Total 160 ml Laboratory Tests 11/26/16 20:30: Random Vancomycin Level 14.5 11/27/16 04:30: White Blood Count 20.0H, Red Blood Count 2.56L, Hemoglobin 8.2L, Hematocrit 25.0L, Mean Corpuscular Volume 98, Mean Corpuscular Hemoglobin 32.2H, Mean Corpuscular Hemoglobin Concent 33.0, Red Cell Distribution Width 14.1, Platelet Count 73L, Mean Platelet Volume 12.8H, Neutrophils (%) (Auto) , Lymphocytes (%) (Auto) , Monocytes (%) (Auto) , Eosinophils (%) (Auto) , Basophils (%) (Auto) , Differential Total Cells Counted 100, Neutrophils % (Manual) 93H, Lymphocytes % (Manual) 2L, Monocytes % (Manual) 1, Eosinophils % (Manual) 0, Basophils % ( Manual) 0, Band Neutrophils 4, Platelet Estimate DecreasedL, Platelet Morphology Normal, Hypochromasia 1+, Tear Drop Cells 1+, Ovalocytes 1+, Acanthocytes 1+, Schistocytes 1+, Sodium Level 138, Potassium Level 3.2L, Chloride Level 107, Carbon Dioxide Level 18L, Anion Gap 13, Blood Urea Nitrogen 123H, Creatinine 4.1H, Estimat Glomerular Filtration Rate , Glucose Level 87, Uric Acid 8.6H, Calcium Level 7.8L, Phosphorus Level 6.2H, Magnesium Level 2.1, Ferritin 680H, Total Bilirubin 1.0, Gamma Glutamyl Transpeptidase 14, Aspartate Amino Transf (AST/SGOT) 10L, Alanine Aminotransferase (ALT/SGPT) 13, Alkaline Phosphatase 58, C-Reactive Protein, Quantitative 6.2H, Pro-B-Type Natriuretic Peptide > 28404N, Total Protein 4.2L, Albumin 1.5L, Globulin 2.7, Albumin/ Globulin Ratio 0.6L 11/27/16 08:14: Arterial Blood pH 7.420, Arterial Blood Partial Pressure CO2 23.9*L, Arterial Blood Partial Pressure O2 128.3H, Arterial Blood HCO3 15.2L, Arterial Blood Oxygen Saturation 98.2H, Arterial Blood Base Excess -8.0, Chato Test Positive Height (Feet): 5 Weight (Pounds): 155 General Appearance: no apparent distress, alert EENT: normal ENT inspection Neck: non-tender, normal alignment, supple Cardiovascular: normal rate, regular rhythm, no JVD Respiratory/Chest: no respiratory distress, decreased breath sounds Abdomen: normal bowel sounds, non tender, soft Extremities: non-tender, normal inspection, no calf tenderness Neurologic: alert, responsive, normal mood/affect Khushboo Lopez N.P. Nov 27, 2016 15:36
--- NOTE | 2016-11-27 17:20 | Internal Med Progress Note ---
Subjective Physician Name Teddy Quezada Attending Physician Teddy Quezada MD Current Medications Medications (Trade) Dose Ordered Sig/Chasidy Route PRN Reason Start Time Stop Time Status Last Admin Dose Admin Acetaminophen (Tylenol) 650 mg Q4H PRN ORAL fever 11/20/16 18:30 12/20/16 18:29 11/22/16 13:42 Acetaminophen (Tylenol) 650 mg Q4H PRN RECTAL Mild Pain (Pain Scale 1-3) 11/20/16 18:30 12/20/16 18:29 Chlorhexidine Gluconate (Julissa-Hex 2%) 1 applic DAILY@2000 TOPIC 11/22/16 20:00 12/22/16 19:59 11/26/16 20:33 Dextrose (Dextrose 50%) STAT PRN IV Hypoglycemia 11/20/16 20:15 12/20/16 20:14 Dextrose/Sodium Chloride 1,000 ml @ 50 mls/hr Q20H IV 11/26/16 17:00 12/26/16 16:59 11/27/16 13:35 Epoetin Isauro (Procrit (for non ESRD use)) 3,000 units WED-WED-WED SUBQ 11/25/16 21:00 12/25/16 20:59 11/25/16 20:49 Ertapenem 0.5 gm/ Sodium Chloride 55 ml @ 110 mls/hr Q24H IVPB 11/26/16 23:00 12/01/16 22:59 11/26/16 22:42 Insulin Aspart (NovoLOG) EVERY 6 HOURS SUBQ 11/21/16 00:00 12/21/16 00:00 11/26/16 00:27 Levofloxacin 50 ml @ 50 mls/hr Q48H IVPB 11/28/16 17:00 12/05/16 16:59 Lorazepam (Ativan 2mg/ml 1ml) 2 mg EVERY 2 HOURS PRN IV For Anxiety 11/20/16 18:30 11/27/16 18:29 Midodrine (Pro-Amatine) 2.5 mg THREE TIMES A DAY NG 11/26/16 13:30 12/26/16 13:29 11/26/16 13:34 Norepinephrine Bitartrate 4 mg/ Dextrose 254 ml @ 0 mls/hr Q24H IV 11/20/16 18:30 12/20/16 18:29 11/24/16 19:25 Pantoprazole (Protonix) 40 mg EVERY 12 HOURS IVP 11/23/16 09:00 12/23/16 08:59 11/27/16 11:12 Polyethylene Glycol (Miralax) 17 gm DAILYPRN PRN ORAL Constipation 11/20/16 18:30 12/20/16 18:29 Potassium Chloride 100 ml @ 100 mls/hr Q1HR IVPB 11/27/16 17:15 11/27/16 20:59 Sevelamer Carbonate (Renvela) 1,600 mg THREE TIMES A DAY NG 11/27/16 13:00 12/27/16 12:59 Sodium Hypochlorite (Dakin's Half Strength) 1 applic DAILY TOPIC 11/24/16 09:00 12/24/16 08:59 11/27/16 11:12 Vancomycin HCl (Vanco rx to dose) 1 ea DAILY PRN MISC Per rx protocol 11/25/16 20:00 12/25/16 19:59 Allergies: Coded Allergies: No Known Allergies (Unverified , 11/20/16) Subjective awake, responsive to verbal commands , open eyes, in ICU, PLT 73 Objective Last Vital Signs Date Time Temp Pulse Resp B/P (MAP) Pulse Ox O2 Delivery O2 Flow Rate FiO2 11/27/16 17:00 60 20 101/53 100 Nasal Cannula 3.0 11/27/16 16:00 98.2 11/26/16 16:00 Laboratory Tests Test 11/26/16 20:30 11/27/16 04:30 11/27/16 08:14 Random Vancomycin Level 14.5 ug/mL White Blood Count 20.0 K/UL (4.8-10.8) H Red Blood Count 2.56 M/UL (4.70-6.10) L Hemoglobin 8.2 G/DL (14.2-18.0) L Hematocrit 25.0 % (42.0-52.0) L Mean Corpuscular Volume 98 FL (80-99) Mean Corpuscular Hemoglobin 32.2 PG (27.0-31.0) H Mean Corpuscular Hemoglobin Concent 33.0 G/DL (32.0-36.0) Red Cell Distribution Width 14.1 % (11.6-14.8) Platelet Count 73 K/UL (150-450) L Mean Platelet Volume 12.8 FL (6.5-10.1) H Neutrophils (%) (Auto) % (45.0-75.0) Lymphocytes (%) (Auto) % (20.0-45.0) Monocytes (%) (Auto) % (1.0-10.0) Eosinophils (%) (Auto) % (0.0-3.0) Basophils (%) (Auto) % (0.0-2.0) Differential Total Cells Counted 100 Neutrophils % (Manual) 93 % (45-75) H Lymphocytes % (Manual) 2 % (20-45) L Monocytes % (Manual) 1 % (1-10) Eosinophils % (Manual) 0 % (0-3) Basophils % (Manual) 0 % (0-2) Band Neutrophils 4 % (0-8) Platelet Estimate Decreased L Platelet Morphology Normal Hypochromasia 1+ Tear Drop Cells 1+ Ovalocytes 1+ Acanthocytes 1+ Schistocytes 1+ Sodium Level 138 MMOL/L (136-145) Potassium Level 3.2 MMOL/L (3.5-5.1) L Chloride Level 107 MMOL/L (98-107) Carbon Dioxide Level 18 MMOL/L (21-32) L Anion Gap 13 (5-15) Blood Urea Nitrogen 123 mg/dL (7-18) H Creatinine 4.1 MG/DL (0.55-1.30) H Estimat Glomerular Filtration Rate mL/min (>60) Glucose Level 87 MG/DL (74-106) Uric Acid 8.6 MG/DL (2.6-7.2) H Calcium Level 7.8 MG/DL (8.5-10.1) L Phosphorus Level 6.2 MG/DL (2.5-4.9) H Magnesium Level 2.1 MG/DL (1.8-2.4) Ferritin 680 NG/ML (8-388) H Total Bilirubin 1.0 MG/DL (0.2-1.0) Gamma Glutamyl Transpeptidase 14 U/L (5-85) Aspartate Amino Transf (AST/SGOT) 10 U/L (15-37) L Alanine Aminotransferase (ALT/SGPT) 13 U/L (12-78) Alkaline Phosphatase 58 U/L (46-116) C-Reactive Protein, Quantitative 6.2 mg/dL (0.00-0.90) H Pro-B-Type Natriuretic Peptide > 39244 (0-125) H Total Protein 4.2 G/DL (6.4-8.2) L Albumin 1.5 G/DL (3.4-5.0) L Globulin 2.7 g/dL Albumin/Globulin Ratio 0.6 (1.0-2.7) L Arterial Blood pH 7.420 (7.350-7.450) Arterial Blood Partial Pressure CO2 23.9 mmHg (35.0-45.0) *L Arterial Blood Partial Pressure O2 128.3 mmHg (75.0-100.0) H Arterial Blood HCO3 15.2 mmol/L (22.0-26.0) L Arterial Blood Oxygen Saturation 98.2 % (92.0-98.0) H Arterial Blood Base Excess -8.0 Chato Test Positive Microbiology Date/Time Source Procedure Growth Status 11/25/16 14:50 Stool Clostridium difficile Toxin Assay - Final Complete Intake and Output 11/27/16 11/28/16 19:00 07:00 Intake Total 1125 ml Output Total 290 ml Balance 835 ml Intake Oral 0 ml IV Total 1075 ml Other 50 ml Output Urine Total 290 ml Objective General: No acute distress, awake and open eyes. HEENT: NCAT, sclera anicteric, PERRL, EOMI. Neck: Supple, no significant jugular venous distention, Lungs: fair inspiratory effort, no accessory muscle use, no Wheeze or Rales. Heart: Regular rate and rhythm, normal S1/S2, no murmurs, + Pacemaker. Abdomen: soft, nontender, nondistended. Normoactive bowel sounds. : scrotum edema, Crowley cath Extremities: No Cyanosis , clubbing UE's edema. Neuro: A&O x 2, Moves all extremities. Skin: sacral Decubi ulcer Assessment/Plan Assessment/Plan 1. Septic shock ESBL Proteus UTI and high grade bacteremia and possible MRSA pneumonia 2. Acute kidney injury on chronic renal insufficiency. 3. Failure to thrive. 4. Acute myocardial infarction with non-ST elevation myocardial infarction. 5. Sick sinus syndrome, status post pacemaker. 6. Prostate cancer. 7. Diabetes type 2. 8. Hypertension. 9. Benign prostatic hypertrophy. 10. Gout. 11. Severe cardiomyopathy. 12. Alzheimer dementia. 13. Anemia of chronic kidney disease. 14. Acute respiratory failure. 15. Thrombocytopenia Plan: Abx: Continue Vancomycin IV, Ertapenem, PO Levaquin. Monitor Labs and cultures. reinsert NG Tube discuss with son at bedside off pressure wound care Teddy Quezada MD Nov 27, 2016 17:20
[2016-11-27] MEDS ORDERED: Acetaminophen 650 MG SUPP RECTAL PRN (19:00)
[2016-11-27] MEDS ORDERED: Miralax 17gm pkt ORAL PRN (19:00)
--- NOTE | 2016-11-27 19:00 | Cardiac Electrophysiology PN ---
Assessment/Plan Assessment/Plan 1. Status post dual chamber pacemaker implantation in 2012. The family wished not to proceed with a pacemaker generator change despite they were told battery was at end of life. 2. Atrial fibrillation, rate is currently controlled off anticoagulation as hemoglobin was only 7. 3. 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 Off of beta-justen and ZELALEM inhibitor in view of his renal failure Per Dr Perez 4. End-stage renal disease. Family decided not to proceed with hemodialysis. 5. Dysphagia. Family refused PEG placement.NG placement pending. 6. Prostate cancer status post radiation therapy. 7. History of Graves disease. 8. Hypotension, Resolved. DW RN at bedside. Subjective Subjective Intermittently V Pacing. Just transferred out of ICU off pressors. Objective Last 24 Hour Vital Signs Date Time Temp Pulse Resp B/P (MAP) Pulse Ox O2 Delivery O2 Flow Rate FiO2 11/27/16 18:00 59 20 113/51 100 Nasal Cannula 3.0 11/27/16 17:00 60 20 101/53 100 Nasal Cannula 3.0 11/27/16 16:00 60 11/27/16 16:00 98.2 60 17 105/54 98 Nasal Cannula 3.0 11/27/16 15:00 60 18 107/54 99 Nasal Cannula 3.0 11/27/16 14:00 60 17 107/53 100 Nasal Cannula 3.0 11/27/16 13:00 60 16 104/53 100 Nasal Cannula 3.0 11/27/16 12:00 98.4 60 18 103/59 100 Nasal Cannula 3.0 11/27/16 12:00 59 11/27/16 11:00 60 18 127/52 100 Nasal Cannula 3.0 11/27/16 10:00 64 17 112/67 100 Nasal Cannula 3.0 11/27/16 09:00 63 17 107/62 100 Nasal Cannula 3.0 11/27/16 08:00 63 11/27/16 08:00 98.6 60 17 126/54 100 Nasal Cannula 3.0 11/27/16 07:00 60 16 126/59 94 Nasal Cannula 3.0 11/27/16 06:55 Nasal Cannula 3.0 11/27/16 06:54 98 Nasal Cannula 3.0 11/27/16 06:00 60 16 122/60 97 Nasal Cannula 3.0 11/27/16 05:00 60 19 134/90 100 Nasal Cannula 3.0 11/27/16 04:00 97.8 60 17 110/52 100 Nasal Cannula 3.0 11/27/16 04:00 60 11/27/16 03:00 63 18 114/52 100 Nasal Cannula 3.0 11/27/16 02:00 63 18 94/44 100 Nasal Cannula 3.0 11/27/16 01:00 74 18 116/45 98 Nasal Cannula 3.0 11/27/16 00:00 97.6 62 19 108/54 100 Nasal Cannula 4.0 11/27/16 00:00 60 11/26/16 23:00 63 18 100/49 100 Nasal Cannula 4.0 11/26/16 22:00 62 18 97/49 100 Nasal Cannula 4.0 11/26/16 21:00 64 18 103/49 100 Nasal Cannula 4.0 11/26/16 20:00 60 19 108/51 100 Nasal Cannula 4.0 11/26/16 20:00 60 11/26/16 19:41 Nasal Cannula 4.0 11/26/16 19:41 98 Nasal Cannula 4.0 11/26/16 19:00 97.8 62 19 100/44 100 Nasal Cannula 4.0 Intake and Output 11/27/16 11/28/16 19:00 07:00 Intake Total 1275 ml Output Total 320 ml Balance 955 ml Intake Oral 0 ml IV Total 1225 ml Other 50 ml Output Urine Total 320 ml Laboratory Tests Test 11/26/16 20:30 11/27/16 04:30 11/27/16 08:14 Random Vancomycin Level 14.5 ug/mL White Blood Count 20.0 K/UL (4.8-10.8) H Red Blood Count 2.56 M/UL (4.70-6.10) L Hemoglobin 8.2 G/DL (14.2-18.0) L Hematocrit 25.0 % (42.0-52.0) L Mean Corpuscular Volume 98 FL (80-99) Mean Corpuscular Hemoglobin 32.2 PG (27.0-31.0) H Mean Corpuscular Hemoglobin Concent 33.0 G/DL (32.0-36.0) Red Cell Distribution Width 14.1 % (11.6-14.8) Platelet Count 73 K/UL (150-450) L Mean Platelet Volume 12.8 FL (6.5-10.1) H Neutrophils (%) (Auto) % (45.0-75.0) Lymphocytes (%) (Auto) % (20.0-45.0) Monocytes (%) (Auto) % (1.0-10.0) Eosinophils (%) (Auto) % (0.0-3.0) Basophils (%) (Auto) % (0.0-2.0) Differential Total Cells Counted 100 Neutrophils % (Manual) 93 % (45-75) H Lymphocytes % (Manual) 2 % (20-45) L Monocytes % (Manual) 1 % (1-10) Eosinophils % (Manual) 0 % (0-3) Basophils % (Manual) 0 % (0-2) Band Neutrophils 4 % (0-8) Platelet Estimate Decreased L Platelet Morphology Normal Hypochromasia 1+ Tear Drop Cells 1+ Ovalocytes 1+ Acanthocytes 1+ Schistocytes 1+ Sodium Level 138 MMOL/L (136-145) Potassium Level 3.2 MMOL/L (3.5-5.1) L Chloride Level 107 MMOL/L (98-107) Carbon Dioxide Level 18 MMOL/L (21-32) L Anion Gap 13 (5-15) Blood Urea Nitrogen 123 mg/dL (7-18) H Creatinine 4.1 MG/DL (0.55-1.30) H Estimat Glomerular Filtration Rate mL/min (>60) Glucose Level 87 MG/DL (74-106) Uric Acid 8.6 MG/DL (2.6-7.2) H Calcium Level 7.8 MG/DL (8.5-10.1) L Phosphorus Level 6.2 MG/DL (2.5-4.9) H Magnesium Level 2.1 MG/DL (1.8-2.4) Ferritin 680 NG/ML (8-388) H Total Bilirubin 1.0 MG/DL (0.2-1.0) Gamma Glutamyl Transpeptidase 14 U/L (5-85) Aspartate Amino Transf (AST/SGOT) 10 U/L (15-37) L Alanine Aminotransferase (ALT/SGPT) 13 U/L (12-78) Alkaline Phosphatase 58 U/L (46-116) C-Reactive Protein, Quantitative 6.2 mg/dL (0.00-0.90) H Pro-B-Type Natriuretic Peptide > 02192 (0-125) H Total Protein 4.2 G/DL (6.4-8.2) L Albumin 1.5 G/DL (3.4-5.0) L Globulin 2.7 g/dL Albumin/Globulin Ratio 0.6 (1.0-2.7) L Arterial Blood pH 7.420 (7.350-7.450) Arterial Blood Partial Pressure CO2 23.9 mmHg (35.0-45.0) *L Arterial Blood Partial Pressure O2 128.3 mmHg (75.0-100.0) H Arterial Blood HCO3 15.2 mmol/L (22.0-26.0) L Arterial Blood Oxygen Saturation 98.2 % (92.0-98.0) H Arterial Blood Base Excess -8.0 Chato Test Positive Microbiology Date/Time Source Procedure Growth Status 11/25/16 14:50 Stool Clostridium difficile Toxin Assay - Final Complete Objective HEAD AND NECK: Positive JVDs. LUNGS: Decreased breath sounds. CARDIOVASCULAR: Regular S1 and S2 with no gallop or murmur. ABDOMEN: Soft. EXTREMITIES: 1+ pitting edema. JEREMY BALLARD Nov 27, 2016 19:00
[2016-11-27] MEDS ORDERED: Acetaminophen 650mg/20.3ml GT PRN (19:15)
[2016-11-27] MEDS ORDERED: Dyna-Hex 2% Top Sol 2oz TOPIC SCH (20:00)
[2016-11-27] MEDS ORDERED: Epogen (for non ESRD use) SUBQ SCH (21:00)
[2016-11-27] MEDS: Ertapenem 0.5 GM in NS 55 ML IVPB SCH (22:43)
[2016-11-28] MEDS: NovoLOG Insulin Flexpen SUBQ SCH ×4 (00:21→18:14)
[2016-11-28 04:00] VITALS: BP 101/58
[2016-11-28 08:00] VITALS: BP 124/56
[2016-11-28] MEDS ORDERED: Renvela 800mg Pkt NG SCH (09:00)
[2016-11-28] MEDS: Pantoprazole Inj IVP SCH (09:12)
[2016-11-28] MEDS: Dakin's 0.25% (Half Strength) 16oz TOPIC SCH (09:13)
--- NOTE | 2016-11-28 10:01 | Pulmonology Progress Note ---
Assessment/Plan Assessment/Plan ASSESSMENT acute respiratory failure requiring intubation s/p extubation septic shock sepsis acute toxic metabolic encephalopathy 2 to sepsis and acute renal failure on chronic dementia bacteremia with proteus ESBL ( due to UTI) UTI with ESBL Proteus HCAP Acute renal failure on chronic renal insufficiency. Acute myocardial infarction with non-ST elevation myocardial infarction. Severe cardiomyopathy with EF 20% Sick sinus syndrome, status post pacemaker. Anemia of chronic renal disease Prostate cancer. Diabetes type 2. Sacral decub st 4/unstageable, POA Dysphagia Alzheimer dementia Benign prostatic hypertrophy. Gout. Thrombocytopenia PLAN OF CARE JOSE extubated off pressors hemodynamically stable on Midodrine now DNR Abx ID follows, repeated blood cx negative, stool C dif negative O2 HHN prn fup with CXR strict aspiration precautions, NGT feeding family declined G tube placement Acute renal failure improving, renal US c/w increased echogenicity of kidneys due to probable medical renal disease Nephro follows monitor renal, lytes, avoid nephrotoxic gentle IV hydration cardio follows family declined battery change on pacemaker( even though aware it has nearly end of life) cardio and EP follow troponin x 2 elevated, likely NSTEMI conservative treatment ECHO with EF 20% off BB and ZELALEM due to acute renal failure as per cardio With A fib rate controlled, no a/coagulation due to bleeding Plastic surgeon seen and evaluated, poor candidate for debridement BS management with SS of insulin wound care as per wound nurse recommendations monitor HH, at baseline, on EPO GI prophylaxis bowel regimen case discussed and evaluated by supervising physician Subjective Allergies: Coded Allergies: No Known Allergies (Unverified , 11/20/16) Subjective denies chest pain, SR on tele no signs of respiratory distress leukocytosis- trend up this am, afebrile Objective Last 24 Hour Vital Signs Date Time Temp Pulse Resp B/P (MAP) Pulse Ox O2 Delivery O2 Flow Rate FiO2 11/28/16 04:00 98.0 60 20 101/58 99 Nasal Cannula 2.0 11/28/16 04:00 60 11/28/16 01:22 65 11/27/16 23:46 98.5 60 20 107/58 100 Nasal Cannula 3.0 11/27/16 20:00 60 11/27/16 20:00 97.3 60 20 102/50 100 Nasal Cannula 3.0 11/27/16 19:39 Nasal Cannula 3.0 11/27/16 19:39 99 Nasal Cannula 3.0 10/13/17 18:00 59 20 113/51 100 Nasal Cannula 3.0 11/27/16 17:00 60 20 101/53 100 Nasal Cannula 3.0 11/27/16 16:00 60 11/27/16 16:00 98.2 60 17 105/54 98 Nasal Cannula 3.0 11/27/16 15:00 60 18 107/54 99 Nasal Cannula 3.0 11/27/16 14:00 60 17 107/53 100 Nasal Cannula 3.0 11/27/16 13:00 60 16 104/53 100 Nasal Cannula 3.0 11/27/16 12:00 98.4 60 18 103/59 100 Nasal Cannula 3.0 11/27/16 12:00 59 11/27/16 11:00 60 18 127/52 100 Nasal Cannula 3.0 General Appearance: no acute distress, other - awake, poorly but responsive elderly bedridden male HEENT: normocephalic, atraumatic, anicteric, other - O2 via NC< NGT Respiratory/Chest: no respiratory distress, decreased breath sounds Cardiovascular: normal rate, regular rhythm - SR with BBB on tele , no JVD Extremities: no edema Neurologic/Psychiatric: abnormal gait - bedridden , alert, responsive Musculoskeletal: atrophy - BLE Microbiology Date/Time Source Procedure Growth Status 11/25/16 14:50 Stool Clostridium difficile Toxin Assay - Final Complete Current Medications Medications (Trade) Dose Ordered Sig/Chasidy Route PRN Reason Start Time Stop Time Status Last Admin Dose Admin Acetaminophen (Tylenol) 650 mg Q4H PRN GT fever 11/27/16 19:15 12/27/16 19:14 Acetaminophen (Tylenol) 650 mg Q4H PRN RECTAL Mild Pain (Pain Scale 1-3) 11/27/16 19:00 12/20/16 18:59 Chlorhexidine Gluconate (Julissa-Hex 2%) 1 applic DAILY@2000 TOPIC 11/27/16 20:00 12/22/16 19:59 11/27/16 20:23 Dextrose (Dextrose 50%) STAT PRN IV Hypoglycemia 11/27/16 19:00 12/20/16 18:59 Dextrose/Sodium Chloride 1,000 ml @ 50 mls/hr Q20H IV 11/27/16 20:00 12/26/16 19:59 11/27/16 20:19 Epoetin Isauro (Procrit (for non ESRD use)) 3,000 units MON-WED-WED SUBQ 11/27/16 21:00 12/25/16 20:59 11/27/16 21:26 Ertapenem 0.5 gm/ Sodium Chloride 55 ml @ 110 mls/hr Q24H IVPB 11/27/16 23:00 12/01/16 22:59 11/27/16 22:43 Insulin Aspart (NovoLOG) EVERY 6 HOURS SUBQ 11/28/16 00:00 12/21/16 00:00 11/28/16 00:21 Levofloxacin 50 ml @ 50 mls/hr Q48H IVPB 11/28/16 17:00 12/05/16 16:59 Midodrine (Pro-Amatine) 2.5 mg THREE TIMES A DAY NG 11/28/16 09:00 12/26/16 13:29 Pantoprazole (Protonix) 40 mg EVERY 12 HOURS IVP 11/27/16 21:00 12/23/16 08:59 11/28/16 09:12 Polyethylene Glycol (Miralax) 17 gm DAILYPRN PRN ORAL Constipation 11/27/16 19:00 12/27/16 18:59 Sevelamer Carbonate (Renvela) 1,600 mg THREE TIMES A DAY NG 11/28/16 09:00 12/27/16 12:59 Sodium Hypochlorite (Dakin's Half Strength) 1 applic DAILY TOPIC 11/28/16 09:00 12/24/16 08:59 11/28/16 09:13 Vancomycin HCl (Vanco rx to dose) 1 ea DAILY PRN MISC Per rx protocol 11/28/16 09:00 12/25/16 19:59 Lexa (Neha)Jennifer NP Nov 28, 2016 10:00
--- NOTE | 2016-11-28 10:06 | Diagnostic Imaging Report ---
Indication: Dyspnea Comparison: 11/27/16 A single view chest radiograph was obtained. Findings: Hazy groundglass basilar opacities demonstrated likely pleural effusions. Cardiomegaly is unchanged. Mild interstitial edema likely present. Impression: No change from the prior day
--- NOTE | 2016-11-28 10:24 | Infectious Diseases Prog Note ---
Assessment/Plan Assessment/Plan Abx: Cefepime x1 11/20 IV Vanco 11/20; 11/25- Zoyn 11/20 Amikacin x1 11/21 Linezolid 11/20-11/25 Meropenem 11/20-11/26 Ertapenem 11/26- Levaquin 11/26- Amikacin x1 11/20 Assesment: SP Septic shock- 2ry to ESBL Proteus UTI and high grade bacteremia and possible MRSA pneumonia; off pressors now -U/a WBC too many to count, nit +, leuk +3, ucx 11/20 >100K ESBL P. mirabilis, 11/21 ucx 10-20K ESBL Proteus (S. Ertapenem); repeat U/a 11/23- pyuria improving , ucx Neg -Bcx 05/19 Proteus mirabilis (S. Zosyn, Ertapenem, Cipro), repeat Bcx 11/23 NTD -Sp cx: MRSA (S. Vancomycin LIZA 1), normal victoria, yeast; repeat sp cx 11/23 +3 S. maltophila ( S. 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 -CXR 11/23 Persistent left basilar opacity. Pneumonia versus atelectasis. -CXR 11/20: Retrocardiac density likely atelectasis or scarring. Pneumonia not entirely excluded. -flu neg Hyperleukocytosis with left shift/bandemia- r/o intrabdominal abscess, empyema; improving; CBC pending today -Cdiff 11/25 neg -CT chest/abd/p 11/25: Decubitus changes in the retrocecal/retroperitoneal region. Gas bubbles within the subcutaneous fat and musculature, may represent gas introduced by a decubitus ulcer. However, no definite ulcers visualized, so the possibility of infection with a gas-forming organism should also be considered. Anasarca, with extensive edema of the subcutaneous, mesenteric, and retroperitoneal fat, large bilateral pleural effusions, small to moderate ascites, small pericardial effusion. Compressive atelectasis of much of both lower lobes, due to the large bilateral pleural effusions. Marked cardiomegaly Satisfactory positions of endotracheal and nasogastric tubes. No evidence of small bowel obstruction or acute abdominal process. Hyperattenuating gallbladder contents, likely reflecting milk of calcium bile versus dense sludge. Sacral decubitus ulcer, unsteagable- was previously noticed yellowish exudate, none currently- ?OM -wound cx: ESBL E.coli, ESBL P. mirabilis (both S. to ertapenem), E. fecalis (AMp, Vanc S) Acute respiratory failure, s/p extubation Thrombocytopenia; worsened- likely combination of sepsis and linezolid Lactic acidosis; resolved BJORN/Renal failure; improving -Renal Us: No obvious hydronephrosis.Bilateral renal cysts. Mild apparent increased echogenicity of the kidneys may suggest underlying medical renal disease. Cardiomyopathy with EF 20% Dementia ?DM2 Plan: -Continue Vancomycin #4 (Abx d #10/25-) and Ertapenem abx #10/29 for MRSA pneumonia and Proteus bacteremia (respectively); no PsA growth -s/p 7d Merepenem 11/26 -s/p 6d IV Linezolid 11/25 (dc'ed due to low plts) -s/p 3d IV Amikacin 11/23 -Continue PO Levaquin 500mg q 48hr #04/21-10 for S.maltophilia in sputum -will start Prophylatic PO Vancomycin for Cdiff given burden of abx -f/u repeat Bcx -wound care; appreciate plastic surgery input- MRI cannot be done as patient as pacemaker -may consider dedicated CT lumbar spine (without contrast given renal function ) -Monitor CBC/BMP, temperatures; Monitor WBC and Cr Thank you for this consultation. Will continue to follow along with you. Discussed with RN. Subjective Allergies: Coded Allergies: No Known Allergies (Unverified , 11/20/16) Subjective transferred to the floors labs pending this am afebrile repaet Bcx NTD Objective Vital Signs Last 24 Hour Vital Signs Date Time Temp Pulse Resp B/P (MAP) Pulse Ox O2 Delivery O2 Flow Rate FiO2 11/28/16 08:00 97.7 73 20 124/56 97 Nasal Cannula 2.0 11/28/16 04:00 98.0 60 20 101/58 99 Nasal Cannula 2.0 11/28/16 04:00 60 11/28/16 01:22 65 11/27/16 23:46 98.5 60 20 107/58 100 Nasal Cannula 3.0 11/27/16 20:00 60 11/27/16 20:00 97.3 60 20 102/50 100 Nasal Cannula 3.0 11/27/16 19:39 Nasal Cannula 3.0 11/27/16 19:39 99 Nasal Cannula 3.0 11/27/16 18:00 59 20 113/51 100 Nasal Cannula 3.0 11/27/16 17:00 60 20 101/53 100 Nasal Cannula 3.0 11/27/16 16:00 60 11/27/16 16:00 98.2 60 17 105/54 98 Nasal Cannula 3.0 11/27/16 15:00 60 18 107/54 99 Nasal Cannula 3.0 11/27/16 14:00 60 17 107/53 100 Nasal Cannula 3.0 11/27/16 13:00 60 16 104/53 100 Nasal Cannula 3.0 11/27/16 12:00 98.4 60 18 103/59 100 Nasal Cannula 3.0 11/27/16 12:00 59 11/27/16 11:00 60 18 127/52 100 Nasal Cannula 3.0 Height (Feet): 5 Weight (Pounds): 157 Objective General Appearance: cachetic, thin, Chronically Ill, much more awake HEENT: ETT in place Respiratory: normal inspection, no respiratory distress, no retraction, no accessory muscle use, no wheezing, other - Bilateral rhonchi Cardiovascular : regular rate, rhythm, no edema Musculoskeletal: did not seen it today(wound pictueres to be upload today per wound care team) Neurologic: awake, alert, no focal deficits, answering questions, following commands Skin: normal inspection, normal color, no rash Abd: BS+, S+D, ND Microbiology Date/Time Source Procedure Growth Status 11/25/16 14:50 Stool Clostridium difficile Toxin Assay - Final Complete reviewed Current Medications Medications (Trade) Dose Ordered Sig/Chasidy Route PRN Reason Start Time Stop Time Status Last Admin Dose Admin Acetaminophen (Tylenol) 650 mg Q4H PRN GT fever 11/27/16 19:15 12/27/16 19:14 Acetaminophen (Tylenol) 650 mg Q4H PRN RECTAL Mild Pain (Pain Scale 1-3) 11/27/16 19:00 12/20/16 18:59 Chlorhexidine Gluconate (Julissa-Hex 2%) 1 applic DAILY@2000 TOPIC 11/27/16 20:00 12/22/16 19:59 11/27/16 20:23 Dextrose (Dextrose 50%) STAT PRN IV Hypoglycemia 11/27/16 19:00 12/20/16 18:59 Dextrose/Sodium Chloride 1,000 ml @ 50 mls/hr Q20H IV 11/27/16 20:00 12/26/16 19:59 11/27/16 20:19 Epoetin Isauro (Procrit (for non ESRD use)) 3,000 units WED-WED-WED SUBQ 11/27/16 21:00 12/25/16 20:59 11/27/16 21:26 Ertapenem 0.5 gm/ Sodium Chloride 55 ml @ 110 mls/hr Q24H IVPB 11/27/16 23:00 12/01/16 22:59 11/27/16 22:43 Insulin Aspart (NovoLOG) EVERY 6 HOURS SUBQ 11/28/16 00:00 12/21/16 00:00 11/28/16 00:21 Levofloxacin 50 ml @ 50 mls/hr Q48H IVPB 11/28/16 17:00 12/05/16 16:59 Midodrine (Pro-Amatine) 2.5 mg THREE TIMES A DAY NG 11/28/16 09:00 12/26/16 13:29 Pantoprazole (Protonix) 40 mg EVERY 12 HOURS IVP 11/27/16 21:00 12/23/16 08:59 11/28/16 09:12 Polyethylene Glycol (Miralax) 17 gm DAILYPRN PRN ORAL Constipation 11/27/16 19:00 12/27/16 18:59 Sevelamer Carbonate (Renvela) 1,600 mg THREE TIMES A DAY NG 11/28/16 09:00 12/27/16 12:59 Sodium Hypochlorite (Dakin's Half Strength) 1 applic DAILY TOPIC 11/28/16 09:00 12/24/16 08:59 11/28/16 09:13 Vancomycin HCl (Vanco rx to dose) 1 ea DAILY PRN MISC Per rx protocol 11/28/16 09:00 12/25/16 19:59 Lindsey Willis M.D. Nov 28, 2016 10:24
--- NOTE | 2016-11-28 10:50 | Diagnostic Imaging Report ---
Indication: Nasogastric tube placement Comparison: 11/20/2016 abdomen one view Findings: Single supine view the abdomen is obtained. Nasogastric tube is seen with distal end in the stomach. Previously noted gaseous distention of the stomach has significantly improved. There is a nonobstructive bowel gas pattern. Gas is noted in the transverse and descending colon. No significantly dilated loops of bowel, air-fluid levels or free air are identified on this limited supine view. Crowley catheter is noted. Previously noted right groin central venous catheter has been removed. Impression: Nasogastric tube in good position. Nonobstructive bowel gas pattern Crowley catheter noted. Previous right groin central venous catheter has been removed.
--- NOTE | 2016-11-28 10:56 | General Progress Note ---
Assessment/Plan Status: stable Assessment/Plan 1. Septic shock. 2. Acute kidney injury on chronic renal insufficiency. 3. Failure to thrive. 4. Acute myocardial infarction with non-ST elevation myocardial infarction. 5. Sick sinus syndrome, status post pacemaker. 6. Prostate cancer. 7. Diabetes type 2. 8. Hypertension. 9. Benign prostatic hypertrophy. 10. Gout. 11. Severe cardiomyopathy. 12. Alzheimer dementia. 13. Anemia of chronic kidney disease. 14. DNR Plan; increase epo K supplement post extubation care add phos binders Tube feeding Mag and K and Phos supplements as needed off Pressors- o midodrine Crowley- per consultants- Poor prognosis- ? transfuse as needed Subjective ROS Limited/Unobtainable: No Constitutional: Reports: malaise, weakness Allergies: Coded Allergies: No Known Allergies (Unverified , 11/20/16) Objective Last 24 Hour Vital Signs Date Time Temp Pulse Resp B/P (MAP) Pulse Ox O2 Delivery O2 Flow Rate FiO2 11/28/16 08:00 97.7 73 20 124/56 97 Nasal Cannula 2.0 11/28/16 04:00 98.0 60 20 101/58 99 Nasal Cannula 2.0 11/28/16 04:00 60 11/28/16 01:22 65 11/27/16 23:46 98.5 60 20 107/58 100 Nasal Cannula 3.0 11/27/16 20:00 60 11/27/16 20:00 97.3 60 20 102/50 100 Nasal Cannula 3.0 11/27/16 19:39 Nasal Cannula 3.0 11/27/16 19:39 99 Nasal Cannula 3.0 11/27/16 18:00 59 20 113/51 100 Nasal Cannula 3.0 11/27/16 17:00 60 20 101/53 100 Nasal Cannula 3.0 11/27/16 16:00 60 11/27/16 16:00 98.2 60 17 105/54 98 Nasal Cannula 3.0 11/27/16 15:00 60 18 107/54 99 Nasal Cannula 3.0 11/27/16 14:00 60 17 107/53 100 Nasal Cannula 3.0 11/27/16 13:00 60 16 104/53 100 Nasal Cannula 3.0 11/27/16 12:00 98.4 60 18 103/59 100 Nasal Cannula 3.0 11/27/16 12:00 59 11/27/16 11:00 60 18 127/52 100 Nasal Cannula 3.0 Height (Feet): 5 Weight (Pounds): 157 Objective no other changes FELECIA RASHID Nov 28, 2016 10:56
[2016-11-28] MEDS ORDERED: KCl 10% 40mEq/30ml liquid NG ONE (11:00)
[2016-11-28] MEDS: Renvela 800mg Pkt NG SCH ×2 (11:56→18:13)
[2016-11-28] MEDS: Vancomycin oral 125mg/2.5ml ORAL SCH ×2 (11:57→18:13)
[2016-11-28 12:00] VITALS: BP 110/56
[2016-11-28 13:42] LABS: MEAN CORPUSCULAR HEMOGLOBIN 30.9 PG (27.0-31.0); MEAN CORPUSCULAR HGB CONC 31.2 G/DL (32.0-36.0); MEAN CORPUSCULAR VOLUME 99 FL (80-99); MEAN PLATELET VOLUME 10.8 FL (6.5-10.1); PLATELET COUNT 68 K/UL (150-450); RED BLOOD COUNT 2.83 M/UL (4.70-6.10)
[2016-11-28 14:11] LABS: ALANINE AMINOTRANSFERASE 11 U/L (12-78); ALBUMIN/GLOBULIN RATIO 0.6 (1.0-2.7); ANION GAP 16 (5-15); ASPARTATE AMINO TRANSFERASE 10 U/L (15-37); CALCIUM 8.2 MG/DL (8.5-10.1); CARBON DIOXIDE 16 MMOL/L (21-32); CHLORIDE 102 MMOL/L (98-107); CREATININE 3.8 MG/DL (0.55-1.30); POTASSIUM 4.1 MMOL/L (3.5-5.1); SODIUM 134 MMOL/L (136-145); TOTAL PROTEIN 4.4 G/DL (6.4-8.2)
--- NOTE | 2016-11-28 14:22 | Cardiac Electrophysiology PN ---
Assessment/Plan Assessment/Plan 1. Status post dual chamber pacemaker implantation in 2012. Will find out the brand of pacemaker for interrogation. 2. Atrial fibrillation, rate is currently controlled and off anticoagulation for severe anemia 3. 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 Off of beta-justen and ZELALEM inhibitor in view of his renal failure and hypotension Per Dr Perez 4. End-stage renal disease. Family decided not to proceed with hemodialysis. 5. Dysphagia. Family refused PEG placement.Had NG placement today 6. Prostate cancer status post radiation therapy. 7. History of Graves disease. 8. Hypotension,On Midodrine 2.5 tid DW RN at bedside. Subjective Subjective In atrial fib with V Pacing.Has NG tube in now. Objective Last 24 Hour Vital Signs Date Time Temp Pulse Resp B/P (MAP) Pulse Ox O2 Delivery O2 Flow Rate FiO2 11/28/16 12:00 97.7 75 16 110/56 99 Nasal Cannula 2.0 11/28/16 11:51 60 11/28/16 08:12 63 11/28/16 08:02 Nasal Cannula 2.0 11/28/16 08:01 97 Nasal Cannula 2.0 11/28/16 08:00 97.7 73 20 124/56 97 Nasal Cannula 2.0 11/28/16 04:00 98.0 60 20 101/58 99 Nasal Cannula 2.0 11/28/16 04:00 60 11/28/16 01:22 65 11/27/16 23:46 98.5 60 20 107/58 100 Nasal Cannula 3.0 11/27/16 20:00 60 11/27/16 20:00 97.3 60 20 102/50 100 Nasal Cannula 3.0 11/27/16 19:39 Nasal Cannula 3.0 11/27/16 19:39 99 Nasal Cannula 3.0 11/27/16 18:00 59 20 113/51 100 Nasal Cannula 3.0 11/27/16 17:00 60 20 101/53 100 Nasal Cannula 3.0 11/27/16 16:00 60 11/27/16 16:00 98.2 60 17 105/54 98 Nasal Cannula 3.0 11/27/16 15:00 60 18 107/54 99 Nasal Cannula 3.0 Intake and Output 11/28/16 11/29/16 19:00 07:00 Intake Total 410 ml Balance 410 ml IV Total 300 ml Tube Feeding 60 ml Other 50 ml # Bowel Movements 2 Laboratory Tests Test 11/28/16 03:30 White Blood Count 27.0 K/UL (4.8-10.8) *H Red Blood Count 2.83 M/UL (4.70-6.10) L Hemoglobin 8.8 G/DL (14.2-18.0) L Hematocrit 28.1 % (42.0-52.0) L Mean Corpuscular Volume 99 FL (80-99) Mean Corpuscular Hemoglobin 30.9 PG (27.0-31.0) Mean Corpuscular Hemoglobin Concent 31.2 G/DL (32.0-36.0) L Red Cell Distribution Width 14.0 % (11.6-14.8) Platelet Count 68 K/UL (150-450) L Mean Platelet Volume 10.8 FL (6.5-10.1) H Neutrophils (%) (Auto) % (45.0-75.0) Lymphocytes (%) (Auto) % (20.0-45.0) Monocytes (%) (Auto) % (1.0-10.0) Eosinophils (%) (Auto) % (0.0-3.0) Basophils (%) (Auto) % (0.0-2.0) Neutrophils % (Manual) Pending Lymphocytes % (Manual) Pending Platelet Estimate Pending Platelet Morphology Pending Sodium Level 134 MMOL/L (136-145) L Potassium Level 4.1 MMOL/L (3.5-5.1) Chloride Level 102 MMOL/L (98-107) Carbon Dioxide Level 16 MMOL/L (21-32) L Anion Gap 16 (5-15) H Blood Urea Nitrogen 122 mg/dL (7-18) H Creatinine 3.8 MG/DL (0.55-1.30) H Estimat Glomerular Filtration Rate mL/min (>60) Glucose Level 60 MG/DL (74-106) L Uric Acid Pending Calcium Level 8.2 MG/DL (8.5-10.1) L Phosphorus Level Pending Magnesium Level Pending Total Bilirubin 1.2 MG/DL (0.2-1.0) H Direct Bilirubin Pending Aspartate Amino Transf (AST/SGOT) 10 U/L (15-37) L Alanine Aminotransferase (ALT/SGPT) 11 U/L (12-78) L Alkaline Phosphatase 61 U/L (46-116) C-Reactive Protein, Quantitative Pending Pro-B-Type Natriuretic Peptide > 62196 (0-125) H Total Protein 4.4 G/DL (6.4-8.2) L Albumin 1.7 G/DL (3.4-5.0) L Globulin 2.7 g/dL Albumin/Globulin Ratio 0.6 (1.0-2.7) L Microbiology Date/Time Source Procedure Growth Status 11/25/16 14:50 Stool Clostridium difficile Toxin Assay - Final Complete Objective HEAD AND NECK: Mild JVDs. NG tube is in. LUNGS: Decreased breath sounds. CARDIOVASCULAR: Regular S1 and S2 with no gallop or murmur. ABDOMEN: Soft. EXTREMITIES: 1+ pitting edema. JEREMY BALLARD Nov 28, 2016 14:22
[2016-11-28 14:33] LABS: CRP QUANT 11.2 mg/dL (0.00-0.90); MAGNESIUM 2.1 MG/DL (1.8-2.4); PHOSPHORUS 5.8 MG/DL (2.5-4.9); URIC ACID 8.4 MG/DL (2.6-7.2)
[2016-11-28 14:36] LABS: BILIRUBIN,DIRECT 0.4 MG/DL (0.0-0.3)
--- NOTE | 2016-11-28 14:58 | Internal Med Progress Note ---
Subjective Date of Service: Nov 28, 2016 Physician Name Taniya Pina Attending Physician Teddy Quezada MD Current Medications Medications (Trade) Dose Ordered Sig/Chasidy Route PRN Reason Start Time Stop Time Status Last Admin Dose Admin Acetaminophen (Tylenol) 650 mg Q4H PRN GT fever 11/27/16 19:15 12/27/16 19:14 Acetaminophen (Tylenol) 650 mg Q4H PRN RECTAL Mild Pain (Pain Scale 1-3) 11/27/16 19:00 12/20/16 18:59 Dextrose (Dextrose 50%) STAT PRN IV Hypoglycemia 11/27/16 19:00 12/20/16 18:59 Dextrose/Sodium Chloride 1,000 ml @ 50 mls/hr Q20H IV 11/27/16 20:00 12/26/16 19:59 11/27/16 20:19 Epoetin Isauro (Procrit (for non ESRD use)) 10,000 units WED-WED-WED SUBQ 11/30/16 21:00 12/30/16 20:59 Ertapenem 0.5 gm/ Sodium Chloride 55 ml @ 110 mls/hr Q24H IVPB 11/27/16 23:00 12/01/16 22:59 11/27/16 22:43 Insulin Aspart (NovoLOG) EVERY 6 HOURS SUBQ 11/28/16 00:00 12/21/16 00:00 11/28/16 00:21 Levofloxacin 50 ml @ 50 mls/hr Q48H IVPB 11/28/16 17:00 12/05/16 16:59 Midodrine (Pro-Amatine) 2.5 mg THREE TIMES A DAY NG 11/28/16 09:00 12/26/16 13:29 Polyethylene Glycol (Miralax) 17 gm DAILYPRN PRN ORAL Constipation 11/27/16 19:00 12/27/16 18:59 Ranitidine HCl (Zantac) 150 mg TWICE A DAY NG 11/28/16 18:00 12/28/16 17:59 Sevelamer Carbonate (Renvela) 1,600 mg Q6HR NG 11/28/16 12:00 12/27/16 12:59 11/28/16 11:56 Sodium Hypochlorite (Dakin's Half Strength) 1 applic DAILY TOPIC 11/28/16 09:00 12/24/16 08:59 11/28/16 09:13 Vancomycin HCl (Vanco rx to dose) 1 ea DAILY PRN MISC Per rx protocol 11/28/16 09:00 12/25/16 19:59 Vancomycin HCl (Vancomycin) 125 mg BID ORAL 11/28/16 11:00 12/05/16 10:59 11/28/16 11:57 Allergies: Coded Allergies: No Known Allergies (Unverified , 11/20/16) ROS Limited/Unobtainable: No Constitutional: Reports: no symptoms HEENT: Reports: no symptoms Cardiovascular: Reports: no symptoms Respiratory: Reports: shortness of breath Gastrointestinal/Abdominal: Reports: no symptoms Neurologic/Psychiatric: Reports: no symptoms Subjective 86 YO M admitted with respiratory failure and sepsis. Cover for Int Med-Dr Quezada . JOSE. Objective Last Vital Signs Date Time Temp Pulse Resp B/P (MAP) Pulse Ox O2 Delivery O2 Flow Rate FiO2 11/28/16 12:00 97.7 75 16 110/56 99 Nasal Cannula 2.0 11/26/16 16:00 Laboratory Tests Test 11/28/16 03:30 White Blood Count 27.0 K/UL (4.8-10.8) *H Red Blood Count 2.83 M/UL (4.70-6.10) L Hemoglobin 8.8 G/DL (14.2-18.0) L Hematocrit 28.1 % (42.0-52.0) L Mean Corpuscular Volume 99 FL (80-99) Mean Corpuscular Hemoglobin 30.9 PG (27.0-31.0) Mean Corpuscular Hemoglobin Concent 31.2 G/DL (32.0-36.0) L Red Cell Distribution Width 14.0 % (11.6-14.8) Platelet Count 68 K/UL (150-450) L Mean Platelet Volume 10.8 FL (6.5-10.1) H Neutrophils (%) (Auto) % (45.0-75.0) Lymphocytes (%) (Auto) % (20.0-45.0) Monocytes (%) (Auto) % (1.0-10.0) Eosinophils (%) (Auto) % (0.0-3.0) Basophils (%) (Auto) % (0.0-2.0) Neutrophils % (Manual) Pending Lymphocytes % (Manual) Pending Platelet Estimate Pending Platelet Morphology Pending Sodium Level 134 MMOL/L (136-145) L Potassium Level 4.1 MMOL/L (3.5-5.1) Chloride Level 102 MMOL/L (98-107) Carbon Dioxide Level 16 MMOL/L (21-32) L Anion Gap 16 (5-15) H Blood Urea Nitrogen 122 mg/dL (7-18) H Creatinine 3.8 MG/DL (0.55-1.30) H Estimat Glomerular Filtration Rate mL/min (>60) Glucose Level 60 MG/DL (74-106) L Uric Acid 8.4 MG/DL (2.6-7.2) H Calcium Level 8.2 MG/DL (8.5-10.1) L Phosphorus Level 5.8 MG/DL (2.5-4.9) H Magnesium Level 2.1 MG/DL (1.8-2.4) Total Bilirubin 1.2 MG/DL (0.2-1.0) H Direct Bilirubin 0.4 MG/DL (0.0-0.3) H Aspartate Amino Transf (AST/SGOT) 10 U/L (15-37) L Alanine Aminotransferase (ALT/SGPT) 11 U/L (12-78) L Alkaline Phosphatase 61 U/L (46-116) C-Reactive Protein, Quantitative 11.2 mg/dL (0.00-0.90) H Pro-B-Type Natriuretic Peptide > 61612 (0-125) H Total Protein 4.4 G/DL (6.4-8.2) L Albumin 1.7 G/DL (3.4-5.0) L Globulin 2.7 g/dL Albumin/Globulin Ratio 0.6 (1.0-2.7) L Intake and Output 11/28/16 11/29/16 19:00 07:00 Intake Total 410 ml Balance 410 ml IV Total 300 ml Tube Feeding 60 ml Other 50 ml # Bowel Movements 2 Objective General Appearance: WD/WN, lethargic EENT: normal ENT inspection, other - oral intubation Neck: non-tender, normal alignment, supple Cardiovascular: normal peripheral pulses, normal rate, regular rhythm, no gallop/murmur, no JVD Respiratory/Chest: Nasal canula; respiratory distress, crackles/rales, rhonchi - bilaterally, expiratory wheezing Abdomen: normal bowel sounds, non tender, soft, no organomegaly, no mass Skin: normal pigmentation, warm/dry Assessment/Plan Problem List: (1) Sepsis Assessment & Plan: ESBL Proteus Mirabilis. See ID note-Cont Ertapenem (2) UTI (urinary tract infection) Assessment & Plan: ESBL Proteus mirabilis. Follow Inf Dis recs-Cont Meropenem (3) Pneumonia Assessment & Plan: Staph aureus. Continue vanco and Ertapenem per ID (4) Respiratory failure Assessment & Plan: See pulmonary note. (5) Hypotension Assessment & Plan: Due to sepsis. On levophed (6) Renal failure Assessment & Plan: See nephrology note. (7) Diabetes mellitus, type II Assessment & Plan: Cont novolog sliding scale. (8) HTN (hypertension) Assessment & Plan: Currently hypotensive (9) CHF (congestive heart failure) (10) Cardiomyopathy, ischemic (11) Prostate cancer (12) Sick sinus syndrome Assessment & Plan: S/P pacemaker (13) Pacemaker (14) Anemia of renal disease (15) Alzheimer's dementia (16) Septic shock (17) Lactic acid acidosis (18) Altered mental status (19) NSTEMI (non-ST elevated myocardial infarction) (20) Hyponatremia Assessment & Plan: See nephrology note. (21) Decubitus ulcer of sacral region, stage 3 Assessment & Plan: See plastic surg note-unstable for debridement. Status: progressing TANIYA PINA Nov 28, 2016 14:58
[2016-11-28 16:00] VITALS: BP 108/72
[2016-11-28] MEDS: D5NS 1,000 ML IV SCH (16:11)
[2016-11-28] MEDS ORDERED: D5NS 1000ml IV ONE ×2 (16:22→18:45)
[2016-11-28 16:44] LABS: BAND NEUTROPHILS % (MANUAL) 2 % (0-8); LYMPHOCYTES % (MANUAL) 2 % (20-45); NEUTROPHILS % (MANUAL) 93 % (45-75); OVALOCYTES 1+; PLATELET MORPHOLOGY NORMAL; TOTAL CELLS COUNTED 100
[2016-11-28 16:45] LABS: BASOPHILS % (MANUAL) 0 % (0-2); EOSINOPHILS % (MANUAL) 0 % (0-3); PLATELET ESTIMATE DECREASED
[2016-11-28] MEDS ORDERED: Levofloxacin 250mg/D5W 50ml IVPB SCH (17:00)
[2016-11-28] MEDS ORDERED: Tubing IV Secondary IV ONE (18:45)
[2016-11-28 20:00] VITALS: BP 143/56
--- NOTE | 2016-11-28 22:48 | Cardiology Progress Note ---
Assessment/Plan Assessment/Plan ischemic CMP sepsis a fib poacemaker respiratory insufficiency CHF will d/c IVF f/u lytes abx per ID Subjective Subjective the patient looks very sick, weak and dyspneic does not react to verbal stimuli or touch Objective Last 24 Hour Vital Signs Date Time Temp Pulse Resp B/P (MAP) Pulse Ox O2 Delivery O2 Flow Rate FiO2 11/28/16 21:00 98 Nasal Cannula 2.0 28 11/28/16 21:00 Nasal Cannula 2.0 28 11/28/16 20:00 98.0 50 24 143/56 94 Nasal Cannula 2.0 11/28/16 16:00 60 11/28/16 16:00 97.7 86 20 108/72 96 Nasal Cannula 2.0 11/28/16 12:00 97.7 75 16 110/56 99 Nasal Cannula 2.0 11/28/16 11:51 60 11/28/16 08:12 63 11/28/16 08:02 Nasal Cannula 2.0 11/28/16 08:01 97 Nasal Cannula 2.0 11/28/16 08:00 97.7 73 20 124/56 97 Nasal Cannula 2.0 11/28/16 04:00 98.0 60 20 101/58 99 Nasal Cannula 2.0 11/28/16 04:00 60 11/28/16 01:22 65 11/27/16 23:46 98.5 60 20 107/58 100 Nasal Cannula 3.0 General Appearance: moderate distress EENT: PERRL/EOMI Neck: JVD Rhythm: Afib, other - a fib with v pacing Cardiovascular: normal rate Respiratory/Chest: accessory muscle use, rhonchi - bilaterally Abdomen: soft Extremities: no swelling Intake and Output 11/28/16 11/29/16 19:00 07:00 Intake Total 800 ml Output Total 200 ml Balance 600 ml IV Total 650 ml Tube Feeding 100 ml Other 50 ml Output Urine Total 200 ml # Bowel Movements 5 Laboratory Tests Test 11/28/16 03:30 White Blood Count 27.0 K/UL (4.8-10.8) *H Red Blood Count 2.83 M/UL (4.70-6.10) L Hemoglobin 8.8 G/DL (14.2-18.0) L Hematocrit 28.1 % (42.0-52.0) L Mean Corpuscular Volume 99 FL (80-99) Mean Corpuscular Hemoglobin 30.9 PG (27.0-31.0) Mean Corpuscular Hemoglobin Concent 31.2 G/DL (32.0-36.0) L Red Cell Distribution Width 14.0 % (11.6-14.8) Platelet Count 68 K/UL (150-450) L Mean Platelet Volume 10.8 FL (6.5-10.1) H Neutrophils (%) (Auto) % (45.0-75.0) Lymphocytes (%) (Auto) % (20.0-45.0) Monocytes (%) (Auto) % (1.0-10.0) Eosinophils (%) (Auto) % (0.0-3.0) Basophils (%) (Auto) % (0.0-2.0) Differential Total Cells Counted 100 Neutrophils % (Manual) 93 % (45-75) H Lymphocytes % (Manual) 2 % (20-45) L Monocytes % (Manual) 3 % (1-10) Eosinophils % (Manual) 0 % (0-3) Basophils % (Manual) 0 % (0-2) Band Neutrophils 2 % (0-8) Platelet Estimate Decreased L Platelet Morphology Normal Ovalocytes 1+ Sodium Level 134 MMOL/L (136-145) L Potassium Level 4.1 MMOL/L (3.5-5.1) Chloride Level 102 MMOL/L (98-107) Carbon Dioxide Level 16 MMOL/L (21-32) L Anion Gap 16 (5-15) H Blood Urea Nitrogen 122 mg/dL (7-18) H Creatinine 3.8 MG/DL (0.55-1.30) H Estimat Glomerular Filtration Rate mL/min (>60) Glucose Level 60 MG/DL (74-106) L Uric Acid 8.4 MG/DL (2.6-7.2) H Calcium Level 8.2 MG/DL (8.5-10.1) L Phosphorus Level 5.8 MG/DL (2.5-4.9) H Magnesium Level 2.1 MG/DL (1.8-2.4) Total Bilirubin 1.2 MG/DL (0.2-1.0) H Direct Bilirubin 0.4 MG/DL (0.0-0.3) H Aspartate Amino Transf (AST/SGOT) 10 U/L (15-37) L Alanine Aminotransferase (ALT/SGPT) 11 U/L (12-78) L Alkaline Phosphatase 61 U/L (46-116) C-Reactive Protein, Quantitative 11.2 mg/dL (0.00-0.90) H Pro-B-Type Natriuretic Peptide > 08209 (0-125) H Total Protein 4.4 G/DL (6.4-8.2) L Albumin 1.7 G/DL (3.4-5.0) L Globulin 2.7 g/dL Albumin/Globulin Ratio 0.6 (1.0-2.7) L SOLITARIO MONGE Nov 28, 2016 22:48
[2016-11-28] MEDS: Ertapenem 0.5 GM in NS 55 ML IVPB SCH (22:51)
[2016-11-29] VITALS: BP 137/60
[2016-11-29] MEDS: Renvela 800mg Pkt NG SCH ×4 (00:12→18:42)
[2016-11-29 04:00] VITALS: BP 124/68
[2016-11-29] MEDS: NovoLOG Insulin Flexpen SUBQ SCH ×4 (06:03→18:41)
--- NOTE | 2016-11-29 07:19 | Infectious Diseases Prog Note ---
Assessment/Plan Assessment/Plan A; Proteus sepsis Proteus E. coli Pneumonia with MRSA Sacral stage 4 ulcer Cardiomyopathy Leukocytosis Acute renal failure P: Continue Ertapenem & Vancomycin Subjective ROS Limited/Unobtainable: Yes Gastrointestinal/Abdominal: Reports: diarrhea Neurologic: Reports: confusion, other - on restraint Allergies: Coded Allergies: No Known Allergies (Unverified , 11/20/16) Objective Vital Signs Last 24 Hour Vital Signs Date Time Temp Pulse Resp B/P (MAP) Pulse Ox O2 Delivery O2 Flow Rate FiO2 11/29/16 04:00 98.7 61 20 124/68 93 Nasal Cannula 2.0 11/29/16 04:00 98.7 61 20 124/68 92 Nasal Cannula 2.0 11/29/16 04:00 60 11/29/16 00:00 98.8 60 24 137/60 93 Nasal Cannula 2.0 11/29/16 00:00 61 11/28/16 23:48 62 11/28/16 21:00 98 Nasal Cannula 2.0 28 11/28/16 21:00 Nasal Cannula 2.0 28 11/28/16 20:00 98.0 50 24 143/56 94 Nasal Cannula 2.0 11/28/16 16:00 60 11/28/16 16:00 97.7 86 20 108/72 96 Nasal Cannula 2.0 11/28/16 12:00 97.7 75 16 110/56 99 Nasal Cannula 2.0 11/28/16 11:51 60 11/28/16 08:12 63 11/28/16 08:02 Nasal Cannula 2.0 11/28/16 08:01 97 Nasal Cannula 2.0 11/28/16 08:00 97.7 73 20 124/56 97 Nasal Cannula 2.0 Height (Feet): 5 Weight (Pounds): 160 HEENT: other - O2 by cannula Respiratory/Chest: crackles/rales Cardiovascular: normal rate Abdomen: soft, non tender Extremities: other - edema of arms Skin: ulcers Neurologic/Psychiatric: disoriented, other - opens eyes Current Medications Medications (Trade) Dose Ordered Sig/Chasidy Route PRN Reason Start Time Stop Time Status Last Admin Dose Admin Acetaminophen (Tylenol) 650 mg Q4H PRN GT fever 11/27/16 19:15 12/27/16 19:14 Acetaminophen (Tylenol) 650 mg Q4H PRN RECTAL Mild Pain (Pain Scale 1-3) 11/27/16 19:00 12/20/16 18:59 Dextrose (Dextrose 50%) STAT PRN IV Hypoglycemia 11/27/16 19:00 12/20/16 18:59 Dextrose/Sodium Chloride 1,000 ml @ 50 mls/hr Q20H IV 11/27/16 20:00 12/26/16 19:59 11/28/16 16:11 Epoetin Isauro (Procrit (for non ESRD use)) 10,000 units WED-WED-WED SUBQ 11/30/16 21:00 12/30/16 20:59 Ertapenem 0.5 gm/ Sodium Chloride 55 ml @ 110 mls/hr Q24H IVPB 11/27/16 23:00 12/01/16 22:59 11/28/16 22:51 Insulin Aspart (NovoLOG) EVERY 6 HOURS SUBQ 11/28/16 00:00 12/21/16 00:00 11/29/16 06:03 Levofloxacin 50 ml @ 50 mls/hr Q48H IVPB 11/28/16 17:00 12/05/16 16:59 11/28/16 16:11 Midodrine (Pro-Amatine) 2.5 mg THREE TIMES A DAY NG 11/28/16 09:00 12/26/16 13:29 Polyethylene Glycol (Miralax) 17 gm DAILYPRN PRN ORAL Constipation 11/27/16 19:00 12/27/16 18:59 Ranitidine HCl (Zantac) 150 mg TWICE A DAY NG 11/28/16 18:00 12/28/16 17:59 11/28/16 18:14 Sevelamer Carbonate (Renvela) 1,600 mg Q6HR NG 11/28/16 12:00 12/27/16 12:59 11/29/16 06:04 Sodium Hypochlorite (Dakin's Half Strength) 1 applic DAILY TOPIC 11/28/16 09:00 12/24/16 08:59 11/28/16 09:13 Vancomycin HCl (Vanco rx to dose) 1 ea DAILY PRN MISC Per rx protocol 11/28/16 09:00 12/25/16 19:59 Vancomycin HCl (Vancomycin) 125 mg BID ORAL 11/28/16 11:00 12/05/16 10:59 10/14/17 18:13 BISMARK RIVAS Nov 29, 2016 07:19
[2016-11-29 08:00] VITALS: BP 105/55
[2016-11-29] MEDS: Dakin's 0.25% (Half Strength) 16oz TOPIC SCH (09:21)
[2016-11-29] MEDS: Vancomycin oral 125mg/2.5ml ORAL SCH ×2 (09:23→18:42)
--- NOTE | 2016-11-29 11:12 | General Progress Note ---
Assessment/Plan Status: stable Assessment/Plan 1. Septic shock. 2. Acute kidney injury on chronic renal insufficiency. 3. Failure to thrive. 4. Acute myocardial infarction with non-ST elevation myocardial infarction. 5. Sick sinus syndrome, status post pacemaker. 6. Prostate cancer. 7. Diabetes type 2. 8. Hypertension. 9. Benign prostatic hypertrophy. 10. Gout. 11. Severe cardiomyopathy. 12. Alzheimer dementia. 13. Anemia of chronic kidney disease. 14. DNR Plan; no labs today increase epo K supplement post extubation care add phos binders Tube feeding Mag and K and Phos supplements as needed off Pressors- o midodrine Crowley- per consultants- Poor prognosis- ? transfuse as needed Subjective ROS Limited/Unobtainable: Yes Allergies: Coded Allergies: No Known Allergies (Unverified , 11/20/16) Objective Last 24 Hour Vital Signs Date Time Temp Pulse Resp B/P (MAP) Pulse Ox O2 Delivery O2 Flow Rate FiO2 11/29/16 08:00 98.1 65 16 105/55 98 Nasal Cannula 2.0 11/29/16 07:51 60 11/29/16 07:22 Nasal Cannula 2.0 28 11/29/16 07:22 95 Nasal Cannula 2.0 28 11/29/16 04:00 98.7 61 20 124/68 93 Nasal Cannula 2.0 11/29/16 04:00 98.7 61 20 124/68 92 Nasal Cannula 2.0 11/29/16 04:00 60 11/29/16 00:00 98.8 60 24 137/60 93 Nasal Cannula 2.0 11/29/16 00:00 61 11/28/16 23:48 62 11/28/16 21:00 98 Nasal Cannula 2.0 28 11/28/16 21:00 Nasal Cannula 2.0 28 11/28/16 20:00 98.0 50 24 143/56 94 Nasal Cannula 2.0 11/28/16 16:00 60 11/28/16 16:00 97.7 86 20 108/72 96 Nasal Cannula 2.0 11/28/16 12:00 97.7 75 16 110/56 99 Nasal Cannula 2.0 11/28/16 11:51 60 Intake and Output 11/29/16 11/30/16 19:00 07:00 Intake Total 140 ml Output Total 40 ml Balance 100 ml IV Total 100 ml Tube Feeding 40 ml Output Urine Total 40 ml # Bowel Movements 2 Height (Feet): 5 Weight (Pounds): 160 General Appearance: no apparent distress Objective no other changes FELECIA RASHID Nov 29, 2016 11:12
--- NOTE | 2016-11-29 12:10 | Internal Med Progress Note ---
Subjective Date of Service: Nov 29, 2016 Physician Name PinaTaniya Attending Physician Teddy Quezada MD Current Medications Medications (Trade) Dose Ordered Sig/Chasidy Route PRN Reason Start Time Stop Time Status Last Admin Dose Admin Acetaminophen (Tylenol) 650 mg Q4H PRN GT fever 11/27/16 19:15 12/27/16 19:14 Acetaminophen (Tylenol) 650 mg Q4H PRN RECTAL Mild Pain (Pain Scale 1-3) 11/27/16 19:00 12/20/16 18:59 Dextrose (Dextrose 50%) STAT PRN IV Hypoglycemia 11/27/16 19:00 12/20/16 18:59 Dextrose/Sodium Chloride 1,000 ml @ 50 mls/hr Q20H IV 11/27/16 20:00 12/26/16 19:59 11/28/16 16:11 Epoetin Isauro (Procrit (for non ESRD use)) 10,000 units WED-WED-WED SUBQ 11/30/16 21:00 12/30/16 20:59 Ertapenem 0.5 gm/ Sodium Chloride 55 ml @ 110 mls/hr Q24H IVPB 11/27/16 23:00 12/01/16 22:59 11/28/16 22:51 Insulin Aspart (NovoLOG) EVERY 6 HOURS SUBQ 11/28/16 00:00 12/21/16 00:00 11/29/16 06:03 Levofloxacin 50 ml @ 50 mls/hr Q48H IVPB 11/28/16 17:00 12/05/16 16:59 11/28/16 16:11 Midodrine (Pro-Amatine) 2.5 mg THREE TIMES A DAY NG 11/28/16 09:00 12/26/16 13:29 Polyethylene Glycol (Miralax) 17 gm DAILYPRN PRN ORAL Constipation 11/27/16 19:00 12/27/16 18:59 Ranitidine HCl (Zantac) 150 mg TWICE A DAY NG 11/28/16 18:00 12/28/16 17:59 11/29/16 09:21 Sevelamer Carbonate (Renvela) 1,600 mg Q6HR NG 11/28/16 12:00 12/27/16 12:59 11/29/16 06:04 Sodium Hypochlorite (Dakin's Half Strength) 1 applic DAILY TOPIC 11/28/16 09:00 12/24/16 08:59 11/29/16 09:21 Vancomycin HCl (Vanco rx to dose) 1 ea DAILY PRN MISC Per rx protocol 11/28/16 09:00 12/25/16 19:59 Vancomycin HCl (Vancomycin) 125 mg BID ORAL 11/28/16 11:00 12/05/16 10:59 11/29/16 09:23 Allergies: Coded Allergies: No Known Allergies (Unverified , 11/20/16) ROS Limited/Unobtainable: No Constitutional: Reports: no symptoms HEENT: Reports: no symptoms Cardiovascular: Reports: no symptoms Respiratory: Reports: other - congestion Gastrointestinal/Abdominal: Reports: no symptoms Genitourinary: Reports: no symptoms Neurologic/Psychiatric: Reports: no symptoms Subjective 86 YO M admitted with respiratory failure and sepsis. Cover for Int Med-Dr Quezada . [facility]. Objective Last Vital Signs Date Time Temp Pulse Resp B/P (MAP) Pulse Ox O2 Delivery O2 Flow Rate FiO2 11/29/16 08:00 98.1 65 16 105/55 98 Nasal Cannula 2.0 11/29/16 07:22 28 Microbiology Date/Time Source Procedure Growth Status 11/28/16 10:10 Catheter Site Catheter Tip Culture - Preliminary NO GROWTH Resulted Intake and Output 11/29/16 11/30/16 19:00 07:00 Intake Total 240 ml Output Total 40 ml Balance 200 ml IV Total 200 ml Tube Feeding 40 ml Output Urine Total 40 ml # Bowel Movements 2 Objective General Appearance: WD/WN, lethargic EENT: normal ENT inspection, other - oral intubation Neck: non-tender, normal alignment, supple Cardiovascular: normal peripheral pulses, normal rate, regular rhythm, no gallop/murmur, no JVD Respiratory/Chest: Nasal canula; respiratory distress, crackles/rales, rhonchi - bilaterally, expiratory wheezing Abdomen: normal bowel sounds, non tender, soft, no organomegaly, no mass Skin: normal pigmentation, warm/dry Assessment/Plan Problem List: (1) Sepsis Assessment & Plan: ESBL Proteus Mirabilis. See ID note-Cont Ertapenem (2) UTI (urinary tract infection) Assessment & Plan: ESBL Proteus mirabilis. Follow Inf Dis recs-Cont Meropenem (3) Pneumonia Assessment & Plan: Staph aureus. Continue vanco and Ertapenem per ID (4) Respiratory failure Assessment & Plan: See pulmonary note. (5) Hypotension Assessment & Plan: Due to sepsis. On levophed (6) Renal failure Assessment & Plan: See nephrology note. (7) Diabetes mellitus, type II Assessment & Plan: Cont novolog sliding scale. (8) HTN (hypertension) Assessment & Plan: Currently hypotensive (9) CHF (congestive heart failure) (10) Cardiomyopathy, ischemic (11) Prostate cancer (12) Sick sinus syndrome Assessment & Plan: S/P pacemaker (13) Pacemaker (14) Anemia of renal disease (15) Alzheimer's dementia (16) Septic shock (17) Lactic acid acidosis (18) Altered mental status (19) NSTEMI (non-ST elevated myocardial infarction) Assessment & Plan: see cardiology note. (20) Hyponatremia Assessment & Plan: See nephrology note. (21) Decubitus ulcer of sacral region, stage 3 Assessment & Plan: See plastic surg note-unstable for debridement. (22) SOB (shortness of breath) Assessment & Plan: Pulmonary toilet. Elijahoneb scheduled q 6hr for congestion TANIYA PINA Nov 29, 2016 12:10
--- NOTE | 2016-11-29 12:20 | Pulmonology Progress Note ---
Assessment/Plan Assessment/Plan ASSESSMENT acute respiratory failure requiring intubation s/p extubation septic shock sepsis acute toxic metabolic encephalopathy 2 to sepsis and acute renal failure on chronic dementia bacteremia with proteus ESBL ( due to UTI) UTI with ESBL Proteus HCAP Acute renal failure on chronic renal insufficiency. Acute myocardial infarction with non-ST elevation myocardial infarction. Severe cardiomyopathy with EF 20% Sick sinus syndrome, status post pacemaker. Anemia of chronic renal disease Prostate cancer. Diabetes type 2. Sacral decub st 4/unstageable, POA Dysphagia Alzheimer dementia Benign prostatic hypertrophy. Gout. Thrombocytopenia PLAN OF CARE [facility] extubated off pressors hemodynamically stable on Midodrine now DNR Abx ID follows, repeated blood cx negative, cath tip preliminary negative, stool C dif negative O2 HHN prn fup with CXR in am strict aspiration precautions, NGT feeding family declined G tube placement Acute renal failure improving, renal US c/w increased echogenicity of kidneys due to probable medical renal disease Nephro follows monitor renal, lytes, avoid nephrotoxic gentle IV hydration cardio follows family declined battery change on pacemaker( even though aware it has nearly end of life) cardio and EP follow troponin x 2 elevated, likely NSTEMI conservative treatment ECHO with EF 20% off BB and ZELALEM due to acute renal failure as per cardio With A fib rate controlled, no a/coagulation due to bleeding Plastic surgeon seen and evaluated, poor candidate for debridement BS management with SS of insulin wound care as per wound nurse recommendations monitor HH, at baseline, on EPO GI prophylaxis bowel regimen case discussed and evaluated by supervising physician Subjective Allergies: Coded Allergies: No Known Allergies (Unverified , 11/20/16) Subjective denies chest pain, SR on tele no signs of respiratory distress leukocytosis with trend up yesterday labs pending for this am Objective Last 24 Hour Vital Signs Date Time Temp Pulse Resp B/P (MAP) Pulse Ox O2 Delivery O2 Flow Rate FiO2 11/29/16 12:03 70 18 Nasal Cannula 2.0 28 11/29/16 08:00 98.1 65 16 105/55 98 Nasal Cannula 2.0 11/29/16 07:51 60 11/29/16 07:22 Nasal Cannula 2.0 28 11/29/16 07:22 95 Nasal Cannula 2.0 28 11/29/16 04:00 98.7 61 20 124/68 93 Nasal Cannula 2.0 11/29/16 04:00 98.7 61 20 124/68 92 Nasal Cannula 2.0 11/29/16 04:00 60 11/29/16 00:00 98.8 60 24 137/60 93 Nasal Cannula 2.0 11/29/16 00:00 61 11/28/16 23:48 62 11/28/16 21:00 98 Nasal Cannula 2.0 28 11/28/16 21:00 Nasal Cannula 2.0 28 11/28/16 20:00 98.0 50 24 143/56 94 Nasal Cannula 2.0 11/28/16 16:00 60 11/28/16 16:00 97.7 86 20 108/72 96 Nasal Cannula 2.0 Intake and Output 11/29/16 11/30/16 19:00 07:00 Intake Total 240 ml Output Total 40 ml Balance 200 ml IV Total 200 ml Tube Feeding 40 ml Output Urine Total 40 ml # Bowel Movements 2 Objective General Appearance: no acute distress, awake, poorly but responsive elderly bedridden male HEENT: normocephalic, atraumatic, anicteric, O2 via NC, NGT Respiratory/Chest: no respiratory distress, decreased breath sounds Cardiovascular: normal rate, regular rhythm - SR with BBB on tele , no JVD Extremities: no edema Neurologic/Psychiatric: abnormal gait - bedridden , open eyes spontaneously, poorly but responsive Musculoskeletal: atrophy - BLE Microbiology Date/Time Source Procedure Growth Status 11/28/16 10:10 Catheter Site Catheter Tip Culture - Preliminary NO GROWTH Resulted Current Medications Medications (Trade) Dose Ordered Sig/Chasidy Route PRN Reason Start Time Stop Time Status Last Admin Dose Admin Acetaminophen (Tylenol) 650 mg Q4H PRN GT fever 11/27/16 19:15 12/27/16 19:14 Acetaminophen (Tylenol) 650 mg Q4H PRN RECTAL Mild Pain (Pain Scale 1-3) 11/27/16 19:00 12/20/16 18:59 Albuterol/ Ipratropium (DuoNeb 0.5-3(2.5)mg/3ml) 3 ml Q6HRT HHN 11/29/16 13:00 12/04/16 12:59 Dextrose (Dextrose 50%) STAT PRN IV Hypoglycemia 11/27/16 19:00 12/20/16 18:59 Dextrose/Sodium Chloride 1,000 ml @ 50 mls/hr Q20H IV 11/27/16 20:00 12/26/16 19:59 11/28/16 16:11 Epoetin Isauro (Procrit (for non ESRD use)) 10,000 units WED-WED-WED SUBQ 11/30/16 21:00 12/30/16 20:59 Ertapenem 0.5 gm/ Sodium Chloride 55 ml @ 110 mls/hr Q24H IVPB 11/27/16 23:00 12/01/16 22:59 11/28/16 22:51 Insulin Aspart (NovoLOG) EVERY 6 HOURS SUBQ 11/28/16 00:00 12/21/16 00:00 11/29/16 06:03 Levofloxacin 50 ml @ 50 mls/hr Q48H IVPB 11/28/16 17:00 12/05/16 16:59 11/28/16 16:11 Midodrine (Pro-Amatine) 2.5 mg THREE TIMES A DAY NG 11/28/16 09:00 12/26/16 13:29 Polyethylene Glycol (Miralax) 17 gm DAILYPRN PRN ORAL Constipation 11/27/16 19:00 12/27/16 18:59 Ranitidine HCl (Zantac) 150 mg TWICE A DAY NG 11/28/16 18:00 12/28/16 17:59 11/29/16 09:21 Sevelamer Carbonate (Renvela) 1,600 mg Q6HR NG 11/28/16 12:00 12/27/16 12:59 11/29/16 06:04 Sodium Hypochlorite (Dakin's Half Strength) 1 applic DAILY TOPIC 11/28/16 09:00 12/24/16 08:59 11/29/16 09:21 Vancomycin HCl (Vanco rx to dose) 1 ea DAILY PRN MISC Per rx protocol 11/28/16 09:00 12/25/16 19:59 Vancomycin HCl (Vancomycin) 125 mg BID ORAL 11/28/16 11:00 12/05/16 10:59 11/29/16 09:23 Lexa ParsonshteinJennifer Mcarthur NP Nov 29, 2016 12:20
[2016-11-29] MEDS: D5NS 1,000 ML IV SCH (12:55)
[2016-11-29] MEDS: Albuterol/Ipratropium 3ml neb HHN SCH ×2 (14:29→19:15)
[2016-11-29 16:00] VITALS: BP 124/51
[2016-11-29 16:57] LABS: ALANINE AMINOTRANSFERASE 12 U/L (12-78); ALBUMIN/GLOBULIN RATIO 0.7 (1.0-2.7); ANION GAP 17 (5-15); ASPARTATE AMINO TRANSFERASE 24 U/L (15-37); CALCIUM 7.8 MG/DL (8.5-10.1); CARBON DIOXIDE 14 MMOL/L (21-32); CHLORIDE 111 MMOL/L (98-107); CREATININE 3.8 MG/DL (0.55-1.30); POTASSIUM 5.3 MMOL/L (3.5-5.1); SODIUM 142 MMOL/L (136-145); TOTAL PROTEIN 4.3 G/DL (6.4-8.2)
[2016-11-29 17:13] LABS: MAGNESIUM 2.1 MG/DL (1.5-2.4); PHOSPHORUS 5.8 MG/DL (2.5-4.9)
--- NOTE | 2016-11-29 19:44 | Cardiology Progress Note ---
Assessment/Plan Assessment/Plan ischemic CMP sepsis a fib pacemaker respiratory insufficiency CHF his labs today were not drawn, nurse could not get blood will follow on labs tomorrow Subjective Subjective the patient was seen at 10 am. He has his eyes open, but he does not rect prroperly to verbal or physical stimuli Objective Last 24 Hour Vital Signs Date Time Temp Pulse Resp B/P (MAP) Pulse Ox O2 Delivery O2 Flow Rate FiO2 11/29/16 19:22 91 22 96 Nasal Cannula 2.0 11/29/16 19:15 99 Nasal Cannula 2.0 28 11/29/16 19:15 90 21 99 Nasal Cannula 2.0 11/29/16 19:15 Nasal Cannula 2.0 28 11/29/16 16:00 74 11/29/16 16:00 97.5 81 20 124/51 93 Nasal Cannula 2.0 11/29/16 14:34 76 22 96 Nasal Cannula 2.0 11/29/16 14:30 70 21 95 Nasal Cannula 2.0 11/29/16 12:03 70 18 Nasal Cannula 2.0 28 11/29/16 08:00 98.1 65 16 105/55 98 Nasal Cannula 2.0 11/29/16 07:51 60 11/29/16 07:22 Nasal Cannula 2.0 28 11/29/16 07:22 95 Nasal Cannula 2.0 28 11/29/16 04:00 98.7 61 20 124/68 93 Nasal Cannula 2.0 11/29/16 04:00 98.7 61 20 124/68 92 Nasal Cannula 2.0 11/29/16 04:00 60 11/29/16 00:00 98.8 60 24 137/60 93 Nasal Cannula 2.0 11/29/16 00:00 61 11/28/16 23:48 62 11/28/16 21:00 98 Nasal Cannula 2.0 28 11/28/16 21:00 Nasal Cannula 2.0 28 11/28/16 20:00 98.0 50 24 143/56 94 Nasal Cannula 2.0 General Appearance: lethargic, other - very sick appearing EENT: PERRL/EOMI Neck: JVD Rhythm: PACs, Afib, other - ventricular pacing Cardiovascular: other - paced Respiratory/Chest: crackles/rales, rhonchi - bilaterally Abdomen: soft Extremities: other Intake and Output 11/29/16 11/30/16 19:00 07:00 Intake Total 440 ml Output Total 240 ml Balance 200 ml IV Total 400 ml Tube Feeding 40 ml Output Urine Total 240 ml # Bowel Movements 4 Laboratory Tests Test 11/29/16 15:30 Sodium Level 142 MMOL/L (136-145) Potassium Level 5.3 MMOL/L (3.5-5.1) H Chloride Level 111 MMOL/L (98-107) H Carbon Dioxide Level 14 MMOL/L (21-32) L Anion Gap 17 (5-15) H Blood Urea Nitrogen 130 mg/dL (7-18) H Creatinine 3.8 MG/DL (0.55-1.30) H Estimat Glomerular Filtration Rate mL/min (>60) Glucose Level 140 MG/DL (74-106) H Calcium Level 7.8 MG/DL (8.5-10.1) L Phosphorus Level 5.8 MG/DL (2.5-4.9) H Magnesium Level 2.1 MG/DL (1.5-2.4) Total Bilirubin 1.0 MG/DL (0.2-1.0) Aspartate Amino Transf (AST/SGOT) 24 U/L (15-37) Alanine Aminotransferase (ALT/SGPT) 12 U/L (12-78) Alkaline Phosphatase 59 U/L (46-116) Pro-B-Type Natriuretic Peptide > 69000 (0-125) H Total Protein 4.3 G/DL (6.4-8.2) L Albumin 1.8 G/DL (3.4-5.0) L Globulin 2.5 g/dL Albumin/Globulin Ratio 0.7 (1.0-2.7) L Random Vancomycin Level 18.0 ug/mL Microbiology Date/Time Source Procedure Growth Status 11/28/16 10:10 Catheter Site Catheter Tip Culture - Preliminary NO GROWTH Resulted SOLITARIO MONGE Nov 29, 2016 19:44
[2016-11-29 19:50] VITALS: BP 123/74
[2016-11-29] MEDS ORDERED: Sodium Polystyrene Sulfonate Enema RECTAL ONE (20:00)
[2016-11-29] MEDS ORDERED: Tubing IV Secondary IV ONE ×3 (20:09)
[2016-11-29] MEDS ORDERED: D5NS 1000ml IV ONE (20:09)
[2016-11-30] MEDS ORDERED: Vancomycin 1gm/D5W 275ml IVPB ONE ×2 (09:00)
[2016-11-30] MEDS ORDERED: Lidocaine 1% Plain 30 ml INJ ONE (12:15)
[2016-11-30] MEDS ORDERED: Heparin 2000 units/Ns 1000ml INJ ONE (12:15)
[2016-11-30] MEDS ORDERED: Dyna-Hex 2% Top Sol 2oz TOPIC SCH (20:00)
[2016-11-30] MEDS ORDERED: Epogen (for non ESRD use) SUBQ SCH (21:00)
--- NOTE | 2016-12-01 09:07 | Discharge Summary ---
Discharge Summary Hospital Course Date of Admission Nov 20, 2016 at 14:53 Date of Discharge Nov 29, 2016 at 20:10 Admitting Diagnosis septic shock/ AMS HPI Pedrito Valdes is a 86 year old male who was admitted on Nov 20, 2016 at 14:53 for Septic Shock, Altered Mental Status Hospital Course summary #[id number] Discharge Discharge Disposition Patient Discharge Diagnoses: Lexa (Marilinced),Jennifer GARCIA Dec 01, 2016 09:07
--- NOTE | 2016-12-02 03:45 | Discharge Summary 2 SIG ---
SUMMARY DATE OF ADMISSION: 11/20/2016 DATE OF EXPIRATION: 11/29/2016 REASON FOR ADMISSION: 86-year-old male was brought for altered level of consciousness. In the emergency department, the patient was found to be hypotensive, given 500 mL bolus, without improvement. Due to concern for possible fluid overload due to known cardiac history , no additional fluid was given. Central line was placed for pressors. The patient was afebrile. The patient was hypoxemic, initially improved on 100% nonrebreathing mask, but then continued to desaturate. Initially, family wanted everything to be done. Patient was subsequently required urgent intubation. CT of the head revealed no acute intracranial pathology. Laboratory workup with severe leukocytosis. WBC in the 40s, hemoglobin -8.5. Elevated potassium-5.9 . Elevated BUN-167 and creatinine-6.3. Renal history at that time was unknown. Troponin was elevated - 2.115. EKG showed AV paced rhythm. Hyperkalemia was treated with hyperkalemia protocol. The patient was pancultured and started on empiric antibiotics. The patient was diagnosed with sepsis, UTI, acute renal failure, hyperkalemia, altered level of consciousness. Patient was admitted to ICU . HOSPITAL COURSE: The patient was admitted to ICU. Ventilator support and pulmonary toilet were provided. Daily ABG done, settings titrated as needed. The patient was started on empiric antibiotics. ID closely followed. Antibiotic regimen optimized based on culture and sensitivity. Urine culture revealed Proteus with ESBL. Blood culture revealed Proteus ESBL. Influenza screen was negative. Sputum culture revealed Staph aureus and Ellen. Repeated urine culture still with Proteus ESBL. Repeated blood culture on 11/23/2016 were negative. Stool for C. difficile was negative. Catheter tip culture was negative. The patient was started on pressor for hemodynamic support. Cardiology consult was requested. The patient was placed on anti-platelet agent. The patient subsequently was able to be weaned off pressors and was started on midodrine. Patient was hemodynamically stable with midodrine. Stool OB was negative. The patient subsequently was made DNR per family request. The patient was able to be extubated. Patient was able to be weaned off pressor. Patient was on supplemental oxygen and transferred to [facility] for further management. At that time code status changed to DNR/DNI as per family wishes. The patient continued to have persistent leukocytosis. Antibiotic regimen optimized, but leukocytosis persisted. Strict aspirations/reflux precautions were maintained. Family declined G-tube placement. NG-tube was placed. The patient was started on feeding via NG tube. Acute renal failure was improving. Renal ultrasound was consistent with increased echogenicity of bilateral kidneys likely due to medical renal disease. Hand Sewer Shoes closely followed. Renal parameters and electrolytes were monitored. Nephrotoxics were avoided. The patient with only gentle IV hydration due to the evidence of ischemic cardiomyopathy. Ejection fraction 20% on echocardiogram. Dry House Operator and arts and crafts instructor were both closely followed. The family declined battery change of pacemaker even though they were aware it was nearly end of life. Troponin x2 was elevated due to likely non-STEMI. Dry House Operator recommended conservative treatment considering poor prognosis overall. The patient was off beta-justen and ZELALEM inhibitor due to acute renal failure as per fulfillment representative. During the stay in the [facility], noted new atrial fibrillation, rate was controlled, however, no anticoagulation due to bleeding. Plastic surgeon seen the patient due to the stage 4/un-stageable decubitus ulcer on sacral area, present on admission. Per plastic surgeon, the patient was a poor candidate for debridement. Blood sugar was managed with a sliding scale of insulin. Wound care provided as per wound care nurse recommendation. Hemoglobin and hematocrit were closely monitored and were on the baseline. The patient was continued on Epogen. GI prophylaxis provided. Bowel regimen instituted. On 11/29/2016, patient had a high residual, tube feeding was on hold. He subsequently became congested, was suctioned. Patient vomited nonbloody and non-biliary emesis, was medicated with Zofran. Vomiting stopped. However, at 20:10, noted asystole on the monitor. The patient had no pulses, no respiration. Patient was pronounced at 20:10 on 11/29/2016. Cause of , cardiopulmonary arrest. FINAL DIAGNOSES: 1. Acute respiratory failure, requiring intubation, status post extubation. 2. Septic shock. 3. Sepsis. 4. Acute toxic metabolic encephalopathy, secondary to sepsis and acute renal failure on chronic. 5. Alzheimer dementia. 6. Bacteremia with Proteus extended spectrum beta-lactamases (due to urinary tract infection). 7. Urinary tract infection with extended spectrum beta-lactamases Proteus. 8. Healthcare-associated pneumonia with Staphylococcus aureus. 9. Acute non-ST elevation myocardial infarction. 10. Acute renal failure on chronic renal insufficiency. 11.Hyperkalemia 12. Severe ischemic cardiomyopathy with ejection fraction of 20%. 13. Sick sinus syndrome, status post pacemaker. 14. New onset of atrial fibrillation. 15. Anemia of chronic renal disease. 16. Prostate cancer, status post radiation. 17. Diabetes mellitus, type 2. 18. Sacral decubitus, stage 4/un-stageable, present on admission. 19. Dysphagia. 20. Thrombocytopenia. 21. Benign prostatic hypertrophy. Platelets continued to trend down. The patient was off heparin. Platelets were closely monitored. Last platelet count - 68. The patient was off any medication causing thrombocytopenia, concern was for possible ITP. DIC workup was ordered but not done due to the patient's expiration. Teddy Quezada M.D. Jennifer MedranoLong Island Community HospitalBlue N.PKellie DR: JOHNNY JOB#: [id number] CC: CARLOS
== END 2016-11-29 20:10 | disposition expired | DRG 870 ==
LOC: EDBD 13:33 → EMR 14:45 → EDBEDREQSVC 14:52 → EDBEDREQ 14:52 → ICU 14:53 → EDBEDREQ 14:53 → 2W 11-27 19:52
PROC: 5A1955Z Respiratory Ventilation, Greater than 96 Consecutive Hours (ICD-10-PCS; principal; 2016-11-20)
PROC: 0BH17EZ Insertion of Endotracheal Airway into Trachea, Via Natural or Artificial Opening (ICD-10-PCS; principal; 2016-11-20)
PROC: 06HM33Z Insertion of Infusion Device into Right Femoral Vein, Percutaneous Approach (ICD-10-PCS; principal; 2016-11-20)
DX: A41.89 Other specified sepsis (principal); I21.4 Non-ST elevation (NSTEMI) myocardial infarction; J96.01 Acute respiratory failure with hypoxia; R65.21 Severe sepsis with septic shock; G92 Toxic encephalopathy; I50.23 Acute on chronic systolic (congestive) heart failure; J15.212 Pneumonia due to Methicillin resistant Staphylococcus aureus; L89.154 Pressure ulcer of sacral region, stage 4; N17.9 Acute kidney failure, unspecified; I13.0 Hypertensive heart and chronic kidney disease with heart failure and stage 1 through stage 4 chronic kidney disease, or unspecified chronic kidney disease; I42.9 Cardiomyopathy, unspecified; N18.5 Chronic kidney disease, stage 5; E87.0 Hyperosmolality and hypernatremia; N39.0 Urinary tract infection, site not specified; I13.2 Hypertensive heart and chronic kidney disease with heart failure and with stage 5 chronic kidney disease, or end stage renal disease; E87.2 Acidosis; L03.312 Cellulitis of back [any part except buttock and flank]; R13.10 Dysphagia, unspecified; D63.1 Anemia in chronic kidney disease; E87.5 Hyperkalemia; Z95.0 Presence of cardiac pacemaker; G30.9 Alzheimer's disease, unspecified; F02.80 Dementia in other diseases classified elsewhere, unspecified severity, without behavioral disturbance, psychotic disturbance, mood disturbance, and anxiety; E11.22 Type 2 diabetes mellitus with diabetic chronic kidney disease; I25.5 Ischemic cardiomyopathy; I25.10 Atherosclerotic heart disease of native coronary artery without angina pectoris; E05.00 Thyrotoxicosis with diffuse goiter without thyrotoxic crisis or storm; C61 Malignant neoplasm of prostate; N40.0 Benign prostatic hyperplasia without lower urinary tract symptoms; R62.7 Adult failure to thrive; Z66 Do not resuscitate; I48.91 Unspecified atrial fibrillation; D69.6 Thrombocytopenia, unspecified
CPT/HCPCS: 36415; 36600; 70450; 71010; 71250; 74000; 74176; 76775; 80053; 80076; 80150; 80202; 81001; 81003; 82248; 82270; 82378; 82550; 82553; 82607; 82728; 82746; 82803; 82962; 82977; 83540; 83550; 83605; 83615; 83735; 83880; 84100; 84133; 84300; 84484; 84550; 85007; 85025; 85044; 85060; 85610; 85651; 85730; 86140; 86710; 86850; 86900; 86901; 86920; 87040; 87070; 87081; 87086; 87181; 87205; 87324; 89050; 93005; 93306; 93970; 94002; 94003; 94640; 94664; 94760; 99291; J1815; J2405; J7620